=== PATIENT | female | born 1965 | race Caucasian/White ===

== ENCOUNTER 2023-08-24 14:16 | Emergency (ER) | payer OTHER ==
--- OUTSIDE RECORDS SUMMARY | 2023-08-24 14:30 | XMS REPORT | Continuity of Care Document ---
:1965 Author Organization [facility] t Address [address] [place] [address] [place] [id number] Care Team Providers Name Role Phone Sanjuana Rock Primary Care Physician Sue Attending Clinician Unavailable Patrick Hodges DO Attending Clinician Luisa Fraire Attending Clinician Unavailable Pranav GLOVE SEWER, Sanjuana Garcia Attending Clinician Rafaela Chawla MD Attending Clinician [phone] Doctor Unassigned, [place] Attending Clinician Unavailable ALIDA MOSHER Attending Clinician Unavailable Alida Mosher MD Attending Clinician Jenni Daugherty RN Attending Clinician Unavailable RAFAELA CHAWLA Attending Clinician Unavailable CHINEDU BREWER Attending Clinician Unavailable Chinedu Brewer MD Attending Clinician [phone] MINDA CLAIRE Attending Clinician Unavailable Minda Claire MD Attending Clinician Chinedu Davis MD Attending Clinician SAMANTHA CAMPOVERDE Attending Clinician Unavailable Samantha Arzate Attending Clinician Thalia Jiang RN Attending Clinician TONY AZEVEDO Attending Clinician Unavailable Cuca Go Attending Clinician Tony Azevedo MD Attending Clinician DAVIS MCNEIL Attending Clinician Unavailable Davis Wheeler Attending Clinician Adriana_Pena Admitting Clinician Unavailable ALIDA MOSHER Admitting Clinician Unavailable RAFAELA CHAWLA Admitting Clinician Unavailable Rafaela Chawla MD Admitting Clinician [phone] CHINEDU BREWER Admitting Clinician Unavailable Chinedu Brewer MD Admitting Clinician [phone] MINDA CLAIRE Admitting Clinician Unavailable SAMANTHA CAMPOVERDE Admitting Clinician Unavailable TONY AZEVEDO Admitting Clinician Unavailable Tony Azevedo MD Admitting Clinician Payers Payer Name Policy Type Policy Number Effective Date Expiration Date Daniella PATEL ([facility] [place] [id number] 2020 00:00:00 Problems Condition Condition Condition Status Onset Resolution Last Treating Co mments Source Name Details Category Date Date Treatment Clinician Date 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 Epilepsy 00:00: ty 00 [facility] Seizure Seizure Problem Active 2022-10 [place] disorder Disorder 0-05 Commun i 00:00: ty 00 [facility] Chronic Chronic Problem Active 2022-10 [place] pain Pain 0-03 Communi 00:00: ty 00 [facility] Conversati Conversati Problem Active 2022-10 S ween[place] onal onal 0-03 Communi disorder Disorder 00:00: ty 00 [facility] Migraine Migraine Problem Active Sween y 9-18 Communi 00:00: ty 00 [facility] 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 nonepilept [place]pilept [place] ic seizure 00 Me dical Branch Hammer toe Hammer Toe Problem Active S weeny 6-26 Communi 00:00: ty 00 [facility] History of History of Problem Active S weeny idiopathic Idiopathic 6-26 Co mmuni intracrani Intracrani 00:00: ty al al 00 Hospita hypertensi Hypertensi l on on Clinics Mixed Mixed Problem Active [place] hyperlipid Hyperlipid 6-23 Co mmuni emia emia 00:00: ty 00 [facility] Dilated Dilated Problem Active [place] cardiomyop Cardiomyop 6-23 Co mmuni athy athy 00:00: ty 00 [facility] Atrial Atrial Problem Active [place] fibrillati Fibrillati 6-23 Co mmuni on on 00:00: ty 00 [facility] Hydronephr Hydronephr Problem Active S lucie osis osis 5-17 Communi 00:00: ty 00 [facility] Acute Acute Disease Active Univers cystitis cystitis 4-20 ity of with with 00:00: [place] hematuria hematuria 00 Medi yemi Branch Monitoring Monitoring Problem Active S weeny of of 406 Communi pacemaker Pacemaker 00:00: ty 00 [facility] Hypothyroi Hypothyroi Problem Active S lucie dism dism 4-06 Communi 00:00: ty 00 [facility] Vitamin D Vitamin D Problem Active [place] ketan deficiency Deficiency 4-06 Co mmuni 00:00: ty 00 [facility] Morbid Morbid Problem Active [place] obesity Obesity 4-06 Communi 00:00: ty 00 [facility] Generalize Generalize Problem Active S clevelandeny d anxiety d Anxiety 4-06 Comm uni disorder [facility]:00[facility] Depressive Depressive Problem Active S weeny disorder Disorder 4-06 Commun i 00:00: ty 00 [facility] Obstructiv Obstructiv Problem Active S lucie e sleep e Sleep 4-06 Communi apnea Apnea 00:00: ty syndrome Syndrome 00 Hospit a l Clinics 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[place] bradycardi Bradycardi 4-06 Co mmuni a a 00:00: ty [facility] Congestive Congestive Problem Active S shalomy heart Heart 4-06 Communi failure Failure 00:00: ty 00 [facility] Pulmonary Pulmonary Problem Active Swe ketan emphysema Emphysema 4-06 Comm uni 00:00: ty 00 [facility] Asthma Asthma Problem Active [place] 4-06 Communi 00:00: ty 00 [facility] Kidney Kidney Problem Active [place] stone Stone 01-08 Communi 00:00: ty 00 [facility] Degenerati Degenerati Problem Active S weeny on of on of 01-08 Communi cervical Cervical 00:00: ty interverte Interverte 00 Ho spita bral disc bral Disc l Clinics Neurologic Neurologic Problem Active S weeny al pain al Pain 01-08 Communi disorder Disorder 00:00: ty 00 [facility] Morbid Morbid Disease Active Univers obesity obesity 3-21 ity of with body with body 00:[place] mass index mass index 00 Me dical of of Branch 40.0-49.9 40.0-49.9 Flank pain Flank pain Disease Active U nivers 3-20 ity of 00:00: [place] [facility] Ureteral Ureteral Disease Active Overview: Un monique stone with stone with 3-20 Formattin ity of hydronephr hydronephr 00:00: g of this [place] osis osis 00 note Medical might be Branch different from the original. Added automatic ally from request for surgery [id number] Depression Depression Disease Active U nivers 7-14 ity of 00:00: [place] [facility] Asthma Asthma Disease Active Univers 5-11 ity of 00:00: [place] [facility] Pulmonary Pulmonary Disease Active Uni vers emphysema emphysema 4-08 ity of 00:00: [place] [facility] Sinus Sinus Disease Active 2020-10 Univers bradycardi bradycardi 2-23 it y of a a 00:00: [place] [facility] Severe Severe Disease Active Univers persistent persistent 7-22 it y of asthma asthma 00:00: [place] with with 00 Medical exacerbati exacerbati Br anch on on Obstructiv Obstructiv Disease Active U nivers e sleep e sleep 5-12 ity of apnea apnea 00:00: [place] syndrome syndrome 00 Medica l Branch Chest pain Chest pain Disease Active U nivers 5-11 ity of 00:00: [place] [facility] Hypothyroi Hypothyroi Disease Active U nivers dism dism 4-22 ity of 00:00: [place] 00 Medical Branch Chronic Chronic Disease Active 2019-10 Univers combined combined 1-21 ity of systolic systolic 00:00: [place] and and 00 Medical diastolic diastolic Bran ch heart heart failure failure PAF PAF Disease Active Univers (paroxysma (paroxysma 8- it y of l atrial l atrial 00:00: [place] fibrillati fibrillati 00 Me dical on) on) Branch Observed Observed Disease Active 2017-10 Overview: Un monique seizure-li seizure-li 0- Formattin ity of ke ke 00:00: g of this [place] activity activity 00 note Medica l might be Branch different from the original. Formattin g of this note might be different from the original. Pseudo seizures PATY PATY Disease Active Univers (generaliz (generaliz 6-29 it y of ed anxiety ed anxiety 00:[place] disorder[place] disorder) 00 Medi yemi Branch Benign Benign Disease Active Univers intracrani intracrani 5-21 it y of al al 00:00: [place] hypertensi hypertensi 00 Me dical on on Branch Chronic Chronic Disease Active Univers pain pain 4-13 ity of disorder disorder 00:00: [place] 00 Medical Branch Vitamin D Vitamin D Disease Active 2014-10 Uni vers deficiency deficiency 0-19 it y of 00:00: [place] [facility] Obesity, Obesity, Disease Active Unive rs unspecifie unspecifie 6-05 it y of d d 00:00: [place] 00 Medical Branch Class 3 Class 3 Disease Active Univers severe severe 6-05 ity of obesity obesity 00:00: [place] due to due to 00 Medical excess excess Branch calories calories without without serious serious comorbidit comorbidit y in adult y in adult Degenerati Degenerati Disease Active U nivers on of on of 06-26 ity of cervical cervical 00:00: [place] interverte interverte 00 Me dical bral disc bral disc Bran ch Conversion Conversion Disease Active U nivers disorder disorder 8-23 ity of 00:00: [place] 00 Medical Branch Dysarthria Dysarthria Disease Active U nivers 8-23 ity of 00:00: Medical Branch Conversion Conversion Disease Active U nivers disorder disorder 8-23 ity of 00:00: Medical Branch Allergies, Adverse Reactions, Alerts Allergy Allergy Status Severity Reaction(s) Onset Inactive Treating Comm ents Source Name Type Date Date Clinician Sulfa Propensi Active Anaphylaxis 2022-10 Met [facility]odi (Sulfona ty to 0-09 st mide adverse 00:00: Hospita Antibiot reaction 00 l ics) s to drug Buprenor Propensi Active Hives 2022-10 Method i phine ty to 0-09 st adverse 00:00: Hospita reaction 00 l s to drug Ascorbic Propensi Active Hives 2022-10 Method i Acid ty to 0-09 st (Vitamin adverse 00:00: Hospita C) reaction 00 l s to drug Penicill Propensi Active Anaphylaxis 2022-10 M ethodi ins ty to 0-09 st adverse 00:00: Hospita reaction 00 l s to drug CIPROFLO DRUG Active Hives Univers XACIN INGREDI 4-20 ity of 00:00: [place] 00 Medical Branch Ciproflo Propensi Active Hives Univer s xacin ty to 4-20 ity of adverse 00:00: [place] reaction 00 Medical s Branch LATEX DRUG Active Other-Cmnt 0 Univer s INGREDI 3-20 ity of 00:00: [place] 00 Medical Branch PINEAPPL DRUG Active Other-Cmnt 2022-0 Univ ers E INGREDI 3-20 ity of 00:00: [place] 00 Medical Branch PENICILL Drug Active Other-Cmnt 0 Univ ers INS Class 3-20 ity of 00:00: [place] 00 Medical Branch CEFACLOR DRUG Active Other-Cmnt 2022-0 Univ ers INGREDI 3-20 ity of 00:00: [place] 00 Medical Branch CEPHALEX DRUG Active Other-Cmnt 2022-0 Univ ers IN INGREDI 3-20 ity of 00:00: [place] 00 Medical Branch ANTIFUNG Drug Active Rash 0 Univers AL - Class 3-20 ity of IMIDAZOL 00:00: [place] E 00 Medical Branch ATROPINE DRUG Active Other-Cmnt 2022-0 Univ ers -DEMEROL 3-20 ity of 00:00: [place] 00 Medical Branch BEE DRUG Active Other-Cmnt Univer s STING / INGREDI 3-20 ity of VENOM 00:00: [place] 00 Medical Branch SULFA DRUG Active Other-Cmnt Univer s DYNE 3-20 ity of 00:00: [place] 00 Medical Branch Antifung Drug Active Rash Univers al - Allergy 3-20 ity of Imidazol 00:00: [place] e 00 Medical Branch Atropine Propensi Active Other - See U nivers -Demerol ty to comments 3-20 ity of adverse 00:00: [place] reaction 00 Medical s Branch Bee Propensi Active Other - See Uni vers Sting / ty to comments 3-20 ity of Venom adverse 00:00: [place] reaction 00 Medical s Branch Sulfa Propensi Active Other - See Uni vers Dyne ty to comments 3-20 ity of adverse 00:00: [place] reaction 00 Medical s Branch AMIODARO DRUG Active Dizziness 2020-10 Unive rs NE HCL INGREDI 2-06 ity of 00:00: [place] 00 Medical Branch NITROFUR DRUG Active Rash 2020-10 Univers ANTOIN INGREDI 2-06 ity of 00:00: [place] 00 Medical Branch Amiodaro Drug Active Dizziness 2020-10 Other Unive rs ne Hcl Allergy 2-06 reaction( ity of 00:00: s): [place] 00 vision Medical changes, Branch Vision Problems Nitrofur Drug Active Rash 2020-10 Univers antoin Intolera 2-06 ity of nce 00:00: [place] 00 Medical Branch PINEAPPL DRUG Active Other-Cmnt Univ ers E INGREDI 06-13 ity of 00:00: [place] 00 Medical Branch Bee Propensi Active Anaphylaxis Uni vers Venom ty to 06-13 ity of Protein adverse 00:00: [place] (Honey reaction 00 Medical Bee) s Branch BEE DRUG Active High Anaphylaxis 2019- Unive rs VENOM INGREDI 06-13 ity of PROTEIN 00:00: [place] (HONEY 00 Medical BEE) Branch Pineappl Drug Active Swelling Tongue Univer s e Allergy 06-13 swellingT ity of 00:00: ongue [place] swelling Medical Branch WARFARIN DRUG Active High Unknown-Cmnt Un monique INGREDI 9-03 ity of 00:00: [place] 00 Medical Branch Warfarin Propensi Active Unknown - Severe Uni vers ty to See comments 06-07 swelling, i ty of adverse 00:00: skin [place] reaction 00 "turns Medical s purple" Branch Buprenor Drug Active Shortness of 2018-10 Other Un monique phine Allergy Breath 0-15 reaction( ity of 00:00: s): rash Medical Branch BUPRENOR DRUG Active High Rash 2018-10 Univers PHINE INGREDI 0-15 ity of 00:00: [place] [facility] IODINE DRUG Active High Rash Univers INGREDI 7-30 ity of 00:00: [place] 00 Medical Branch Adhesive Propensi Active Rash Hives, Univer s ty to 05-03 TAPE, ity of adverse 00:00: WELTS [place] reaction 00 Medical s Branch ADHESIVE Drug Active High Rash Univers Class 7- ity of 00:00: [place] 00 Medical Branch Cefuroxi Drug Active Rash Other Univers me Allergy 7 reaction( ity of 00:00: s): [place] 00 [facility] , From Branch CEFTIN Iodine Drug Active Rash Anaphylax Univers Allergy 05-03 isOther ity of 00:00: reaction( [place] 00 s): rash Medical Branch CEFUROXI DRUG Active High Rash Univers ME INGREDI 7 ity of 00:00: [place] [facility] LATEX DRUG Active High Other-Cmnt Univer s INGREDI 05-04 ity of 00:00: [place] 00 Medical Branch PENICILL Drug Active High Other-Cmnt Univ ers INS Class 05-04 ity of 00:00: [place] 00 Medical Branch SULFA Drug Active High Anaphylaxis Unive rs (SULFONA Class 7 ity of MIDE 00:00: [place] ANTIBIOT 00 Medical ICS) Branch MEPERIDI DRUG Active Low Rash Univers NE (PF) 05-04 ity of 00:00: [place] 00 Medical Branch Cefaclor Drug Active Rash Hives, Univers Allergy 05-04 From ity of 00:00: CECLOR [place] [facility] Cephalex Drug Active Rash Other Univers in Allergy 7 reaction( ity of 00:00: s): rash Medical Branch Iodinate Propensi Active Anaphylaxis U nivers d ty to 05-04 ity of Contrast adverse 00:00: [place] Media reaction 00 Medical s Branch Latex Drug Active Rash Hives Univers Allergy 05-04 Latex ity of 00:00: gloves [place] [facility] Meperidi Propensi Active Rash Univer s ne (Pf) ty to 05-04 ity of adverse 00:00: [place] reaction 00 Medical s Branch Penicill Propensi Active Anaphylaxis Anaphyla x Univers ins ty to 05-04 isOther ity of adverse 00:00: reaction( [place] reaction 00 s): rash Medica l s Branch Sulfa Drug Active Rash Anaphylax Univers (Sulfona Allergy 05-04 is, SULFA ity of mide 00:00: [place] Antibiot 00 Medical ics) Branch CEFACLOR DRUG Active High Other-Cmnt Univ ers INGREDI 05-04 ity of 00:00: [place] [facility] CEPHALEX DRUG Active High Other-Cmnt Univ ers IN INGREDI 05-04 ity of 00:00: [place] [facility] IODINATE Drug Active High Anaphylaxis Uni vers D Class 05-04 ity of CONTRAST 00:00: [place] MEDIA 00 Medical Branch Atropine Allergy Active [place] [facility] BEE Allergy Active Anaphylaxis [place] [facility] PR[facility] ty (HONEY e Hospita BEE) l Clinics Buprenor Allergy Active Rash [place] phine [facility] Cefaclor Allergy Active Rash [place] to Communi substanc ty e Hospita l Clinics Cefuroxi Allergy Active [place] me to Communi substanc ty e Hospita l Clinics Iodine Allergy Active [place] to Communi substanc ty e Hospita l Clinics Latex Allergy Active [place] to Communi substanc ty e Hospita l Clinics Meperidi Allergy Active [place] ne [facility] Cipro Allergy Active Severe Hives [place] to Communi substanc ty e Hospita l Clinics Nitrofur Allergy Active [place] antoin to Communi substanc ty e Hospita l Clinics PENICILL Allergy Active Anaphylaxis [place] een[place] INS to Communi substanc ty e Hospita l Clinics Pineappl Allergy Active [place] e to Communi substanc ty e Hospita l Clinics SULFA Allergy Active Anaphylaxis [place] (SULFONA to Communi MIDE substanc ty ANTIBIOT e Hospita ICS) l Clinics Warfarin Allergy Active [place] to Communi substanc ty e Hospita l Clinics ADHESIVE Allergy Active Rash [place] to Communi substanc ty e Hospita l Clinics Amiodaro Allergy Active [place] ne to Communi substanc ty e Hospita l Clinics ANTIFUNG Allergy Active [place] AL - to Communi IMIDAZOL substanc ty E e Hospita l Clinics NO KNOWN Drug Active Univers ALLERGIE Class ity of S [place] [facility] Social History Social Habit Start Date Stop Date Quantity Comments Source History SDOH Social Unive rsity of [facility] Med ical Together Branch History SDOH Social Unive rsity of [facility] Medical Branch History SDOH Social Unive rsity of [facility] Medical Membership Branch History SDOH Social Unive rsity of [facility] Medical Meetings Branch Gender identity Universit y of [facility] [place] [place] Sexual orientation [facility] History of Social 2023-03-16 2023-03-16 Univers ity of function 00:00:00 00:00:00 [place] [facility] Exposure to 2023-02-12 2023-02-22 Not sure Colome of SARS-CoV-2 (event) 00:00:00 18:58:00 [place] [facility] History SDOH 2023-01-23 2023-01-23 0 University o f Physical Activity 00:00:00 00:00:00 [place] M edical DPW Branch History SDOH 2023-01-23 2023-01-23 0 University o f Physical Activity 00:00:00 00:00:00 [place] M edical MPS Branch History SDOH 2023-01-23 2023-01-23 2 University o f Housing Unable to 00:00:00 00:00:00 [place] M edical Pay Branch History SDOH 2023-01-23 2023-01-23 1 University o f Housing Places 00:00:00 00:00:00 [place] Medi yemi Lived Branch History SDOH 2023-01-23 2023-01-23 2 University o f Housing Homeless 00:00:00 00:00:00 [place] Me dical Last Year Branch History SDOH 2023-01-23 2023-01-23 1 University o f Alcohol Frequency 00:00:00 00:00:00 [place] M edical Branch History SDOH Social 2023-01-23 2023-01-23 1 Unive rsity of Connections Phone 00:00:00 00:00:00 [facility] edical Branch History SDOH Social 2023-01-23 2023-01-23 5 Unive rsity of Connections Living 00:00:00 00:00:00 [place] [facility] History SDOH 2023-01-23 2023-01-23 5 University o f Financial 00:00:00 00:00:00 [place] [facility] History SDOH Food 2023-01-23 2023-01-23 1 Univers ity of Worry 00:00:00 00:00:00 [place] [facility] History SDOH Food 2023-01-23 2023-01-23 1 Univers ity of Scarcity 00:00:00 00:00:00 [place] [facility] History SDOH 2023-01-23 2023-01-23 2 University o f Transport Med 00:00:00 00:00:00 [place] [facility] History SDME 2023-01-23 2023-01-23 2 University o f Transport Non-Med 00:00:00 00:00:00 [facility] edical Branch History SDME 2022-12-24 2022-12-24 0 University o f Alcohol Std Drinks 00:00:00 00:00:00 [place] [facility] History SDME 2022-12-24 2022-12-24 1 University o f Alcohol Binge 00:00:00 00:00:00 [facility] al Branch Tobacco use and 2022-12-23 2022-12-23 Smokeless Universit y of exposure 00:00:00 00:00:00 tobacco non-user [facility] dical [place] Sex Ass[birth year] At [birth year] [employer] 00:00:00 00:00:00 Hospital Smoking Status Start Date Stop Date Source [facility] Medications Ordered Filled Start Stop Current Ordering Indication Dosage Frequency Signature Comments Components Source Medication Medication Date Date Medication? Clinician (SIG) Name Name topiramate 2022-10- Yes 50mg Q.5D Take 1 Meth harris (Topamax) 0-24 10-24 tablet (50 st 50 MG 00:00: 04:59 mg total) Hospit a tablet 00 :00 by mouth 2 l (two) times a day. topiramate 2022-104- Yes 50mg Q.5D Take 1 Meth harris (Topamax) 0-24 10-24 tablet (50 st 50 MG 00:00: 04:59 mg total) Hospit a tablet 00 :00 by mouth 2 l (two) times a day. gabapentin 2022-10 Yes 600mg [id number] Take 1 [facility] (NEURONTIN) 0-[id number] 600 mg 15:54: 3D (600 mg Hospita tablet 21 total) by l mouth 3 (three) times a day. ferrous 2022-10 Yes Take by [facility] sulfate 0-[address] (IRON ORAL) 15:54: Hospit a 21 l gabapentin 2022-10 Yes 600mg [id number] Take 1 [facility] (NEURONTIN) 0-[id number] 600 mg 15:54: 3D (600 mg Hospita tablet 21 total) by l mouth 3 (three) times a day. ferrous 2022-10 Yes Take by [facility] sulfate 0-[address] (IRON ORAL) 15:54: Hospit a 21 l levothyroxi 2022-10 Yes 200ug QD Take 1 Met hodi ne 0-[address] (SYNTHROID) 15:53: (200 mcg Ho spita 200 mcg 49 total) by l tablet mouth daily. apixaban 2022-10 Yes 5mg Q.5D Take 1 [facility] (Eliquis) 5 0-09 tablet (5 st mg tablet 15:53: mg total) Hos corbin 49 by mouth 2 l (two) times a day. rOPINIRole 2022-10 Yes 1mg QD Take 1 Metho di (REQUIP) 1 0-09 tablet (1 st MG tablet 15:53: mg total) Hos corbin 49 by mouth l daily. qam rOPINIRole 2022-10 Yes 2mg QD Take 1 Metho di (REQUIP) 2 0-09 tablet (2 st MG tablet 15:53: mg total) Hos corbin 49 by mouth l nightly. furosemide 2022-10 Yes 40mg QD Take 1 Metho di (LASIX) 40 0-09 tablet (40 st mg tablet 15:53: mg total) Hos corbin 49 by mouth l daily. spironolact 2022-10 Yes 25mg QD Take 1 Meth harris one 0-09 tablet (25 st (ALDACTONE) 15:53: mg total) H ospita 25 MG 49 by mouth l tablet daily. busPIRone 2022-10 Yes 10mg Q.5D Take 1 Method i (BUSPAR) 10 0-09 tablet (10 st MG tablet 15:53: mg total) Hos corbin 49 by mouth 2 l (two) times a day. FLUoxetine 2022-10 Yes 40mg QD Take 1 Metho di (PROzac) 40 0-[address] MG capsule 15:53: (40 mg Hospi ta 49 total) by l mouth daily. levothyroxi 2022-10 Yes 200ug QD Take 1 Met hodi ne 0-[address] (SYNTHROID) 15:53: (200 mcg Ho spita 200 mcg 49 total) by l tablet mouth daily. apixaban 2022-10 Yes 5mg Q.5D Take 1 [facility] (Eliquis) 5 0-09 tablet (5 st mg tablet 15:53: mg total) Hos corbin 49 by mouth 2 l (two) times a day. rOPINIRole 2022-10 Yes 1mg QD Take 1 Metho di (REQUIP) 1 0-09 tablet (1 st MG tablet 15:53: mg total) Hos corbin 49 by mouth l daily. qam rOPINIRole 2022-10 Yes 2mg QD Take 1 Metho di (REQUIP) 2 0-09 tablet (2 st MG tablet 15:53: mg total) Hos corbin 49 by mouth l nightly. furosemide 2022-10 Yes 40mg QD Take 1 Metho di (LASIX) 40 0-09 tablet (40 st mg tablet 15:53: mg total) Hos corbin 49 by mouth l daily. spironolact 2022-10 Yes 25mg QD Take 1 Meth harris one 0-09 tablet (25 st (ALDACTONE) 15:53: mg total) H ospita 25 MG 49 by mouth l tablet daily. busPIRone 2022-10 Yes 10mg Q.5D Take 1 Method i (BUSPAR) 10 0-09 tablet (10 st MG tablet 15:53: mg total) Hos corbin 49 by mouth 2 l (two) times a day. FLUoxetine 2022-10 Yes 40mg QD Take 1 Metho di (PROzac) 40 0-[address] MG capsule 15:53: (40 mg Hospi ta 49 total) by l mouth daily. ubrogepant 2022-10- Yes 100mg Take 1 Met hodi (Ubrelvy) 007-[address] 100 mg 00:00: 04:59 (100 mg Hospita tablet 00 :00 total) by l tablet mouth once as needed for migraine. May repeat in 2 hours if unresolved . Do not exceed 200 mg in 24 hours. ubrogepant 2022-10- Yes 100mg Take 1 Met hodi (Ubrelvy) 07-[address] 100 mg 00:00: 04:59 (100 mg Hospita tablet 00 :00 total) by l tablet mouth once as needed for migraine. May repeat in 2 hours if unresolved . Do not exceed 200 mg in 24 hours. levETIRAcet 2022-10- No 750mg Q.5D Take 1 Me thodi am (Keppra) 08-[address] 750 MG 00:00: 05:59 (750 mg Hospita tablet 00 :00 total) by l mouth 2 (two) times a day for 30 days. levETIRAcet 2022-10- Yes 750mg Q.5D Take 1 Me thodi am (Keppra) 08-[address] 750 MG 00:00: 05:59 (750 mg Hospita tablet 00 :00 total) by l mouth 2 (two) times a day for 30 days. topiramate 2022-10- No 25mg Q.5D Take 1 Meth harris (Topamax) -24 tablet (25 st 25 MG 00:00: 04:59 mg total) Hospit a tablet 00 :00 by mouth 2 l (two) times a day for 14 days. topiramate 2022-10- No 25mg Q.5D Take 1 Meth harris (Topamax) 0-24 tablet (25 st 25 MG 00:00: 04:59 mg total) Hospit a tablet 00 :00 by mouth 2 l (two) times a day for 14 days. FENTanyl PF 2022- No 50ug 50 mcg, [facility] (SUBLIMAZE 05-12 Slow IV ity o f (PF)) 18:32: 18:34 Push, [place] injection 00 :00 ONCE, 1 Medical 50 mcg dose, On Branch 05/12/23 at 1345, STAT FENTanyl PF 2022- No 50ug 50 mcg, [facility] (SUBLIMAZE 05-12 Slow IV ity o f (PF)) 16:30: 16:24 [place], [place] injection 00 :00 ONCE, 1 Medical 50 mcg dose, On Branch e 05/12/23 at 1130, STAT perflutren 2022-0 2022- No [id number] 3mL 3 mL, IV [facility] protein-A 04-1916 Push, ity of microsphr 17:15: 17:15 ONCE, 1 [place] (OPTISON) 00 :00 dose, On Medica l injection 3 Sun Branch mL 04/19/23 at 1215, Routine albuterol Yes 2{puff} Inhale 2 U nivers 90 7-16 Puffs. ity of mcg/actuati 15:24: [place] on inhaler 16 Medical Branch budesonide- 0 Yes 2{puff} Inhale 2 Univers glycopyr-fo 7-16 Puffs. ity of rmoterol 15:24: [place] ([address] AEROSPHERE) Branch 160-9-4.8 mcg/actuati on HFAA magnesium Yes 27mg Take 1 Univer s gluconate 7-16 tablet by ity o f 27 mg [place] 15:24: mouth [place] MAGNESIUM 16 every Medical tablet morning. Branch methocarbam Yes 1000mg Take 2 Un monique oL 500 mg 7-16 tablets by ity of tablet 15:24: mouth. [address] KCL 10 mEq 2022-0 Yes 10meq Take 1 Univ ers tablet 7-16 tablet by ity of 15:24: mouth in [place] [address] the Medical morning Branch and 1 tablet in the evening. atorvastati 0 Yes 40mg Take 1 Univ ers n 40 mg 7-16 tablet by ity of tablet 15:24: mouth at [place] [address] bedtime. Medical Branch albuterol 2022-0 Yes 2{puff} Inhale 2 U nivers 90 7-16 Puffs. ity of mcg/actuati 15:24: [place] on inhaler 16 Medical Branch budesonide- 2022-0 Yes 2{puff} Inhale 2 [facility] glycopyr-fo 7-16 Puffs. ity of rmoterol 15:24: [place] ([address]) Branch 160-9-4.8 mcg/actuati on HFAA magnesium 3-0 Yes 27mg Take 1 Univer s gluconate 7-16 tablet by ity o f 27 mg [place] 15:24: mouth [place] MAGNESIUM 16 every Medical tablet morning. Branch methocarbam 2022-0 Yes 1000mg Take 2 Un mon[facility] oL 500 mg 7-16 tablets by ity of tablet 15:24: mouth. [place] [address] Medical Branch KCL 10 mEq 2022-0 Yes 10meq Take 1 Univ ers tablet 7-16 tablet by ity of 15:24: mouth in [place] [address] the Medical morning Branch and 1 tablet in the evening. atorvastati 2022-0 Yes 40mg Take 1 Univ ers n 40 mg 7-16 tablet by ity of tablet 15:24: mouth at [place] [address] bedtime. Medical Branch albuterol 2022-0 Yes 2{puff} Inhale 2 U nivers 90 7-16 Puffs. ity of mcg/actuati 15:24: [place] on inhaler 16 Medical Branch budesonide- 2022-0 Yes 2{puff} Inhale 2 Univers glycopyr-fo 7-16 Puffs. ity of rmoterol 15:24: [place] ([address]) Branch 160-9-4.8 mcg/actuati on HFAA magnesium 2022-0 Yes 27mg Take 1 Univer s gluconate 7-16 tablet by ity o f 27 mg [place] 15:24: mouth [place] MAGNESIUM 16 every Medical tablet morning. Branch methocarbam 2022-0 Yes 1000mg Take 2 [facility] oL 500 mg 7-16 tablets by ity of tablet 15:24: mouth. [place] [address] Medical Branch KCL 10 mEq 2022-0 Yes 10meq Take 1 Univ ers tablet 7-16 tablet by ity of 15:24: mouth in [place] [address] the Medical morning Branch and 1 tablet in the evening. atorvastati 3-0 Yes 40mg Take 1 Univ ers n 40 mg 7-16 tablet by ity of tablet 15:24: mouth at [place] [address] bedtime. Medical Branch albuterol 2022-0 Yes 2{puff} Inhale 2 U nivers 90 7-16 Puffs. ity of mcg/actuati 15:24: [place] on inhaler 16 Medical Branch budesonide- 2022-0 Yes 2{puff} Inhale 2 Univers glycopyr-fo 7-16 Puffs. ity of rmoterol 15:24: [place] ([address]) Branch 160-9-4.8 mcg/actuati on HFAA magnesium 2022-0 Yes 27mg Take 1 Univer s gluconate 7-16 tablet by ity o f 27 mg [place] 15:24: mouth [place] MAGNESIUM 16 every Medical tablet morning. Branch methocarbam 0 Yes 1000mg Take 2 [facility] mon[facility] oL 500 mg 7-16 tablets by ity of tablet 15:24: mouth. [place] [address] Medical Branch KCL 10 mEq 2022-0 Yes 10meq Take 1 Univ ers tablet 7-16 tablet by ity of 15:24: mouth in [place] [address] the Medical morning Branch and 1 tablet in the evening. atorvastati 2022-0 Yes 40mg Take 1 Univ ers n 40 mg 7-16 tablet by ity of tablet 15:24: mouth at [place] [address] bedtime. Medical Branch albuterol 2022-0 Yes 2{puff} Inhale 2 U nivers 90 7-16 Puffs. ity of mcg/actuati 15:24: [place] on inhaler 16 Medical Branch budesonide- 2022-0 Yes 2{puff} Inhale 2 Univers glycopyr-fo 7-16 Puffs. ity of rmoterol 15:24: [place] ([address]) Branch 160-9-4.8 mcg/actuati on HFAA magnesium 2022-0 Yes 27mg Take 1 Univer s gluconate 7-16 tablet by ity o f 27 mg [place] 15:24: mouth [place] MAGNESIUM 16 every Medical tablet morning. Branch methocarbam 2022-0 Yes 1000mg Take 2 Un [facility] oL 500 mg 7-16 tablets by ity of tablet 15:24: mouth. [place] [address] Medical Branch KCL 10 mEq 2022-0 Yes 10meq Take 1 Univ ers tablet 7-16 tablet by ity of 15:24: mouth in [place] 16 the Medical morning Branch and 1 tablet in the evening. atorvastati 0 Yes 40mg Take 1 Univ ers n 40 mg 7-16 tablet by ity of tablet 15:24: mouth at [place] [address] bedtime. Medical Branch albuterol 0 Yes 2{puff} Inhale 2 U nivers 90 7-16 Puffs. ity of mcg/actuati 15:24: [place] on inhaler 16 Medical Branch budesonide- 2022-0 Yes 2{puff} Inhale 2 [facility] glycopyr-fo 7-16 Puffs. ity of rmoterol 15:24: [place] ([place] [address] Medical AEROSPHERE) Branch 160-9-4.8 mcg/actuati on HFAA magnesium 0 Yes 27mg Take 1 Univer s gluconate 7-16 tablet by ity o f 27 mg [place] 15:24: mouth [place] MAGNESIUM 16 every Medical tablet morning. Branch methocarbam 0 Yes 1000mg Take 2 Un mon[facility] oL 500 mg 7-16 tablets by ity of tablet 15:24: mouth. [place] [address] Medical Branch KCL 10 mEq 0 Yes 10meq Take 1 Univ ers tablet 7-16 tablet by ity of 15:24: mouth in [place] [address] the Medical morning Branch and 1 tablet in the evening. atorvastati 0 Yes 40mg Take 1 Univ ers n 40 mg 7-16 tablet by ity of tablet 15:24: mouth at [place] [address] bedtime. Medical Branch albuterol 0 Yes 2{puff} Inhale 2 U nivers 90 7-16 Puffs. ity of mcg/actuati 15:24: [place] on inhaler 16 Medical Branch budesonide- 2022-0 Yes 2{puff} Inhale 2 Univers glycopyr-fo 7-16 Puffs. ity of rmoterol 15:24: [place] ([place] [address] Medical AEROSPHERE) Branch 160-9-4.8 mcg/actuati on HFAA magnesium 0 Yes 27mg Take 1 Univer s gluconate 7-16 tablet by ity o f 27 mg [place] 15:24: mouth [place] MAGNESIUM 16 every Medical tablet morning. Branch methocarbam 2022-0 Yes 1000mg Take 2 Un monique oL 500 mg 7-16 tablets by ity of tablet 15:24: mouth. [address] KCL 10 mEq 2022-0 Yes 10meq Take 1 Univ ers tablet 7-16 tablet by ity of 15:24: mouth in [place] [address] the [facility] Branch and 1 tablet in the evening. atorvastati 0 Yes 40mg Take 1 Univ ers n 40 mg 7-16 tablet by ity of tablet 15:24: mouth at [place] [address] bedtime. Medical Branch albuterol 0 Yes 2{puff} Inhale 2 U nivers 90 7-16 Puffs. ity of mcg/actuati 15:24: [place] on inhaler 16 Medical Branch budesonide- 2022-0 Yes 2{puff} Inhale 2 Univers glycopyr-fo 7-16 Puffs. ity of rmoterol 15:24: [place] ([address]) [place] 160-9-4.8 mcg/actuati on HFAA magnesium 0 Yes 27mg Take 1 Univer s gluconate 7-16 tablet by ity o f 27 mg [place] 15:24: mouth [place] MAGNESIUM 16 every Medical tablet morning. Branch methocarbam 0 Yes 1000mg Take 2 Un monique oL 500 mg 7-16 tablets by ity of tablet 15:24: mouth. [address] KCL 10 mEq 2022-0 Yes 10meq Take 1 Univ ers tablet 7-16 tablet by ity of 15:24: mouth in [place] [address] the [facility] and 1 tablet in the evening. atorvastati 0 Yes 40mg Take 1 Univ ers n 40 mg 7-16 tablet by ity of tablet 15:24: mouth at [place] [address] bedtime. Medical Branch Lidocaine 2022-0 2022- No 1{patch 1 Patch, Univers (LIDOCARE) 04-1917 } Topical, ity of 4 % patch 1 14:30: 05:28 Administer [place] Patch 00 :00 over 12 Medical Hours, Branch ONCE, 1 dose, On 04/19/23 at 0930, Routine KCL 20 2022-0 2022- No 40meq 40 mEq, Univer s mEq/15 mL 04-19 Oral, ity of solution 40 11:45: 11:30 ONCE, 1 [place] mEq 00 :00 dose, On Medical Sun Branch 04/19/23 at 0645, Routine magnesium 2022- No 4g 4 g, IV Univ ers sulfate in 04-19 Piggyback, it y of water 4 11:45: 13:22 at 25 [place] gram/50 mL 00 :00 mL/hr Medical (8 %) IV Administer Branc h Piggyback 4 over 120 g Minutes, ONCE, 1 dose, On [place] 04/19/23 at 0645, Routine potassium 2022-0 2022- No 40meq 40 mEq, IV Univers chloride in 04-19 Infusion, it y of water (KCL) 11:00: 14:59 Q2H ES, 2 [place] 20 mEq/100 00 :00 doses, Medical mL RTU IVPB First dose Br anch 40 mEq on [place] 04/19/23 at 0600, Last dose on [place] 04/19/23 at 0800, 200 mL LORazepam 2022- No 2mg 2 mg, Univer s (ATIVAN) 04-18 Intravenou ity of injection 2 19:45: 18:50 s, ONCE, 1 [place] mg 00 :00 dose, On Medical Sat Branch 04/18/23 at 1445, Routine Lidocaine 2022- No 1{patch 1 Patch, Univers (LIDOCARE) 04-18 } Topical, ity of 4 % patch 1 18:45: 06:38 Administer [place] Patch 00 :00 over 12 Medical Hours, Branch ONCE, 1 dose, On [facility] 04/18/23 at 1345, Routine FLUoxetine 0 Yes 40mg 40 mg, Unive rs (PROZAC) 04-18 Oral, ity of capsule 40 14:00: DAILY, [place] mg 00 First dose Medical on Sat Branch 04/18/23 at 0900, Until Discontinu ed, Routine budesonide- 2022-0 Yes 2{puff} 2 Puff, Univers formoteroL 15 Inhalation ity of (SYMBICORT) 13:00: , BID, [place] 160-4.5 00 First dose Medica l mcg/actuati on Sat Branch on inhaler 04/18/23 at 2 Puff 0800, Until Discontinu ed, Routine heparin 2022-0 2022- No 5000U 5,000 Univers (porcine) 04-18 Units, ity of injection 13:00: 18:26 Subcutaneo [place] 5,000 Units 00 :53 us, Q12H, Med ical First dose Branch on 04/18/23 at 0800, Until Discontinu ed, Routine methocarbam 2022-0 Yes 1000mg 1,000 mg, Univers oL 7-15 Oral, Q6H, ity of (ROBAXIN) 11:30: First dose [place] tablet 00 (after Medical 1,000 mg last Branch modificati on) on 04/18/23 at 0630, Until Discontinu ed, Routine levothyroxi 2022-0 Yes 200ug 200 mcg, U nivers ne 7-15 Oral, ity of (SYNTHROID) 11:00: QAM-0600, [place] tablet 200 00 First dose Med ical mcg on Sat Branch 04/18/23 at 0600, Until Discontinu ed, Routine FENTanyl PF 2022-0 202- No 25ug 25 mcg, Un monique (SUBLIMAZE 15 07-15 Slow IV ity o f (PF)) 05:00: 04:24 Push, [place] injection 00 :00 ONCE, 1 Medical 25 mcg dose, On Branch 04/18/23 at 0000, Routine KCL 2022-0 Yes 10meq 10 mEq, Univers (KLOR-CON 7-15 Oral, BID, ity of M10) tablet 02:45: First dose [place] 10 mEq 00 (after Medical last Branch modificati on) on Thu04/17/23 at 2145, Until Discontinu ed, Routine gabapentin 2022-0 Yes 600mg 600 mg, Uni vers (NEURONTIN) 7-15 Oral, TID, it y of tablet 600 02:45: First dose [place] mg 00 (after Medical last Branch modificati on) on Thu04/17/23 at 2145, Until Discontinu ed, Routine apixaban 2022-0 Yes 5mg 5 mg, Univers (ELIQUIS) 7-15 Oral, BID, ity of tablet 5 mg 02:45: First dose [place] 00 (after Medical last Branch modificati on) on Thu04/17/23 at 2145, Until Discontinu ed, Routine
Indicatio ns: Non-Valvul ar Atrial Fibrillati on busPIRone 2022-0 Yes 30mg 30 mg, Univer s (BUSPAR) 7-15 Oral, BID, ity o f tablet 30 02:45: First dose [place] mg 00 (after Medical last Branch modificati on) on Thu04/17/23 at 2145, Until Discontinu ed, Routine acetaminoph 2022-0 Yes 650mg 650 mg, Un moniuqe en 7-15 Oral, ity of (TYLENOL) 02:32: Q6HPRN, [place] tablet 650 07 Starting Medic al mg on Thu Branch 04/17/23 at 2132, Until Discontinu ed, Routine, Pain (scale 1-3) HYDROcodone 2022-0 Yes 1{tbl} 1 tablet, Univers -acetaminop 7-15 Oral, ity of hen (NORCO) 02:31: Q6HPRN, In[place] as 10-325 mg 09 Starting Medica l tablet 1 on Thu Branch tablet 04/17/23 at 2131, Until Discontinu ed, Routine, Pain (scale 4-6) atorvastati 0 Yes 40mg 40 mg, Univ ers n (LIPITOR) 7-15 Oral, QHS, it y of tablet 40 02:30: First dose [place] mg 00 on Fri Medical 04/17/23 at Branch 2130, Until Discontinu ed, Routine furosemide 2022-0 Yes 40mg 40 mg, Unive rs (LASIX) 7-15 Slow IV ity of injection 02:30: Push, [place] 40 mg 00 Q12H, Medical First dose Branch on Thu04/17/23 at 2130, Until Discontinu ed, Routine ondansetron 2022-0 Yes 4mg 4 mg, Slow Univers (ZOFRAN 7-15 IV [place], ity of (PF)) 01:12: Q6HPRN, [place] injection 4 04 Nausea and Me dical mg Vomiting Branch (N/V), Starting on Thu04/17/23 at 2011
Do ses of ondansetro n 16 mg and above need to be administer ed via IV piggyback. For Dose >=24mg ECG monitoring is advisable.
morpHINE (2 2022-0 Yes 4mg 4 mg, Slow Univers mg/mL) 7-15 IV Push, ity of injection 4 00:56: Q4HPRN, [place] mg 37 Starting Medical on Thu Branch 04/17/23 at 1956, Until Discontinu ed, Routine, Chest pain, Pain (scale 7-10) furosemide 2022-0 Yes [id number] 40mg Take 1 Univers 40 mg 7-15 9100 tablet by ity of tablet 00:00: mouth [place] 00 every Medical morning Branch and evening. spironolact 2023-0 Yes [id number] 25mg Take 1 Univers one 25 mg 7-15 9100 tablet by ity o f tablet 00:00: mouth in [place] 00 the Medical morning. Branch furosemide 2022-0 Yes [id number] 40mg Take 1 Univers 40 mg 7-15 9100 tablet by ity of tablet 00:00: mouth [place] 00 every Medical morning Branch and evening. spironolact 3-0 Yes [id number] 25mg Take 1 Univers one 25 mg 7-15 9100 tablet by ity o f tablet 00:00: mouth in [place] 00 the Medical morning. Branch furosemide 2022-0 Yes [id number] 40mg Take 1 Univers 40 mg 7-15 9100 tablet by ity of tablet 00:00: mouth [place] 00 every Medical morning Branch and evening. spironolact 2022-0 Yes [id number] 25mg Take 1 Univers one 25 mg 7-15 9100 tablet by ity o f tablet 00:00: mouth in [place] 00 the Medical morning. Branch furosemide 2022-0 Yes [id number] 40mg Take 1 Univers 40 mg 7-15 9100 tablet by ity of tablet 00:00: mouth [place] 00 every Medical morning Branch and evening. spironolact 3-0 Yes [id number] 25mg Take 1 Univers one 25 mg 7-15 9100 tablet by ity o f tablet 00:00: mouth in [place] 00 the Medical morning. Branch furosemide 2022-0 Yes [id number] 40mg Take 1 Univers 40 mg 7-15 9100 tablet by ity of tablet 00:00: mouth [place] 00 every Medical morning Branch and evening. spironolact 2023-0 Yes [id number] 25mg Take 1 Univers one 25 mg 7-15 9100 tablet by ity o f tablet 00:00: mouth in [place] 00 the Medical morning. Branch furosemide 3-0 Yes [id number] 40mg Take 1 Univers 40 mg 7-15 9100 tablet by ity of tablet 00:00: mouth [place] 00 every Medical morning Branch and evening. spironolact 3-0 Yes [id number] 25mg Take 1 Univers one 25 mg 7-15 9100 tablet by ity o f tablet 00:00: mouth in [place] 00 the Medical morning. Branch furosemide 2022-0 Yes [id number] 40mg Take 1 Univers 40 mg 7-15 9100 tablet by ity of tablet 00:00: mouth [place] 00 every Medical morning Branch and evening. spironolact 2022-0 Yes [id number] 25mg Take 1 Univers one 25 mg 7-15 9100 tablet by ity o f tablet 00:00: mouth in [place] 00 the Medical morning. Branch furosemide 2022-0 Yes [id number] 40mg Take 1 Univers 40 mg 7-15 9100 tablet by ity of tablet 00:00: mouth [place] 00 every Medical morning Branch and evening. spironolact 2022-0 Yes [id number] 25mg Take 1 Univers one 25 mg 7-15 9100 tablet by ity o f tablet 00:00: mouth in [place] 00 the Medical morning. [place] ketorolac ketorolac No ketorolac [place] 60 mg/2 mL 60 mg/2 mL 6-26 60 mg/2 mL Communi intramuscul intramuscul 11:30: intramuscu ty ar ar [facility] solutionInj solutionInj solutionIn l ect 2 mL by ect 2 mL by ject 2 mL Clinics intramuscul intramuscul by ar route. ar route. intramuscu lar route. ondansetron 2022- No 4mg 4 mg, Slow Univers (ZOFRAN 03-16 IV Push, ity of (PF)) 16:00: 15:15 ONCE, On [place] injection 4 00 :00 Mon Medical mg 03/16/23 at Branch 1100, For 1 dose
Do ses of ondansetro n 16 mg and above need to be administer ed via IV piggyback. For Dose >=24mg ECG monitoring is advisable.
ondansetron 2022-2022- No 4mg 4 mg, Slow Univers (ZOFRAN 03-16 IV Push, ity of (PF)) 16:00: 15:15 ONCE, On [place] injection 4 00 :00 Mon Medical mg 03/16/23 at Branch 1100, For 1 dose
Do ses of ondansetro n 16 mg and above need to be administer ed via IV piggyback. For Dose >=24mg ECG monitoring is advisable.
HYDROcodone 2022-0 2022- No 1{tbl} 1 tablet, Univers -acetaminop -09 09-12 Oral, ity of hen (NORCO 14:15: 15:26 ONCE, 1 [place] 5) 5-325 mg 00 :00 dose, On Medi yemi tablet 1 Mon Branch tablet 03/16/23 at 0915, Routine, PACU HYDROcodone 2022-0 2022- No 1{tbl} 1 tablet, Univers -acetaminop 03-1612 Oral, ity of hen (NORCO 14:15: 15:26 ONCE, 1 [place] 5) 5-325 mg 00 :00 dose, On Medi yemi tablet 1 Thu Branch tablet 03/16/23 at 0915, Routine, PACU FENTanyl PF 2022-0 Yes 25ug 25 mcg, Uni vers (SUBLIMAZE 6-12 Slow IV ity of (PF)) 14:14: Push, [place] injection 48 Q5MIN PRN, Medi yemi 25 mcg 4 doses, Branch Starting on Thu03/16/23 at 0914, Until Discontinu ed, Routine, Pain (scale 4-6), PACU FENTanyl PF 2022-0 2022- No 25ug 25 mcg, Un monique (SUBLIMAZE 12 06-12 Slow IV ity o f (PF)) 14:14: 17:36 Push, [place] injection 48 :17 Q5MIN PRN, Medi yemi 25 mcg 4 doses, Branch Starting on Thu03/16/23 at 0914, Until Thu03/16/23 at 1236, Routine, Pain (scale 4-6), PACU albuterol Yes 2{puff} Inhale 2 U nivers 90 6-12 Puffs. ity of mcg/actuati 10:36: [place] on inhaler 13 Medical Branch budesonide- Yes 2{puff} Inhale 2 Univers glycopyr-fo 6-12 Puffs. ity of rmoterol 10:36: [place] [facility] Branch 160-9-4.8 mcg/actuati on HFAA magnesium 2022-0 Yes 27mg Take 1 Univer s gluconate 6-12 tablet by ity o f 27 mg [place] 10:36: mouth [place] MAGNESIUM 13 every Medical tablet morning. Branch methocarbam 2022-0 Yes 1000mg Take 2 Un monique oL 500 mg 6-12 tablets by ity of tablet 10:36: mouth. [place] [address] Medical Branch KCL 10 mEq 2022-0 Yes 10meq Take 1 Univ ers tablet 6-12 tablet by ity of 10:36: mouth in [place] 13 the Medical morning. Branch albuterol 0 Yes 2{puff} Inhale 2 U nivers 90 6-12 Puffs. ity of mcg/actuati 10:36: [place] on inhaler 13 Medical Branch budesonide- 2022-0 Yes 2{puff} Inhale 2 Univers glycopyr-fo 6-12 Puffs. ity of rmoterol 10:36: [place] ([address]) Branch 160-9-4.8 mcg/actuati on HFAA magnesium 2022-0 Yes 27mg Take 1 Univer s gluconate 6-12 tablet by ity o f 27 mg [place] 10:36: mouth [place] MAGNESIUM 13 every Medical tablet morning. Branch methocarbam 2022-0 Yes 1000mg Take 2 Un monique oL 500 mg 6-12 tablets by ity of tablet 10:36: mouth. [place] [address] Medical Branch KCL 10 mEq 2022-0 Yes 10meq Take 1 Univ ers tablet 6-12 tablet by ity of 10:36: mouth in [place] 13 the Medical morning. Branch ibuprofen 2022-0 2022- No [id number] 600mg Take 1 Univers 600 mg 6-12 06-23 tablet by ity of tablet 00:00: 04:59 mouth [place] 00 :00 every 6 Medical (six) Branch hours as needed for Pain (scale 1-3) (Alternate with tylenol every 3 hours as needed) for up to 10 days. ibuprofen 3-0 2022- No [id number] 600mg Take 1 Univers 600 mg 6-12 06-23 tablet by ity of tablet 00:00: 04:59 mouth [place] 00 :00 every 6 Medical (six) Branch hours as needed for Pain (scale 1-3) (Alternate with tylenol every 3 hours as needed) for up to 10 days. acetaminoph 2023-0 2023- No [id number] 650mg Take 1 Univers en (TYLENOL 6-12 06-20 tablet by it y of 8 HOUR) 650 00:00: 04:59 mouth [place] mg CR 00 :00 every 8 Medical tablet (eight) Branch hours as needed for Pain for up to 7 days. acetaminoph 2023-0 2023- No [id number] 650mg Take 1 Univers en (TYLENOL 6-12 06-20 tablet by it y of 8 HOUR) 650 00:00: 04:59 mouth [place] mg CR 00 :00 every 8 Medical tablet (eight) Branch hours as needed for Pain for up to 7 days. magnesium 2023-0 Yes 27mg Take 1 Univer s gluconate 6-08 tablet by ity o f 27 mg [place] 15:08: mouth [place] MAGNESIUM 45 every Medical tablet morning. Branch methocarbam 2023-0 Yes 1000mg Take 2 Un monique oL 500 mg 6-08 tablets by ity of tablet 15:08: mouth. [place] [address] Medical Branch KCL 10 mEq 3-0 Yes 10meq Take 1 Univ ers tablet 6-08 tablet by ity of 15:08: mouth in [place] [address] the Medical morning. Branch magnesium 2023-0 Yes 27mg Take 1 Univer s gluconate 6-08 tablet by ity o f 27 mg [place] 15:08: mouth [place] MAGNESIUM 45 every Medical tablet morning. Branch methocarbam 2023-0 Yes 1000mg Take 2 Un monique oL 500 mg 6-08 tablets by ity of tablet 15:08: mouth. [place] [address] Medical Branch KCL 10 mEq 3-0 Yes 10meq Take 1 Univ ers tablet 6-08 tablet by ity of 15:08: mouth in [place] [address] the Medical morning. Branch magnesium 2023-0 Yes 27mg Take 1 Univer s gluconate 6-08 tablet by ity o f 27 mg [place] 15:08: mouth [place] MAGNESIUM 45 every Medical tablet morning. Branch methocarbam 2023-0 Yes 1000mg Take 2 Un monique oL 500 mg 6-08 tablets by ity of tablet 15:08: mouth. [place] [address] Medical Branch KCL 10 mEq 3-0 Yes 10meq Take 1 Univ ers tablet 6-08 tablet by ity of 15:08: mouth in [place] [address] the Medical morning. Branch albuterol Yes 2{puff} Inhale 2 U nivers 90 6-08 Puffs. ity of mcg/actuati 15:06: [place] on inhaler 59 Medical Branch budesonide- Yes 2{puff} Inhale 2 Univers glycopyr-fo 6-08 Puffs. ity of rmoterol 15:06: [place] ([address]) Branch 160-9-4.8 mcg/actuati on HFAA albuterol Yes 2{puff} Inhale 2 U nivers 90 6-08 Puffs. ity of mcg/actuati 15:06: [place] on inhaler 59 Medical Branch budesonide- Yes 2{puff} Inhale 2 Univers glycopyr-fo 6-08 Puffs. ity of rmoterol 15:06: [place] ([address]) Branch 160-9-4.8 mcg/actuati on HFAA albuterol Yes 2{puff} Inhale 2 U nivers 90 6-08 Puffs. ity of mcg/actuati 15:06: [place] on inhaler 59 Medical Branch budesonide- Yes 2{puff} Inhale 2 Univers glycopyr-fo 6-08 Puffs. ity of rmoterol 15:06: [place] ([address]) Branch 160-9-4.8 mcg/actuati on HFAA FENTanyl PF 2022- No 50ug 50 mcg, Un monique (SUBLIMAZE 02-23 Slow IV ity o f (PF)) 02:00: 00:59 Push, [place] injection 00 :00 ONCE, 1 Medical 50 mcg dose, On Branch 02/22/23 at 2100, Routine NaCl 0.9% 2022- No 500mL at 999 Univ ers (NS) bolus 02-23 mL/hr, 500 it y of infusion 01:45: 03:49 mL, IV [place] 500 mL 00 :00 Piggyback, Medical ONCE, 1 Branch dose, On 02/22/23 at 2045, STAT furosemide 2022- No 40mg 40 mg, IV U nivers (LASIX) 02-23 Push, ity of injection 01:15: 02:08 ONCE, 1 [place] 40 mg 00 :00 dose, On Medical [place] Branch 02/22/23 at 2014, JUAN[place] ondansetron No 4mg 4 mg, Slow Univers (ZOFRAN 02-23 IV [place], ity of (PF)) 01:00: 01:06 ONCE, 1 [place] injection 4 00 :00 dose, On Medi yemi mg [place] Branch 02/22/23 at 1999, JUANCHO HYDROcodone 2022- No 4647 1{tbl} Take 1 U nivers -acetaminop 5-21 05-29 tablet by it y of hen 5-325 00:00: 04:59 mouth [place] mg tablet 00 :00 every 6 Medical (six) Branch hours as needed for Pain (scale 4-6) for up to 7 days. Indication s: acute pain HYDROcodone 2022- No 4647 1{tbl} Take 1 U nivers -acetaminop 5-21 05-29 tablet by it y of hen 5-325 00:00: 04:59 mouth [place] mg tablet 00 :00 every 6 Medical (six) Branch hours as needed for Pain (scale 4-6) for up to 7 days. Indication s: acute pain HYDROcodone 2022- No 4647 1{tbl} Take 1 U nivers -acetaminop 5-21 05-29 tablet by it y of hen 5-325 00:00: 04:59 mouth [place] mg tablet 00 :00 every 6 Medical (six) Branch hours as needed for Pain (scale 4-6) for up to 7 days. Indication s: acute pain HYDROcodone 2022-2022- No 4647 1{tbl} Take 1 U nivers -acetaminop 5-21 05-29 tablet by it y of hen 5-325 00:00: 04:59 mouth [place] mg tablet 00 :00 every 6 Medical (six) Branch hours as needed for Pain (scale 4-6) for up to 7 days. Indication s: acute pain HYDROcodone 2022-2022- No 4647 1{tbl} Take 1 U nivers -acetaminop 5-21 05-29 tablet by it y of hen 5-325 00:00: 04:59 mouth [place] mg tablet 00 :00 every 6 Medical (six) Branch hours as needed for Pain (scale 4-6) for up to 7 days. Indication s: acute pain HYDROcodone 2022- No 4647 1{tbl} Take 1 U nivers -acetaminop 5-21 05-29 tablet by it y of hen 5-325 00:00: 04:59 mouth [place] mg tablet 00 :00 every 6 Medical (six) Branch hours as needed for Pain (scale 4-6) for up to 7 days. Indication s: acute pain HYDROcodone 2022- No 4647 1{tbl} Take 1 U nivers -acetaminop 5-21 05-29 tablet by it y of hen 5-325 00:00: 04:59 mouth [place] mg tablet 00 :00 every 6 Medical (six) Branch hours as needed for Pain (scale 4-6) for up to 7 days. Indication s: acute pain HYDROcodone 2022- No 4647 1{tbl} Take 1 U nivers -acetaminop 5-21 05-29 tablet by it y of hen 5-325 00:00: 04:59 mouth [place] mg tablet 00 :00 every 6 Medical (six) Branch hours as needed for Pain (scale 4-6) for up to 7 days. Indication s: acute pain hyoscyamine No .125mg 0.125 mg, Univers sulfate 02-17 Sublingual ity o f (LEVSIN/SL) 02:30: 01:42 , ONCE, 1 [place] sublingual 00 :00 dose, On Medic al tablet Thu 0.125 mg 02/16/23 at 2130, Routine NaCl 0.9% No 1000mL at 999 Uni vers (NS) bolus 02-17 mL/hr, ity of infusion 02:30: 02:40 1,000 mL, [place] as 1,000 mL 00 :00 IV Medical Infusion, Branch ONCE, 1 dose, On Thu02/16/23 at 2130, STAT ketorolac No 30mg 30 mg, Unive rs (TORADOL) 02-17 Slow IV ity of injection 01:45: 01:43 Push, [place] 30 mg 00 :00 ONCE, 1 Medical dose, On Branch 02/16/23 at 204, JUANCHO morpHINE (2 2022- No 2mg 2 mg, Slow Univers mg/mL) 02-17 IV Push, ity of injection 2 01:15: 01:13 ONCE, 1 [place] mg 00 :00 dose, On Medical Mon Branch 02/16/23 at 2015, STAT ondansetron 2022- No 4mg 4 mg, Slow Univers (ZOFRAN 02-17 IV Push, ity of (PF)) 00:15: 00:14 ONCE, 1 [place] injection 4 00 :00 dose, On Medi yemi mg Mon Branch 02/16/23 at 1915, JUANCHO morpHINE (4 2022- No 4mg 4 mg, Slow Univers mg/mL) 02-16 IV Push, ity of injection 4 23:15: 23:23 ONCE, 1 [place] mg 00 :00 dose, On Medical Mon Branch 02/16/23 at 1815, STAT HYDROcodone Yes 5379 1{tbl} Take 1 Un monique -acetaminop 5-15 tablet by ity of hen 5-325 00:00: mouth [place] mg tablet 00 every 6 Medical (six) Branch hours as needed for Pain (scale 7-10). Indication s: acute pain HYDROcodone Yes 5379 1{tbl} Take 1 Un monique -acetaminop 5-15 tablet by ity of hen 5-325 00:00: mouth [place] mg tablet 00 every 6 Medical (six) Branch hours as needed for Pain (scale 7-10). Indication s: acute pain HYDROcodone 2022- No 5379 1{tbl} Take 1 U nivers -acetaminop 5-15 05-21 tablet by it y of hen 5-325 00:00: 00:00 mouth [place] mg tablet 00 :00 every 6 Medical (six) Branch hours as needed for Pain (scale 7-10). Indication s: acute pain HYDROcodone 2022-2022- No 5379 1{tbl} Take 1 U nivers -acetaminop 5-15 05-21 tablet by it y of hen 5-325 00:00: 00:00 mouth [place] mg tablet 00 :00 every 6 Medical (six) Branch hours as needed for Pain (scale 7-10). Indication s: acute pain rOPINIRole 2023-0 Yes 1mg Take 1 Unive rs 1 mg tablet 4-26 tablet by ity of 00:00: mouth in [place] 00 the Medical morning. Branch levothyroxi 2023-0 Yes 200ug Take 1 Uni vers ne 200 mcg 4-26 tablet by ity of tablet 00:00: mouth [place] every Medical morning. Branch furosemide 2023-0 Yes 40mg Take 1 Unive rs 40 mg 4-26 tablet by ity of tablet 00:00: mouth in [place] 00 the Medical morning. Branch rOPINIRole 2023-0 Yes 1mg Take 1 Unive rs 1 mg tablet 4-26 tablet by ity of 00:00: mouth in [place] the Medical morning. Branch levothyroxi 2023-0 Yes 200ug Take 1 Uni vers ne 200 mcg 4-26 tablet by ity of tablet 00:00: mouth [place] every Medical morning. Branch furosemide 2023-0 Yes 40mg Take 1 Un[facility] rs 40 mg 4-26 tablet by ity of tablet 00:00: mouth in [place] the Medical morning. Branch rOPINIRole 2023-0 Yes 1mg Take 1 Unive rs 1 mg tablet 4-26 tablet by ity of 00:00: mouth in [place] the Medical morning. Branch levothyroxi 2023-0 Yes 200ug Take 1 Uni vers ne 200 mcg 4-26 tablet by ity of tablet 00:00: mouth [place] every Medical morning. Branch furosemide 2023-0 Yes 40mg Take 1 Un[facility] rs 40 mg 4-26 tablet by ity of tablet 00:00: mouth in [place] the Medical morning. Branch rOPINIRole 2023-0 Yes 1mg Take 1 Un[facility] rs 1 mg tablet 4-26 tablet by ity of 00:00: mouth in [place] the Medical morning. Branch levothyroxi 2023-0 Yes 200ug Take 1 Uni vers ne 200 mcg 4-26 tablet by ity of tablet 00:00: mouth [place] every Medical morning. Branch furosemide 2023-0 Yes 40mg Take 1 Un[facility] rs 40 mg 4-26 tablet by ity of tablet 00:00: mouth in [place] 00 the Medical morning. Branch rOPINIRole 2023-0 Yes 1mg Take 1 Un[facility] rs 1 mg tablet 4-26 tablet by ity of 00:00: mouth in [place] 00 the Medical morning. Branch levothyroxi 2023-0 Yes 200ug Take 1 Uni vers ne 200 mcg 4-26 tablet by ity of tablet 00:00: mouth [place] every Medical morning. Branch furosemide 2023-0 Yes 40mg Take 1 Un[facility] rs 40 mg 4-26 tablet by ity of tablet 00:00: mouth in [place] the Medical morning. Branch rOPINIRole 2023-0 Yes 1mg Take 1 Unive rs 1 mg tablet 4-26 tablet by ity of 00:00: mouth in [place] 00 the Medical morning. Branch levothyroxi 2023-0 Yes 200ug Take 1 Uni vers ne 200 mcg 4-26 tablet by ity of tablet 00:00: mouth [place] every Medical morning. Branch furosemide 2023-0 Yes 40mg Take 1 Un[facility] rs 40 mg 4-26 tablet by ity of tablet 00:00: mouth in [place] the Medical morning. Branch rOPINIRole 2023-0 Yes 1mg Take 1 Unive rs 1 mg tablet 4-26 tablet by ity of 00:00: mouth in [place] the Medical morning. Branch levothyroxi 2023-0 Yes 200ug Take 1 Uni vers ne 200 mcg 4-26 tablet by ity of tablet 00:00: mouth [place] every Medical morning. Branch furosemide 2023-0 Yes 40mg Take 1 Unive rs 40 mg 4-26 tablet by ity of tablet 00:00: mouth in [place] the Medical morning. Branch rOPINIRole 2023-0 Yes 1mg Take 1 Unive rs 1 mg tablet 4-26 tablet by ity of 00:00: mouth in [place] the Medical morning. Branch levothyroxi 2023-0 Yes 200ug Take 1 Uni vers ne 200 mcg 4-26 tablet by ity of tablet 00:00: mouth [place] every Medical morning. Branch furosemide 2023-0 Yes 40mg Take 1 Un[facility] rs 40 mg 4-26 tablet by ity of tablet 00:00: mouth in [place] 00 the Medical morning. Branch rOPINIRole 2023-0 Yes 1mg Take 1 Unive rs 1 mg tablet 4-26 tablet by ity of 00:00: mouth in [place] 00 the Medical morning. Branch levothyroxi 2023-0 Yes 200ug Take 1 Uni vers ne 200 mcg 4-26 tablet by ity of tablet 00:00: mouth [place] 00 every Medical morning. Branch furosemide 2023-0 Yes 40mg Take 1 Unive rs 40 mg 4-26 tablet by ity of tablet 00:00: mouth in [place] 00 the Medical morning. Branch rOPINIRole 2023-0 Yes 1mg Take 1 Unive rs 1 mg tablet 4-26 tablet by ity of 00:00: mouth in [place] 00 the Medical morning. Branch levothyroxi 2023-0 Yes 200ug Take 1 Uni vers ne 200 mcg 4-26 tablet by ity of tablet 00:00: mouth [place] 00 every Medical morning. Branch furosemide 2023-0 Yes 40mg Take 1 Un[facility] rs 40 mg 4-26 tablet by ity of tablet 00:00: mouth in [place] 00 the Medical morning. Branch rOPINIRole 2023-0 Yes 1mg Take 1 Unive rs 1 mg tablet 4-26 tablet by ity of 00:00: mouth in [place] 00 the Medical morning. Branch levothyroxi 2023-0 Yes 200ug Take 1 Uni vers ne 200 mcg 4-26 tablet by ity of tablet 00:00: mouth [place] 00 every Medical morning. Branch furosemide 2023-0 Yes 40mg Take 1 Unive rs 40 mg 4-26 tablet by ity of tablet 00:00: mouth in [place] 00 the Medical morning. Branch rOPINIRole 2023-0 Yes 1mg Take 1 Unive rs 1 mg tablet 4-26 tablet by ity of 00:00: mouth in [place] 00 the Medical morning. Branch levothyroxi 2023-0 Yes 200ug Take 1 Uni vers ne 200 mcg 4-26 tablet by ity of tablet 00:00: mouth [place] 00 every Medical morning. Branch furosemide 2023-0 Yes 40mg Take 1 Unive rs 40 mg 4-26 tablet by ity of tablet 00:00: mouth in [place] 00 the Medical morning. Branch rOPINIRole 2023-0 Yes 1mg Take 1 Unive rs 1 mg tablet 4-26 tablet by ity of 00:00: mouth in [place] 00 the Medical morning. Branch levothyroxi 2023-0 Yes 200ug Take 1 Uni vers ne 200 mcg 4-26 tablet by ity of tablet 00:00: mouth [place] 00 every Medical morning. Branch furosemide 2023-0 Yes 40mg Take 1 Unive rs 40 mg 4-26 tablet by ity of tablet 00:00: mouth in [place] 00 the Medical morning. Branch rOPINIRole 2023-0 Yes 1mg Take 1 Unive rs 1 mg tablet 4-26 tablet by ity of 00:00: mouth in [place] 00 the Medical morning. Branch levothyroxi 2023-0 Yes 200ug Take 1 Uni vers ne 200 mcg 4-26 tablet by ity of tablet 00:00: mouth [place] every Medical morning. Branch furosemide 2023-0 Yes 40mg Take 1 Unive rs 40 mg 4-26 tablet by ity of tablet 00:00: mouth in [place] 00 the Medical morning. Branch rOPINIRole 2023-0 Yes 1mg Take 1 Unive rs 1 mg tablet 4-26 tablet by ity of 00:00: mouth in [place] the Medical morning. Branch levothyroxi 2023-0 Yes 200ug Take 1 Uni vers ne 200 mcg 4-26 tablet by ity of tablet 00:00: mouth [place] every Medical morning. Branch furosemide 2023-0 Yes 40mg Take 1 Unive rs 40 mg 4-26 tablet by ity of tablet 00:00: mouth in [place] the Medical morning. Branch rOPINIRole 2023-0 Yes 1mg Take 1 Unive rs 1 mg tablet 4-26 tablet by ity of 00:00: mouth in [place] the Medical morning. Branch levothyroxi 2023-0 Yes 200ug Take 1 Uni vers ne 200 mcg 4-26 tablet by ity of tablet 00:00: mouth [place] every Medical morning. Branch furosemide 2023-0 Yes 40mg Take 1 Unive rs 40 mg 4-26 tablet by ity of tablet 00:00: mouth in [place] 00 the Medical morning. Branch rOPINIRole 2023-0 Yes 1mg Take 1 Unive rs 1 mg tablet 4-26 tablet by ity of 00:00: mouth in [place] the Medical morning. Branch levothyroxi 2023-0 Yes 200ug Take 1 Uni vers ne 200 mcg 4-26 tablet by ity of tablet 00:00: mouth [place] 00 every Medical morning. Branch furosemide 2023-0 Yes 40mg Take 1 Unive rs 40 mg 4-26 tablet by ity of tablet 00:00: mouth in [place] 00 the Medical morning. Branch rOPINIRole 2023-0 Yes 1mg Take 1 Unive rs 1 mg tablet 4-26 tablet by ity of 00:00: mouth in [place] 00 the Medical morning. Branch levothyroxi 2023-0 Yes 200ug Take 1 Uni vers ne 200 mcg 4-26 tablet by ity of tablet 00:00: mouth [place] 00 every Medical morning. Branch furosemide 2023-0 Yes 40mg Take 1 Unive rs 40 mg 4-26 tablet by ity of tablet 00:00: mouth in [place] 00 the Medical morning. Branch rOPINIRole 2023-0 Yes 1mg Take 1 Unive rs 1 mg tablet 4-26 tablet by ity of 00:00: mouth in [place] 00 the Medical morning. Branch levothyroxi 2023-0 Yes 200ug Take 1 Uni vers ne 200 mcg 4-26 tablet by ity of tablet 00:00: mouth [place] every Medical morning. Branch furosemide 2023-0 Yes 40mg Take 1 Unive rs 40 mg 4-26 tablet by ity of tablet 00:00: mouth in [place] 00 the Medical morning. Branch rOPINIRole 2023-0 Yes 1mg Take 1 Unive rs 1 mg tablet 4-26 tablet by ity of 00:00: mouth in [place] 00 the Medical morning. Branch levothyroxi 2023-0 Yes 200ug Take 1 Uni vers ne 200 mcg 4-26 tablet by ity of tablet 00:00: mouth [place] 00 every Medical morning. Branch rOPINIRole 2023-0 Yes 1mg Take 1 Unive rs 1 mg tablet 4-26 tablet by ity of 00:00: mouth in [place] 00 the Medical morning. Branch levothyroxi 2023-0 Yes 200ug Take 1 Uni vers ne 200 mcg 4-26 tablet by ity of tablet 00:00: mouth [place] 00 every Medical morning. Branch rOPINIRole 2023-0 Yes 1mg Take 1 Unive rs 1 mg tablet 4-26 tablet by ity of 00:00: mouth in [place] 00 the Medical morning. Branch levothyroxi 2023-0 Yes 200ug Take 1 Uni vers ne 200 mcg 4-26 tablet by ity of tablet 00:00: mouth [place] 00 every Medical morning. Branch rOPINIRole 2023-0 Yes 1mg Take 1 Unive rs 1 mg tablet 4-26 tablet by ity of 00:00: mouth in [place] 00 the Medical morning. Branch levothyroxi 2023-0 Yes 200ug Take 1 Uni vers ne 200 mcg 4-26 tablet by ity of tablet 00:00: mouth [place] 00 every Medical morning. Branch rOPINIRole 2023-0 Yes 1mg Take 1 Unive rs 1 mg tablet 4-26 tablet by ity of 00:00: mouth in [place] 00 the Medical morning. Branch levothyroxi 2023-0 Yes 200ug Take 1 Uni vers ne 200 mcg 4-26 tablet by ity of tablet 00:00: mouth [place] 00 every Medical morning. Branch rOPINIRole 2023-0 Yes 1mg Take 1 Unive rs 1 mg tablet 4-26 tablet by ity of 00:00: mouth in [place] 00 the Medical morning. Branch levothyroxi 2023-0 Yes 200ug Take 1 Uni vers ne 200 mcg 4-26 tablet by ity of tablet 00:00: mouth [place] 00 every Medical morning. Branch rOPINIRole 2023-0 Yes 1mg Take 1 Unive rs 1 mg tablet 4-26 tablet by ity of 00:00: mouth in [place] 00 the Medical morning. Branch levothyroxi 2023-0 Yes 200ug Take 1 Uni vers ne 200 mcg 4-26 tablet by ity of tablet 00:00: mouth [place] 00 every Medical morning. Branch rOPINIRole 2023-0 Yes 1mg Take 1 Unive rs 1 mg tablet 4-26 tablet by ity of 00:00: mouth in [place] 00 the Medical morning. Branch levothyroxi 2023-0 Yes 200ug Take 1 Uni vers ne 200 mcg 4-26 tablet by ity of tablet 00:00: mouth [place] 00 every Medical morning. Branch furosemide 3-0 3- No 40mg Take 1 Univ ers 40 mg 4-26 07-15 tablet by ity of tablet 00:00: 00:00 mouth in [place] 00 :00 the Medical morning. Branch ertapenem 3-0 3- No 1000mg 1,000 mg, Univers (INVANZ) 4-25 04-25 IV ity of 1,000 mg in 17:30: 18:12 [place], [place] NaCl 0.9% 00 :00 Q24H ABX, Medic al (NS) 100 mL 1 dose, Branc h MINI-BAG First dose (after last modificati on) on Thu01/27/23 at 1230, Administer over 30 Minutes, 100 mL
Reas on for Anti-Infec tive: Documented Infection< br>Docu mented Infection Site: Urine
D uration of Therapy: 7 days
Re stricted use approved by: ANTIMICROB IAL [facility] albuterol Yes 2{puff} Inhale 2 U nivers 90 4-25 Puffs. ity of mcg/actuati 16:50: [place] on inhaler 25 Medical Branch budesonide- Yes 2{puff} Inhale 2 Univers glycopyr-fo 4-25 Puffs. ity of rmoterol 16:50: [place] ([address]) Branch 160-9-4.8 mcg/actuati on HFAA magnesium 0 Yes 27mg Take 1 Univer s gluconate 4-25 tablet by ity o f 27 mg [place] 16:50: mouth [place] MAGNESIUM 25 every Medical tablet morning. Branch methocarbam Yes 1000mg Take 2 Un monique oL 500 mg 4-25 tablets by ity of tablet 16:50: mouth. [address] Branch KCL 10 mEq Yes 10meq Take 1 Univ ers tablet 4-25 tablet by ity of 16:50: mouth in [place] [address] the Medical morning. Branch albuterol Yes 2{puff} Inhale 2 U nivers 90 4-25 Puffs. ity of mcg/actuati 16:50: [place] on inhaler 25 Medical Branch budesonide- Yes 2{puff} Inhale 2 [facility] glycopyr-fo 4-25 Puffs. ity of rmoterol 16:50: [place] ([address]) Branch 160-9-4.8 mcg/actuati on HFAA magnesium Yes 27mg Take 1 Univer s gluconate 4-25 tablet by ity o f 27 mg [place] 16:50: mouth [place] MAGNESIUM 25 every Medical tablet morning. Branch methocarbam Yes 1000mg Take 2 Un monique oL 500 mg 4-25 tablets by ity of tablet 16:50: mouth. [address] KCL 10 mEq 0 Yes 10meq Take 1 Univ ers tablet 4-25 tablet by ity of 16:50: mouth in [place] [address] the Medical morning. Branch albuterol 2023-0 Yes 2{puff} Inhale 2 U nivers 90 4-25 Puffs. ity of mcg/actuati 16:50: [place] on inhaler 25 Medical Branch budesonide- Yes 2{puff} Inhale 2 Univers glycopyr-fo 4-25 Puffs. ity of rmoterol 16:50: [place] ([address]) Branch 160-9-4.8 mcg/actuati on HFAA magnesium 0 Yes 27mg Take 1 Univer s gluconate 4-25 tablet by ity o f 27 mg [place] 16:50: mouth [place] MAGNESIUM 25 every Medical tablet morning. Branch methocarbam Yes 1000mg Take 2 Un monique oL 500 mg 4-25 tablets by ity of tablet 16:50: mouth. [address] Branch KCL 10 mEq 0 Yes 10meq Take 1 Univ ers tablet 4-25 tablet by ity of 16:50: mouth in [place] [address] the Medical morning. Branch albuterol Yes 2{puff} Inhale 2 U nivers 90 4-25 Puffs. ity of mcg/actuati 16:50: [place] on inhaler 25 Medical Branch budesonide- Yes 2{puff} Inhale 2 Univers glycopyr-fo 4-25 Puffs. ity of rmoterol 16:50: [place] ([address]) Branch 160-9-4.8 mcg/actuati on HFAA magnesium 0 Yes 27mg Take 1 Univer s gluconate 4-25 tablet by ity o f 27 mg [place] 16:50: mouth [place] MAGNESIUM 25 every Medical tablet morning. Branch methocarbam 0 Yes 1000mg Take 2 Un monique oL 500 mg 4-25 tablets by ity of tablet 16:50: mouth. [address] Branch KCL 10 mEq 0 Yes 10meq Take 1 Univ ers tablet 4-25 tablet by ity of 16:50: mouth in [place] [address] the Medical morning. Branch albuterol Yes 2{puff} Inhale 2 U nivers 90 4-25 Puffs. ity of mcg/actuati 16:50: [place] on inhaler 25 Medical Branch budesonide- 0 Yes 2{puff} Inhale 2 Univers glycopyr-fo 4-25 Puffs. ity of rmoterol 16:50: [place] ([facility] Branch 160-9-4.8 mcg/actuati on HFAA magnesium 0 Yes 27mg Take 1 Univer s gluconate 4-25 tablet by ity o f 27 mg [place] 16:50: mouth [place] MAGNESIUM 25 every Medical tablet morning. Branch methocarbam 0 Yes 1000mg Take 2 Un monique oL 500 mg 4-25 tablets by ity of tablet 16:50: mouth. [address] Branch KCL 10 mEq 0 Yes 10meq Take 1 Univ ers tablet 4-25 tablet by ity of 16:50: mouth in [place] the Medical morning. Branch albuterol Yes 2{puff} Inhale 2 U nivers 90 4-25 Puffs. ity of mcg/actuati 16:50: [place] on inhaler 25 Medical Branch budesonide- Yes 2{puff} Inhale 2 Univers glycopyr-fo 4-25 Puffs. ity of rmoterol 16:50: [place] ([facility] [address] [facility]) Branch 160-9-4.8 mcg/actuati on HFAA magnesium 0 Yes 27mg Take 1 Univer s gluconate 4-25 tablet by ity o f 27 mg [place] 16:50: mouth [place] MAGNESIUM 25 every Medical tablet morning. Branch methocarbam 0 Yes 1000mg Take 2 Un monique oL 500 mg 4-25 tablets by ity of tablet 16:50: mouth. [address] Branch KCL 10 mEq 0 Yes 10meq Take 1 Univ ers tablet 4-25 tablet by ity of 16:50: mouth in [place] the Medical morning. Branch albuterol 0 Yes 2{puff} Inhale 2 U nivers 90 4-25 Puffs. ity of mcg/actuati 16:50: [place] on inhaler 25 Medical Branch budesonide- 0 Yes 2{puff} Inhale 2 Univers glycopyr-fo 4-25 Puffs. ity of rmoterol 16:50: [place] ([facility]) Branch 160-9-4.8 mcg/actuati on HFAA magnesium 2023-0 Yes 27mg Take 1 Univer s gluconate 4-25 tablet by ity o f 27 mg [place] 16:50: mouth [place] MAGNESIUM 25 every Medical tablet morning. Branch methocarbam 2022-0 Yes 1000mg Take 2 Un monique oL 500 mg 4-25 tablets by ity of tablet 16:50: mouth. [place] [address] Medical Branch KCL 10 mEq 2022-0 Yes 10meq Take 1 Univ ers tablet 4-25 tablet by ity of 16:50: mouth in [place] the Medical morning. Branch albuterol 2022-0 Yes 2{puff} Inhale 2 U nivers 90 4-25 Puffs. ity of mcg/actuati 16:50: [place] on inhaler 25 Medical Branch budesonide- 0 Yes 2{puff} Inhale 2 [facility] glycopyr-fo 4-25 Puffs. ity of rmoterol 16:50: [place] ([address]) Branch 160-9-4.8 mcg/actuati on HFAA magnesium 2022-0 Yes 27mg Take 1 Univer s gluconate 4-25 tablet by ity o f 27 mg [place] 16:50: mouth [place] MAGNESIUM 25 every Medical tablet morning. Branch methocarbam 0 Yes 1000mg Take 2 Un monique oL 500 mg 4-25 tablets by ity of tablet 16:50: mouth. [place] [address] Medical Branch KCL 10 mEq 2022-0 Yes 10meq Take 1 Univ ers tablet 4-25 tablet by ity of 16:50: mouth in [place] [address] the Medical morning. Branch albuterol 0 Yes 2{puff} Inhale 2 U nivers 90 4-25 Puffs. ity of mcg/actuati 16:50: [place] on inhaler 25 Medical Branch budesonide- 2022-0 Yes 2{puff} Inhale 2 [facility] glycopyr-fo 4-25 Puffs. ity of rmoterol 16:50: [place] ([address]) Branch 160-9-4.8 mcg/actuati on HFAA magnesium 2022-0 Yes 27mg Take 1 Univer s gluconate 4-25 tablet by ity o f 27 mg [place] 16:50: mouth [place] MAGNESIUM 25 every Medical tablet morning. Branch methocarbam 2022-0 Yes 1000mg Take 2 Un monique oL 500 mg 4-25 tablets by ity of tablet 16:50: mouth. [place] [address] Medical Branch KCL 10 mEq 2022-0 Yes 10meq Take 1 Univ ers tablet 4-25 tablet by ity of 16:50: mouth in [place] [address] the Medical morning. Branch albuterol 0 Yes 2{puff} Inhale 2 U nivers 90 4-25 Puffs. ity of mcg/actuati 16:50: [place] on inhaler 25 Medical Branch budesonide- 0 Yes 2{puff} Inhale 2 Univers glycopyr-fo 4-25 Puffs. ity of rmoterol 16:50: [place] ([address]) Branch 160-9-4.8 mcg/actuati on HFAA magnesium 0 Yes 27mg Take 1 Univer s gluconate 4-25 tablet by ity o f 27 mg [place] 16:50: mouth [place] MAGNESIUM 25 every Medical tablet morning. Branch methocarbam 0 Yes 1000mg Take 2 Un monique oL 500 mg 4-25 tablets by ity of tablet 16:50: mouth. [place] [address] Medical Branch KCL 10 mEq 2022-0 Yes 10meq Take 1 Univ ers tablet 4-25 tablet by ity of 16:50: mouth in [place] [address] the Medical morning. Branch albuterol 0 Yes 2{puff} Inhale 2 U nivers 90 4-25 Puffs. ity of mcg/actuati 16:50: [place] on inhaler 25 Medical Branch budesonide- 0 Yes 2{puff} Inhale 2 Univers glycopyr-fo 4-25 Puffs. ity of rmoterol 16:50: [place] ([address]) Branch 160-9-4.8 mcg/actuati on HFAA magnesium 2022-0 Yes 27mg Take 1 Univer s gluconate 4-25 tablet by ity o f 27 mg [place] 16:50: mouth [place] MAGNESIUM 25 every Medical tablet morning. Branch methocarbam 2022-0 Yes 1000mg Take 2 Un monique oL 500 mg 4-25 tablets by ity of tablet 16:50: mouth. [place] [address] Medical Branch KCL 10 mEq 2022-0 Yes 10meq Take 1 Univ ers tablet 4-25 tablet by ity of 16:50: mouth in [place] [address] the Medical morning. Branch albuterol Yes 2{puff} Inhale 2 U nivers 90 4-25 Puffs. ity of mcg/actuati 16:50: [place] on inhaler 25 Medical Branch budesonide- Yes 2{puff} Inhale 2 Univers glycopyr-fo 4-25 Puffs. ity of rmoterol 16:50: [place] ([address]) Branch 160-9-4.8 mcg/actuati on HFAA magnesium 0 Yes 27mg Take 1 Univer s gluconate 4-25 tablet by ity o f 27 mg [place] 16:50: mouth [place] MAGNESIUM 25 every Medical tablet morning. Branch methocarbam Yes 1000mg Take 2 Un monique oL 500 mg 4-25 tablets by ity of tablet 16:50: mouth. [address] Branch KCL 10 mEq Yes 10meq Take 1 Univ ers tablet 4-25 tablet by ity of 16:50: mouth in [place] [address] the Medical morning. Branch albuterol Yes 2{puff} Inhale 2 U nivers 90 4-25 Puffs. ity of mcg/actuati 16:50: [place] on inhaler 25 Medical Branch budesonide- Yes 2{puff} Inhale 2 Univers glycopyr-fo 4-25 Puffs. ity of rmoterol 16:50: [place] ([address]) Branch 160-9-4.8 mcg/actuati on HFAA magnesium Yes 27mg Take 1 Univer s gluconate 4-25 tablet by ity o f 27 mg [place] 16:50: mouth [place] MAGNESIUM 25 every Medical tablet morning. Branch methocarbam Yes 1000mg Take 2 Un monique oL 500 mg 4-25 tablets by ity of tablet 16:50: mouth. [place] [address] Medical Branch KCL 10 mEq 0 Yes 10meq Take 1 Univ ers tablet 4-25 tablet by ity of 16:50: mouth in [place] [address] the Medical morning. Branch albuterol Yes 2{puff} Inhale 2 U nivers 90 4-25 Puffs. ity of mcg/actuati 16:50: [place] on inhaler 25 Medical Branch budesonide- Yes 2{puff} Inhale 2 Univers glycopyr-fo 4-25 Puffs. ity of rmoterol 16:50: [address]) Branch 160-9-4.8 mcg/actuati on HFAA magnesium 0 Yes 27mg Take 1 Univer s gluconate 4-25 tablet by ity o f 27 mg [place] 16:50: mouth [place] MAGNESIUM 25 every Medical tablet morning. Branch methocarbam 0 Yes 1000mg Take 2 Un monique oL 500 mg 4-25 tablets by ity of tablet 16:50: mouth. [address] KCL 10 mEq Yes 10meq Take 1 Univ ers tablet 4-25 tablet by ity of 16:50: mouth in [place] the Medical morning. Branch albuterol Yes 2{puff} Inhale 2 U nivers 90 4-25 Puffs. ity of mcg/actuati 16:50: [place] on inhaler 25 Medical Branch budesonide- Yes 2{puff} Inhale 2 Univers glycopyr-fo 4-25 Puffs. ity of rmoterol 16:50: [place] ([address]) Branch 160-9-4.8 mcg/actuati on HFAA magnesium Yes 27mg Take 1 Univer s gluconate 4-25 tablet by ity o f 27 mg [place] 16:50: mouth [place] MAGNESIUM 25 every Medical tablet morning. Branch methocarbam 0 Yes 1000mg Take 2 Un monique oL 500 mg 4-25 tablets by ity of tablet 16:50: mouth. [address] KCL 10 mEq 0 Yes 10meq Take 1 Univ ers tablet 4-25 tablet by ity of 16:50: mouth in [place] the Medical morning. Branch albuterol Yes 2{puff} Inhale 2 U nivers 90 4-25 Puffs. ity of mcg/actuati 16:50: [place] on inhaler 25 Medical Branch budesonide- Yes 2{puff} Inhale 2 [facility] glycopyr-fo 4-25 Puffs. ity of rmoterol 16:50: [place] ([address]) Branch 160-9-4.8 mcg/actuati on HFAA magnesium Yes 27mg Take 1 Univer s gluconate 4-25 tablet by ity o f 27 mg [place] 16:50: mouth [place] MAGNESIUM 25 every Medical tablet morning. Branch methocarbam Yes 1000mg Take 2 Un monique oL 500 mg 4-25 tablets by ity of tablet 16:50: mouth. [place] [address] Medical Branch KCL 10 mEq Yes 10meq Take 1 Univ ers tablet 4-25 tablet by ity of 16:50: mouth in [place] [address] the Medical morning. Branch busPIRone 2022- No 30mg Take 1 Unive rs 30 mg 4-25 04-25 tablet by ity of tablet 14:09: 00:00 mouth. [place] 30 :00 Medical Branch furosemide 2022- No 40mg Take 1 Univ ers 40 mg 4-25 04-25 tablet by ity of tablet 14:09: 00:00 mouth. [place] 30 :00 Medical Branch gabapentin 2022- No 600mg Take 1 Uni vers 600 mg 4-25 04-25 tablet by ity of tablet 14:09: 00:00 mouth. [place] 30 :00 Medical Branch HYDROcodone 2022- No hydrocodon [facility] -acetaminop 4-25 04-25 e 10 ity of hen 10-325 14:09: 00:00 mg-acetami [place] mg tablet 30 :00 nophen 325 Medi yemi mg tablet Branch TK 1 T PO QID ketamine 2022- No 100mg Place 100 Un monique 100 mg [place] 4-25 04-25 mg under ity of 14:09: 00:00 the [place] 30 :00 tongue. Medical Branch levothyroxi 2022- No Synthroid [facility] ne 4-25 04-25 200 mcg ity of (SYNTHROID) 14:09: 00:00 tablet [place] 200 mcg 30 :00 Medical tablet Branch rOPINIRole 2022- No 2mg Take 1 Univ ers 2 mg tablet 4-25 04-25 tablet by it y of 14:09: 00:00 mouth. [place] 30 :00 Medical Branch triamcinolo 2022- No 2{spray Use 2 U nivers ne 55 mcg 4-25 04-25 } Sprays in ity of nasal 14:09: 00:00 each [place] inhaler 30 :00 nostril. Medical Branch rOPINIRole 2023-0 Yes 2mg Take 1 Unive rs 2 mg tablet 4-25 tablet by ity of 00:00: mouth at [place] 00 bedtime. Medical Branch gabapentin 2023-0 Yes 600mg Take 1 Univ ers 600 mg 4-25 tablet by ity of tablet 00:00: mouth in [place] 00 the Medical morning Branch and 1 tablet at noon and 1 tablet in the evening. busPIRone 2023-0 Yes 30mg Take 1 Univer s 30 mg 4-25 tablet by ity of tablet 00:00: mouth in [place] 00 the Medical morning Branch and 1 tablet in the evening. diphenhydrA 2023-0 Yes [id number] 25mg Take 1 [facility] MINE 25 mg 4-25 tablet by ity of tablet 00:00: mouth [place] 00 every 6 Medical (six) Branch hours as needed for Itching (Rash). HYDROcodone 2023-0 Yes 2745 1{tbl} Take 1 Un monique -acetaminop 4-25 tablet by ity of hen 5-325 00:00: mouth [place] mg tablet 00 every 6 Medical (six) Branch hours as needed for Pain (scale 7-10). Indication s: chronic pain rOPINIRole 2023-0 Yes 2mg Take 1 Unive rs 2 mg tablet 4-25 tablet by ity of 00:00: mouth at [place] 00 bedtime. Medical Branch gabapentin 2023-0 Yes 600mg Take 1 Univ ers 600 mg 4-25 tablet by ity of tablet 00:00: mouth in [place] 00 the Medical morning Branch and 1 tablet at noon and 1 tablet in the evening. busPIRone 2023-0 Yes 30mg Take 1 Univer s 30 mg 4-25 tablet by ity of tablet 00:00: mouth in [place] 00 the Medical morning Branch and 1 tablet in the evening. diphenhydrA 2023-0 Yes [id number] 25mg Take 1 [facility] MINE 25 mg 4-25 tablet by ity of tablet 00:00: mouth [place] 00 every 6 Medical (six) Branch hours as needed for Itching (Rash). HYDROcodone 2023-0 Yes 2745 1{tbl} Take 1 Un monique -acetaminop 4-25 tablet by ity of hen 5-325 00:00: mouth [place] mg tablet 00 every 6 Medical (six) Branch hours as needed for Pain (scale 7-10). Indication s: chronic pain rOPINIRole 2023-0 Yes 2mg Take 1 Unive rs 2 mg tablet 4-25 tablet by ity of 00:00: mouth at [place] 00 bedtime. Medical Branch gabapentin 2023-0 Yes 600mg Take 1 Univ ers 600 mg 4-25 tablet by ity of tablet 00:00: mouth in [place] 00 the Medical morning Branch and 1 tablet at noon and 1 tablet in the evening. busPIRone 2023-0 Yes 30mg Take 1 Univer s 30 mg 4-25 tablet by ity of tablet 00:00: mouth in [place] 00 the Medical morning Branch and 1 tablet in the evening. diphenhydrA 2023-0 Yes [id number] 25mg Take 1 [facility] MINE 25 mg 4-25 tablet by ity of tablet 00:00: mouth [place] 00 every 6 Medical (six) Branch hours as needed for Itching (Rash). HYDROcodone 2023-0 Yes 2745 1{tbl} Take 1 Un monique -acetaminop 4-25 tablet by ity of hen 5-325 00:00: mouth [place] mg tablet 00 every 6 Medical (six) Branch hours as needed for Pain (scale 7-10). Indication s: chronic pain rOPINIRole 2023-0 Yes 2mg Take 1 Unive rs 2 mg tablet 4-25 tablet by ity of 00:00: mouth at [place] 00 bedtime. Medical Branch gabapentin 2023-0 Yes 600mg Take 1 Univ ers 600 mg 4-25 tablet by ity of tablet 00:00: mouth in [place] 00 the Medical morning Branch and 1 tablet at noon and 1 tablet in the evening. busPIRone 2023-0 Yes 30mg Take 1 Univer s 30 mg 4-25 tablet by ity of tablet 00:00: mouth in [place] 00 the Medical morning Branch and 1 tablet in the evening. diphenhydrA 2023-0 Yes [id number] 25mg Take 1 [facility] MINE 25 mg 4-25 tablet by ity of tablet 00:00: mouth [place] 00 every 6 Medical (six) Branch hours as needed for Itching (Rash). rOPINIRole 2023-0 Yes 2mg Take 1 Unive rs 2 mg tablet 4-25 tablet by ity of 00:00: mouth at [place] [address] bedtime. Medical Branch gabapentin 2023-0 Yes 600mg Take 1 Univ ers 600 mg 4-25 tablet by ity of tablet 00:00: mouth in [place] 00 the Medical morning Branch and 1 tablet at noon and 1 tablet in the evening. busPIRone 2023-0 Yes 30mg Take 1 Univer s 30 mg 4-25 tablet by ity of tablet 00:00: mouth in [place] 00 the Medical morning Branch and 1 tablet in the evening. diphenhydrA 2023-0 Yes [id number] 25mg Take 1 [facility] MINE 25 mg 4-25 tablet by ity of tablet 00:00: mouth [place] 00 every 6 Medical (six) Branch hours as needed for Itching (Rash). rOPINIRole 2023-0 Yes 2mg Take 1 Unive rs 2 mg tablet 4-25 tablet by ity of 00:00: mouth at [place] [address] bedtime. Medical Branch gabapentin 2023-0 Yes 600mg Take 1 Univ ers 600 mg 4-25 tablet by ity of tablet 00:00: mouth in [place] 00 the Medical morning Branch and 1 tablet at noon and 1 tablet in the evening. busPIRone 2023-0 Yes 30mg Take 1 Univer s 30 mg 4-25 tablet by ity of tablet 00:00: mouth in [place] 00 the Medical morning Branch and 1 tablet in the evening. diphenhydrA 2023-0 Yes [id number] 25mg Take 1 [facility] MINE 25 mg 4-25 tablet by ity of tablet 00:00: mouth [place] 00 every 6 Medical (six) Branch hours as needed for Itching (Rash). rOPINIRole 2023-0 Yes 2mg Take 1 Unive rs 2 mg tablet 4-25 tablet by ity of 00:00: mouth at [place] [address] bedtime. Medical Branch gabapentin 2023-0 Yes 600mg Take 1 Univ ers 600 mg 4-25 tablet by ity of tablet 00:00: mouth in [place] 00 the Medical morning Branch and 1 tablet at noon and 1 tablet in the evening. busPIRone 2023-0 Yes 30mg Take 1 Univer s 30 mg 4-25 tablet by ity of tablet 00:00: mouth in [place] 00 the Medical morning Branch and 1 tablet in the evening. diphenhydrA 2023-0 Yes [id number] 25mg Take 1 [facility] MINE 25 mg 4-25 tablet by ity of tablet 00:00: mouth [place] 00 every 6 Medical (six) Branch hours as needed for Itching (Rash). rOPINIRole 2023-0 Yes 2mg Take 1 Unive rs 2 mg tablet 4-25 tablet by ity of 00:00: mouth at [place] [address] bedtime. Medical Branch gabapentin 2023-0 Yes 600mg Take 1 Univ ers 600 mg 4-25 tablet by ity of tablet 00:00: mouth in [place] 00 the Medical morning Branch and 1 tablet at noon and 1 tablet in the evening. busPIRone 2023-0 Yes 30mg Take 1 Univer s 30 mg 4-25 tablet by ity of tablet 00:00: mouth in [place] 00 the Medical morning Branch and 1 tablet in the evening. diphenhydrA 2023-0 Yes [id number] 25mg Take 1 [facility] MINE 25 mg 4-25 tablet by ity of tablet 00:00: mouth [place] 00 every 6 Medical (six) Branch hours as needed for Itching (Rash). rOPINIRole 2023-0 Yes 2mg Take 1 Unive rs 2 mg tablet 4-25 tablet by ity of 00:00: mouth at [place] [address] bedtime. Medical Branch gabapentin 2023-0 Yes 600mg Take 1 Univ ers 600 mg 4-25 tablet by ity of tablet 00:00: mouth in [place] 00 the Medical morning Branch and 1 tablet at noon and 1 tablet in the evening. busPIRone 2023-0 Yes 30mg Take 1 Univer s 30 mg 4-25 tablet by ity of tablet 00:00: mouth in [place] 00 the Medical morning Branch and 1 tablet in the evening. diphenhydrA 2023-0 Yes [id number] 25mg Take 1 [facility] MINE 25 mg 4-25 tablet by ity of tablet 00:00: mouth [place] 00 every 6 Medical (six) Branch hours as needed for Itching (Rash). rOPINIRole 2023-0 Yes 2mg Take 1 Unive rs 2 mg tablet 4-25 tablet by ity of 00:00: mouth at [place] [address] bedtime. Medical Branch gabapentin 2023-0 Yes 600mg Take 1 Univ ers 600 mg 4-25 tablet by ity of tablet 00:00: mouth in [place] 00 the Medical morning Branch and 1 tablet at noon and 1 tablet in the evening. busPIRone 2023-0 Yes 30mg Take 1 Univer s 30 mg 4-25 tablet by ity of tablet 00:00: mouth in [place] 00 the Medical morning Branch and 1 tablet in the evening. diphenhydrA 2023-0 Yes [id number] 25mg Take 1 [facility] MINE 25 mg 4-25 tablet by ity of tablet 00:00: mouth [place] 00 every 6 Medical (six) Branch hours as needed for Itching (Rash). rOPINIRole 2023-0 Yes 2mg Take 1 Unive rs 2 mg tablet 4-25 tablet by ity of 00:00: mouth at [place] 00 bedtime. Medical Branch gabapentin 2023-0 Yes 600mg Take 1 Univ ers 600 mg 4-25 tablet by ity of tablet 00:00: mouth in [place] 00 the Medical morning Branch and 1 tablet at noon and 1 tablet in the evening. busPIRone 2023-0 Yes 30mg Take 1 Univer s 30 mg 4-25 tablet by ity of tablet 00:00: mouth in [place] 00 the Medical morning Branch and 1 tablet in the evening. diphenhydrA 2023-0 Yes [id number] 25mg Take 1 [facility] MINE 25 mg 4-25 tablet by ity of tablet 00:00: mouth [place] 00 every 6 Medical (six) Branch hours as needed for Itching (Rash). rOPINIRole 2023-0 Yes 2mg Take 1 Unive rs 2 mg tablet 4-25 tablet by ity of 00:00: mouth at [place] [address] bedtime. Medical Branch gabapentin 2023-0 Yes 600mg Take 1 Univ ers 600 mg 4-25 tablet by ity of tablet 00:00: mouth in [place] 00 the Medical morning Branch and 1 tablet at noon and 1 tablet in the evening. busPIRone 2023-0 Yes 30mg Take 1 Univer s 30 mg 4-25 tablet by ity of tablet 00:00: mouth in [place] 00 the Medical morning Branch and 1 tablet in the evening. diphenhydrA 2023-0 Yes [id number] 25mg Take 1 [facility] MINE 25 mg 4-25 tablet by ity of tablet 00:00: mouth [place] 00 every 6 Medical (six) Branch hours as needed for Itching (Rash). rOPINIRole 2023-0 Yes 2mg Take 1 Unive rs 2 mg tablet 4-25 tablet by ity of 00:00: mouth at [place] [address] bedtime. Medical Branch gabapentin 2023-0 Yes 600mg Take 1 Univ ers 600 mg 4-25 tablet by ity of tablet 00:00: mouth in [place] 00 the Medical morning Branch and 1 tablet at noon and 1 tablet in the evening. busPIRone 2023-0 Yes 30mg Take 1 Univer s 30 mg 4-25 tablet by ity of tablet 00:00: mouth in [place] 00 the Medical morning Branch and 1 tablet in the evening. diphenhydrA 2023-0 Yes [id number] 25mg Take 1 [facility] MINE 25 mg 4-25 tablet by ity of tablet 00:00: mouth [place] 00 every 6 Medical (six) Branch hours as needed for Itching (Rash). rOPINIRole 2023-0 Yes 2mg Take 1 Unive rs 2 mg tablet 4-25 tablet by ity of 00:00: mouth at [place] 00 bedtime. Medical Branch gabapentin 2023-0 Yes 600mg Take 1 Univ ers 600 mg 4-25 tablet by ity of tablet 00:00: mouth in [place] 00 the Medical morning Branch and 1 tablet at noon and 1 tablet in the evening. busPIRone 2023-0 Yes 30mg Take 1 Univer s 30 mg 4-25 tablet by ity of tablet 00:00: mouth in [place] 00 the Medical morning Branch and 1 tablet in the evening. diphenhydrA 2023-0 Yes [id number] 25mg Take 1 [facility] MINE 25 mg 4-25 tablet by ity of tablet 00:00: mouth [place] 00 every 6 Medical (six) Branch hours as needed for Itching (Rash). rOPINIRole 2023-0 Yes 2mg Take 1 Unive rs 2 mg tablet 4-25 tablet by ity of 00:00: mouth at [place] 00 bedtime. Medical Branch gabapentin 2023-0 Yes 600mg Take 1 Univ ers 600 mg 4-25 tablet by ity of tablet 00:00: mouth in [place] 00 the Medical morning Branch and 1 tablet at noon and 1 tablet in the evening. busPIRone 2023-0 Yes 30mg Take 1 Univer s 30 mg 4-25 tablet by ity of tablet 00:00: mouth in [place] 00 the Medical morning Branch and 1 tablet in the evening. diphenhydrA 2023-0 Yes [id number] 25mg Take 1 [facility] MINE 25 mg 4-25 tablet by ity of tablet 00:00: mouth [place] 00 every 6 Medical (six) Branch hours as needed for Itching (Rash). rOPINIRole 2023-0 Yes 2mg Take 1 Unive rs 2 mg tablet 4-25 tablet by ity of 00:00: mouth at [place] 00 bedtime. Medical Branch gabapentin 2023-0 Yes 600mg Take 1 Univ ers 600 mg 4-25 tablet by ity of tablet 00:00: mouth in [place] 00 the Medical morning Branch and 1 tablet at noon and 1 tablet in the evening. busPIRone 2023-0 Yes 30mg Take 1 Univer s 30 mg 4-25 tablet by ity of tablet 00:00: mouth in [place] 00 the Medical morning Branch and 1 tablet in the evening. diphenhydrA 2023-0 Yes [id number] 25mg Take 1 [facility] MINE 25 mg 4-25 tablet by ity of tablet 00:00: mouth [place] 00 every 6 Medical (six) Branch hours as needed for Itching (Rash). rOPINIRole 2023-0 Yes 2mg Take 1 Unive rs 2 mg tablet 4-25 tablet by ity of 00:00: mouth at [place] [address] bedtime. Medical Branch gabapentin 2023-0 Yes 600mg Take 1 Univ ers 600 mg 4-25 tablet by ity of tablet 00:00: mouth in [place] 00 the Medical morning Branch and 1 tablet at noon and 1 tablet in the evening. busPIRone 2023-0 Yes 30mg Take 1 Univer s 30 mg 4-25 tablet by ity of tablet 00:00: mouth in [place] 00 the Medical morning Branch and 1 tablet in the evening. diphenhydrA 2023-0 Yes [id number] 25mg Take 1 [facility] MINE 25 mg 4-25 tablet by ity of tablet 00:00: mouth [place] 00 every 6 Medical (six) Branch hours as needed for Itching (Rash). rOPINIRole 2023-0 Yes 2mg Take 1 Unive rs 2 mg tablet 4-25 tablet by ity of 00:00: mouth at [place] [address] bedtime. Medical Branch gabapentin 2023-0 Yes 600mg Take 1 Univ ers 600 mg 4-25 tablet by ity of tablet 00:00: mouth in [place] 00 the Medical morning Branch and 1 tablet at noon and 1 tablet in the evening. busPIRone 2023-0 Yes 30mg Take 1 Univer s 30 mg 4-25 tablet by ity of tablet 00:00: mouth in [place] 00 the Medical morning Branch and 1 tablet in the evening. diphenhydrA 2023-0 Yes [id number] 25mg Take 1 [facility] MINE 25 mg 4-25 tablet by ity of tablet 00:00: mouth [place] 00 every 6 Medical (six) Branch hours as needed for Itching (Rash). rOPINIRole 2023-0 Yes 2mg Take 1 Unive rs 2 mg tablet 4-25 tablet by ity of 00:00: mouth at [place] 00 bedtime. Medical Branch gabapentin 2023-0 Yes 600mg Take 1 Univ ers 600 mg 4-25 tablet by ity of tablet 00:00: mouth in [place] 00 the Medical morning Branch and 1 tablet at noon and 1 tablet in the evening. busPIRone 2023-0 Yes 30mg Take 1 Univer s 30 mg 4-25 tablet by ity of tablet 00:00: mouth in [place] 00 the Medical morning Branch and 1 tablet in the evening. diphenhydrA 2023-0 Yes [id number] 25mg Take 1 [facility] MINE 25 mg 4-25 tablet by ity of tablet 00:00: mouth [place] 00 every 6 Medical (six) Branch hours as needed for Itching (Rash). rOPINIRole 2023-0 Yes 2mg Take 1 Unive rs 2 mg tablet 4-25 tablet by ity of 00:00: mouth at [place] [address] bedtime. Medical Branch gabapentin 2023-0 Yes 600mg Take 1 Univ ers 600 mg 4-25 tablet by ity of tablet 00:00: mouth in [place] 00 the Medical morning Branch and 1 tablet at noon and 1 tablet in the evening. busPIRone 2023-0 Yes 30mg Take 1 Univer s 30 mg 4-25 tablet by ity of tablet 00:00: mouth in [place] 00 the Medical morning Branch and 1 tablet in the evening. diphenhydrA 2023-0 Yes [id number] 25mg Take 1 [facility] MINE 25 mg 4-25 tablet by ity of tablet 00:00: mouth [place] 00 every 6 Medical (six) Branch hours as needed for Itching (Rash). rOPINIRole 2023-0 Yes 2mg Take 1 Unive rs 2 mg tablet 4-25 tablet by ity of 00:00: mouth at [place] [address] bedtime. Medical Branch gabapentin 2023-0 Yes 600mg Take 1 Univ ers 600 mg 4-25 tablet by ity of tablet 00:00: mouth in [place] 00 the Medical morning Branch and 1 tablet at noon and 1 tablet in the evening. busPIRone 2023-0 Yes 30mg Take 1 Univer s 30 mg 4-25 tablet by ity of tablet 00:00: mouth in [place] 00 the Medical morning Branch and 1 tablet in the evening. diphenhydrA 2023-0 Yes [id number] 25mg Take 1 [facility] MINE 25 mg 4-25 tablet by ity of tablet 00:00: mouth [place] 00 every 6 Medical (six) Branch hours as needed for Itching (Rash). rOPINIRole 2023-0 Yes 2mg Take 1 Unive rs 2 mg tablet 4-25 tablet by ity of 00:00: mouth at [place] 00 bedtime. Medical Branch gabapentin 2023-0 Yes 600mg Take 1 Univ ers 600 mg 4-25 tablet by ity of tablet 00:00: mouth in [place] 00 the Medical morning Branch and 1 tablet at noon and 1 tablet in the evening. busPIRone 2023-0 Yes 30mg Take 1 Univer s 30 mg 4-25 tablet by ity of tablet 00:00: mouth in [place] 00 the Medical morning Branch and 1 tablet in the evening. diphenhydrA 2023-0 Yes [id number] 25mg Take 1 [facility] MINE 25 mg 4-25 tablet by ity of tablet 00:00: mouth [place] 00 every 6 Medical (six) Branch hours as needed for Itching (Rash). rOPINIRole 2023-0 Yes 2mg Take 1 Unive rs 2 mg tablet 4-25 tablet by ity of 00:00: mouth at [place] 00 bedtime. Medical Branch gabapentin 2023-0 Yes 600mg Take 1 Univ ers 600 mg 4-25 tablet by ity of tablet 00:00: mouth in [place] 00 the Medical morning Branch and 1 tablet at noon and 1 tablet in the evening. busPIRone 2023-0 Yes 30mg Take 1 Univer s 30 mg 4-25 tablet by ity of tablet 00:00: mouth in [place] 00 the Medical morning Branch and 1 tablet in the evening. diphenhydrA 2023-0 Yes [id number] 25mg Take 1 [facility] MINE 25 mg 4-25 tablet by ity of tablet 00:00: mouth [place] 00 every 6 Medical (six) Branch hours as needed for Itching (Rash). rOPINIRole 2023-0 Yes 2mg Take 1 Unive rs 2 mg tablet 4-25 tablet by ity of 00:00: mouth at [place] [address] bedtime. Medical Branch gabapentin 2023-0 Yes 600mg Take 1 Univ ers 600 mg 4-25 tablet by ity of tablet 00:00: mouth in [place] 00 the Medical morning Branch and 1 tablet at noon and 1 tablet in the evening. busPIRone 2023-0 Yes 30mg Take 1 Univer s 30 mg 4-25 tablet by ity of tablet 00:00: mouth in [place] 00 the Medical morning Branch and 1 tablet in the evening. diphenhydrA 2023-0 Yes [id number] 25mg Take 1 [facility] MINE 25 mg 4-25 tablet by ity of tablet 00:00: mouth [place] 00 every 6 Medical (six) Branch hours as needed for Itching (Rash). rOPINIRole 2023-0 Yes 2mg Take 1 Unive rs 2 mg tablet 4-25 tablet by ity of 00:00: mouth at [place] [address] bedtime. Medical Branch gabapentin 2023-0 Yes 600mg Take 1 Univ ers 600 mg 4-25 tablet by ity of tablet 00:00: mouth in [place] 00 the Medical morning Branch and 1 tablet at noon and 1 tablet in the evening. busPIRone 2023-0 Yes 30mg Take 1 Univer s 30 mg 4-25 tablet by ity of tablet 00:00: mouth in [place] 00 the Medical morning Branch and 1 tablet in the evening. diphenhydrA 2023-0 Yes [id number] 25mg Take 1 [facility] MINE 25 mg 4-25 tablet by ity of tablet 00:00: mouth [place] 00 every 6 Medical (six) Branch hours as needed for Itching (Rash). rOPINIRole 2023-0 Yes 2mg Take 1 Unive rs 2 mg tablet 4-25 tablet by ity of 00:00: mouth at [place] [address] bedtime. Medical Branch gabapentin 2023-0 Yes 600mg Take 1 Univ ers 600 mg 4-25 tablet by ity of tablet 00:00: mouth in [place] 00 the Medical morning Branch and 1 tablet at noon and 1 tablet in the evening. busPIRone 2023-0 Yes 30mg Take 1 Univer s 30 mg 4-25 tablet by ity of tablet 00:00: mouth in [place] 00 the Medical morning Branch and 1 tablet in the evening. diphenhydrA 2023-0 Yes [id number] 25mg Take 1 [facility] MINE 25 mg 4-25 tablet by ity of tablet 00:00: mouth [place] [address] every 6 Medical (six) Branch hours as needed for Itching (Rash). rOPINIRole 2022-0 Yes 2mg Take 1 Unive rs 2 mg tablet 4-25 tablet by ity of 00:00: mouth at [place] [address] bedtime. Medical Branch gabapentin 2022-0 Yes 600mg Take 1 Univ ers 600 mg 4-25 tablet by ity of tablet 00:00: mouth in [place] [address] the Medical morning Branch and 1 tablet at noon and 1 tablet in the evening. busPIRone 2022-0 Yes 30mg Take 1 Univer s 30 mg 4-25 tablet by ity of tablet 00:00: mouth in [place] [address] the Medical morning Branch and 1 tablet in the evening. diphenhydrA 2022-0 Yes [id number] 25mg Take 1 [facility] MINE 25 mg 4-25 tablet by ity of tablet 00:00: mouth [place] [address] every 6 Medical (six) Branch hours as needed for Itching (Rash). HYDROcodone 2022-0 2022- No 2745 1{tbl} Take 1 U nivers -acetaminop 4-25 05-15 tablet by it y of hen 5-325 00:00: 00:00 mouth [place] mg tablet 00 :00 every 6 Medical (six) Branch hours as needed for Pain (scale 7-10). Indication s: chronic pain HYDROcodone 2022-0 2022- No 2745 1{tbl} Take 1 U nivers -acetaminop 4-25 05-15 tablet by it y of hen 5-325 00:00: 00:00 mouth [place] mg tablet 00 :00 every 6 Medical (six) Branch hours as needed for Pain (scale 7-10). Indication s: chronic pain morpHINE (4 2022-0 Yes 4mg 4 mg, Slow [facility] mg/mL) 4-24 IV Push, ity of injection 4 22:00: Q4HPRN, [place] mg 57 Starting Medical on Thu Branch 01/26/23 at 1700, Until Discontinu ed, Routine, Pain (scale 7-10) HYDROcodone 2022-0 2022- No 1{tbl} 1 tablet, Univers -acetaminop 4-22 04-24 Oral, ity of hen (NORCO 22:54: 22:53 Q6HPRN, [place] 5) 5-325 mg 08 :08 Starting Medi yemi tablet 1 on [facility] Branch tablet 01/24/23 at 1754, Until 01/26/23 at 1753, Routine, Pain (scale 4-6) diphenhydrA 2023-0 Yes 25mg 25 mg, Univ ers MINE 01-24 Oral, ity of (BENADRYL) 18:45: Q6HPRN, [place] tablet 25 00 Starting Medica l mg on Sat Branch 01/24/23 at 1345, Until Discontinu ed, Routine, Itching, Mild Rash, anxiety diphenhydrA 3-0 Yes 25mg 25 mg, Univ ers MINE 01-24 Intravenou ity of (BENADRYL) 18:38: s, [place] injection 03 [id number], Medica l 25 mg Starting Branch on 01/24/23 at 1338, Until Discontinu ed, Routine, Itching, Rash rOPINIRole 3-0 Yes 1mg 1 mg, Univer s (REQUIP) 01-24 Oral, ity of tablet 1 mg 14:00: DAILY, [place] 00 First dose Medical on [facility] Branch 01/24/23 at 0900, Until Discontinu ed, Routine
Medicatio n Name: Ropinirole
Length of Therapy: Indefinite
How soon needed (normally 72 hours needed to procure): 0-24 hrs
[place] son for non-formul johnathan use: PATIENT CURRENTLY TAKING NONFORMULA RY PRODUCT
hospitality team member approving Non-formul johnathan medication : TONY AZEVEDO
Specific indication for non formulary use: Restless leg syndrome<b r>Literatu re citation: N/A
Dosage Form: Tablet rOPINIRole 2023-0 Yes 2mg 2 mg, Univer s (REQUIP) - Oral, QHS, ity o f tablet 2 mg 02:00: First dose [place] 00 on Fri Medical 01/23/23 at Branch 2100, Until Discontinu ed, Routine
Medicatio n Name: Ropinirole
Length of Therapy: Indefinite
How soon needed (normally 72 hours needed to procure): 0-24 hrs
Joy son for non-formul johnathan use: PATIENT CURRENTLY TAKING NONFORMULA RY PRODUCT
hospitality team member approving Non-formul johnathan medication : TONY AZEVEDO
Specific indication for non formulary use: Restless leg syndrome<b r>Literatu re citation: N/A
Dosage Form: Tablet morpHINE (2 2022- No 4mg 4 mg, Slow [facility] mg/mL) 01-24 IV Push, ity of injection 4 01:15: 01:14 Q4HPRN, [place] mg 57 :57 Starting Medical on Fri Branch 01/23/23 at 2015, Until 01/24/23 at 2014, Routine, Pain (scale 7-10) budesonide- Yes 2{puff} 2 Puff, [facility] glycopyr-fo 01-24 Inhalation it y of rmoterol 01:00: , BID, [place] (BREZTRI 00 First dose Medic al AEROSPHERE) on Fri Branch 160-9-4.8 01/23/23 at mcg/actuati 2000, on HFAA 2 Until Puff Discontinu ed, Routine
Medicatio n Name: Cristela
Length of Therapy: Indefinite
How soon needed (normally 72 hours needed to procure): 0-24 hrs
Joy son for non-formul johnathan use: PATIENT CURRENTLY TAKING NONFORMULA RY PRODUCT
hospitality team member approving Non-formul johnathan medication : TONY AZEVEDO
Specific indication for non formulary use: Emphysema/ COPD
Li terature citation: N/A
Dos age Form: Inhaler diphenhydrA 2022- No 25mg 25 mg, Uni vers MINE 01-23 Intravenou ity of (BENADRYL) 23:00: 22:12 s, ONCE, 1 [place] injection 00 :00 dose, On Medica l 25 mg Fri Branch 01/23/23 at 1800, Routine KCL 2022- No 40meq 40 mEq, Univers (KLOR-CON 01-23 Oral, ity of M20) tablet 22:45: 00:58 ONCE, 1 [place] 40 mEq 00 :00 dose, On Medical Thu Branch 01/23/23 at 1745, Routine albuterol 0 Yes 2{puff} 2 Puff, Un monique (VENTOLIN) 01-23 Inhalation ity of inhaler 2 22:25: , Q4HPRN, [place] Puff 29 Starting Medical on Thu Branch 01/23/23 at 1725, Until Discontinu ed, Routine, Wheezing, Shortness of Breath diphenhydrA 0 2022- No 25mg 25 mg, Uni vers MINE 01-23 Oral, ity of (BENADRYL) 14:08: 18:38 Q4HPRN, [place] tablet 25 38 :29 Starting Medica l mg on Thu Branch 01/23/23 at 0908, Until 01/24/23 at 1338, Routine, Itching, Mild Rash, anxiety FLUoxetine Yes 40mg 40 mg, Unive rs (PROZAC) 01-23 Oral, ity of capsule 40 14:00: DAILY, [place] mg 00 First dose Medical (after Branch last modificati on) on Thu01/23/23 at 0900, Until Discontinu ed, Routine magnesium Yes 400mg 400 mg, Univ ers oxide 01-23 Oral, ity of (MAG-OX 14:00: DAILY, [place] 400) tablet 00 First dose Me dical 400 mg on Thu Branch 01/23/23 at 0900, Until Discontinu ed KCL Yes 10meq 10 mEq, Univers (KLOR-CON 01-23 Oral, ity of M10) tablet 14:00: DAILY, [place] 10 mEq 00 First dose Medical on Thu Branch 01/23/23 at 0900, Until Discontinu ed, Routine lidocaine 0 2022- No 5mL 5 mL, Univer s 1% (PF) 01-23 Subcutaneo ity o f (XYLOCAINE) 14:00: 15:20 us, ONCE, [place] injection 5 00 :00 1 dose, On Me dical mL Thu Branch 01/23/23 at 0900, Routine NaCl 0.9% 0 Yes 10mL 10 mL, Univer s (NS) 01-23 Slow IV ity of injection 13:55: Push, PRN, [place] 10 mL 04 Starting Medical on Thu Branch 01/23/23 at 0855, Until Discontinu ed, Routine, line maintenanc e diphenhydrA 2022- No 25mg 25 mg, Uni vers MINE 01-23 Oral, ity of (BENADRYL) 12:53: 14:08 Q4HPRN, [place] tablet 25 43 :53 Starting Medica l mg on Thu Branch 01/23/23 at 0753, Until Thu01/23/23 at 0908, Routine, anxiety levothyroxi Yes 200ug 200 mcg, U nivers ne 01-23 Oral, ity of (SYNTHROID) 11:00: QAM-0600, [place] tablet 200 00 First dose Med ical mcg on Thu Branch 01/23/23 at 0600, Until Discontinu ed, Routine NaCl 0.9% 2022- No 1000mL at 100 Uni vers (NS) IV 01-23 04-25 mL/hr, IV ity of infusion 07:30: 00:24 Infusion, [place] 1,000 mL 00 :25 CONTINUOUS Medic al , Starting Branch on Thu01/23/23 at 0230, Until Thu01/26/23 at 1924, Routine KCL 2022- No 40meq 40 mEq, Univers (KLOR-CON 01-23 Oral, ity of M20) tablet 04:15: 04:16 ONCE, 1 [place] 40 mEq 00 :00 dose, On Medical [facility] 01/22/23 at 2315, Routine hydrOXYzine 2022- No 10mg 10 mg, Uni vers (ATARAX) 01-23 Oral, ity of tablet 10 02:55: 14:08 Q6HPRN, [place] mg 11 :35 Starting Medical on Thu Branch 01/22/23 at 2155, Until Thu01/23/23 at 0908, Routine, Itching atorvastati Yes 40mg 40 mg, Univ ers n (LIPITOR) 01-23 Oral, QHS, it y of tablet 40 02:00: First dose [place] mg 00 on [facility] 01/22/23 at Branch 2100, Until Discontinu ed, Routine apixaban 0 2022- No 5mg 5 mg, Univers (ELIQUIS) 01-23- Oral, BID, ity of tablet 5 mg 01:45: 20:50 First dose [place] 00 :22 (after Medical last Branch modificati on) on [facility] 01/22/23 at 2045, Until Discontinu ed, Routine
Indicatio ns: Non-Valvul ar Atrial Fibrillati on busPIRone Yes 30mg 30 mg, Univer s (BUSPAR) 01-23 Oral, BID, ity o f tablet 30 01:00: First dose [place] mg 00 on [facility] 01/22/23 at Branch 1999, Until Discontinu ed, Routine gabapentin Yes 600mg 600 mg, Uni vers (NEURONTIN) 01-23 Oral, TID, it y of tablet 600 01:00: First dose [place] mg 00 on [facility] 01/22/23 at Branch 2000, Until Discontinu ed, Routine tamsulosin Yes .4mg 0.4 mg, Univ ers (FLOMAX) 4-20 Oral, ity of capsule 0.4 23:00: DAILY, [place] mg 00 First dose Medical on [facility] 01/22/23 at 1800, Until Discontinu ed, Routine furosemide Yes 40mg 40 mg, Unive rs (LASIX) 4-20 Oral, ity of tablet 40 23:00: DAILY, [place] mg 00 First dose Medical on [facility] 01/22/23 at 1800, Until Discontinu ed, Routine FLUoxetine 0 2022- No 20mg 20 mg, Univ ers (PROZAC) 01-22- Oral, ity of capsule 20 23:00: 01:40 DAILY, [place] mg 00 :21 First dose Medical on [facility] 01/22/23 at 1800, Until Discontinu ed, Routine oxyBUTYnin Yes 5mg 5 mg, Univer s chloride 4-20 Oral, ity of (DITROPAN) 22:54: BIDPRN, [place] tablet 5 mg 44 Starting Medi yemi on [facility] 4/20/23 at 1754, Until Discontinu ed, Routine, Bladder spasms ondansetron Yes 4mg 4 mg, Slow Univers (ZOFRAN 420 IV Push, ity of (PF)) 21:56: Q6HPRN, [place] injection 4 34 Starting Medi yemi mg on [facility] 01/22/23 at 1656, Until Discontinu ed, Routine, Nausea and Vomiting (N/V) morpHINE (2 2022- No 4mg 4 mg, Slow Univers mg/mL) 01-22 04-21 IV Push, ity of injection 4 21:56: 21:55 Q4HPRN, [place] mg 31 :31 Starting Medical on [facility] 01/22/23 at 1656, Until 01/23/23 at 1655, Routine, Pain (scale 7-10) HYDROcodone 2022- No 1{tbl} 1 tablet, Univers -acetaminop 01-22 0422 Oral, ity of hen (NORCO 21:56: 21:55 Q6HPRN, [place] 5) 5-325 mg 27 :27 Starting Medi yemi tablet 1 on [facility] Branch tablet 01/22/23 at 1656, Until 01/24/23 at 1655, Routine, Pain (scale 4-6) acetaminoph Yes 650mg 650 mg, Un monique en 01-22 Oral, ity of (TYLENOL) 21:56: Q6HPRN, [place] tablet 650 12 Starting Medic al mg on [facility] Branch 01/22/23 at 1656, Until Discontinu ed, Routine, Pain (scale 1-3), Temp > 38 C ertapenem 2022- No 1000mg 1,000 mg, Univers (INVANZ) 01-22 0425 IV ity of 1,000 mg in 21:30: 16:06 [facility], [place] NaCl 0.9% 00 :26 Q24H ABX, Medic al (NS) 100 mL 7 doses, Bran ch MINI-BAG First dose on Thu01/22/23 at 1630, Last dose on Thu01/28/23 at 1630, Administer over 30 Minutes, 100 mL
Reas on for Anti-Infec tive: Documented Infection< br>Documen harriett Infection Site: Urine
D uration of Therapy: 7 days
Re stricted use approved by: [employer] ketorolac No 15mg 15 mg, Unive rs (TORADOL) 01-22 04-20 Slow IV ity of injection 20:15: 19:24 Push, [place] 15 mg 00 :00 ONCE, 1 Medical dose, On Branch [facility] 01/22/23 at 1515, JUANCHO rOPINIRole Yes 2mg Take 1 Unive rs 2 mg tablet 3-23 tablet by ity of 14:40: mouth. [address] Branch triamcinolo Yes 2{spray Use 2 Un monique ne 55 mcg 3-23 } Sprays in ity o f nasal 14:40: each [place] inhaler nostril. [facility] Branch albuterol Yes 2{puff} Inhale 2 U nivers 90 3-23 Puffs. ity of mcg/actuati 14:40: [place] on inhaler Medical Branch budesonide- Yes 2{puff} Inhale 2 Univers glycopyr-fo 3-23 Puffs. ity of rmoterol 14:40: [place] (BREZTRI Medical AEROSPHERE) Branch 160-9-4.8 mcg/actuati on HFAA busPIRone Yes 30mg Take 1 Univer s 30 mg 3-23 tablet by ity of tablet 14:40: mouth. [address] furosemide Yes 40mg Take 1 Unive rs 40 mg 3-23 tablet by ity of tablet 14:40: mouth. [address] gabapentin Yes 600mg Take 1 Univ ers 600 mg 3-23 tablet by ity of tablet 14:40: mouth. [address] Branch HYDROcodone Yes hydrocodon Univers -acetaminop 3-23 e 10 ity of hen 10-325 14:40: mg-acetami [place] mg tablet 01 nophen 325 Medi yemi mg tablet Branch TK 1 T PO QID ketamine Yes 100mg Place 100 Uni vers 100 mg Troc 3-23 mg under ity of 14:40: the [place] [address] tongue. Medical Branch levothyroxi Yes Synthroid U nivers ne 3-23 200 mcg ity of (SYNTHROID) 14:40: tablet [place] 200 mcg Medical tablet Branch magnesium Yes 27mg Take 1 Univer s gluconate 3-23 tablet by ity o f 27 mg [place] 14:40: mouth [place] MAGNESIUM every Medical tablet morning. Branch methocarbam Yes 1000mg Take 2 Un monique oL 500 mg 3-23 tablets by ity of tablet 14:40: mouth. [place] [address] Medical Branch KCL 10 mEq Yes 10meq Take 1 Univ ers tablet 3-23 tablet by ity of 14:40: mouth in [place] the Medical morning. Branch albuterol Yes 2{puff} Inhale 2 U nivers 90 3-22 Puffs. ity of mcg/actuati 17:04: [place] on inhaler 04 Medical Branch budesonide- Yes 2{puff} Inhale 2 Univers glycopyr-fo 3-22 Puffs. ity of rmoterol 17:04: [place] (BREZTRI Medical AEROSPHERE) Branch 160-9-4.8 mcg/actuati on HFAA busPIRone Yes 30mg Take 1 Univer s 30 mg 3-22 tablet by ity of tablet 17:04: mouth. [address] furosemide Yes 40mg Take 1 Unive rs 40 mg 3-22 tablet by ity of tablet 17:04: mouth. [place] [address] Medical [place] gabapentin Yes 600mg Take 1 Univ ers 600 mg 3-22 tablet by ity of tablet 17:04: mouth. [address] Branch HYDROcodone Yes hydrocodon Univers -acetaminop 3-22 e 10 ity of hen 10-325 17:04: mg-acetami [place] mg tablet 04 nophen 325 Medi yemi mg tablet Branch TK 1 T PO QID ketamine Yes 100mg Place 100 Uni vers 100 mg [place]roc 3-22 mg under ity of 17:04: the [place] [address] tongue. Medical Branch levothyroxi Yes Synthroid U nivers ne 3-22 200 mcg ity of (SYNTHROID) 17:04: tablet [place] 200 mcg 04 Medical tablet Branch magnesium Yes 27mg Take 1 Univer s gluconate 3-22 tablet by ity o f 27 mg [place] 17:04: mouth [place] MAGNESIUM 04 every Medical tablet morning. Branch methocarbam Yes 1000mg Take 2 Un monique oL 500 mg 3-22 tablets by ity of tablet 17:04: mouth. [place] [address] Medical Branch KCL 10 mEq Yes 10meq Take 1 Univ ers tablet 3-22 tablet by ity of 17:04: mouth in [place] 04 the Medical morning. Branch rOPINIRole Yes 2mg Take 1 Unive rs 2 mg tablet 3-22 tablet by ity of 17:04: mouth. [address] Branch triamcinolo Yes 2{spray Use 2 Un monique ne 55 mcg 3-22 } Sprays in ity o f nasal 17:04: each [place] inhaler 04 nostril. Medical Branch FLUoxetine Yes 40mg 40 mg, Unive rs (PROZAC) 3-22 Oral, ity of capsule 40 14:00: DAILY, [place] mg 00 First dose Medical on Thu [place] 12/24/22 at 0900, Until Discontinu ed, Routine FLUoxetine Yes 40mg 40 mg, Unive rs (PROZAC) 3-22 Oral, ity of capsule 40 14:00: DAILY, [place] mg 00 First dose Medical on Thu [place] 12/24/22 at 0900, Until Discontinu ed, Routine albuterol Yes 2{puff} Inhale 2 U nivers 90 3-22 Puffs. ity of mcg/actuati 11:23: [place] on inhaler 00 Medical Branch budesonide- Yes 2{puff} Inhale 2 Univers glycopyr-fo 3-22 Puffs. ity of rmoterol 11:23: [place] (BREZTRI 00 Medical AEROSPHERE) Branch 160-9-4.8 mcg/actuati on HFAA busPIRone Yes 30mg Take 1 Univer s 30 mg 3-22 tablet by ity of tablet 11:23: mouth. [place] [address] Medical Branch furosemide Yes 40mg Take 1 Unive rs 40 mg 3-22 tablet by ity of tablet 11:23: mouth. [place] [address] Medical Branch gabapentin Yes 600mg Take 1 Univ ers 600 mg 3-22 tablet by ity of tablet 11:23: mouth. [place] Medical Branch HYDROcodone 0 Yes hydrocodon Univers -acetaminop 3-22 e 10 ity of hen 10-325 11:23: mg-acetami [place] mg tablet 00 nophen 325 Medi yemi mg tablet Branch TK 1 T PO QID ketamine [address] 100 Uni vers 100 mg [place] 3-22 mg under ity of 11:23: the [place] 00 tongue. Medical Branch levothyroxi Yes Synthroid U nivers ne 3-22 200 mcg ity of (SYNTHROID) 11:23: tablet [place] 200 mcg 00 Medical tablet Branch magnesium Yes 27mg Take 1 Univer s gluconate 3-22 tablet by ity o f 27 mg [place] 11:23: mouth [place] MAGNESIUM 00 every Medical tablet morning. Branch methocarbam Yes 1000mg Take 2 Un monique oL 500 mg 3-22 tablets by ity of tablet 11:23: mouth. [place] [address] Medical Branch KCL 10 mEq Yes 10meq Take 1 Univ ers tablet 3-22 tablet by ity of 11:23: mouth in [place] 00 the Medical morning. Branch rOPINIRole Yes 2mg Take 1 Unive rs 2 mg tablet 3-22 tablet by ity of 11:23: mouth. [place] [address] Medical Branch triamcinolo Yes 2{spray Use 2 Un monique ne 55 mcg 3-22 } Sprays in ity o f nasal 11:23: each [place] inhaler 00 nostril. Medical Branch morpHINE (2 2022-2022- No 2mg 2 mg, Slow Univers mg/mL) 12-24 IV Push, ity of injection 2 09:00: 08:30 ONCE, 1 [place] mg 00 :00 dose, On Thu [place] 12/24/22 at 0400, Routine morpHINE (2 2022-2022- No 2mg 2 mg, Slow Univers mg/mL) 12-24 IV Push, ity of injection 2 09:00: 08:30 ONCE, 1 [place] mg 00 :00 dose, On Thu [place] 12/24/22 at 0400, Routine HYDROcodone 2022-2022- No 1{tbl} 1 tablet, Univers -acetaminop 3-22 03-22 Oral, ity of hen (NORCO 01:45: 01:45 ONCE, 1 [place] 5) 5-325 mg 00 :00 dose, On Medi yemi tablet 1 Thu tablet 12/23/22 at 2044, Routine, PACU HYDROcodone 2022-0 2022- No 1{tbl} 1 tablet, Univers -acetaminop 12-24 Oral, ity of hen (NORCO 01:45: 01:45 ONCE, 1 [place] 5) 5-325 mg 00 :00 dose, On Medi yemi tablet 1 Thu tablet 12/23/22 at 2044, Routine, PACU FENTanyl PF 0 2022- No 25ug 25 mcg, Un monique (SUBLIMAZE 12-24 Slow IV ity o f (PF)) 01:35: 02:30 Push, [place] injection 59 :36 Q5MIN PRN, Medi yemi 25 mcg 4 doses, Branch Starting on Thu12/23/22 at 2034, Until Thu12/23/22 at 2129, Routine, Pain (scale 7-10), PACU FENTanyl PF 2022- No 25ug 25 mcg, Un monique (SUBLIMAZE 12-24 Slow IV ity o f (PF)) 01:35: 02:30 Push, [place] injection 59 :36 Q5MIN PRN, Medi yemi 25 mcg 4 doses, Branch Starting on Thu12/23/22 at 2034, Until Thu12/23/22 at 2129, Routine, Pain (scale 7-10), PACU oxyBUTYnin 2022-0 Yes 5mg 5 mg, Univer s chloride 12-24 Oral, BID, ity o f (DITROPAN) 01:30: First dose [place] tablet 5 mg 00 on [facility] 12/23/22 at Branch 2030, Until Discontinu ed, Routine tamsulosin 2022-0 Yes .4mg 0.4 mg, Univ ers (FLOMAX) 12-24 Oral, ity of capsule 0.4 01:30: DAILY, [place] mg 00 First dose Medical on [facility] 12/23/22 at 2030, Until Discontinu ed, Routine oxyBUTYnin 2022-0 Yes 5mg 5 mg, Univer s chloride 3-22 Oral, BID, ity o f (DITROPAN) 01:30: First dose [place] tablet 5 mg 00 on [facility] 12/23/22 at [place] 2030, Until Discontinu ed, Routine tamsulosin 3-0 Yes .4mg 0.4 mg, Univ ers (FLOMAX) 3-22 Oral, ity of capsule 0.4 01:30: DAILY, [place] mg 00 First dose Medical on [facility] 12/23/22 at 2030, Until Discontinu ed, Routine iohexoL 2022-0 Yes PRN, Univers (OMNIPAQUE 3-22 Starting ity o f 300-50 mL)) 01:23: on [facility] [place] injection 12/23/22 at [facility] 2022[facility] Until Discontinu ed, Routine, Intra-op iohexoL 2022-0 Yes PRN, Univers (OMNIPAQUE 3-22 Starting ity o f 300-50 mL)) 01:23: on [facility] [place] injection 12/23/22 at [facility] 2022, Branch Until Discontinu ed, Routine, Intra-op busPIRone 3-0 Yes 30mg 30 mg, Univer s (BUSPAR) 3-22 Oral, BID, ity o f tablet 30 01:00: First dose [place] mg 00 on [facility] 12/23/22 at Branch 2000, Until Discontinu ed, Routine gabapentin 2022-0 Yes 600mg 600 mg, Uni vers (NEURONTIN) 3-22 Oral, TID, it y of capsule 600 01:00: First dose [place] mg 00 (after Medical last Branch modificati on) on [facility] 12/23/22 at 2000, Until Discontinu ed, Routine furosemide 2022-0 Yes 40mg 40 mg, Unive rs (LASIX) 3-22 Oral, BID, ity of tablet 40 01:00: First dose [place] mg 00 (after Medical last Branch modificati on) on [facility] 12/23/22 at 2000, Until Discontinu ed, Routine busPIRone 3-0 Yes 30mg 30 mg, Univer s (BUSPAR) 3-22 Oral, BID, ity o f tablet 30 01:00: First dose [place] mg 00 on [facility] 12/23/22 at Branch 2000, Until Discontinu ed, Routine gabapentin 2023-0 Yes 600mg 600 mg, Uni vers (NEURONTIN) 3-22 Oral, TID, it y of capsule 600 01:00: First dose [place] mg 00 (after Medical last Branch modificati on) on Thu12/23/22 at 1999, Until Discontinu ed, Routine furosemide 2023-0 Yes 40mg 40 mg, Unive rs (LASIX) 3-22 Oral, BID, ity of tablet 40 01:00: First dose [place] mg 00 (after Medical last Branch modificati on) on Thu12/23/22 at 1999, Until Discontinu ed, Routine tamsulosin 2023-0 Yes [id number] .4mg Take 1 U nivers (FLOMAX) 3-22 capsule by ity o f 0.4 mg 24 00:00: mouth [place] hr capsule 00 the Medical morning. Branch oxyBUTYnin 2023-0 Yes [id number] 5mg Take 1 U nivers chloride 5 3-22 tablet by ity of mg tablet 00:00: mouth 2 [place] 00 (two) Medical times Branch daily as needed for Bladder spasms. gabapentin 2023-0 Yes [id number] 300mg Take 1 Univers 300 mg 3-22 capsule by ity of capsule 00:00: mouth [place] 00 every 8 Medical (eight) Branch hours as needed for Pain (scale 4-6). phenazopyri 2023-0 Yes [id number] 200mg Take 1 Univers dine 3-22 tablet by ity of (PYRIDIUM) 00:00: mouth in [place] 200 mg 00 the Medical tablet morning Branch and 1 tablet at noon and 1 tablet in the evening. Take after meals. tamsulosin 2023-0 Yes [id number] .4mg Take 1 U nivers (FLOMAX) 3-22 capsule by ity o f 0.4 mg 24 00:00: mouth in [place] hr capsule 00 the Medical morning. Branch oxyBUTYnin 2023-0 Yes [id number] 5mg Take 1 U nivers chloride 5 3-22 tablet by ity of mg tablet 00:00: mouth 2 [place] 00 (two) Medical times Branch daily as needed for Bladder spasms. tamsulosin 2023-0 Yes [id number] .4mg Take 1 U nivers (FLOMAX) 3-22 capsule by ity o f 0.4 mg 24 00:00: mouth [place] hr capsule 00 the Medical morning. Branch oxyBUTYnin 2023-0 Yes [id number] 5mg Take 1 U nivers chloride 5 3-22 tablet by ity of mg tablet 00:00: mouth 2 (two) Medical times Branch daily as needed for Bladder spasms. tamsulosin 2023-0 Yes [id number] .4mg Take 1 U nivers (FLOMAX) 3-22 capsule by ity o f 0.4 mg 24 00:00: mouth in [place] hr capsule 00 the Medical morning. Branch oxyBUTYnin 2023-0 Yes [id number] 5mg Take 1 U nivers chloride 5 3-22 tablet by ity of mg tablet 00:00: mouth (two) Medical times Branch daily as needed for Bladder spasms. tamsulosin 2023-0 Yes [id number] .4mg Take 1 U nivers (FLOMAX) 3-22 capsule by ity o f 0.4 mg 24 00:00: mouth in [place] hr capsule 00 the Medical morning. Branch tamsulosin 2023-0 Yes [id number] .4mg Take 1 U nivers (FLOMAX) 3-22 capsule by ity o f 0.4 mg 24 00:00: mouth [place] hr capsule the Medical morning. Branch oxyBUTYnin 2023-0 Yes [id number] 5mg Take 1 U nivers chloride 5 3-22 tablet by ity of mg tablet 00:00: mouth (two) Medical times Branch daily as needed for Bladder spasms. tamsulosin 2023-0 Yes [id number] .4mg Take 1 U nivers (FLOMAX) 3-22 capsule by ity o f 0.4 mg 24 00:00: mouth in [place] hr capsule 00 the Medical morning. Branch oxyBUTYnin 2023-0 Yes [id number] 5mg Take 1 U nivers chloride 5 3-22 tablet by ity of mg tablet 00:00: mouth 2 (two) Medical times Branch daily as needed for Bladder spasms. tamsulosin 2023-0 Yes [id number] .4mg Take 1 U nivers (FLOMAX) 3-22 capsule by ity o f 0.4 mg 24 00:00: mouth in [place] hr capsule 00 the Medical morning. Branch oxyBUTYnin 2023-0 Yes [id number] 5mg Take 1 U nivers chloride 5 3-22 tablet by ity of mg tablet 00:00: mouth (two) Medical times Branch daily as needed for Bladder spasms. tamsulosin 2023-0 Yes [id number] .4mg Take 1 U nivers (FLOMAX) 3-22 capsule by ity o f 0.4 mg 24 00:00: mouth in [place] hr capsule 00 the Medical morning. Branch oxyBUTYnin 2023-0 Yes [id number] 5mg Take 1 U nivers chloride 5 3-22 tablet by ity of mg tablet 00:00: mouth (two) Medical times Branch daily as needed for Bladder spasms. tamsulosin 2023-0 Yes [id number] .4mg Take 1 U nivers (FLOMAX) 3-22 capsule by ity o f 0.4 mg 24 00:00: mouth in [place] hr capsule 00 the Medical morning. Branch oxyBUTYnin 2023-0 Yes [id number] 5mg Take 1 U nivers chloride 5 3-22 tablet by ity of mg tablet 00:00: mouth (two) Medical times Branch daily as needed for Bladder spasms. tamsulosin 2023-0 Yes [id number] .4mg Take 1 U nivers (FLOMAX) 3-22 capsule by ity o f 0.4 mg 24 00:00: mouth in [place] hr capsule 00 the Medical morning. Branch oxyBUTYnin 2023-0 Yes [id number] 5mg Take 1 U nivers chloride 5 3-22 tablet by ity of mg tablet 00:00: mouth (two) Medical times Branch daily as needed for Bladder spasms. oxyBUTYnin 2023-0 Yes [id number] 5mg Take 1 U nivers chloride 5 3-22 tablet by ity of mg tablet 00:00: mouth (two) Medical times Branch daily as needed for Bladder spasms. tamsulosin 2023-0 Yes [id number] .4mg Take 1 U nivers (FLOMAX) 3-22 capsule by ity o f 0.4 mg 24 00:00: mouth in [place] hr capsule 00 the Medical morning. Branch oxyBUTYnin 2023-0 Yes [id number] 5mg Take 1 U nivers chloride 5 3-22 tablet by ity of mg tablet 00:00: mouth (two) Medical times Branch daily as needed for Bladder spasms. tamsulosin 2023-0 Yes [id number] .4mg Take 1 U nivers (FLOMAX) 3-22 capsule by ity o f 0.4 mg 24 00:00: mouth in [place] hr capsule 00 the Medical morning. Branch oxyBUTYnin 2023-0 Yes [id number] 5mg Take 1 U nivers chloride 5 3-22 tablet by ity of mg tablet 00:00: mouth (two) Medical times Branch daily as needed for Bladder spasms. tamsulosin 2023-0 Yes [id number] .4mg Take 1 U nivers (FLOMAX) 3-22 capsule by ity o f 0.4 mg 24 00:00: mouth in [place] hr capsule 00 the Medical morning. Branch oxyBUTYnin 2023-0 Yes [id number] 5mg Take 1 U nivers chloride 5 3-22 tablet by ity of mg tablet 00:00: mouth (two) Medical times Branch daily as needed for Bladder spasms. tamsulosin 2023-0 Yes [id number] .4mg Take 1 U nivers (FLOMAX) 3-22 capsule by ity o f 0.4 mg 24 00:00: mouth in [place] hr capsule 00 the Medical morning. Branch oxyBUTYnin 2023-0 Yes [id number] 5mg Take 1 U nivers chloride 5 3-22 tablet by ity of mg tablet 00:00: mouth (two) Medical times Branch daily as needed for Bladder spasms. tamsulosin 2023-0 Yes [id number] .4mg Take 1 U nivers (FLOMAX) 3-22 capsule by ity o f 0.4 mg 24 00:00: mouth in [place] hr capsule 00 the Medical morning. Branch gabapentin 2023-0 Yes [id number] 300mg Take 1 [facility] 300 mg 3-22 capsule by ity of capsule 00:00: mouth 00 every 8 Medical (eight) Branch hours as needed for Pain (scale 4-6). oxyBUTYnin 2023-0 Yes [id number] 5mg Take 1 U nivers chloride 5 3-22 tablet by ity of mg tablet 00:00: mouth (two) Medical times Branch daily as needed for Bladder spasms. tamsulosin 2023-0 Yes [id number] .4mg Take 1 U nivers (FLOMAX) 3-22 capsule by ity o f 0.4 mg 24 00:00: mouth [place] hr capsule 00 the Medical morning. Branch oxyBUTYnin 2023-0 Yes [id number] 5mg Take 1 U nivers chloride 5 3-22 tablet by ity of mg tablet 00:00: mouth (two) Medical times Branch daily as needed for Bladder spasms. tamsulosin 2023-0 Yes [id number] .4mg Take 1 U nivers (FLOMAX) 3-22 capsule by ity o f 0.4 mg 24 00:00: mouth in [place] hr capsule 00 the Medical morning. Branch oxyBUTYnin 2023-0 Yes [id number] 5mg Take 1 U nivers chloride 5 3-22 tablet by ity of mg tablet 00:00: mouth (two) Medical times Branch daily as needed for Bladder spasms. tamsulosin 2023-0 Yes [id number] .4mg Take 1 U nivers (FLOMAX) 3-22 capsule by ity o f 0.4 mg 24 00:00: mouth in [place] hr capsule 00 the Medical morning. Branch oxyBUTYnin 2023-0 Yes [id number] 5mg Take 1 U nivers chloride 5 3-22 tablet by ity of mg tablet 00:00: mouth (two) Medical times Branch daily as needed for Bladder spasms. tamsulosin 2023-0 Yes [id number] .4mg Take 1 U nivers (FLOMAX) 3-22 capsule by ity o f 0.4 mg 24 00:00: mouth in [place] hr capsule 00 the Medical morning. Branch oxyBUTYnin 2023-0 Yes [id number] 5mg Take 1 U nivers chloride 5 3-22 tablet by ity of mg tablet 00:00: mouth (two) Medical times Branch daily as needed for Bladder spasms. tamsulosin 2023-0 Yes [id number] .4mg Take 1 U nivers (FLOMAX) 3-22 capsule by ity o f 0.4 mg 24 00:00: mouth in [place] hr capsule 00 the Medical morning. Branch phenazopyri 2023-0 Yes [id number] 200mg Take 1 Univers dine 3-22 tablet by ity of (PYRIDIUM) 00:00: mouth in [place] 200 mg 00 the Medical tablet morning Branch and 1 tablet at noon and 1 tablet in the evening. Take after meals. oxyBUTYnin 2023-0 Yes [id number] 5mg Take 1 U nivers chloride 5 3-22 tablet by ity of mg tablet 00:00: mouth 2 [place] (two) Medical times Branch daily as needed for Bladder spasms. tamsulosin 3-0 Yes [id number] .4mg Take 1 U nivers (FLOMAX) 3-22 capsule by ity o f 0.4 mg 24 00:00: mouth in [place] hr capsule 00 the Medical morning. Branch oxyBUTYnin 3-0 Yes [id number] 5mg Take 1 [facility] n[facility] chloride 5 3-22 tablet by ity of mg tablet 00:00: mouth (two) Medical times Branch daily as needed for Bladder spasms. tamsulosin 3-0 Yes [id number] .4mg Take 1 U nivers (FLOMAX) 3-22 capsule by ity o f 0.4 mg 24 00:00: mouth [place] hr capsule 00 the Medical morning. Branch oxyBUTYnin 3-0 Yes [id number] 5mg Take 1 U n[facility] chloride 5 3-22 tablet by ity of mg tablet 00:00: mouth 2 (two) Medical times Branch daily as needed for Bladder spasms. tamsulosin 2023-0 Yes [id number] .4mg Take 1 [facility] n[facility] (FLOMAX) 3-22 capsule by ity o f 0.4 mg 24 00:00: mouth [place] hr capsule 00 the Medical morning. Branch oxyBUTYnin 2023-0 Yes [id number] 5mg Take 1 [facility] n[facility] chloride 5 3-22 tablet by ity of mg tablet 00:00: mouth 2 (two) Medical times Branch daily as needed for Bladder spasms. gabapentin 2023-0 Yes [id number] 300mg Take 1 [facility] 300 mg 3-22 capsule by ity of capsule 00:00: mouth [place] 00 every 8 Medical (eight) Branch hours as needed for Pain (scale 4-6). phenazopyri 2023-0 Yes [id number] 200mg Take 1 [facility] dine 3-22 tablet by ity of (PYRIDIUM) 00:00: mouth in [place] 200 mg 00 the Medical tablet morning Branch and 1 tablet at noon and 1 tablet in the evening. Take after meals. tamsulosin 3- No [id number] .4mg Take 1 [facility] (FLOMAX) 12-24-15 capsule by ity of 0.4 mg 24 00:00: 00:00 mouth in [place] hr capsule 00 :00 the Medical morning. Branch oxyBUTYnin 2022-2022- No [id number] 5mg Take 1 [facility] chloride 5 12-24-15 tablet by ity of mg tablet 00:00: 00:00 mouth 2 [place] 00 :00 (two) Medical times Branch daily as needed for Bladder spasms. gabapentin 2022-3- No [id number] 300mg Take 1 [facility] 300 mg 12-24-25 capsule by ity of capsule 00:00: 00:00 mouth [place] 00 :00 every 8 Medical (eight) Branch hours as needed for Pain (scale 4-6). phenazopyri 2022-0 2022- No [id number] 200mg Take 1 [facility] dine 12-24-25 tablet by ity of (PYRIDIUM) 00:00: 00:00 mouth in [place] 200 mg 00 :00 the Medical tablet morning Branch and 1 tablet at noon and 1 tablet in the evening. Take after meals. ketorolac 2022-0 3- No [id number] 10mg Take 1 U nivers 10 mg 12-24- tablet by ity of tablet 00:00: 04:59 mouth [place] 00 :00 every 6 Medical (six) Branch hours as needed for Pain (scale 7-10) for up to 10 days. ketorolac 3-0 3- No [id number] 10mg Take 1 U nivers 10 mg 12-24- tablet by ity of tablet 00:00: 04:59 mouth [place] 00 :00 every 6 Medical (six) Branch hours as needed for Pain (scale 7-10) for up to 10 days. ketorolac 3-0 3- No [id number] 10mg Take 1 U nivers 10 mg 12-24- tablet by ity of tablet 00:00: 04:59 mouth [place] 00 :00 every 6 Medical (six) Branch hours as needed for Pain (scale 7-10) for up to 10 days. phenazopyri 2023-0 2023- No [id number] 200mg Take 1 [facility] dine 12-24 tablet by ity of (PYRIDIUM) 00:00: 00:00 mouth in [place] 200 mg 00 :00 the Medical tablet morning Branch and 1 tablet at noon and 1 tablet in the evening. Take after meals. Do all this for 14 days. phenazopyri 2023-0 2023- No [id number] 200mg Take 1 [facility] dine 12-24 tablet by ity of (PYRIDIUM) 00:00: 00:00 mouth in [place] 200 mg 00 :00 the Medical tablet morning Branch and 1 tablet at noon and 1 tablet in the evening. Take after meals. Do all this for 14 days. cyclobenzap 2023-0 Yes 5mg 5 mg, Unive rs rine 3-21 Oral, TID, ity of (FLEXERIL) 19:00: First dose [place] tablet 5 mg 00 on [facility]22 at Branch 1400, Until Discontinu ed, Routine cyclobenzap 2023-0 Yes 5mg 5 mg, Unive rs rine 3-21 Oral, TID, ity of (FLEXERIL) 19:00: First dose [place] tablet 5 mg 00 on [facility] 12/23/22 at Branch 1400, Until Discontinu ed, Routine acetaminoph 2023-0 Yes 650mg 650 mg, Un monique en 3-21 Oral, Q6H, ity of (TYLENOL) 17:00: First dose [place] tablet 650 00 (after Medical mg last Branch modificati on) on Thu12/23/22 at 1200, Until Discontinu ed, Routine acetaminoph 2023-0 Yes 650mg 650 mg, Un monique en 3-21 Oral, Q6H, ity of (TYLENOL) 17:00: First dose [place] tablet 650 00 (after Medical mg last Branch modificati on) on Thu12/23/22 at 1200, Until Discontinu ed, Routine ketorolac 2023-0 202- No 30mg 30 mg, Unive rs (TORADOL) 12-23 Slow IV ity of injection 15:44: 13:29 Push, [place] 30 mg 01 :00 Q6HPRN, Medical Starting Branch on Thu12/23/22 at 1044, Until 12/28/22 at 0829, Routine, Pain (scale 7-10) ketorolac No 30mg 30 mg, Unive rs (TORADOL) 12-23 Slow IV ity of injection 15:44: 13:29 Push, [place] 30 mg 01 :00 Q6HPRN, Medical Starting Branch on Thu12/23/22 at 1044, Until 12/28/22 at 0829, Routine, Pain (scale 7-10) sennosides Yes 8.6mg 8.6 mg, Uni vers (SENOKOT) 3 Oral, ity of tablet 8.6 14:00: DAILY, [place] mg 00 First dose Medical on [facility] 12/23/22 at 0900, Until Discontinu ed, Routine fluticasone Yes 2{spray 2 [place], Univers propionate 12-23 } Nasal, ity of 50 14:00: DAILY, [place] mcg/actuati 00 First dose Me dical on nasal on [facility] spray 2 12/23/22 at [place] 0900, Until Discontinu ed sennosides Yes 8.6mg 8.6 mg, Uni vers (SENOKOT) 12-23 Oral, ity of tablet 8.6 14:00: DAILY, [place] mg 00 First dose Medical on [facility] 12/23/22 at 0900, Until Discontinu ed, Routine fluticasone Yes 2{spray 2 [place], Univers propionate 12-23 } Nasal, ity of 50 14:00: DAILY, [place] mcg/actuati 00 First dose Me dical on nasal on [facility] spray 2 12/23/22 at [place] 0900, Until Discontinu ed furosemide No 40mg 40 mg, Univ ers (LASIX) 12-23 Oral, ity of tablet 40 14:00: 15:38 DAILY, [place] mg 00 : First dose Medical on [facility] 12/23/22 at 0900, Until Discontinu ed, Routine furosemide 2022- No 40mg 40 mg, Univ ers (LASIX) 12-23 Oral, ity of tablet 40 14:00: 15:38 DAILY, [place] mg 00 :23 First dose Medical on [facility] 12/23/22 at 0900, Until Discontinu ed, Routine ketorolac 2022- No 15mg 15 mg, Unive rs (TORADOL) 12-23 Slow IV ity of injection 13:30: 15:44 Push, [place] 15 mg 00 :11 Q6HPRN, [facility] Starting Branch on Thu12/23/22 at 0830, Until [facility] 12/23/22 at 1044, Routine, Pain (scale 7-10) ketorolac 2022- No 15mg 15 mg, Unive rs (TORADOL) 12-23 Slow IV ity of injection 13:30: 15:44 Push, [place] 15 mg 00 :11 Q6HPRN, [facility] Starting Branch on [facility] 12/23/22 at 0830, Until [facility] 12/23/22 at 1044, Routine, Pain (scale 7-10) gabapentin 2022- No 300mg 300 mg, Un monique (NEURONTIN) 12-23 Oral, TID, i ty of capsule 300 13:00: 19:37 First dose [place] mg 00 :09 on [facility] 12/23/22 at Branch 0800, Until Discontinu ed, Routine gabapentin 2022- No 300mg 300 mg, Un monique (NEURONTIN) 12-23 Oral, TID, i ty of capsule 300 13:00: 19:37 First dose [place] mg 00 :09 on [facility] 12/23/22 at Branch 0800, Until Discontinu ed, Routine levothyroxi Yes 200ug 200 mcg, U nivers ne 12-23 Oral, ity of (SYNTHROID) 11:00: QAM-0600, [place] tablet 200 00 First dose Med ical mcg on [facility] 12/23/22 at 0600, Until Discontinu ed, Routine levothyroxi Yes 200ug 200 mcg, U nivers ne 12-23 Oral, ity of (SYNTHROID) 11:00: QAM-0600, [place] tablet 200 00 First dose Med ical mcg on [facility] Branch 12/23/22 at 0600, Until Discontinu ed, Routine morpHINE (2 2022-0 2022- No 2mg 2 mg, Slow Univers mg/mL) 12-23 IV Push, ity of injection 2 07:30: 10:51 ONCE, 1 [place] mg 00 :00 dose, On Medical [facility] Branch 12/23/22 at 0230, Routine morpHINE (2 2022-0 2022- No 2mg 2 mg, Slow Univers mg/mL) 12-23 IV Push, ity of injection 2 07:30: 10:51 ONCE, 1 [place] mg 00 :00 dose, On Medical [facility] Branch 12/23/22 at 0230, Routine ketorolac 2022-2022- No 15mg 15 mg, Unive rs (TORADOL) 12-23 Slow IV ity of injection 05:00: 13:30 Push, Q6H, [place] 15 mg 00 :33 12 doses, Medical First dose Branch on [facility] 12/23/22 at 0000, Last dose on [facility] 12/25/22 at 1800, Routine ketorolac 2022- No 15mg 15 mg, Unive rs (TORADOL) 12-23 Slow IV ity of injection 05:00: 13:30 Push, Q6H, [place] 15 mg 00 :33 12 doses, Medical First dose Branch on Thu12/23/22 at 0000, Last dose on [facility] 12/25/22 at 1800, Routine morpHINE (2 2022-2022- No 2mg 2 mg, Slow Univers mg/mL) 12-23 IV Push, ity of injection 2 04:15: 03:25 ONCE, 1 [place] mg 00 :00 dose, On [facility] 12/22/22 at 2315, Routine morpHINE (2 2022-2022- No 2mg 2 mg, Slow Univers mg/mL) 12-23 IV Push, ity of injection 2 04:15: 03:25 ONCE, 1 [place] mg 00 :00 dose, On [facility] Branch 12/22/22 at 2315, Routine D5W 0.45% 2022- No IV Univers NaCl 12-23 Infusion, ity of (1/2NS) 1 L 03:30: 11:56 at 125 [place] + KCL 20 00 :49 mL/hr, Medical mEq CONTINUOUS Branch , Starting on Thu12/22/22 at 2230, Until Thu12/24/22 at 0656, Routine D5W 0.45% 2022- No IV Univers NaCl 12-23 Infusion, ity of (1/2NS) 1 L 03:30: 11:56 at 125 [place] + KCL 20 00 :49 mL/hr, Medical mEq CONTINUOUS Branch , Starting on Thu12/22/22 at 2230, Until Thu12/24/22 at 0656, Routine ondansetron 2022-0 Yes 4mg 4 mg, Slow Univers (ZOFRAN 3-21 IV Push, ity of (PF)) 03:16: Q4HPRN, [place] injection 4 07 Starting Medi yemi mg on Thu Branch 12/22/22 at 2216, Until Discontinu ed, Routine, Nausea and Vomiting (N/V) ondansetron 2022-0 Yes 4mg 4 mg, Slow Univers (ZOFRAN 3-21 IV Push, ity of (PF)) 03:16: Q4HPRN, [place] injection 4 07 Starting Medi yemi mg on Thu Branch 12/22/22 at 2216, Until Discontinu ed, Routine, Nausea and Vomiting (N/V) albuterol 2022-0 Yes 2{puff} 2 Puff, [facility] mon[facility] (VENTOLIN) 3- Inhalation ity of inhaler 2 03:15: , Q4HPRN, [place] Puff 06 Starting Medical on Thu Branch 12/22/22 at 2215, Until Discontinu ed, Routine, Wheezing, Shortness of Breath albuterol 2022-0 Yes 2{puff} 2 Puff, [place] (VENTOLIN) 3-21 Inhalation ity of inhaler 2 03:15: , Q4HPRN, [place] Puff 06 Starting Medical on Thu Branch 12/22/22 at 2215, Until Discontinu ed, Routine, Wheezing, Shortness of Breath ondansetron 2022-0 2022- No 4mg 4 mg, Slow Univers (ZOFRAN 312-23 IV Push, ity of (PF)) 01:00: 01:00 ONCE, 1 [place] injection 4 00 :00 dose, On Medi yemi mg [facility] Branch 12/22/22 at 2000, [place]UAN[place] morpHINE (4 2022- No 4mg 4 mg, Slow Univers mg/mL) 12-23 IV Push, ity of injection 4 00:45: 00:42 ONCE, 1 [place] mg 00 :00 dose, On Medical [facility] Branch 12/22/22 at 1945, STAT ketorolac 2022- No 15mg 15 mg, Unive rs (TORADOL) 12-23 Slow IV ity of injection 00:30: 00:30 Push, [place] 15 mg 00 :00 ONCE, 1 Medical dose, On Branch [facility] 12/22/22 at 1930, JUAN[place] dicyclomine 2022- No 20mg 20 mg, Uni vers (BENTYL) 12-23 Oral, ity of tablet 20 00:15: 00:05 ONCE, 1 [place] mg 00 :00 dose, On [facility] Branch 12/22/22 at 1915, Routine HYDROcodone 2022- No 1{tbl} 1 tablet, Univers -acetaminop 12-22 Oral, ity of hen (NORCO) 21:45: 20:45 ONCE, 1 [place] 10-325 mg 00 :00 dose, On Medica l tablet 1 [facility] tablet 12/22/22 at 1645, Routine ondansetron 2022- No 4mg 4 mg, Slow Univers (ZOFRAN 12-22 IV Push, ity of (PF)) 20:45: 20:46 ONCE, 1 [place] injection 4 00 :00 dose, On Medi yemi mg [facility] Branch 12/22/22 at 1545, JUANCHO albuterol Yes 2{puff} Inhale 2 U nivers 90 3-20 Puffs. ity of mcg/actuati 20:33: [place] on inhaler 58 Medical Branch budesonide- Yes 2{puff} Inhale 2 Univers glycopyr-fo 3-20 Puffs. ity of rmoterol 20:33: [place] (BREZTRI 58 Medical AEROSPHERE) Branch 160-9-4.8 mcg/actuati on HFAA busPIRone 0 Yes 30mg Take 1 Univer s 30 mg 3-20 tablet by ity of tablet 20:33: mouth. [place] [address] Medical Branch furosemide 0 Yes 40mg Take 1 Unive rs 40 mg 3-20 tablet by ity of tablet 20:33: mouth. [place] [address] Medical Branch gabapentin 0 Yes 600mg Take 1 Univ ers 600 mg 3-20 tablet by ity of tablet 20:33: mouth. [place] [address] Medical Branch HYDROcodone 0 Yes hydrocodon Univers -acetaminop 3-20 e 10 ity of hen 10-325 20:33: mg-acetami [place] mg tablet 58 nophen 325 Medi yemi mg tablet Branch TK 1 T PO QID ketamine Yes 100mg Place 100 Uni vers 100 mg [place] 3-20 mg under ity of 20:33: the [place] [address] tongue. Medical Branch levothyroxi Yes Synthroid U nivers ne 3-20 200 mcg ity of (SYNTHROID) 20:33: tablet [place] 200 mcg 58 Medical tablet Branch magnesium 0 Yes 27mg Take 1 Univer s gluconate 3-20 tablet by ity o f 27 mg [place] 20:33: mouth [place] MAGNESIUM 58 every Medical tablet morning. Branch methocarbam 0 Yes 1000mg Take 2 Un monique oL 500 mg 3-20 tablets by ity of tablet 20:33: mouth. [place] [address] Medical Branch KCL 10 mEq 0 Yes 10meq Take 1 Univ ers tablet 3-20 tablet by ity of 20:33: mouth in [place] [address] the Medical morning. Branch rOPINIRole 0 Yes 2mg Take 1 Unive rs 2 mg tablet 3-20 tablet by ity of 20:33: mouth. [place] [address] Medical Branch triamcinolo Yes 2{spray Use 2 [place] monique ne 55 mcg 3-20 } Sprays in ity o f nasal 20:33: each [place] inhaler 58 nostril. Medical Branch apixaban 5 Yes Indication U nivers mg tablet 2-23 s: ity of 00:00: treatment [place] 00 to prevent Medical blood Branch clots in chronic atrial fibrillati on, paroxysmal atrial fibrillati on Resume current dose anticoagul ation 04/15/2022 apixaban 5 3-0 Yes Indication U nivers mg tablet 2-23 s: ity of 00:00: treatment to prevent Medical blood Branch clots in chronic atrial fibrillati on, paroxysmal atrial fibrillati on Resume current dose anticoagul ation 04/15/2022 apixaban 5 3-0 Yes Indication U nivers mg tablet 2-23 s: ity of 00:00: treatment to prevent Medical blood Branch clots in chronic atrial fibrillati on, paroxysmal atrial fibrillati on Resume current dose anticoagul ation 04/15/2022 apixaban 5 2022-0 Yes Indication U nivers mg tablet 2-23 s: ity of 00:00: treatment to prevent Medical blood Branch clots in chronic atrial fibrillati on, paroxysmal atrial fibrillati on Resume current dose anticoagul ation 04/15/2022 apixaban 5 2022-0 Yes Indication U nivers mg tablet 2-23 s: ity of 00:00: treatment to prevent Medical blood Branch clots in chronic atrial fibrillati on, paroxysmal atrial fibrillati on Resume current dose anticoagul ation 04/15/2022 apixaban 5 2022-0 Yes Indication U nivers mg tablet 2-23 s: ity of 00:00: treatment to prevent Medical blood Branch clots in chronic atrial fibrillati on, paroxysmal atrial fibrillati on Resume current dose anticoagul ation 04/15/2022 apixaban 5 3-0 Yes Indication U nivers mg tablet 2-23 s: ity of 00:00: treatment to prevent Medical blood Branch clots in chronic atrial fibrillati on, paroxysmal atrial fibrillati on Resume current dose anticoagul ation 04/15/2022 apixaban 5 3-0 Yes Indication U nivers mg tablet 2-23 s: ity of 00:00: treatment to prevent Medical blood Branch clots in chronic atrial fibrillati on, paroxysmal atrial fibrillati on Resume current dose anticoagul ation 04/15/2022 apixaban 5 2022-0 Yes Indication U nivers mg tablet 2-23 s: ity of 00:00: treatment to prevent Medical blood Branch clots in chronic atrial fibrillati on, paroxysmal atrial fibrillati on Resume current dose anticoagul ation 04/15/2022 apixaban 5 2022-0 Yes Indication U nivers mg tablet 2-23 s: ity of 00:00: treatment 00 to prevent Medical blood Branch clots in chronic atrial fibrillati on, paroxysmal atrial fibrillati on Resume current dose anticoagul ation 04/15/2022 apixaban 5 3-0 Yes Indication U nivers mg tablet 2-23 s: ity of 00:00: treatment 00 to prevent Medical blood Branch clots in chronic atrial fibrillati on, paroxysmal atrial fibrillati on Resume current dose anticoagul ation 04/15/2022 apixaban 5 2022-0 Yes Indication U nivers mg tablet 2-23 s: ity of 00:00: treatment 00 to prevent Medical blood Branch clots in chronic atrial fibrillati on, paroxysmal atrial fibrillati on Resume current dose anticoagul ation 04/15/2022 apixaban 5 2022-0 Yes Indication U nivers mg tablet 2-23 s: ity of 00:00: treatment to prevent Medical blood Branch clots in chronic atrial fibrillati on, paroxysmal atrial fibrillati on Resume current dose anticoagul ation 04/15/2022 apixaban 5 2022-0 Yes Indication U nivers mg tablet 2-23 s: ity of 00:00: treatment to prevent Medical blood Branch clots in chronic atrial fibrillati on, paroxysmal atrial fibrillati on Resume current dose anticoagul ation 04/15/2022 apixaban 5 3-0 Yes Indication U nivers mg tablet 2-23 s: ity of 00:00: treatment to prevent Medical blood Branch clots in chronic atrial fibrillati on, paroxysmal atrial fibrillati on Resume current dose anticoagul ation 04/15/2022 apixaban 5 3-0 Yes Indication U nivers mg tablet 2-23 s: ity of 00:00: treatment 00 to prevent Medical blood Branch clots in chronic atrial fibrillati on, paroxysmal atrial fibrillati on Resume current dose anticoagul ation 04/15/2022 apixaban 5 2022-0 Yes Indication U nivers mg tablet 2-23 s: ity of 00:00: treatment to prevent Medical blood Branch clots in chronic atrial fibrillati on, paroxysmal atrial fibrillati on Resume current dose anticoagul ation 04/15/2022 apixaban 5 2022-0 Yes Indication U nivers mg tablet 2-23 s: ity of 00:00: treatment 00 to prevent Medical blood Branch clots in chronic atrial fibrillati on, paroxysmal atrial fibrillati on Resume current dose anticoagul ation 04/15/2022 apixaban 5 2022-0 Yes Indication U nivers mg tablet 2-23 s: ity of 00:00: treatment 00 to prevent Medical blood Branch clots in chronic atrial fibrillati on, paroxysmal atrial fibrillati on Resume current dose anticoagul ation 04/15/2022 apixaban 5 2022-0 Yes Indication U nivers mg tablet 2-23 s: ity of 00:00: treatment 00 to prevent Medical blood Branch clots in chronic atrial fibrillati on, paroxysmal atrial fibrillati on Resume current dose anticoagul ation 04/15/2022 apixaban 5 2022-0 Yes Indication U nivers mg tablet 2-23 s: ity of 00:00: treatment to prevent Medical blood Branch clots in chronic atrial fibrillati on, paroxysmal atrial fibrillati on Resume current dose anticoagul ation 04/15/2022 apixaban 5 2022-0 Yes Indication U nivers mg tablet 2-23 s: ity of 00:00: treatment to prevent Medical blood Branch clots in chronic atrial fibrillati on, paroxysmal atrial fibrillati on Resume current dose anticoagul ation 04/15/2022 apixaban 5 2022-0 Yes Indication U nivers mg tablet 2-23 s: ity of 00:00: treatment to prevent Medical blood Branch clots in chronic atrial fibrillati on, paroxysmal atrial fibrillati on Resume current dose anticoagul ation 04/15/2022 apixaban 5 2022-0 Yes Indication U nivers mg tablet 2-23 s: ity of 00:00: treatment 00 to prevent Medical blood Branch clots in chronic atrial fibrillati on, paroxysmal atrial fibrillati on Resume current dose anticoagul ation 04/15/2022 apixaban 5 2022-0 Yes Indication U nivers mg tablet 2-23 s: ity of 00:00: treatment to prevent Medical blood Branch clots in chronic atrial fibrillati on, paroxysmal atrial fibrillati on Resume current dose anticoagul ation 04/15/2022 apixaban 5 2022-0 Yes Indication U nivers mg tablet 2-23 s: ity of 00:00: treatment 00 to prevent Medical blood Branch clots in chronic atrial fibrillati on, paroxysmal atrial fibrillati on Resume current dose anticoagul ation 04/15/2022 apixaban 5 2022-0 Yes Indication U nivers mg tablet 2-23 s: ity of 00:00: treatment 00 to prevent Medical blood Branch clots in chronic atrial fibrillati on, paroxysmal atrial fibrillati on Resume current dose anticoagul ation 04/15/2022 apixaban 5 2022-0 Yes Indication U nivers mg tablet 2-23 s: ity of 00:00: treatment 00 to prevent Medical blood Branch clots in chronic atrial fibrillati on, paroxysmal atrial fibrillati on Resume current dose anticoagul ation 04/15/2022 apixaban 5 2022-0 Yes Indication U nivers mg tablet 2-23 s: ity of 00:00: treatment to prevent Medical blood Branch clots in chronic atrial fibrillati on, paroxysmal atrial fibrillati on Resume current dose anticoagul ation 04/15/2022 apixaban 5 2022-0 Yes Indication U nivers mg tablet 2-23 s: ity of 00:00: treatment to prevent Medical blood Branch clots in chronic atrial fibrillati on, paroxysmal atrial fibrillati on Resume current dose anticoagul ation 04/15/2022 apixaban 5 2022-0 Yes Indication U nivers mg tablet 2-23 s: ity of 00:00: treatment to prevent Medical blood Branch clots in chronic atrial fibrillati on, paroxysmal atrial fibrillati on Resume current dose anticoagul ation 04/15/2022 apixaban 5 2022-0 Yes Indication U nivers mg tablet 2-23 s: ity of 00:00: treatment 00 to prevent Medical blood Branch clots in chronic atrial fibrillati on, paroxysmal atrial fibrillati on Resume current dose anticoagul ation 04/15/2022 apixaban 5 2022-0 Yes Indication U nivers mg tablet 2-23 s: ity of 00:00: treatment to prevent Medical blood Branch clots in chronic atrial fibrillati on, paroxysmal atrial fibrillati on Resume current dose anticoagul ation 04/15/2022 atorvastati 2023-0 2023- No 40mg Take 1 Uni vers n 40 mg 2-23 05-25 tablet by ity of tablet 00:00: 04:59 mouth. [place] 00 :00 Medical Branch atorvastati 2023-0 2023- No 40mg Take 1 Uni vers n 40 mg 2-23 05-25 tablet by ity of tablet 00:00: 04:59 mouth. [place] 00 :00 Medical Branch atorvastati 2023-0 2023- No 40mg Take 1 Uni vers n 40 mg 2-23 05-25 tablet by ity of tablet 00:00: 04:59 mouth. [place] 00 :00 Medical Branch atorvastati 2023-0 2023- No 40mg Take 1 Uni vers n 40 mg 2-23 05-25 tablet by ity of tablet 00:00: 04:59 mouth. [place] 00 :00 Medical [place] atorvastati 2023-0 2023- No 40mg Take 1 Uni vers n 40 mg 2-23 05-25 tablet by ity of tablet 00:00: 04:59 mouth. [place] 00 :00 Medical Branch atorvastati 2023-0 2023- No 40mg Take 1 Uni vers n 40 mg 2-23 05-25 tablet by ity of tablet 00:00: 04:59 mouth. [place] 00 :00 Medical Branch atorvastati 2023-0 2023- No 40mg Take 1 Uni vers n 40 mg 2-23 05-25 tablet by ity of tablet 00:00: 04:59 mouth. [place] 00 :00 Medical [place] atorvastati 2023-0 2023- No 40mg Take 1 Uni vers n 40 mg 2-23 05-25 tablet by ity of tablet 00:00: 04:59 mouth. [place] 00 :00 Medical Branch atorvastati 2023-0 2023- No 40mg Take 1 Uni vers n 40 mg 2-23 05-25 tablet by ity of tablet 00:00: 04:59 mouth. [place] 00 :00 Medical Branch atorvastati 2023-0 2023- No 40mg Take 1 Uni vers n 40 mg 2-23 05-25 tablet by ity of tablet 00:00: 04:59 mouth. [place] 00 :00 Medical Branch atorvastati 2023-0 2023- No 40mg Take 1 Uni vers n 40 mg 2-23 05-25 tablet by ity of tablet 00:00: 04:59 mouth. [place] 00 :00 Medical Branch atorvastati 2023-0 2023- No 40mg Take 1 Uni vers n 40 mg 2-23 05-25 tablet by ity of tablet 00:00: 04:59 mouth. [place] 00 :00 Medical Branch atorvastati 2023-0 2023- No 40mg Take 1 Uni vers n 40 mg 2-23 05-25 tablet by ity of tablet 00:00: 04:59 mouth. [place] 00 :00 Medical Branch atorvastati 2023-0 2023- No 40mg Take 1 Uni vers n 40 mg 2-23 05-25 tablet by ity of tablet 00:00: 04:59 mouth. [place] 00 :00 Medical Branch atorvastati 2023-0 2023- No 40mg Take 1 Uni vers n 40 mg 2-23 05-25 tablet by ity of tablet 00:00: 04:59 mouth. [place] 00 :00 Medical Branch atorvastati 2023-0 2023- No 40mg Take 1 Uni vers n 40 mg 2-23 05-25 tablet by ity of tablet 00:00: 04:59 mouth. [place] 00 :00 Medical Branch atorvastati 2023-0 2023- No 40mg Take 1 Uni vers n 40 mg 2-23 05-25 tablet by ity of tablet 00:00: 04:59 mouth. [place] 00 :00 Medical Branch atorvastati 2023-0 2023- No 40mg Take 1 Uni vers n 40 mg 2-23 05-25 tablet by ity of tablet 00:00: 04:59 mouth. [place] 00 :00 Medical Branch atorvastati 2023-0 2023- No 40mg Take 1 Uni vers n 40 mg 2-23 05-25 tablet by ity of tablet 00:00: 04:59 mouth. [place] 00 :00 Medical Branch atorvastati 2023-0 2023- No 40mg Take 1 Uni vers n 40 mg 2-23 05-25 tablet by ity of tablet 00:00: 04:59 mouth. [place] 00 :00 Medical Branch atorvastati 2023-0 2023- No 40mg Take 1 Uni vers n 40 mg 2-23 05-25 tablet by ity of tablet 00:00: 04:59 mouth. [place] 00 :00 Medical Branch FLUoxetine 2022-0 Yes 40mg Take 2 Unive rs 20 mg 3-11 capsules ity of capsule 00:00: by mouth [place] 00 at Medical bedtime. Branch FLUoxetine 2022-0 Yes 40mg Take 2 Unive rs 20 mg 3-11 capsules ity of capsule 00:00: by mouth [place] 00 at Medical bedtime. Branch FLUoxetine 2022-0 Yes 40mg Take 2 [facility] 20 mg 3-11 capsules ity of capsule 00:00: by mouth [place] 00 at Medical bedtime. Branch FLUoxetine 2022-0 Yes 40mg Take 2 [facility] 20 mg 3-11 capsules ity of capsule 00:00: by mouth [place] 00 at Medical bedtime. Branch FLUoxetine 2022-0 Yes 40mg Take 2 [facility] 20 mg 3-11 capsules ity of capsule 00:00: by mouth [place] 00 at Medical bedtime. Branch FLUoxetine 2022-0 Yes 40mg Take 2 [facility] rs 20 mg 3-11 capsules ity of capsule 00:00: by mouth [place] 00 at Medical bedtime. Branch FLUoxetine 2022-0 Yes 40mg Take 2 [facility] 20 mg 3-11 capsules ity of capsule 00:00: by mouth [place] 00 at Medical bedtime. Branch FLUoxetine 2022-0 Yes 40mg Take 2 [facility] rs 20 mg 3-11 capsules ity of capsule 00:00: by mouth [place] 00 at Medical bedtime. Branch FLUoxetine 2022-0 Yes 40mg Take 2 [facility] 20 mg 3-11 capsules ity of capsule 00:00: by mouth [place] 00 at Medical bedtime. Branch FLUoxetine 2022-0 Yes 40mg Take 2 [facility] 20 mg 3-11 capsules ity of capsule 00:00: by mouth [place] 00 at Medical bedtime. Branch FLUoxetine 2022-0 Yes 40mg Take 2 [facility] 20 mg 3-11 capsules ity of capsule 00:00: by mouth [place] 00 at Medical bedtime. Branch FLUoxetine 2022-0 Yes 40mg Take 2 [facility] rs 20 mg 3-11 capsules ity of capsule 00:00: by mouth [place] 00 at Medical bedtime. Branch FLUoxetine 2022-0 Yes 40mg Take 2 [facility] rs 20 mg 3-11 capsules ity of capsule 00:00: by mouth [place] 00 at Medical bedtime. Branch FLUoxetine 2022-0 Yes 40mg Take 2 [facility] rs 20 mg 3-11 capsules ity of capsule 00:00: by mouth [place] 00 at Medical bedtime. Branch FLUoxetine 2022-0 Yes 40mg Take 2 [facility] rs 20 mg 3-11 capsules ity of capsule 00:00: by mouth [place] 00 at Medical bedtime. Branch FLUoxetine 2022-0 Yes 40mg Take 2 [facility] rs 20 mg 3-11 capsules ity of capsule 00:00: by mouth [place] 00 at Medical bedtime. Branch FLUoxetine 2022-0 Yes 40mg Take 2 [facility] rs 20 mg 3-11 capsules ity of capsule 00:00: by mouth [place] 00 at Medical bedtime. Branch FLUoxetine 2022-0 Yes 40mg Take 2 [facility] rs 20 mg 3-11 capsules ity of capsule 00:00: by mouth [place] 00 at Medical bedtime. Branch FLUoxetine 2022-0 Yes 40mg Take 2 [facility] rs 20 mg 3-11 capsules ity of capsule 00:00: by mouth [place] 00 at Medical bedtime. Branch FLUoxetine 2022-0 Yes 40mg Take 2 [facility] rs 20 mg 3-11 capsules ity of capsule 00:00: by mouth [place] 00 at Medical bedtime. Branch FLUoxetine 2022-0 Yes 40mg Take 2 [facility] rs 20 mg 3-11 capsules ity of capsule 00:00: by mouth [place] 00 at Medical bedtime. Branch FLUoxetine 2022-0 Yes 40mg Take 2 [facility] rs 20 mg 3-11 capsules ity of capsule 00:00: by mouth [place] 00 at Medical bedtime. Branch FLUoxetine 2022-0 Yes 40mg Take 2 [facility] rs 20 mg 3-11 capsules ity of capsule 00:00: by mouth [place] 00 at Medical bedtime. Branch FLUoxetine 2022-0 Yes 40mg Take 2 [facility] rs 20 mg 3-11 capsules ity of capsule 00:00: by mouth [place] 00 at Medical bedtime. Branch FLUoxetine 2022-0 Yes 40mg Take 2 [facility] rs 20 mg 3-11 capsules ity of capsule 00:00: by mouth [place] 00 at Medical bedtime. Branch FLUoxetine 2022-0 Yes 40mg Take 2 [facility] rs 20 mg 3-11 capsules ity of capsule 00:00: by mouth [place] 00 at Medical bedtime. Branch FLUoxetine 2022-0 Yes 20mg Take 1 [facility] rs 20 mg 3-11 capsule by ity of capsule 00:00: mouth. [place] 00 Medical Branch FLUoxetine 2022-0 Yes 40mg Take 2 [facility] rs 20 mg 3-11 capsules ity of capsule 00:00: by mouth [place] at Medical bedtime. Branch FLUoxetine 2-0 Yes 40mg Take 2 [facility] rs 20 mg 3-11 capsules ity of capsule 00:00: by mouth [place] at Medical bedtime. Branch FLUoxetine 2022-0 Yes 40mg Take 2 [facility] rs 20 mg 3-11 capsules ity of capsule 00:00: by mouth [place] at Medical bedtime. Branch FLUoxetine 2-0 Yes 20mg Take 1 [facility] rs 20 mg 3-11 capsule by ity of capsule 00:00: mouth. [address] FLUoxetine 2-0 Yes 20mg Take 1 [facility] rs 20 mg 3-11 capsule by ity of capsule 00:00: mouth. [address] FLUoxetine 2-0 Yes 20mg Take 1 [facility] rs 20 mg 3-11 capsule by ity of capsule 00:00: mouth. [address] levothyroxi levothyroxi No levothyrox [place] ne 200 mcg ne 200 mcg ine 200 [facility] tablet TAKE tablet TAKE mcg tablet ty ONE (1) ONE (1) TAKE ONE Hospi ta TABLET(S) TABLET(S) (1) l BY MOUTH BY MOUTH TABLET(S) Cl inics EVERY EVERY BY MOUTH MORNING ON MORNING ON EVERY AN EMPTY AN EMPTY MORNING ON STOMACH. STOMACH. AN EMPTY STOMACH. magnesium magnesium No magnesium [place] gluconate gluconate gluconate [facility] 27 mg 27 mg 27 mg ty magnesium magnesium magnesium [facility]ospita (500 mg) (500 mg) (500 mg) l tablet Take tablet Take tablet Clinics by oral by oral Take by route. route. oral route. methocarbam methocarbam No methocarba [place] ol 500 mg ol 500 mg mol 500 mg [facility] tablet TAKE tablet TAKE tablet ty TWO (2) TWO (2) TAKE TWO Hospi ta TABLET(S) TABLET(S) (2) l BY MOUTH BY MOUTH TABLET(S) Cl inics EVERY EIGHT EVERY EIGHT BY MOUTH HOURS. HOURS. EVERY EIGHT HOURS. methocarbam methocarbam No methocarba [place] ol 750 mg ol 750 mg mol 750 mg [facility] tablet TAKE tablet TAKE tablet ty ONE (1) ONE (1) TAKE ONE Hospi ta TABLET(S) TABLET(S) (1) l BY MOUTH BY MOUTH TABLET(S) Cl inics EVERY EVERY BY MOUTH TWELVE TWELVE EVERY HOURS HOURS TWELVE NEEDED. NEEDED. HOURS NEEDED. mupirocin 2 mupirocin 2 No mupirocin [place] % topical % topical 2 % Com[facility] ni ointment ointment topical ty APPLY A APPLY A ointment Hospi ta SMALL SMALL APPLY A l AMOUNT TO AMOUNT TO SMALL Clin ics THE THE AMOUNT TO AFFECTED AFFECTED THE AREA BY AREA BY AFFECTED TOPICAL TOPICAL AREA BY ROUTE 2 ROUTE 2 TOPICAL TIMES PER TIMES PER ROUTE 2 DAY DAY TIMES PER DAY ondansetron ondansetron No ondansetro [place] 4 mg 4 mg n 4 mg [facility] disintegrat disintegrat disintegra ty ing tablet ing tablet ting Hos corbin DISSOLVE DISSOLVE tablet l ONE (1) ONE (1) DISSOLVE Clini cs TABLET(S) TABLET(S) ONE (1) BY MOUTH BY MOUTH TABLET(S) EVERY EVERY BY MOUTH TWELVE TWELVE EVERY HOURS. HOURS. TWELVE HOURS. ropinirole ropinirole No ropinirole [place] 1 mg tablet 1 mg tablet 1 mg [facility] TAKE ONE TAKE ONE tablet ty (1) (1) TAKE ONE Hospita TABLET(S) TABLET(S) (1) l BY MOUTH BY MOUTH TABLET(S) Cl inics EVERY EVERY BY MOUTH MORNING AND MORNING AND EVERY TWO (2) TWO (2) MORNING TABLETS TABLETS AND TWO EVERY EVERY (2) EVENING. EVENING. TABLETS EVERY EVENING. spironolact spironolact No spironolac [place] one 25 mg one 25 mg tone 25 mg [facility] tablet TAKE tablet TAKE tablet ty ONE (1) ONE (1) TAKE ONE Hospi ta TABLET(S) TABLET(S) (1) l BY MOUTH BY MOUTH TABLET(S) Cl inics ONCE A DAY. ONCE A DAY. BY MOUTH ONCE A DAY. topiramate topiramate No topiramate [place] 25 mg 25 mg 25 mg [facility] tablet TAKE tablet TAKE tablet ty ONE (1) ONE (1) TAKE ONE Hospi ta TABLET(S) TABLET(S) (1) l BY MOUTH BY MOUTH TABLET(S) Cl inics TWICE A TWICE A BY MOUTH DAY. DAY. TWICE A DAY. topiramate topiramate No topiramate [place] 50 mg 50 mg 50 mg [facility] tablet TAKE tablet TAKE tablet ty ONE (1) ONE (1) TAKE ONE Hospi ta TABLET(S) TABLET(S) (1) l BY MOUTH BY MOUTH TABLET(S) Cl inics TWICE A TWICE A BY MOUTH DAY. DAY. TWICE A DAY. Ubrelvy 100 Ubrelvy 100 No Ubrelvy [place] mg tablet mg tablet 100 mg Com ale TAKE 1 TAKE 1 tablet ty TABLET (100 TABLET (100 TAKE 1 Hospita MG TOTAL) MG TOTAL) TABLET l BY MOUTH BY MOUTH (100 MG Clin ics ONCE ONCE TOTAL) BY NEEDED FOR NEEDED FOR MOUTH ONCE MIGRAINE. MIGRAINE. NEEDED MAY REPEAT MAY REPEAT FOR IN 2 HOURS IN 2 HOURS MIGRAINE. IF IF MAY REPEAT UNRESOLVED. UNRESOLVED. IN 2 HOURS DO NOT DO NOT IF EXCEED 200 EXCEED 200 UNRESOLVED MG IN 24 MG IN 24 . DO NOT HOURS. HOURS. EXCEED 200 MG IN 24 HOURS. albuterol albuterol No albuterol [place] sulfate sulfate sulfate Commun i ty [facility] albuterol albuterol No 2puff(s Q5H albuterol [place] sulfate HFA sulfate HFA ) sulfate Communi 90 90 HFA 90 ty mcg/actuati mcg/actuati mcg/actuat [facility] on aerosol on aerosol ion l inhaler inhaler aerosol Clinic s Inhale 2 Inhale 2 inhaler puffs every puffs every Inhale 2 4-6 hours 4-6 hours puffs by by every 4-6 inhalation inhalation hours by route. route. inhalation route. apixaban 5 apixaban 5 No 1 BID apixaban 5 [place] mg tablet mg tablet mg tablet [facility] Take 1 Take 1 Take 1 ty tablet tablet tablet Hospita twice a day twice a day twice a l by oral by oral day by Clinics route. route. oral route. atorvastati atorvastati No atorvastat [place] n 40 mg n 40 mg in 40 mg Commu ni tablet tablet tablet [facility] buspirone buspirone No buspirone [place] 30 mg 30 mg 30 mg [facility] tablet tablet tablet [facility] fluoxetine fluoxetine No fluoxetine [place] 20 mg 20 mg 20 mg [facility] capsule capsule capsule [facility] furosemide furosemide No furosemide [place] 40 mg 40 mg 40 mg [facility] tablet tablet tablet [facility] gabapentin gabapentin No gabapentin [place] 300 mg 300 mg 300 mg [facility] capsule capsule capsule [facility] gabapentin gabapentin No 1 TID gabapentin [place] 600 mg 600 mg 600 mg [facility] tablet Take tablet Take tablet ty 1 tablet 3 1 tablet 3 Take 1 H ospita times a day times a day tablet 3 l by oral by oral times a Clinic s route. route. day by oral route. hydrocodone hydrocodone No hydrocodon [place] 10 10 e 10 [facility] mg-acetamin mg-acetamin mg-acetami ty ophen 325 ophen 325 nophen 325 Hospita mg tablet mg tablet mg tablet l [facility] ketamine ketamine No ketamine Swe ketan 100 mg 100 mg 100 mg Communi sublingual sublingual sublingual jonatan jonatan jonatan [facility] Place by Place by Place by l sublingual sublingual sublingual Clinics route. route. route. ketorolac ketorolac No ketorolac [place] 10 mg 10 mg 10 mg [facility] tablet tablet tablet [facility] levothyroxi levothyroxi No levothyrox [place] ne 200 mcg ne 200 mcg ine 200 [facility] tablet tablet mcg tablet [facility] magnesium magnesium No magnesium [place] gluconate gluconate gluconate [facility] 27 mg 27 mg 27 mg ty magnesium magnesium magnesium [facility] (500 mg) (500 mg) (500 mg) l tablet Take tablet Take tablet Clinics by oral by oral Take by route. route. oral route. methocarbam methocarbam No 2 QID methocarba [place] ol 500 mg ol 500 mg mol 500 mg [facility] tablet Take tablet Take tablet ty 2 tablets 4 2 tablets 4 Take 2 Hospita times a day times a day tablets 4 l by oral by oral times a Clinic s route. route. day by oral route. ondansetron ondansetron No ondansetro [place] 4 mg 4 mg n 4 mg Communi disintegrat disintegrat disintegra ty ing tablet ing tablet ting Hos corbin tablet [facility] oxybutynin oxybutynin No oxybutynin [place] chloride 5 chloride 5 chloride 5 Communi mg tablet mg tablet mg tablet [facility] phenazopyri phenazopyri No 1 TID phenazopyr [place] dine 200 mg dine 200 mg idine 200 [facility] tablet Take tablet Take mg tablet ty 1 tablet 3 1 tablet 3 Take 1 H ospita times a day times a day tablet 3 l by oral by oral times a Clinic s route. route. day by oral route. potassium potassium No potassium [place] chloride ER chloride ER chloride [facility] 10 mEq 10 mEq ER 10 mEq ty tablet,exte tablet,exte tablet,ext Hospita nded nded ended l release(par release(par release([facility] t/cryst) t/cryst) rt/cryst) ropinirole ropinirole No ropinirole [place] 1 mg tablet 1 mg tablet 1 mg [facility] tablet [facility] tamsulosin tamsulosin No tamsulosin [place] 0.4 mg 0.4 mg 0.4 mg [facility] capsule capsule capsule [facility] albuterol albuterol No albuterol [place] sulfate sulfate sulfate Commun i [facility] albuterol albuterol No albuterol [place] sulfate HFA sulfate HFA sulfate Communi 90 90 HFA 90 ty mcg/actuati mcg/actuati mcg/actuat [facility] on aerosol on aerosol ion l inhaler inhaler aerosol Clinic s INHALE 2 INHALE 2 inhaler PUFFS INTO PUFFS INTO INHALE 2 THE LUNGS THE LUNGS PUFFS INTO EVERY 4 TO EVERY 4 TO THE LUNGS 6 HOURS 6 HOURS EVERY 4 TO 6 HOURS atorvastati atorvastati No atorvastat [place] n 40 mg n 40 mg in 40 mg Commu ni tablet tablet tablet [facility] buspirone buspirone No buspirone [place] 30 mg 30 mg 30 mg [facility] tablet TAKE tablet TAKE tablet ty 1 TABLET BY 1 TABLET BY TAKE 1 [facility] MOUTH TWICE MOUTH TWICE TABLET BY l A DAY A DAY [facility] TWICE A DAY Eliquis 5 Eliquis 5 No Eliquis 5 [place] mg tablet mg tablet mg tablet [facility] Take 1 Take 1 Take 1 ty tablet tablet tablet [facility] twice a day twice a day twice a l by oral by oral day by Clinics route. route. oral route. fluoxetine fluoxetine No fluoxetine [place] 20 mg 20 mg 20 mg [facility] capsule capsule capsule [facility] furosemide furosemide No furosemide [place] 40 mg 40 mg 40 mg [facility] tablet 1 tablet 1 tablet 1 ty TABLET TABLET TABLET [facility] TWICE DAILY TWICE DAILY TWICE l DAILY Clinics gabapentin gabapentin No gabapentin [place] 300 mg 300 mg 300 mg [facility] capsule capsule capsule [facility] gabapentin gabapentin No 1 TID gabapentin [place] 600 mg 600 mg 600 mg [facility] tablet Take tablet Take tablet ty 1 tablet 3 1 tablet 3 Take 1 H ospita times a day times a day tablet 3 l by oral by oral times a Clinic s route. route. day by oral route. hydrocodone hydrocodone No hydrocodon [place] 10 10 e 10 [facility] mg-acetamin mg-acetamin mg-acetami ty ophen 325 ophen 325 nophen 325 Hospita mg tablet mg tablet mg tablet l NEEDED NEEDED NEEDED Clinics ketamine ketamine No ketamine Swe ketan 100 mg 100 mg 100 mg Communi sublingual sublingual sublingual ty jonatan jonatan jonatan [facility] Place by Place by Place by l sublingual sublingual sublingual Clinics route. route. route. ketorolac ketorolac No ketorolac [place] 10 mg 10 mg 10 mg [facility] tablet tablet tablet ty Hospita l Clinics levothyroxi levothyroxi No levothyrox [place] ne 200 mcg ne 200 mcg ine 200 Communi tablet TAKE tablet TAKE mcg tablet ty 1 TABLET BY 1 TABLET BY TAKE 1 Hospita MOUTH EVERY MOUTH EVERY TABLET BY l MORNING ON MORNING ON MOUTH Cl inics AN EMPTY AN EMPTY EVERY STOMACH STOMACH MORNING ON AN EMPTY STOMACH magnesium magnesium No magnesium [place] gluconate gluconate gluconate [facility] 27 mg 27 mg 27 mg ty magnesium magnesium magnesium [facility] (500 mg) (500 mg) (500 mg) l tablet Take tablet Take tablet Clinics by oral by oral Take by route. route. oral route. methocarbam methocarbam No 2 QID methocarba [place] ol 500 mg ol 500 mg mol 500 mg [facility] tablet Take tablet Take tablet ty 2 tablets 4 2 tablets 4 Take 2 Hospita times a day times a day tablets 4 l by oral by oral times a Clinic s route. route. day by oral route. ondansetron ondansetron No ondansetro [place] 4 mg 4 mg n 4 mg Communi disintegrat disintegrat disintegra ty ing tablet ing tablet ting [facility] cor[facility] tablet l Clinics oxybutynin oxybutynin No oxybutynin [place] chloride 5 chloride 5 chloride 5 Communi mg tablet mg tablet mg tablet ty Hospita l Clinics phenazopyri phenazopyri No 1 TID phenazopyr [place] dine 200 mg dine 200 mg idine 200 [facility] tablet Take tablet Take mg tablet ty 1 tablet 3 1 tablet 3 Take 1 H ospita times a day times a day tablet 3 l by oral by oral times a Clinic s route. route. day by oral route. potassium potassium No potassium [place] chloride ER chloride ER chloride [facility] 10 mEq 10 mEq ER 10 mEq ty tablet,exte tablet,exte tablet,ext Hospita nded nded ended l release(par release(par release([facility] t/cryst) t/cryst) rt/cryst) promethazin promethazin No 10mL Q6H promethazi [place] e 6.25 mg/5 e 6.25 mg/5 ne 6.25 Communi mL oral mL oral mg/5 mL ty syrup Take syrup Take oral syrup [facility] 10 mL every 10 mL every Take 10 mL l 6 hours by 6 hours by every 6 Clinics oral route oral route hours by as needed as needed oral route for 3 days. for 3 days. as needed for 3 days. ropinirole ropinirole No ropinirole [place] 1 mg tablet 1 mg tablet 1 mg [facility] tablet [facility] tamsulosin tamsulosin No tamsulosin [place] 0.4 mg 0.4 mg 0.4 mg Commun[facility] capsule capsule capsule [facility] acetaminoph acetaminoph No acetaminop [place] en 300 en 300 hen 300 [facility] mg-codeine mg-codeine mg-codeine ty 15 mg 15 mg 15 mg Hospita tablet TAKE tablet TAKE tablet l 1 TABLET BY 1 TABLET BY TAKE 1 Clinics MOUTH 3 MOUTH 3 TABLET BY TIMES A DAY TIMES A DAY MOUTH 3 FOR PAIN FOR PAIN TIMES A DAY FOR PAIN albuterol albuterol No albuterol [place] sulfate sulfate sulfate Commun i ty [facility] albuterol albuterol No albuterol [place] sulfate HFA sulfate HFA sulfate Communi 90 90 HFA 90 ty mcg/actuati mcg/actuati mcg/actuat [facility] on aerosol on aerosol ion l inhaler inhaler aerosol Clinic s INHALE 2 INHALE 2 inhaler PUFFS INTO PUFFS INTO INHALE 2 THE LUNGS THE LUNGS PUFFS INTO EVERY 4 TO EVERY 4 TO THE LUNGS 6 HOURS 6 HOURS EVERY 4 TO 6 HOURS atorvastati atorvastati No atorvastat [place] n 40 mg n 40 mg in 40 mg Commu ni tablet tablet tablet ty [facility] buspirone buspirone No buspirone [place] 30 mg 30 mg 30 mg [facility] tablet TAKE tablet TAKE tablet ty 1 TABLET BY 1 TABLET BY TAKE 1 [facility] MOUTH TWICE MOUTH TWICE TABLET BY l A DAY A DAY MOUTH Clinics TWICE A DAY ciprofloxac ciprofloxac No ciprofloxa [place] in 500 mg in 500 mg albino 500 mg Communi tablet TAKE tablet TAKE tablet ty 1 TABLET BY 1 TABLET BY TAKE 1 [facility] MOUTH EVERY MOUTH EVERY TABLET BY l 12 HOURS 12 HOURS MOUTH Clinic s FOR 7 DAYS FOR 7 DAYS EVERY 12 HOURS FOR 7 DAYS Eliquis 5 Eliquis 5 No Eliquis 5 [place] mg tablet mg tablet mg tablet [facility] Take 1 Take 1 Take 1 ty tablet tablet tablet [facility] twice a day twice a day twice a l by oral by oral day by Clinics route. route. oral route. fluoxetine fluoxetine No fluoxetine [place] 20 mg 20 mg 20 mg [facility] capsule capsule capsule ty [facility] furosemide furosemide No furosemide [place] 40 mg 40 [facility] tablet 1 ty TABLET TABLET TABLET [facility] TWICE DAILY TWICE DAILY TWICE l DAILY Clinics gabapentin gabapentin No gabapentin [place] 300 mg 300 mg 300 mg Commun[facility] capsule capsule capsule ty [facility] gabapentin gabapentin No 1 TID gabapentin [place] 600 mg 600 mg 600 mg [facility] Take tablet Take tablet ty 1 tablet 3 1 tablet 3 Take 1 H ospita times a day times a day tablet 3 l by oral by oral times a Clinic s route. route. day by oral route. hydrocodone hydrocodone No hydrocodon [place] 10 10 e 10 [facility] mg-acetamin mg-acetamin mg-acetami ty ophen 325 ophen 325 nophen 325 [facility] mg tablet mg tablet mg tablet l NEEDED NEEDED NEEDED Clinics ketamine ketamine No ketamine Swe ketan 100 mg 100 mg 100 mg [facility] sublingual sublingual sublingual jonatan jonatan jonatan [facility] Place by Place by Place by l sublingual sublingual sublingual Clinics route. route. route. ketorolac ketorolac No ketorolac [place] 10 mg 10 mg 10 mg [facility] tablet tablet tablet [facility] levothyroxi levothyroxi No levothyrox [place] ne 200 mcg ne 200 mcg ine 200 Communi tablet TAKE tablet TAKE mcg tablet ty 1 TABLET BY 1 TABLET BY TAKE 1 Hospita MOUTH EVERY MOUTH EVERY TABLET BY l MORNING ON MORNING ON MOUTH Cl inics AN EMPTY AN EMPTY EVERY STOMACH STOMACH MORNING ON AN EMPTY STOMACH magnesium magnesium No magnesium [place] gluconate gluconate gluconate [facility] 27 mg 27 mg 27 mg ty magnesium magnesium magnesium [facility]osp[facility] (500 mg) (500 mg) (500 mg) l tablet Take tablet Take tablet Clinics by oral by oral Take by route. route. oral route. methocarbam methocarbam No 2 QID methocarba [place] ol 500 mg ol 500 mg mol 500 mg [facility] tablet Take tablet Take tablet ty 2 tablets 4 2 tablets 4 Take 2 Hospita times a day times a day tablets 4 l by oral by oral times a Clinic s route. route. day by oral route. nitrofurant nitrofurant No nitrofuran [place] oin oin toin Communi monohydrate monohydrate monohydrat ty /macrocryst /macrocryst e/macrocry Hospita als 100 mg als 100 mg stals 100 l capsule capsule mg capsule Cli nics TAKE 1 TAKE 1 TAKE 1 CAPSULE BY CAPSULE BY CAPSULE BY MOUTH EVERY MOUTH EVERY MOUTH 12 HOURS 12 HOURS EVERY 12 FOR 10 DAYS FOR 10 DAYS HOURS FOR 10 DAYS ondansetron ondansetron No ondansetro [place] 4 mg 4 mg n 4 mg Communi disintegrat disintegrat disintegra ty ing tablet ing tablet ting [facility] tablet l Clinics oxybutynin oxybutynin No oxybutynin [place] chloride 5 chloride 5 chloride 5 Communi mg tablet mg tablet mg tablet ty Hospita l [facility] phenazopyri phenazopyri No 1 TID phenazopyr [place] dine 200 mg dine 200 mg idine 200 Communi tablet Take tablet Take mg tablet ty 1 tablet 3 1 tablet 3 Take 1 H ospita times a day times a day tablet 3 l by oral by oral times a Clinic s route. route. day by oral route. potassium potassium No potassium [place] chloride ER chloride ER chloride [facility] 10 mEq 10 mEq ER 10 mEq ty tablet,exte tablet,exte tablet,ext [facility]ospita nded nded ended l release(par release(par release([facility] t/cryst) t/cryst) rt/cryst) promethazin promethazin No 10mL Q6H promethazi [place] e 6.25 mg/5 e 6.25 mg/5 ne 6.25 [facility]i mL oral mL oral mg/5 mL ty syrup Take syrup Take oral syrup [facility] 10 mL every 10 mL every Take 10 mL l 6 hours by 6 hours by every 6 Clinics oral route oral route hours by as needed as needed oral route for 3 days. for 3 days. as needed for 3 days. ropinirole ropinirole No ropinirole [place] 1 mg tablet 1 mg tablet 1 mg [facility] tablet ty [facility] tamsulosin tamsulosin No tamsulosin [place] 0.4 mg 0.4 mg 0.4 mg [facility] capsule capsule capsule ty [facility] acetaminoph acetaminoph No acetaminop [place] en 300 en 300 hen 300 [facility]i mg-codeine mg-codeine mg-codeine ty 15 mg 15 mg 15 mg Hospita tablet TAKE tablet TAKE tablet l 1 TABLET BY 1 TABLET BY TAKE 1 Clinics MOUTH 3 MOUTH 3 TABLET BY TIMES A DAY TIMES A DAY MOUTH 3 FOR PAIN FOR PAIN TIMES A DAY FOR PAIN albuterol albuterol No albuterol [place] sulfate sulfate sulfate Commun i ty [facility] l Clinics albuterol albuterol No albuterol [place] sulfate HFA sulfate HFA sulfate Communi 90 90 HFA 90 ty mcg/actuati mcg/actuati mcg/actuat [facility] on aerosol on aerosol ion l inhaler inhaler aerosol Clinic s INHALE 2 INHALE 2 inhaler PUFFS INTO PUFFS INTO INHALE 2 THE LUNGS THE LUNGS PUFFS INTO EVERY 4 TO EVERY 4 TO THE LUNGS 6 HOURS 6 HOURS EVERY 4 TO 6 HOURS atorvastati atorvastati No atorvastat [place] n 40 mg n 40 mg in 40 mg [facility] ni tablet tablet tablet ty [facility] l Clinics buspirone buspirone No buspirone [place] 30 mg 30 mg 30 mg [facility] tablet TAKE tablet TAKE tablet ty 1 TABLET BY 1 TABLET BY TAKE 1 Hospita MOUTH TWICE MOUTH TWICE TABLET BY l A DAY A DAY MOUTH Clinics TWICE A DAY ciprofloxac ciprofloxac No ciprofloxa [place] in 500 mg in 500 mg albino 500 mg Communi tablet TAKE tablet TAKE tablet ty 1 TABLET BY 1 TABLET BY TAKE 1 Hospita MOUTH EVERY MOUTH EVERY TABLET BY l 12 HOURS 12 HOURS MOUTH Clinic s FOR 7 DAYS FOR 7 DAYS EVERY 12 HOURS FOR 7 DAYS Eliquis 5 Eliquis 5 No Eliquis 5 [place] mg tablet mg tablet mg tablet [facility] Take 1 Take 1 Take 1 ty tablet tablet tablet [facility] twice a day twice a day twice a l by oral by oral day by Clinics route. route. oral route. fluoxetine fluoxetine No fluoxetine [place] 20 mg 20 mg 20 mg [facility] capsule capsule capsule ty [facility] furosemide furosemide No furosemide [place] 40 mg 40 mg 40 mg [facility] tablet 1 tablet 1 tablet 1 ty TABLET TABLET TABLET [facility] TWICE DAILY TWICE DAILY TWICE l DAILY Clinics gabapentin gabapentin No gabapentin [place] 300 mg 300 mg 300 mg Communi capsule capsule capsule ty [facility] gabapentin gabapentin No 1 TID gabapentin [place] 600 mg 600 mg 600 mg [facility] tablet Take tablet Take tablet ty 1 tablet 3 1 tablet 3 Take 1 [facility] times a day times a day tablet 3 l by oral by oral times a Clinic s route. route. day by oral route. hydrocodone hydrocodone No hydrocodon [place] 10 10 e 10 [facility] mg-acetamin mg-acetamin mg-acetami ty ophen 325 ophen 325 nophen 325 [facility]ospita mg tablet mg tablet mg tablet l NEEDED NEEDED NEEDED Clinics hydrocodone hydrocodone No hydrocodon [place] 5 5 e 5 [facility] mg-acetamin mg-acetamin mg-acetami ty ophen 325 ophen 325 nophen 325 Hospita mg tablet mg tablet mg tablet l Clinics ketamine ketamine No ketamine Swe ketan 100 mg 100 mg 100 mg [facility] sublingual sublingual sublingual ty jonatan jonatan jonatan [facility] Place by [facility] by Place by l sublingual sublingual sublingual Clinics route. route. route. ketorolac ketorolac No ketorolac [place] 10 mg 10 mg 10 mg [facility] tablet tablet tablet ty [facility] levothyroxi levothyroxi No levothyrox [place] ne 200 mcg ne 200 mcg ine 200 [facility] tablet TAKE tablet TAKE mcg tablet ty 1 TABLET BY 1 [facility]T [facility] MOUTH EVERY TABLET BY l MORNING ON MORNING ON MOUTH Cl inics AN EMPTY AN EMPTY EVERY STOMACH STOMACH MORNING ON AN EMPTY STOMACH magnesium magnesium No magnesium [place] gluconate gluconate gluconate [facility] 27 mg 27 mg 27 mg ty magnesium magnesium magnesium [facility] (500 mg) (500 mg) (500 mg) l tablet Take tablet Take tablet Clinics by oral by oral Take by route. route. oral route. methocarbam methocarbam No 2 QID methocarba [place] ol 500 mg ol 500 mg mol 500 mg [facility] tablet Take tablet Take tablet ty 2 tablets 4 2 tablets 4 Take 2 Hospita times a day times a day tablets 4 l by oral by oral times a Clinic s route. route. day by oral route. nitrofurant nitrofurant No nitrofuran [place] oin oin toin [facility] monohydrate monohydrate monohydrat ty /macrocryst /macrocryst e/macrocry [facility]osp[facility] als 100 mg als 100 mg stals 100 l capsule capsule mg capsule Cli nics TAKE 1 TAKE 1 TAKE 1 CAPSULE BY CAPSULE BY CAPSULE BY MOUTH EVERY MOUTH EVERY MOUTH 12 HOURS 12 HOURS EVERY 12 FOR 10 DAYS FOR 10 DAYS HOURS FOR 10 DAYS ondansetron ondansetron No ondansetro [place] 4 mg 4 mg n 4 mg [facility] disintegrat disintegrat disintegra ty ing tablet ing tablet ting [facility] tablet l Clinics oxybutynin oxybutynin No oxybutynin [place] chloride 5 chloride 5 chloride 5 [facility] mg tablet mg tablet mg tablet ty [facility]ospita l Clinics phenazopyri phenazopyri No 1 TID phenazopyr [place] dine 200 mg dine 200 mg idine 200 [facility] tablet Take tablet Take mg tablet ty 1 tablet 3 1 tablet 3 Take 1 [facility] times a day times a day tablet 3 l by oral by oral times a Clinic s route. route. day by oral route. potassium potassium No potassium [place] chloride ER chloride ER chloride [facility] 10 mEq 10 mEq ER 10 mEq ty tablet,exte tablet,exte tablet,ext [facility]ospita nded nded ended l release(par release(par release([facility] t/cryst) t/cryst) rt/cryst) promethazin promethazin No 10mL Q6H promethazi [place] e 6.25 mg/5 e 6.25 mg/5 ne 6.25 [facility] mL oral mL oral mg/5 mL ty syrup Take syrup Take oral syrup [facility] 10 mL every 10 mL every Take 10 mL l 6 hours by 6 hours by every 6 Clinics oral route oral route hours by as needed as needed oral route for 3 days. for 3 days. as needed for 3 days. ropinirole ropinirole No ropinirole [place] 1 mg tablet 1 mg tablet 1 mg [facility] tablet [facility] tamsulosin tamsulosin No tamsulosin [place] 0.4 mg 0.4 mg 0.4 mg [facility] capsule capsule capsule [facility] albuterol albuterol No albuterol [place] sulfate HFA sulfate HFA sulfate [facility] 90 90 HFA 90 ty mcg/actuati mcg/actuati mcg/actuat Hospita on aerosol on aerosol ion l inhaler inhaler aerosol Clinic s INHALE 2 INHALE 2 inhaler PUFFS INTO PUFFS INTO INHALE 2 THE LUNGS THE LUNGS PUFFS INTO EVERY 4 TO EVERY 4 TO THE LUNGS 6 HOURS 6 HOURS EVERY 4 TO 6 HOURS atorvastati atorvastati No atorvastat [place] n 40 mg n 40 mg in 40 mg [facility] ni tablet tablet tablet [facility] buspirone buspirone No buspirone [place] 30 mg 30 mg 30 mg [facility] tablet TAKE tablet TAKE tablet ty 1 TABLET BY 1 TABLET BY TAKE 1 [facility] MOUTH TWICE MOUTH TWICE TABLET BY l A DAY A DAY MOUTH [facility] TWICE A DAY Eliquis 5 Eliquis 5 No Eliquis 5 [place] mg tablet mg tablet [facility] Take 1 Take 1 ty tablet tablet tablet [facility] twice a day twice a day twice a l by oral by oral day by Clinics route. route. oral route. fluoxetine fluoxetine No fluoxetine [place] 40 mg 40 mg 40 mg [facility] capsule capsule capsule [facility] furosemide furosemide No furosemide [place] 40 mg 40 mg 40 mg [facility] tablet 1 tablet 1 tablet 1 ty TABLET TABLET TABLET [facility] TWICE DAILY TWICE DAILY TWICE l DAILY Clinics gabapentin gabapentin No 1 TID gabapentin [place] 600 mg 600 mg 600 mg [facility] tablet Take tablet Take tablet ty 1 tablet 3 1 tablet 3 Take 1 [facility] times a day times a day tablet 3 l by oral by oral times a Clinic s route. route. day by oral route. hydrocodone hydrocodone No hydrocodon [place] 5 5 e 5 [facility] mg-acetamin mg-acetamin mg-acetami ty ophen 325 ophen 325 nophen 325 Hospita mg tablet mg tablet mg tablet l [facility] ketamine ketamine No ketamine Swe ketan 100 mg 100 mg 100 mg [facility] sublingual sublingual sublingual ty jonatan jonatan jonatan [facility] by [facility] by Place by l sublingual sublingual sublingual Clinics route. route. route. levothyroxi levothyroxi No levothyrox [place] ne 200 mcg ne 200 mcg ine 200 [facility] tablet TAKE tablet TAKE mcg tablet ty 1 TABLET BY 1 TABLET BY TAKE 1 Hospita MOUTH EVERY MOUTH EVERY TABLET BY l MORNING ON MORNING ON MOUTH Cl inics AN EMPTY AN EMPTY EVERY STOMACH STOMACH MORNING ON AN EMPTY STOMACH magnesium magnesium No magnesium [place] gluconate gluconate gluconate [facility] 27 mg 27 mg 27 mg ty magnesium magnesium magnesium [facility] (500 mg) (500 mg) (500 mg) l tablet Take tablet Take tablet Clinics by oral by oral Take by route. route. oral route. methocarbam methocarbam No 2 QID methocarba [place] ol 500 mg ol 500 mg mol 500 mg [facility] tablet Take tablet Take tablet ty 2 tablets 4 2 tablets 4 Take 2 Hospita times a day times a day tablets 4 l by oral by oral times a Clinic s route. route. day by oral route. ondansetron ondansetron No ondansetro [place] 4 mg 4 mg n 4 mg [facility] disintegrat disintegrat disintegra ty ing tablet ing tablet ting [facility] tablet [facility] oxybutynin oxybutynin No oxybutynin [place] chloride 5 chloride 5 chloride 5 [facility] mg tablet mg tablet mg tablet ty [facility] potassium potassium No potassium [place] chloride ER chloride ER chloride [facility] 10 mEq 10 mEq ER 10 mEq ty tablet,exte tablet,exte tablet,ext [facility]ospita nded nded ended l release(par release(par release([facility] t/cryst) t/cryst) rt/cryst) ropinirole ropinirole No ropinirole [place] 1 mg tablet 1 mg tablet 1 mg [facility] tablet ty [facility] albuterol albuterol No albuterol [place] sulfate HFA sulfate HFA sulfate [facility] 90 90 HFA 90 ty mcg/actuati mcg/actuati mcg/actuat Hospita on aerosol on aerosol ion l inhaler inhaler aerosol Clinic s INHALE 2 INHALE 2 inhaler PUFFS INTO PUFFS INTO INHALE 2 THE LUNGS THE LUNGS PUFFS INTO EVERY 4 TO EVERY 4 TO THE LUNGS 6 HOURS 6 HOURS EVERY 4 TO 6 HOURS atorvastati atorvastati No atorvastat [place] n 40 mg n 40 mg in 40 mg [facility] ni tablet TAKE tablet TAKE tablet ty 1 TABLET BY 1 TABLET BY TAKE 1 Hospita MOUTH EVERY MOUTH EVERY TABLET BY l DAY DAY MOUTH Clinics EVERY DAY buspirone buspirone No buspirone [place] 30 mg 30 mg 30 mg [facility] tablet TAKE tablet TAKE tablet ty 1 TABLET BY 1 TABLET BY TAKE 1 Hospita MOUTH TWICE MOUTH TWICE TABLET BY l A DAY A DAY MOUTH Clinics TWICE A DAY Eliquis 5 Eliquis 5 No Eliquis 5 [place] mg tablet mg tablet mg tablet [facility] Take 1 Take 1 Take 1 ty tablet tablet tablet Hospita twice a day twice a day twice a l by oral by oral day by Clinics route. route. oral route. fluoxetine fluoxetine No fluoxetine [place] 40 mg 40 mg 40 mg [facility] capsule capsule capsule ty Hospita l Clinics Folivane-F Folivane-F No Folivane-F [place] 125 mg-1 125 mg-1 125 mg-1 Com ale mg-40 mg-3 mg-40 mg-3 mg-40 mg-3 ty mg capsule mg capsule mg capsule Hospita TAKE 1 TAKE 1 TAKE 1 l CAPSULE BY CAPSULE BY CAPSULE BY Clinics MOUTH EVERY MOUTH EVERY MOUTH NIGHT AT NIGHT AT EVERY BEDTIME BEDTIME NIGHT AT BEDTIME furosemide furosemide No furosemide [place] 40 mg 40 mg 40 mg [facility] tablet TAKE tablet TAKE tablet ty 1 TABLET BY 1 TABLET BY TAKE 1 Hospita MOUTH TWICE MOUTH TWICE TABLET BY l A DAY A DAY MOUTH Clinics TWICE A DAY gabapentin gabapentin No 1 TID gabapentin [place] 600 mg 600 mg 600 mg [facility] tablet Take tablet Take tablet ty 1 tablet 3 1 tablet 3 Take 1 [facility] times a day times a day tablet 3 l by oral by oral times a Clinic s route. route. day by oral route. hydrocodone hydrocodone No hydrocodon [place] 10 10 e 10 [facility] mg-acetamin mg-acetamin mg-acetami ty ophen 325 ophen 325 nophen 325 Hospita mg tablet mg tablet mg tablet l TAKE 1 TAKE 1 TAKE 1 Clinics TABLET BY TABLET BY TABLET BY MOUTH EVERY MOUTH EVERY MOUTH 6 HOURS 6 HOURS EVERY 6 NEEDED FOR NEEDED FOR HOURS 30 DAYS 30 DAYS NEEDED FOR 30 DAYS ipratropium ipratropium No ipratropiu [place] 0.5 0.5 m 0.5 [facility] mg-albutero mg-albutero mg-albuter ty l 3 mg (2.5 l 3 mg (2.5 ol 3 mg Hospita mg base)/3 mg base)/3 (2.5 mg l mL mL base)/3 mL Clinics nebulizatio nebulizatio nebulizati n soln n soln on soln INHALE 1 INHALE 1 INHALE 1 VIAL (3 ML) VIAL (3 ML) VIAL (3 VIA VIA ML) VIA NEBULIZER NEBULIZER NEBULIZER EVERY 4 EVERY 4 EVERY 4 HOURS HOURS HOURS NEEDED NEEDED NEEDED WHILE AWAKE WHILE AWAKE WHILE AWAKE ketorolac ketorolac No 2mL ketorolac [place] 60 mg/2 mL 60 mg/2 mL 60 mg/2 mL [facility] intramuscul intramuscul intramuscu ty ar solution ar solution lar H [facility]spita Inject 2 mL Inject 2 mL solution l by by Inject 2 Clinics intramuscul intramuscul mL by ar route. ar route. intramuscu lar route. levothyroxi levothyroxi No levothyrox [place] ne 200 mcg ne 200 mcg ine 200 [facility] tablet TAKE tablet TAKE mcg tablet ty 1 TABLET BY 1 TABLET BY TAKE 1 Hospita MOUTH EVERY MOUTH EVERY TABLET BY l MORNING ON MORNING ON MOUTH Cl inics AN EMPTY AN EMPTY EVERY STOMACH STOMACH MORNING ON AN EMPTY STOMACH magnesium magnesium No magnesium [place] gluconate gluconate gluconate [facility] 27 mg 27 mg 27 mg ty magnesium magnesium magnesium [facility]osp[facility] (500 mg) (500 mg) (500 mg) l tablet Take tablet Take tablet Clinics by oral by oral Take by route. route. oral route. methocarbam methocarbam No 2 QID methocarba [place] ol 500 mg ol 500 mg mol 500 mg [facility] tablet Take tablet Take tablet ty 2 tablets 4 2 tablets 4 Take 2 Hospita times a day times a day tablets 4 l by oral by oral times a Clinic s route. route. day by oral route. ondansetron ondansetron No ondansetro [place] 4 mg 4 mg n 4 mg [facility] disintegrat disintegrat disintegra ty ing tablet ing tablet ting [facility] DISSOLVE 1 DISSOLVE 1 tablet l TABLET BY TABLET BY DISSOLVE 1 Clinics MOUTH EVERY MOUTH EVERY TABLET BY 12 HOURS 12 HOURS MOUTH NEEDED NEEDED EVERY 12 HOURS NEEDED potassium potassium No potassium [place] chloride ER chloride ER chloride [facility] 10 mEq 10 mEq ER 10 mEq ty tablet,exte tablet,exte tablet,ext [facility]ospita nded nded ended l release(par release(par release([facility] t/cryst) t/cryst) rt/cryst) TAKE 1 TAKE 1 TAKE 1 TABLET BY TABLET BY TABLET BY MOUTH TWICE MOUTH TWICE MOUTH A DAY WITH A DAY WITH TWICE A FOOD FOOD DAY WITH NEEDED. NEEDED. FOOD TAKE WITH TAKE WITH NEEDED. FUROSEMIDE FUROSEMIDE TAKE WITH FUROSEMIDE ropinirole ropinirole No ropinirole [place] 1 mg tablet 1 mg tablet 1 mg [facility] TAKE 1 TAKE 1 tablet ty TABLET BY TABLET BY TAKE 1 [facility] MOUTH EVERY MOUTH EVERY TABLET BY l MORNING AND MORNING AND MOUTH Clinics TAKE 2 TAKE 2 EVERY TABLETS BY TABLETS BY MORNING MOUTH EVERY MOUTH EVERY AND TAKE 2 EVENING EVENING TABLETS BY MOUTH EVERY EVENING albuterol albuterol No albuterol [place] sulfate HFA sulfate HFA sulfate [facility] 90 90 HFA 90 ty mcg/actuati mcg/actuati mcg/actuat Hospita on aerosol on aerosol ion l inhaler inhaler aerosol Clinic s INHALE TWO INHALE TWO inhaler (2) PUFFS (2) PUFFS INHALE TWO INTO THE INTO THE (2) PUFFS LUNGS EVERY LUNGS EVERY INTO THE 4-6 HOURS. 4-6 HOURS. LUNGS EVERY 4-6 HOURS. atorvastati atorvastati No atorvastat [place] n 40 mg n 40 mg in 40 mg [facility] ni tablet TAKE tablet TAKE tablet ty 1 TABLET BY 1 TABLET BY TAKE 1 Hospita MOUTH EVERY MOUTH EVERY TABLET BY l DAY DAY MOUTH Clinics EVERY DAY buspirone buspirone No buspirone [place] 30 mg 30 mg 30 mg [facility] tablet TAKE tablet TAKE tablet ty ONE (1) ONE (1) TAKE ONE Hospi ta TABLET(S) TABLET(S) (1) l BY MOUTH BY MOUTH TABLET(S) Cl inics TWICE A TWICE A BY MOUTH DAY. DAY. TWICE A DAY. Eliquis 5 Eliquis 5 No Eliquis 5 [place] mg tablet mg tablet mg tablet [facility] TAKE ONE TAKE ONE TAKE ONE ty (1) (1) (1) Hospita TABLET(S) TABLET(S) TABLET(S) l BY MOUTH BY MOUTH BY MOUTH Cli nics TWICE A TWICE A TWICE A DAY. DAY. DAY. fluoxetine fluoxetine No 1capsul Q1D fluoxetine [place] 40 mg 40 mg e(s) 40 mg [facility] capsule capsule capsule ty Take 1 Take 1 Take 1 Hospita capsule capsule capsule l every day every day every day Clinics by oral by oral by oral route for route for route for 90 days. 90 days. 90 days. Folivane-F Folivane-F No Folivane-F [place] 125 mg-1 125 mg-1 125 mg-1 Com ale mg-40 mg-3 mg-40 mg-3 mg-40 mg-3 ty mg capsule mg capsule mg capsule Hospita TAKE ONE TAKE ONE TAKE ONE l (1) (1) (1) Clinics CAPSULE(S) CAPSULE(S) CAPSULE(S) BY MOUTH BY MOUTH BY MOUTH EVERY NIGHT EVERY NIGHT EVERY AT BEDTIME. AT BEDTIME. NIGHT AT BEDTIME. furosemide furosemide No furosemide [place] 20 mg 20 mg 20 mg [facility] tablet TAKE tablet TAKE tablet ty TWO (2) TWO (2) TAKE TWO Hospi ta TABLET(S) TABLET(S) (2) l BY MOUTH BY MOUTH TABLET(S) Cl inics TWICE A TWICE A BY MOUTH DAY. DAY. TWICE A DAY. furosemide furosemide No furosemide [place] 40 mg 40 mg 40 mg [facility] tablet TAKE tablet TAKE tablet ty 1 TABLET BY 1 TABLET BY TAKE 1 Hospita MOUTH TWICE MOUTH TWICE TABLET BY l A DAY A DAY MOUTH Clinics TWICE A DAY gabapentin gabapentin No gabapentin [place] 600 mg 600 mg 600 mg [facility] tablet TAKE tablet TAKE tablet ty ONE (1) ONE (1) TAKE ONE Hospi ta TABLET(S) TABLET(S) (1) l BY MOUTH BY MOUTH TABLET(S) Cl inics THREE TIMES THREE TIMES BY MOUTH A DAY. A DAY. THREE TIMES A DAY. hydrocodone hydrocodone No hydrocodon [place] 10 10 e 10 [facility] mg-acetamin mg-acetamin mg-acetami ty ophen 325 ophen 325 nophen 325 Hospita mg tablet mg tablet mg tablet l TAKE ONE TAKE ONE TAKE ONE Cli nics (1) (1) (1) TABLET(S) TABLET(S) TABLET(S) BY MOUTH BY MOUTH BY MOUTH EVERY SIX EVERY SIX EVERY SIX HOURS HOURS HOURS NEEDED. NEEDED. NEEDED. ipratropium ipratropium No ipratropiu [place] 0.5 0.5 m 0.5 [facility] mg-albutero mg-albutero mg-albuter ty l 3 mg (2.5 l 3 mg (2.5 ol 3 mg Hospita mg base)/3 mg base)/3 (2.5 mg l mL mL base)/3 mL Clinics nebulizatio nebulizatio nebulizati n soln n soln on soln INHALE INHALE INHALE THREE (3) THREE (3) THREE (3) ML(S) ML(S) ML(S) NEEDED NEEDED NEEDED EVERY FOUR EVERY FOUR EVERY FOUR HOURS WHILE HOURS WHILE HOURS AWAKE. AWAKE. WHILE AWAKE. levothyroxi levothyroxi No levothyrox [place] ne 200 mcg ne 200 mcg ine 200 [facility] tablet TAKE tablet TAKE mcg tablet ty ONE (1) ONE (1) TAKE ONE Hospi ta TABLET(S) TABLET(S) (1) l BY MOUTH BY MOUTH TABLET(S) Cl inics EVERY EVERY BY MOUTH MORNING ON MORNING ON EVERY AN EMPTY AN EMPTY MORNING ON STOMACH. STOMACH. AN EMPTY STOMACH. magnesium magnesium No magnesium [place] gluconate gluconate gluconate [facility] 27 mg 27 mg 27 mg ty magnesium magnesium magnesium [facility]osp[facility] (500 mg) (500 mg) (500 mg) l tablet Take tablet Take tablet Clinics by oral by oral Take by route. route. oral route. methocarbam methocarbam No 2 QID methocarba [place] ol 500 mg ol 500 mg mol 500 mg [facility] tablet Take tablet Take tablet ty 2 tablets 4 2 tablets 4 Take 2 Hospita times a day times a day tablets 4 l by oral by oral times a Clinic s route. route. day by oral route. methylpredn methylpredn No methylpred [place] isolone 4 isolone 4 nisolone 4 [facility] mg tablets mg tablets mg tablets ty in a dose in a dose in a dose Hospita pack TAKE pack TAKE pack TAKE l BY MOUTH BY MOUTH BY MOUTH Clinics DIRECTED. DIRECTED. DIRECTED. ondansetron ondansetron No ondansetro [place] 4 mg 4 mg n 4 mg [facility] disintegrat disintegrat disintegra ty ing tablet ing tablet ting [facility] DISSOLVE DISSOLVE tablet l ONE (1) ONE (1) DISSOLVE Clini cs TABLET(S) TABLET(S) ONE (1) BY MOUTH BY MOUTH TABLET(S) EVERY EVERY BY MOUTH TWELVE TWELVE EVERY HOURS. HOURS. TWELVE HOURS. ropinirole ropinirole No ropinirole [place] 1 mg tablet 1 mg tablet 1 mg [facility] TAKE 1 TAKE 1 tablet ty TABLET BY TABLET BY TAKE 1 [facility] MOUTH EVERY MOUTH EVERY TABLET BY l MORNING AND MORNING AND MOUTH Clinics TAKE 2 TAKE 2 EVERY TABLETS BY TABLETS BY MORNING MOUTH EVERY MOUTH EVERY AND TAKE 2 EVENING EVENING TABLETS BY MOUTH EVERY EVENING spironolact spironolact No spironolac [place] one 25 mg one 25 mg tone 25 mg [facility] tablet tablet tablet ty Hospita l Clinics albuterol albuterol No albuterol [place] sulfate HFA sulfate HFA sulfate [facility] 90 90 HFA 90 ty mcg/actuati mcg/actuati mcg/actuat Hospita on aerosol on aerosol ion l inhaler inhaler aerosol Clinic s INHALE TWO INHALE TWO inhaler (2) PUFFS (2) PUFFS INHALE TWO INTO THE INTO THE (2) PUFFS LUNGS EVERY LUNGS EVERY INTO THE 4-6 HOURS. 4-6 HOURS. LUNGS EVERY 4-6 HOURS. atorvastati atorvastati No atorvastat [place] n 40 mg n 40 mg in 40 mg [facility] ni tablet TAKE tablet TAKE tablet ty 1 TABLET BY 1 TABLET BY TAKE 1 Hospita MOUTH EVERY MOUTH EVERY TABLET BY l DAY DAY MOUTH Clinics EVERY DAY buspirone buspirone No buspirone [place] 30 mg 30 mg 30 mg [facility] tablet TAKE tablet TAKE tablet ty ONE (1) ONE (1) TAKE ONE Hospi ta TABLET(S) TABLET(S) (1) l BY MOUTH BY MOUTH TABLET(S) Cl inics TWICE A TWICE A BY MOUTH DAY. DAY. TWICE A DAY. butalbital butalbital No 1capsul Q5H butalbital [place] 50 50 e(s) 50 [facility] mg-acetamin mg-acetamin mg-acetami ty ophen 325 ophen 325 nophen 325 [facility]ospita mg-caffeine mg-caffeine mg-caffein l 40 40 e 40 Clinics mg-codeine mg-codeine mg-codeine 30 mg cap 30 mg cap 30 mg cap Take 1 Take 1 Take 1 capsule capsule capsule every 4-6 every 4-6 every 4-6 hours by hours by hours by oral route oral route oral route as needed. as needed. as needed. Eliquis 5 Eliquis 5 No Eliquis 5 [place] mg tablet mg tablet mg tablet [facility] TAKE ONE TAKE ONE TAKE ONE ty (1) (1) (1) Hospita TABLET(S) TABLET(S) TABLET(S) l BY MOUTH BY MOUTH BY MOUTH Cli nics TWICE A TWICE A TWICE A DAY. DAY. DAY. fluoxetine fluoxetine No 1capsul Q1D fluoxetine [place] 40 mg 40 mg e(s) 40 mg [facility] capsule capsule capsule ty Take 1 Take 1 Take 1 [facility]ospita capsule capsule capsule l every day every day every day Clinics by oral by oral by oral route for route for route for 90 days. 90 days. 90 days. Folivane-F Folivane-F No Folivane-F [place] 125 mg-1 125 mg-1 125 mg-1 Com ale mg-40 mg-3 mg-40 mg-3 mg-40 mg-3 ty mg capsule mg capsule mg capsule [facility]ospita TAKE ONE TAKE ONE TAKE ONE l (1) (1) (1) Clinics CAPSULE(S) CAPSULE(S) CAPSULE(S) BY MOUTH BY MOUTH BY MOUTH EVERY NIGHT EVERY NIGHT EVERY AT BEDTIME. AT BEDTIME. NIGHT AT BEDTIME. furosemide furosemide No furosemide [place] 20 mg 20 mg 20 mg [facility] tablet TAKE tablet TAKE tablet ty TWO (2) TWO (2) TAKE TWO Hospi ta TABLET(S) TABLET(S) (2) l BY MOUTH BY MOUTH TABLET(S) Cl inics TWICE A TWICE A BY MOUTH DAY. DAY. TWICE A DAY. furosemide furosemide No furosemide [place] 40 mg 40 mg 40 mg [facility] tablet TAKE tablet TAKE tablet ty 1 TABLET BY 1 TABLET BY TAKE 1 Hospita MOUTH TWICE MOUTH TWICE TABLET BY l A DAY A DAY MOUTH Clinics TWICE A DAY gabapentin gabapentin No gabapentin [place] 600 mg 600 mg 600 mg [facility] tablet TAKE tablet TAKE tablet ty ONE (1) ONE (1) TAKE ONE Hospi ta TABLET(S) TABLET(S) (1) l BY MOUTH BY MOUTH TABLET(S) Cl inics THREE TIMES THREE TIMES BY MOUTH A DAY. A DAY. THREE TIMES A DAY. hydrocodone hydrocodone No hydrocodon [place] 10 10 e 10 [facility] mg-acetamin mg-acetamin mg-acetami ty ophen 325 ophen 325 nophen 325 [facility]ospita mg tablet mg tablet mg tablet l TAKE ONE TAKE ONE TAKE ONE Cli nics (1) (1) (1) TABLET(S) TABLET(S) TABLET(S) BY MOUTH BY MOUTH BY MOUTH EVERY SIX EVERY SIX EVERY SIX HOURS HOURS HOURS NEEDED. NEEDED. NEEDED. ipratropium ipratropium No ipratropiu [place] 0.5 0.5 m 0.5 [facility] mg-albutero mg-albutero mg-albuter ty l 3 mg (2.5 l 3 mg (2.5 ol 3 mg Hospita mg base)/3 mg base)/3 (2.5 mg l mL mL base)/3 mL Clinics nebulizatio nebulizatio nebulizati n soln n soln on soln INHALE INHALE INHALE THREE (3) THREE (3) THREE (3) ML(S) ML(S) ML(S) NEEDED NEEDED NEEDED EVERY FOUR EVERY FOUR EVERY FOUR HOURS WHILE HOURS WHILE HOURS AWAKE. AWAKE. WHILE AWAKE. levothyroxi levothyroxi No levothyrox [place] ne 200 mcg ne 200 mcg ine 200 [facility] tablet TAKE tablet TAKE mcg tablet ty ONE (1) ONE (1) TAKE ONE Hospi ta TABLET(S) TABLET(S) (1) l BY MOUTH BY MOUTH TABLET(S) Cl inics EVERY EVERY BY MOUTH MORNING ON MORNING ON EVERY AN EMPTY AN EMPTY MORNING ON STOMACH. STOMACH. AN EMPTY STOMACH. magnesium magnesium No magnesium [place] gluconate gluconate gluconate [facility] 27 mg 27 mg 27 mg ty magnesium magnesium magnesium [facility]osp[facility] (500 mg) (500 mg) (500 mg) l tablet Take tablet Take tablet Clinics by oral by oral Take by route. route. oral route. methocarbam methocarbam No 2 QID methocarba [place] ol 500 mg ol 500 mg mol 500 mg [facility] tablet Take tablet Take tablet ty 2 tablets 4 2 tablets 4 Take 2 Hospita times a day times a day tablets 4 l by oral by oral times a Clinic s route. route. day by oral route. methylpredn methylpredn No methylpred [place] isolone 4 isolone 4 nisolone 4 [facility] mg tablets mg tablets mg tablets ty in a dose in a dose in a dose [facility]ospita pack TAKE pack TAKE pack TAKE l BY MOUTH BY MOUTH BY MOUTH Clinics DIRECTED. DIRECTED. DIRECTED. ondansetron ondansetron No ondansetro [place] 4 mg 4 mg n 4 mg [facility] disintegrat disintegrat disintegra ty ing tablet ing tablet ting [facility] DISSOLVE DISSOLVE tablet l ONE (1) ONE (1) DISSOLVE Clini cs TABLET(S) TABLET(S) ONE (1) BY MOUTH BY MOUTH TABLET(S) EVERY EVERY BY MOUTH TWELVE TWELVE EVERY HOURS. HOURS. TWELVE HOURS. ropinirole ropinirole No ropinirole [place] 1 mg tablet 1 mg tablet 1 mg [facility] TAKE 1 TAKE 1 tablet ty TABLET BY TABLET BY TAKE 1 [facility] MOUTH EVERY MOUTH EVERY TABLET BY l MORNING AND MORNING AND MOUTH Clinics TAKE 2 TAKE 2 EVERY TABLETS BY TABLETS BY MORNING MOUTH EVERY MOUTH EVERY AND TAKE 2 EVENING EVENING TABLETS BY MOUTH EVERY EVENING spironolact spironolact No spironolac [place] one 25 mg one 25 mg tone 25 mg [facility] tablet tablet tablet ty Hospita l Clinics albuterol albuterol No albuterol [place] sulfate HFA sulfate HFA sulfate [facility] 90 90 HFA 90 ty mcg/actuati mcg/act[facility]ati [facility] ion l inhaler inhaler aerosol Clinic s INHALE TWO INHALE TWO inhaler (2) PUFFS (2) PUFFS INHALE TWO INTO THE INTO THE (2) PUFFS LUNGS EVERY LUNGS EVERY INTO THE 4-6 HOURS. 4-6 HOURS. LUNGS EVERY 4-6 HOURS. atorvastati atorvastati No atorvastat [place] n 40 mg n 40 mg in 40 mg [facility] ni tablet TAKE tablet TAKE tablet ty 1 TABLET BY 1 TABLET BY TAKE 1 Hospita MOUTH EVERY MOUTH EVERY TABLET BY l DAY DAY MOUTH Clinics EVERY DAY buspirone buspirone No 1 BID buspirone [place] 30 mg 30 mg 30 mg [facility] tablet Take tablet Take tablet ty 1 tablet 1 tablet Take 1 Hospi ta twice a day twice a day tablet l by oral by oral twice a Clinic s route for route for day by 30 days. 30 days. oral route for 30 days. butalbital butalbital No butalbital [place] 50 50 50 [facility] mg-acetamin mg-acetamin mg-acetami ty ophen 325 ophen 325 nophen 325 Hospita mg-caffeine mg-caffeine mg-caffein l 40 40 e 40 Clinics mg-codeine mg-codeine mg-codeine 30 mg cap 30 mg cap 30 mg cap TAKE ONE TAKE ONE TAKE ONE (1) (1) (1) CAPSULE(S) CAPSULE(S) CAPSULE(S) BY MOUTH BY MOUTH BY MOUTH EVERY FOUR EVERY FOUR EVERY FOUR TO SIX TO SIX TO SIX HOURS HOURS HOURS NEEDED. NEEDED. NEEDED. Eliquis 5 Eliquis 5 No Eliquis 5 [place] mg tablet mg tablet mg tablet [facility] TAKE ONE TAKE ONE TAKE ONE ty (1) (1) (1) [facility]osp[facility] TABLET(S) TABLET(S) TABLET(S) l BY MOUTH BY MOUTH BY MOUTH Cli nics TWICE A TWICE A TWICE A DAY. DAY. DAY. fluoxetine fluoxetine No 1capsul Q1D fluoxetine [place] 40 mg 40 mg e(s) 40 mg [facility] capsule capsule capsule ty Take 1 Take 1 Take 1 [facility] capsule capsule capsule l every day every day every day Clinics by oral by oral by oral route for route for route for 90 days. 90 days. 90 days. Folivane-F Folivane-F No Folivane-F [place] 125 mg-1 125 mg-1 125 mg-1 Com [facility] mg-40 mg-3 mg-40 mg-3 mg-40 mg-3 ty mg capsule mg capsule mg capsule [facility] TAKE ONE TAKE ONE TAKE ONE l (1) (1) (1) Clinics CAPSULE(S) CAPSULE(S) CAPSULE(S) BY MOUTH BY MOUTH BY MOUTH EVERY NIGHT EVERY NIGHT EVERY AT BEDTIME. AT BEDTIME. NIGHT AT BEDTIME. furosemide furosemide No furosemide [place] 20 mg 20 mg 20 mg [facility] tablet TAKE tablet TAKE tablet ty TWO (2) TWO (2) TAKE TWO [facility] TABLET(S) TABLET(S) (2) l BY MOUTH BY MOUTH TABLET(S) Cl inics TWICE A TWICE A BY MOUTH DAY. DAY. TWICE A DAY. furosemide furosemide No furosemide [place] 40 mg 40 mg 40 mg [facility] tablet TAKE tablet TAKE tablet ty 1 TABLET BY 1 TABLET BY TAKE 1 [facility]ospita MOUTH TWICE MOUTH TWICE TABLET BY l A DAY A DAY MOUTH Clinics TWICE A DAY gabapentin gabapentin No gabapentin [place] 600 mg 600 mg 600 mg [facility] tablet TAKE tablet TAKE tablet ty ONE (1) ONE (1) TAKE ONE [facility] TABLET(S) TABLET(S) (1) l BY MOUTH BY MOUTH TABLET(S) Cl inics THREE TIMES THREE TIMES BY MOUTH A DAY. A DAY. THREE TIMES A DAY. hydrocodone hydrocodone No hydrocodon [place] 10 10 e 10 [facility] mg-acetamin mg-acetamin mg-acetami ty ophen 325 ophen 325 nophen 325 [facility] mg tablet mg tablet mg tablet l TAKE ONE TAKE ONE TAKE ONE Cli nics (1) (1) (1) TABLET(S) TABLET(S) TABLET(S) BY MOUTH BY MOUTH BY MOUTH EVERY SIX EVERY SIX EVERY SIX HOURS HOURS HOURS NEEDED. NEEDED. NEEDED. ipratropium ipratropium No ipratropiu [place] 0.5 0.5 m 0.5 [facility] mg-albutero mg-albutero mg-albuter ty l 3 mg (2.5 l 3 mg (2.5 ol 3 mg [facility] mg base)/3 mg base)/3 (2.5 mg l mL mL base)/3 mL Clinics nebulizatio nebulizatio nebulizati n soln n soln on soln INHALE INHALE INHALE THREE (3) THREE (3) THREE (3) ML(S) ML(S) ML(S) NEEDED NEEDED NEEDED EVERY FOUR EVERY FOUR EVERY FOUR HOURS WHILE HOURS WHILE HOURS AWAKE. AWAKE. WHILE AWAKE. levothyroxi levothyroxi No levothyrox [place] ne 200 mcg ne 200 mcg ine 200 [facility] tablet TAKE tablet TAKE mcg tablet ty ONE (1) ONE (1) TAKE ONE [facility] TABLET(S) TABLET(S) (1) l BY MOUTH BY MOUTH TABLET(S) Cl inics EVERY EVERY BY MOUTH MORNING ON MORNING ON EVERY AN EMPTY AN EMPTY MORNING ON STOMACH. STOMACH. AN EMPTY STOMACH. magnesium magnesium No magnesium [place] gluconate gluconate gluconate [facility] 27 mg 27 mg 27 mg ty magnesium magnesium magnesium [facility] (500 mg) (500 mg) (500 mg) l tablet Take tablet Take tablet Clinics by oral by oral Take by route. route. oral route. methocarbam methocarbam No 2 QID methocarba [place] ol 500 mg ol 500 mg mol 500 mg [facility] tablet Take tablet Take tablet ty 2 tablets 4 2 tablets 4 Take 2 [facility]osp[facility] times a day times a day tablets 4 l by oral by oral times a Clinic s route. route. day by oral route. ondansetron ondansetron No ondansetro [place] 4 mg 4 mg n 4 mg [facility] disintegrat disintegrat disintegra ty ing tablet ing tablet ting [facility] DISSOLVE DISSOLVE tablet l ONE (1) ONE (1) DISSOLVE [facility] TABLET(S) TABLET(S) ONE (1) BY MOUTH BY MOUTH TABLET(S) EVERY EVERY BY MOUTH TWELVE TWELVE EVERY HOURS. HOURS. TWELVE HOURS. ropinirole ropinirole No ropinirole [place] 1 mg tablet 1 mg tablet 1 mg [facility] TAKE 1 TAKE 1 tablet ty TABLET BY TABLET BY TAKE 1 [facility] MOUTH EVERY MOUTH EVERY TABLET BY l MORNING AND MORNING AND MOUTH Clinics TAKE 2 TAKE 2 EVERY TABLETS BY TABLETS BY MORNING MOUTH EVERY MOUTH EVERY AND TAKE 2 EVENING EVENING TABLETS BY MOUTH EVERY EVENING spironolact spironolact No 1 Q1D spironolac [place] one 25 mg one 25 mg tone 25 mg [facility] tablet Take tablet Take tablet ty 1 tablet 1 tablet Take 1 [facility] every day every day tablet l by oral by oral every day Clin ics route for route for by oral 90 days. 90 days. route for 90 days. albuterol albuterol No albuterol [place] sulfate HFA sulfate HFA sulfate [facility] 90 90 HFA 90 ty mcg/actuati mcg/actuati mcg/actuat [facility] on aerosol on aerosol ion l inhaler inhaler aerosol Clinic s INHALE TWO INHALE TWO inhaler (2) PUFFS (2) PUFFS INHALE TWO INTO THE INTO THE (2) PUFFS LUNGS EVERY LUNGS EVERY INTO THE 4-6 HOURS. 4-6 HOURS. LUNGS EVERY 4-6 HOURS. atorvastati atorvastati No atorvastat [place] n 40 mg n 40 mg in 40 mg [facility] tablet TAKE tablet TAKE tablet ty ONE (1) ONE (1) TAKE ONE [facility] TABLET(S) TABLET(S) (1) l BY MOUTH BY MOUTH TABLET(S) Cl inics EVERY DAY. EVERY DAY. BY MOUTH EVERY DAY. buspirone buspirone No 1 BID buspirone [place] 30 mg 30 mg 30 mg [facility] tablet Take tablet Take tablet ty 1 tablet 1 tablet Take 1 [facility] twice a day twice a day tablet l by oral by oral twice a Clinic s route for route for day by 30 days. 30 days. oral route for 30 days. butalbital butalbital No butalbital [place] 50 50 50 [facility] mg-acetamin mg-acetamin mg-acetami ty ophen 325 ophen 325 nophen 325 [facility] mg-caffeine mg-caffeine mg-caffein l 40 40 e 40 Clinics mg-codeine mg-codeine mg-codeine 30 mg cap 30 mg cap 30 mg cap TAKE ONE TAKE ONE TAKE ONE (1) (1) (1) CAPSULE(S) CAPSULE(S) CAPSULE(S) BY MOUTH BY MOUTH BY MOUTH EVERY FOUR EVERY FOUR EVERY FOUR TO SIX TO SIX TO SIX HOURS HOURS HOURS NEEDED. NEEDED. NEEDED. Eliquis 5 Eliquis 5 No Eliquis 5 [place] mg tablet mg tablet mg tablet [facility] TAKE ONE TAKE ONE TAKE ONE ty (1) (1) (1) [facility]osp[facility] TABLET(S) TABLET(S) TABLET(S) l BY MOUTH BY MOUTH BY MOUTH Cli nics TWICE A TWICE A TWICE A DAY. DAY. DAY. fluoxetine fluoxetine No fluoxetine [place] 40 mg 40 mg 40 mg [facility] capsule capsule capsule ty TAKE ONE TAKE ONE TAKE ONE [facility] (1) (1) (1) l CAPSULE(S) CAPSULE(S) CAPSULE(S) Clinics BY MOUTH BY MOUTH BY MOUTH DAILY. DAILY. DAILY. Folivane-F Folivane-F No Folivane-F [place] 125 mg-1 125 mg-1 125 mg-1 [facility] mg-40 mg-3 mg-40 mg-3 mg-40 mg-3 ty mg capsule mg capsule mg capsule [facility] TAKE ONE TAKE ONE TAKE ONE l (1) (1) (1) Clinics CAPSULE(S) CAPSULE(S) CAPSULE(S) BY MOUTH BY MOUTH BY MOUTH EVERY NIGHT EVERY NIGHT EVERY AT BEDTIME. AT BEDTIME. NIGHT AT BEDTIME. furosemide furosemide No furosemide [place] 20 mg 20 mg 20 mg [facility] tablet TAKE tablet TAKE tablet ty TWO (2) TWO (2) TAKE TWO [facility] TABLET(S) TABLET(S) (2) l BY MOUTH BY MOUTH TABLET(S) Cl inics TWICE A TWICE A BY MOUTH DAY. DAY. TWICE A DAY. furosemide furosemide No furosemide [place] 40 mg 40 mg 40 mg [facility] tablet TAKE tablet TAKE tablet ty 1 TABLET BY 1 TABLET BY TAKE 1 [facility] MOUTH TWICE MOUTH TWICE TABLET BY l A DAY A DAY MOUTH Clinics TWICE A DAY gabapentin gabapentin No gabapentin [place] 600 mg 600 mg 600 mg [facility] tablet TAKE tablet TAKE tablet ty ONE (1) ONE (1) TAKE ONE [facility] TABLET(S) TABLET(S) (1) l BY MOUTH BY MOUTH TABLET(S) Cl inics THREE TIMES THREE TIMES BY MOUTH A DAY. A DAY. THREE TIMES A DAY. hydrocodone hydrocodone No hydrocodon [place] 10 10 e 10 [facility] mg-acetamin mg-acetamin mg-acetami ty ophen 325 ophen 325 nophen 325 [facility] mg tablet mg tablet mg tablet l TAKE ONE TAKE ONE TAKE ONE Cli nics (1) (1) (1) TABLET(S) TABLET(S) TABLET(S) BY MOUTH BY MOUTH BY MOUTH EVERY SIX EVERY SIX EVERY SIX HOURS HOURS HOURS NEEDED. NEEDED. NEEDED. ipratropium ipratropium No ipratropiu [place] 0.5 0.5 m 0.5 [facility] mg-albutero mg-albutero mg-albuter ty l 3 mg (2.5 l 3 mg (2.5 ol 3 mg [facility] mg base)/3 mg base)/3 (2.5 mg l mL mL base)/3 mL Clinics nebulizatio nebulizatio nebulizati n soln n soln on soln INHALE INHALE INHALE THREE (3) THREE (3) THREE (3) ML(S) ML(S) ML(S) NEEDED NEEDED NEEDED EVERY FOUR EVERY FOUR EVERY FOUR HOURS WHILE HOURS WHILE HOURS AWAKE. AWAKE. WHILE AWAKE. levothyroxi levothyroxi No levothyrox [place] ne 200 mcg ne 200 mcg ine 200 [facility] tablet TAKE tablet TAKE mcg tablet ty ONE (1) ONE (1) TAKE ONE [facility] TABLET(S) TABLET(S) (1) l BY MOUTH BY MOUTH TABLET(S) Cl inics EVERY EVERY BY MOUTH MORNING ON MORNING ON EVERY AN EMPTY AN EMPTY MORNING ON STOMACH. STOMACH. AN EMPTY STOMACH. magnesium magnesium No magnesium [place] gluconate gluconate gluconate [facility] 27 mg 27 mg 27 mg ty magnesium magnesium magnesium [facility] (500 mg) (500 mg) (500 mg) l tablet Take tablet Take tablet Clinics by oral by oral Take by route. route. oral route. methocarbam methocarbam No 2 QID methocarba [place] ol 500 mg ol 500 mg mol 500 mg [facility] tablet Take tablet Take tablet ty 2 tablets 4 2 tablets 4 Take 2 [facility] times a day times a day tablets 4 l by oral by oral times a Clinic s route. route. day by oral route. methocarbam methocarbam No methocarba [place] ol 750 mg ol 750 mg mol 750 mg [facility] tablet TAKE tablet TAKE tablet ty ONE (1) ONE (1) TAKE ONE [facility] TABLET(S) TABLET(S) (1) l BY MOUTH BY MOUTH TABLET(S) Cl inics EVERY EVERY BY MOUTH TWELVE TWELVE EVERY HOURS HOURS TWELVE NEEDED. NEEDED. HOURS NEEDED. ondansetron ondansetron No ondansetro [place] 4 mg 4 mg n 4 mg [facility] disintegrat disintegrat disintegra ty ing tablet ing tablet ting [facility] DISSOLVE DISSOLVE tablet l ONE (1) ONE (1) DISSOLVE [facility] cs TABLET(S) TABLET(S) ONE (1) BY MOUTH BY MOUTH TABLET(S) EVERY EVERY BY MOUTH TWELVE TWELVE EVERY HOURS. HOURS. TWELVE HOURS. ropinirole ropinirole No ropinirole [place] 1 mg tablet 1 mg tablet 1 mg [facility] TAKE ONE TAKE ONE tablet ty (1) (1) TAKE ONE [facility] TABLET(S) TABLET(S) (1) l BY MOUTH BY MOUTH TABLET(S) Cl inics EVERY EVERY BY MOUTH MORNING AND MORNING AND EVERY TWO (2) TWO (2) MORNING TABLETS TABLETS AND TWO EVERY EVERY (2) EVENING. EVENING. TABLETS EVERY EVENING. spironolact spironolact No 1 Q1D spironolac [place] one 25 mg one 25 mg tone 25 mg [facility] tablet Take tablet Take tablet ty 1 tablet 1 tablet Take 1 [facility] every day every day tablet l by oral by oral every day Clin ics route for route for by oral 90 days. 90 days. route for 90 days. albuterol albuterol No albuterol [place] sulfate HFA sulfate HFA sulfate [facility] 90 90 HFA 90 ty mcg/actuati mcg/actuati mcg/actuat [facility] on aerosol on aerosol ion l inhaler inhaler aerosol Clinic s INHALE TWO INHALE TWO inhaler (2) PUFFS (2) PUFFS INHALE TWO INTO THE INTO THE (2) PUFFS LUNGS EVERY LUNGS EVERY INTO THE 4-6 HOURS. 4-6 HOURS. LUNGS EVERY 4-6 HOURS. atorvastati atorvastati No atorvastat [place] n 40 mg n 40 mg in 40 mg [facility] tablet TAKE tablet TAKE tablet ty ONE (1) ONE (1) TAKE ONE [facility] TABLET(S) TABLET(S) (1) l BY MOUTH BY MOUTH TABLET(S) Cl inics EVERY DAY. EVERY DAY. BY MOUTH EVERY DAY. buspirone buspirone No 1 BID buspirone [place] 30 mg 30 mg 30 mg [facility] tablet Take tablet Take tablet ty 1 tablet 1 tablet Take 1 [facility] twice a day twice a day tablet l by oral by oral twice a Clinic s route for route for day by 30 days. 30 days. oral route for 30 days. butalbital butalbital No butalbital [place] 50 50 50 [facility] mg-acetamin mg-acetamin mg-acetami ty ophen 325 ophen 325 nophen 325 [facility] mg-caffeine mg-caffeine mg-caffein l 40 40 e 40 Clinics mg-codeine mg-codeine mg-codeine 30 mg cap 30 mg cap 30 mg cap TAKE ONE TAKE ONE TAKE ONE (1) (1) (1) CAPSULE(S) CAPSULE(S) CAPSULE(S) BY MOUTH BY MOUTH BY MOUTH EVERY FOUR EVERY FOUR EVERY FOUR TO SIX TO SIX TO SIX HOURS HOURS HOURS NEEDED. NEEDED. NEEDED. Eliquis 5 Eliquis 5 No Eliquis 5 [place] mg tablet mg tablet mg tablet [facility] TAKE ONE TAKE ONE TAKE ONE ty (1) (1) (1) [facility] TABLET(S) TABLET(S) TABLET(S) l BY MOUTH BY MOUTH BY MOUTH Cli nics TWICE A TWICE A TWICE A DAY. DAY. DAY. fluoxetine fluoxetine No fluoxetine [place] 40 mg 40 mg 40 mg [facility] capsule capsule capsule ty TAKE ONE TAKE ONE TAKE ONE [facility] (1) (1) (1) l CAPSULE(S) CAPSULE(S) CAPSULE(S) Clinics BY MOUTH BY MOUTH BY MOUTH DAILY. DAILY. DAILY. Folivane-F Folivane-F No Folivane-F [place] 125 mg-1 125 mg-1 125 mg-1 Com [facility] mg-40 mg-3 mg-40 mg-3 mg-40 mg-3 ty mg capsule mg capsule mg capsule [facility] TAKE ONE TAKE ONE TAKE ONE l (1) (1) (1) Clinics CAPSULE(S) CAPSULE(S) CAPSULE(S) BY MOUTH BY MOUTH BY MOUTH EVERY NIGHT EVERY NIGHT EVERY AT BEDTIME. AT BEDTIME. NIGHT AT BEDTIME. furosemide furosemide No furosemide [place] 20 mg 20 mg 20 mg [facility] tablet TAKE tablet TAKE tablet ty TWO (2) TWO (2) TAKE TWO [facility] TABLET(S) TABLET(S) (2) l BY MOUTH BY MOUTH TABLET(S) Cl inics TWICE A TWICE A BY MOUTH DAY. DAY. TWICE A DAY. furosemide furosemide No furosemide [place] 40 mg 40 mg 40 mg [facility] tablet TAKE tablet TAKE tablet ty 1 TABLET BY 1 TABLET BY TAKE 1 [facility] MOUTH TWICE MOUTH TWICE TABLET BY l A DAY A DAY MOUTH Clinics TWICE A DAY gabapentin gabapentin No gabapentin [place] 600 mg 600 mg 600 mg [facility] tablet TAKE tablet TAKE tablet ty ONE (1) ONE (1) TAKE ONE [facility] TABLET(S) TABLET(S) (1) l BY MOUTH BY MOUTH TABLET(S) Cl inics THREE TIMES THREE TIMES BY MOUTH A DAY. A DAY. THREE TIMES A DAY. hydrocodone hydrocodone No hydrocodon [place] 10 10 e 10 [facility] mg-acetamin mg-acetamin mg-acetami ty ophen 325 ophen 325 nophen 325 [facility] mg tablet mg tablet mg tablet l TAKE ONE TAKE ONE TAKE ONE Cli nics (1) (1) (1) TABLET(S) TABLET(S) TABLET(S) BY MOUTH BY MOUTH BY MOUTH EVERY SIX EVERY SIX EVERY SIX HOURS HOURS HOURS NEEDED. NEEDED. NEEDED. ipratropium ipratropium No ipratropiu [place] 0.5 0.5 m 0.5 [facility] mg-albutero mg-albutero mg-albuter ty l 3 mg (2.5 l 3 mg (2.5 ol 3 mg [facility] mg base)/3 mg base)/3 (2.5 mg l mL mL base)/3 mL Clinics nebulizatio nebulizatio nebulizati n soln n soln on soln INHALE INHALE INHALE THREE (3) THREE (3) THREE (3) ML(S) ML(S) ML(S) NEEDED NEEDED NEEDED EVERY FOUR EVERY FOUR EVERY FOUR HOURS WHILE HOURS WHILE HOURS AWAKE. AWAKE. WHILE AWAKE. levothyroxi levothyroxi No levothyrox [place] ne 200 mcg ne 200 mcg ine 200 [facility] tablet TAKE tablet TAKE mcg tablet ty ONE (1) ONE (1) TAKE ONE [facility] TABLET(S) TABLET(S) (1) l BY MOUTH BY MOUTH TABLET(S) Cl inics EVERY EVERY BY MOUTH MORNING ON MORNING ON EVERY AN EMPTY AN EMPTY MORNING ON STOMACH. STOMACH. AN EMPTY STOMACH. magnesium magnesium No magnesium [place] gluconate gluconate gluconate [facility] 27 mg 27 mg 27 mg ty magnesium magnesium magnesium [facility] (500 mg) (500 mg) (500 mg) l tablet Take tablet Take tablet Clinics by oral by oral Take by route. route. oral route. methocarbam methocarbam No 2 QID methocarba [place] ol 500 mg ol 500 mg mol 500 mg [facility] tablet Take tablet Take tablet ty 2 tablets 4 2 tablets 4 Take 2 [facility] times a day times a day tablets 4 l by oral by oral times a Clinic s route. route. day by oral route. methocarbam methocarbam No methocarba [place] ol 750 mg ol 750 mg mol 750 mg [facility] tablet TAKE tablet TAKE tablet ty ONE (1) ONE (1) TAKE ONE [facility] TABLET(S) TABLET(S) (1) l BY MOUTH BY MOUTH TABLET(S) Cl inics EVERY EVERY BY MOUTH TWELVE TWELVE EVERY HOURS HOURS TWELVE NEEDED. NEEDED. HOURS NEEDED. ondansetron ondansetron No ondansetro [place] 4 mg 4 mg n 4 mg [facility] disintegrat disintegrat disintegra ty ing tablet ing tablet ting [facility] DISSOLVE DISSOLVE tablet l ONE (1) ONE (1) DISSOLVE [facility] TABLET(S) TABLET(S) ONE (1) BY MOUTH BY MOUTH TABLET(S) EVERY EVERY BY MOUTH TWELVE TWELVE EVERY HOURS. HOURS. TWELVE HOURS. ropinirole ropinirole No ropinirole [place] 1 mg tablet 1 mg tablet 1 mg [facility] TAKE ONE TAKE ONE tablet ty (1) (1) TAKE ONE [facility] TABLET(S) TABLET(S) (1) l BY MOUTH BY MOUTH TABLET(S) Cl inics EVERY EVERY BY MOUTH MORNING AND MORNING AND EVERY TWO (2) TWO (2) MORNING TABLETS TABLETS AND TWO EVERY EVERY (2) EVENING. EVENING. TABLETS EVERY EVENING. spironolact spironolact No 1 Q1D spironolac [place] one 25 mg one 25 mg tone 25 mg [facility] tablet Take tablet Take tablet ty 1 tablet 1 tablet Take 1 [facility] every day every day tablet l by oral by oral every day Clin ics route for route for by oral 90 days. 90 days. route for 90 days. albuterol albuterol No albuterol [place] sulfate HFA sulfate HFA sulfate [facility] 90 90 HFA 90 ty mcg/actuati mcg/actuati mcg/actuat [facility] on aerosol on aerosol ion l inhaler inhaler aerosol Clinic s INHALE TWO INHALE TWO inhaler (2) PUFFS (2) PUFFS INHALE TWO INTO THE INTO THE (2) PUFFS LUNGS EVERY LUNGS EVERY INTO THE 4-6 HOURS. 4-6 HOURS. LUNGS EVERY 4-6 HOURS. atorvastati atorvastati No atorvastat [place] n 40 mg n 40 mg in 40 mg [facility] tablet TAKE tablet TAKE tablet ty ONE (1) ONE (1) TAKE ONE [facility] TABLET(S) TABLET(S) (1) l BY MOUTH BY MOUTH TABLET(S) Cl inics EVERY DAY. EVERY DAY. BY MOUTH EVERY DAY. azithromyci azithromyci No 1 Q1D azithromyc [place] n 500 mg n 500 mg in 500 mg [facility] tablet Take tablet Take tablet ty 1 tablet 1 tablet Take 1 [facility] every day every day tablet l by oral by oral every day Clin ics route for 5 route for 5 by oral days. days. route for 5 days. buspirone buspirone No 1 BID buspirone [place] 30 mg 30 mg 30 mg [facility] tablet Take tablet Take tablet ty 1 tablet 1 tablet Take 1 [facility] twice a day twice a day tablet l by oral by oral twice a Clinic s route for route for day by 30 days. 30 days. oral route for 30 days. butalbital butalbital No butalbital [place] 50 50 50 [facility] mg-acetamin mg-acetamin mg-acetami ty ophen 325 ophen 325 nophen 325 [facility] mg-caffeine mg-caffeine mg-caffein l 40 40 e 40 Clinics mg-codeine mg-codeine mg-codeine 30 mg cap 30 mg cap 30 mg cap TAKE ONE TAKE ONE TAKE ONE (1) (1) (1) CAPSULE(S) CAPSULE(S) CAPSULE(S) BY MOUTH BY MOUTH BY MOUTH EVERY FOUR EVERY FOUR EVERY FOUR TO SIX TO SIX TO SIX HOURS HOURS HOURS NEEDED. NEEDED. NEEDED. Eliquis 5 Eliquis 5 No Eliquis 5 [place] mg tablet mg tablet mg tablet [facility] TAKE ONE TAKE ONE TAKE ONE ty (1) (1) (1) [facility] TABLET(S) TABLET(S) TABLET(S) l BY MOUTH BY MOUTH BY MOUTH Cli nics TWICE A TWICE A TWICE A DAY. DAY. DAY. fluoxetine fluoxetine No fluoxetine [place] 40 mg 40 mg 40 mg [facility] capsule capsule capsule ty TAKE ONE TAKE ONE TAKE ONE [facility] (1) (1) (1) l CAPSULE(S) CAPSULE(S) CAPSULE(S) Clinics BY MOUTH BY MOUTH BY MOUTH DAILY. DAILY. DAILY. Folivane-F Folivane-F No Folivane-F [place] 125 mg-1 125 mg-1 125 mg-1 Com [facility] mg-40 mg-3 mg-40 mg-3 mg-40 mg-3 ty mg capsule mg capsule mg capsule [facility] TAKE ONE TAKE ONE TAKE ONE l (1) (1) (1) Clinics CAPSULE(S) CAPSULE(S) CAPSULE(S) BY MOUTH BY MOUTH BY MOUTH EVERY NIGHT EVERY NIGHT EVERY AT BEDTIME. AT BEDTIME. NIGHT AT BEDTIME. albuterol albuterol No albuterol [place] sulfate sulfate sulfate [facility] ty [facility] l Clinics furosemide furosemide No furosemide [place] 20 mg 20 mg 20 mg [facility] tablet TAKE tablet TAKE tablet ty TWO (2) TWO (2) TAKE TWO [facility] TABLET(S) TABLET(S) (2) l BY MOUTH BY MOUTH TABLET(S) Cl inics TWICE A TWICE A BY MOUTH DAY. DAY. TWICE A DAY. furosemide furosemide No furosemide [place] 40 mg 40 mg 40 mg [facility] tablet TAKE tablet TAKE tablet ty 1 TABLET BY 1 TABLET BY TAKE 1 [facility] MOUTH TWICE MOUTH TWICE TABLET BY l A DAY A DAY MOUTH Clinics TWICE A DAY gabapentin gabapentin No gabapentin [place] 600 mg 600 mg 600 mg [facility] tablet TAKE tablet TAKE tablet ty ONE (1) ONE (1) TAKE ONE [facility] TABLET(S) TABLET(S) (1) l BY MOUTH BY MOUTH TABLET(S) Cl inics THREE TIMES THREE TIMES BY MOUTH A DAY. A DAY. THREE TIMES A DAY. hydrocodone hydrocodone No hydrocodon [place] 10 10 e 10 [facility] mg-acetamin mg-acetamin mg-acetami ty ophen 325 ophen 325 nophen 325 [facility] mg tablet mg tablet mg tablet l TAKE ONE TAKE ONE TAKE ONE Cli nics (1) (1) (1) TABLET(S) TABLET(S) TABLET(S) BY MOUTH BY MOUTH BY MOUTH EVERY SIX EVERY SIX EVERY SIX HOURS HOURS HOURS NEEDED. NEEDED. NEEDED. ipratropium ipratropium No ipratropiu [place] 0.5 0.5 m 0.5 [facility] mg-albutero mg-albutero mg-albuter ty l 3 mg (2.5 l 3 mg (2.5 ol 3 mg [facility] mg base)/3 mg base)/3 (2.5 mg l mL mL base)/3 mL Clinics nebulizatio nebulizatio nebulizati n soln n soln on soln INHALE INHALE INHALE THREE (3) THREE (3) THREE (3) ML(S) ML(S) ML(S) NEEDED NEEDED NEEDED EVERY FOUR EVERY FOUR EVERY FOUR HOURS WHILE HOURS WHILE HOURS AWAKE. AWAKE. WHILE AWAKE. levothyroxi levothyroxi No levothyrox [place] ne 200 mcg ne 200 mcg ine 200 [facility] tablet TAKE tablet TAKE mcg tablet ty ONE (1) ONE (1) TAKE ONE [facility] TABLET(S) TABLET(S) (1) l BY MOUTH BY MOUTH TABLET(S) Cl inics EVERY EVERY BY MOUTH MORNING ON MORNING ON EVERY AN EMPTY AN EMPTY MORNING ON STOMACH. STOMACH. AN EMPTY STOMACH. magnesium magnesium No magnesium [place] gluconate gluconate gluconate [facility] 27 mg 27 mg 27 mg ty magnesium magnesium magnesium [facility] (500 mg) (500 mg) (500 mg) l tablet Take tablet Take tablet Clinics by oral by oral Take by route. route. oral route. methocarbam methocarbam No 2 QID methocarba [place] ol 500 mg ol 500 mg mol 500 mg [facility] tablet Take tablet Take tablet ty 2 tablets 4 2 tablets 4 Take 2 [facility] times a day times a day tablets 4 l by oral by oral times a Clinic s route. route. day by oral route. methocarbam methocarbam No methocarba [place] ol 750 mg ol 750 mg mol 750 mg [facility] tablet TAKE tablet TAKE tablet ty ONE (1) ONE (1) TAKE ONE [facility] TABLET(S) TABLET(S) (1) l BY MOUTH BY MOUTH TABLET(S) Cl inics EVERY EVERY BY MOUTH TWELVE TWELVE EVERY HOURS HOURS TWELVE NEEDED. NEEDED. HOURS NEEDED. molnupiravi molnupiravi No 4capsul Q12H molnupirav [place] r 200 mg r 200 mg e(s) ir 200 mg [facility] capsule capsule capsule ty (EUA) Take (EUA) Take (EUA) Take [facility] 4 capsules 4 capsules 4 capsules l every 12 every 12 every 12 Cli nics hours by hours by hours by oral route oral route oral route for 5 days. for 5 days. for 5 days. albuterol albuterol No 2puff(s Q5H albuterol [place] sulfate HFA sulfate HFA ) sulfate [facility] 90 90 HFA 90 ty mcg/actuati mcg/actuati mcg/actuat [facility] on aerosol on aerosol ion l inhaler inhaler aerosol Clinic s Inhale 2 Inhale 2 inhaler puffs every puffs every Inhale 2 4-6 hours 4-6 hours puffs by by every 4-6 inhalation inhalation hours by route. route. inhalation route. ondansetron ondansetron No ondansetro [place] 4 mg 4 mg n 4 mg [facility] disintegrat disintegrat disintegra ty ing tablet ing tablet ting [facility] DISSOLVE DISSOLVE tablet l ONE (1) ONE (1) DISSOLVE [facility] cs TABLET(S) TABLET(S) ONE (1) BY MOUTH BY MOUTH TABLET(S) EVERY EVERY BY MOUTH TWELVE TWELVE EVERY HOURS. HOURS. TWELVE HOURS. ropinirole ropinirole No ropinirole [place] 1 mg tablet 1 mg tablet 1 mg [facility] TAKE ONE TAKE ONE tablet ty (1) (1) TAKE ONE [facility] TABLET(S) TABLET(S) (1) l BY MOUTH BY MOUTH TABLET(S) Cl inics EVERY EVERY BY MOUTH MORNING AND MORNING AND EVERY TWO (2) TWO (2) MORNING TABLETS TABLETS AND TWO EVERY EVERY (2) EVENING. EVENING. TABLETS EVERY EVENING. spironolact spironolact No 1 Q1D spironolac [place] one 25 mg one 25 mg tone 25 mg [facility] tablet Take tablet Take tablet ty 1 tablet 1 tablet Take 1 [facility] every day every day tablet l by oral by oral every day Clin ics route for route for by oral 90 days. 90 days. route for 90 days. apixaban 5 apixaban 5 No 1 BID apixaban 5 [place] mg tablet mg tablet mg tablet [facility] Take 1 Take 1 Take 1 ty tablet tablet tablet [facility] twice a day twice a day twice a l by oral by oral day by Clinics route. route. oral route. atorvastati atorvastati No atorvastat [place] n 40 mg n 40 mg in 40 mg [facility] ni tablet tablet tablet ty [facility]osp[facility] l Clinics albuterol albuterol No albuterol [place] sulfate HFA sulfate HFA sulfate [facility] 90 90 HFA 90 ty mcg/actuati mcg/actuati mcg/actuat Hospita on aerosol on aerosol ion l inhaler inhaler aerosol Clinic s INHALE TWO INHALE TWO inhaler (2) PUFFS (2) PUFFS INHALE TWO INTO THE INTO THE (2) PUFFS LUNGS EVERY LUNGS EVERY INTO THE 4-6 HOURS. 4-6 HOURS. LUNGS EVERY 4-6 HOURS. atorvastati atorvastati No atorvastat [place] n 40 mg n 40 mg in 40 mg [facility] ni tablet TAKE tablet TAKE tablet ty ONE (1) ONE (1) TAKE ONE Hospi ta TABLET(S) TABLET(S) (1) l BY MOUTH BY MOUTH TABLET(S) Cl inics EVERY DAY. EVERY DAY. BY MOUTH EVERY DAY. buspirone buspirone No 1 BID buspirone [place] 30 mg 30 mg 30 mg [facility] tablet Take tablet Take tablet ty 1 tablet 1 tablet Take 1 [facility] ta twice a day twice a day tablet l by oral by oral twice a Clinic s route for route for day by 30 days. 30 days. oral route for 30 days. butalbital butalbital No butalbital [place] 50 50 50 [facility] mg-acetamin mg-acetamin mg-acetami ty ophen 325 ophen 325 nophen 325 [facility]osp[facility] mg-caffeine mg-caffeine mg-caffein l 40 40 e 40 Clinics mg-codeine mg-codeine mg-codeine 30 mg cap 30 mg cap 30 mg cap TAKE ONE TAKE ONE TAKE ONE (1) (1) (1) CAPSULE(S) CAPSULE(S) CAPSULE(S) BY MOUTH BY MOUTH BY MOUTH EVERY FOUR EVERY FOUR EVERY FOUR TO SIX TO SIX TO SIX HOURS HOURS HOURS NEEDED. NEEDED. NEEDED. Eliquis 5 Eliquis 5 No Eliquis 5 [place] mg tablet mg tablet mg tablet [facility] TAKE ONE TAKE ONE TAKE ONE ty (1) (1) (1) [facility]ospita TABLET(S) TABLET(S) TABLET(S) l BY MOUTH BY MOUTH BY MOUTH Cli nics TWICE A TWICE A TWICE A DAY. DAY. DAY. fluoxetine fluoxetine No fluoxetine [place] 40 mg 40 mg 40 mg [facility] capsule capsule capsule ty TAKE ONE TAKE ONE TAKE ONE [facility] (1) (1) (1) l CAPSULE(S) CAPSULE(S) CAPSULE(S) Clinics BY MOUTH BY MOUTH BY MOUTH DAILY. DAILY. DAILY. Folivane-F Folivane-F No Folivane-F [place] 125 mg-1 125 mg-1 125 mg-1 Com ale mg-40 mg-3 mg-40 mg-3 mg-40 mg-3 ty mg capsule mg capsule mg capsule [facility]osp[facility] TAKE ONE TAKE ONE TAKE ONE l (1) (1) (1) Clinics CAPSULE(S) CAPSULE(S) CAPSULE(S) BY MOUTH BY MOUTH BY MOUTH EVERY NIGHT EVERY NIGHT EVERY AT BEDTIME. AT BEDTIME. NIGHT AT BEDTIME. furosemide furosemide No furosemide [place] 20 mg 20 mg 20 mg [facility] tablet TAKE tablet TAKE tablet ty TWO (2) TWO (2) TAKE TWO [facility] TABLET(S) TABLET(S) (2) l BY MOUTH BY MOUTH TABLET(S) Cl inics TWICE A TWICE A BY MOUTH DAY. DAY. TWICE A DAY. furosemide furosemide No furosemide [place] 40 mg 40 mg 40 mg [facility] tablet TAKE tablet TAKE tablet ty 1 TABLET BY 1 TABLET BY TAKE 1 Hospita MOUTH TWICE MOUTH TWICE TABLET BY l A DAY A DAY MOUTH Clinics TWICE A DAY buspirone buspirone No buspirone [place] 30 mg 30 mg 30 mg [facility] tablet tablet tablet ty [facility] l Clinics gabapentin gabapentin No gabapentin [place] 600 mg 600 mg 600 mg [facility] tablet TAKE tablet TAKE tablet ty ONE (1) ONE (1) TAKE ONE [facility] TABLET(S) TABLET(S) (1) l BY MOUTH BY MOUTH TABLET(S) Cl inics THREE TIMES THREE TIMES BY MOUTH A DAY. A DAY. THREE TIMES A DAY. hydrocodone hydrocodone No hydrocodon [place] 10 10 e 10 [facility] mg-acetamin mg-acetamin mg-acetami ty ophen 325 ophen 325 nophen 325 [facility] mg tablet mg tablet mg tablet l TAKE ONE TAKE ONE TAKE ONE Cli nics (1) (1) (1) TABLET(S) TABLET(S) TABLET(S) BY MOUTH BY MOUTH BY MOUTH EVERY SIX EVERY SIX EVERY SIX HOURS HOURS HOURS NEEDED. NEEDED. NEEDED. ipratropium ipratropium No ipratropiu [place] 0.5 0.5 m 0.5 [facility] mg-albutero mg-albutero mg-albuter ty l 3 mg (2.5 l 3 mg (2.5 ol 3 mg [facility]osp[facility] mg base)/3 mg base)/3 (2.5 mg l mL mL base)/3 mL Clinics nebulizatio nebulizatio nebulizati n soln n soln on soln INHALE INHALE INHALE THREE (3) THREE (3) THREE (3) ML(S) ML(S) ML(S) NEEDED NEEDED NEEDED EVERY FOUR EVERY FOUR EVERY FOUR HOURS WHILE HOURS WHILE HOURS AWAKE. AWAKE. WHILE AWAKE. levothyroxi levothyroxi No levothyrox [place] ne 200 mcg ne 200 mcg ine 200 [facility] tablet TAKE tablet TAKE mcg tablet ty ONE (1) ONE (1) TAKE ONE [facility] TABLET(S) TABLET(S) (1) l BY MOUTH BY MOUTH TABLET(S) Cl inics EVERY EVERY BY MOUTH MORNING ON MORNING ON EVERY AN EMPTY AN EMPTY MORNING ON STOMACH. STOMACH. AN EMPTY STOMACH. magnesium magnesium No magnesium [place] gluconate gluconate gluconate [facility] 27 mg 27 mg 27 mg ty magnesium magnesium magnesium [facility] (500 mg) (500 mg) (500 mg) l tablet Take tablet Take tablet Clinics by oral by oral Take by route. route. oral route. methocarbam methocarbam No 2 QID methocarba [place] ol 500 mg ol 500 mg mol 500 mg [facility] tablet Take tablet Take tablet ty 2 tablets 4 2 tablets 4 Take 2 [facility]ospita times a day times a day tablets 4 l by oral by oral times a Clinic s route. route. day by oral route. methocarbam methocarbam No methocarba [place] ol 750 mg ol 750 mg mol 750 mg [facility] tablet TAKE tablet TAKE tablet ty ONE (1) ONE (1) TAKE ONE [facility] TABLET(S) TABLET(S) (1) l BY MOUTH BY MOUTH TABLET(S) Cl inics EVERY EVERY BY MOUTH TWELVE TWELVE EVERY HOURS HOURS TWELVE NEEDED. NEEDED. HOURS NEEDED. ondansetron ondansetron No ondansetro [place] 4 mg 4 mg n 4 mg [facility] disintegrat disintegrat disintegra ty ing tablet ing tablet ting [facility] DISSOLVE DISSOLVE tablet l ONE (1) ONE (1) DISSOLVE Clini cs TABLET(S) TABLET(S) ONE (1) BY MOUTH BY MOUTH TABLET(S) EVERY EVERY BY MOUTH TWELVE TWELVE EVERY HOURS. HOURS. TWELVE HOURS. ropinirole ropinirole No ropinirole [place] 1 mg tablet 1 mg tablet 1 mg [facility] TAKE ONE TAKE ONE tablet ty (1) (1) TAKE ONE [facility]ospita TABLET(S) TABLET(S) (1) l BY MOUTH BY MOUTH TABLET(S) Cl inics EVERY EVERY BY MOUTH MORNING AND MORNING AND EVERY TWO (2) TWO (2) MORNING TABLETS TABLETS AND TWO EVERY EVERY (2) EVENING. EVENING. TABLETS EVERY EVENING. spironolact spironolact No 1 Q1D spironolac [place] one 25 mg one 25 mg tone 25 mg [facility] tablet Take tablet Take tablet ty 1 tablet 1 tablet Take 1 [facility] ta every day every day tablet l by oral by oral every day Clin ics route for route for by oral 90 days. 90 days. route for 90 days. fluoxetine fluoxetine No fluoxetine [place] 20 mg 20 mg 20 mg [facility] capsule capsule capsule ty [facility]osp[facility] l Clinics furosemide furosemide No furosemide [place] 40 mg 40 mg 40 mg [facility] tablet tablet tablet ty [facility] gabapentin gabapentin No gabapentin [place] 300 mg 300 mg 300 mg [facility] capsule capsule capsule ty [facility] Clinics albuterol albuterol No albuterol [place] sulfate HFA sulfate HFA sulfate [facility] 90 90 HFA 90 ty mcg/actuati mcg/actuati mcg/actuat Hospita on aerosol on aerosol ion l inhaler inhaler aerosol Clinic s INHALE TWO INHALE TWO inhaler (2) PUFFS (2) PUFFS INHALE TWO INTO THE INTO THE (2) PUFFS LUNGS EVERY LUNGS EVERY INTO THE 4-6 HOURS. 4-6 HOURS. LUNGS EVERY 4-6 HOURS. atorvastati atorvastati No atorvastat [place] n 40 mg n 40 mg in 40 mg [facility] tablet TAKE tablet TAKE tablet ty ONE (1) ONE (1) TAKE ONE Hospi ta TABLET(S) TABLET(S) (1) l BY MOUTH BY MOUTH TABLET(S) Cl inics EVERY DAY. EVERY DAY. BY MOUTH EVERY DAY. buspirone buspirone No 1 BID buspirone [place] 30 mg 30 mg 30 mg [facility] tablet Take tablet Take tablet ty 1 tablet 1 tablet Take 1 [facility] ta twice a day twice a day tablet l by oral by oral twice a Clinic s route for route for day by 30 days. 30 days. oral route for 30 days. butalbital butalbital No butalbital [place] 50 50 50 [facility] mg-acetamin mg-acetamin mg-acetami ty ophen 325 ophen 325 nophen 325 Hospita mg-caffeine mg-caffeine mg-caffein l 40 40 e 40 Clinics mg-codeine mg-codeine mg-codeine 30 mg cap 30 mg cap 30 mg cap TAKE ONE TAKE ONE TAKE ONE (1) (1) (1) CAPSULE(S) CAPSULE(S) CAPSULE(S) BY MOUTH BY MOUTH BY MOUTH EVERY FOUR EVERY FOUR EVERY FOUR TO SIX TO SIX TO SIX HOURS HOURS HOURS NEEDED. NEEDED. NEEDED. Eliquis 5 Eliquis 5 No Eliquis 5 [place] mg tablet mg tablet mg tablet [facility] TAKE ONE TAKE ONE TAKE ONE ty (1) (1) (1) Hospita TABLET(S) TABLET(S) TABLET(S) l BY MOUTH BY MOUTH BY MOUTH Cli nics TWICE A TWICE A TWICE A DAY. DAY. DAY. fluoxetine fluoxetine No fluoxetine [place] 40 mg 40 mg 40 mg [facility] capsule capsule capsule ty TAKE ONE TAKE ONE TAKE ONE [facility] (1) (1) (1) l CAPSULE(S) CAPSULE(S) CAPSULE(S) Clinics BY MOUTH BY MOUTH BY MOUTH DAILY. DAILY. DAILY. Folivane-F Folivane-F No Folivane-F [place] 125 mg-1 125 mg-1 125 mg-1 Com ale mg-40 mg-3 mg-40 mg-3 mg-40 mg-3 ty mg capsule mg capsule mg capsule [facility]osp[facility] TAKE ONE TAKE ONE TAKE ONE l (1) (1) (1) Clinics CAPSULE(S) CAPSULE(S) CAPSULE(S) BY MOUTH BY MOUTH BY MOUTH EVERY NIGHT EVERY NIGHT EVERY AT BEDTIME. AT BEDTIME. NIGHT AT BEDTIME. furosemide furosemide No furosemide [place] 20 mg 20 mg 20 mg [facility] tablet TAKE tablet TAKE tablet ty TWO (2) TWO (2) TAKE TWO Hos[facility] ta TABLET(S) TABLET(S) (2) l BY MOUTH BY MOUTH TABLET(S) Cl inics TWICE A TWICE A BY MOUTH DAY. DAY. TWICE A DAY. furosemide furosemide No furosemide [place] 40 mg 40 mg 40 mg [facility] tablet TAKE tablet TAKE tablet ty 1 TABLET BY 1 TABLET BY TAKE 1 Hospita MOUTH qd MOUTH qd TABLET BY l MOUTH qd Clinics gabapentin gabapentin No gabapentin [place] 600 mg 600 mg 600 mg [facility] tablet TAKE tablet TAKE tablet ty ONE (1) ONE (1) TAKE ONE [facility] TABLET(S) TABLET(S) (1) l BY MOUTH BY MOUTH TABLET(S) Cl inics THREE TIMES THREE TIMES BY MOUTH A DAY. A DAY. THREE TIMES A DAY. gabapentin gabapentin No 1 TID gabapentin [place] 600 mg 600 mg 600 mg [facility] tablet Take tablet Take tablet ty 1 tablet 3 1 tablet 3 Take 1 H [facility]spita times a day times a day tablet 3 l by oral by oral times a Clinic s route. route. day by oral route. hydrocodone hydrocodone No hydrocodon [place] 10 10 e 10 [facility] mg-acetamin mg-acetamin mg-acetami ty ophen 325 ophen 325 nophen 325 Hospita mg tablet mg tablet mg tablet l TAKE ONE TAKE ONE TAKE ONE Cli nics (1) (1) (1) TABLET(S) TABLET(S) TABLET(S) BY MOUTH BY MOUTH BY MOUTH EVERY SIX EVERY SIX EVERY SIX HOURS HOURS HOURS NEEDED. NEEDED. NEEDED. ipratropium ipratropium No ipratropiu [place] 0.5 0.5 m 0.5 [facility] mg-albutero mg-albutero mg-albuter ty l 3 mg (2.5 l 3 mg (2.5 ol 3 mg Hospita mg base)/3 mg base)/3 (2.5 mg l mL mL base)/3 mL Clinics nebulizatio nebulizatio nebulizati n soln n soln on soln INHALE INHALE INHALE THREE (3) THREE (3) THREE (3) ML(S) ML(S) ML(S) NEEDED NEEDED NEEDED EVERY FOUR EVERY FOUR EVERY FOUR HOURS WHILE HOURS WHILE HOURS AWAKE. AWAKE. WHILE AWAKE. levothyroxi levothyroxi No levothyrox [place] ne 200 mcg ne 200 mcg ine 200 [facility] tablet TAKE tablet TAKE mcg tablet ty ONE (1) ONE (1) TAKE ONE [facility] ta TABLET(S) TABLET(S) (1) l BY MOUTH BY MOUTH TABLET(S) Cl inics EVERY EVERY BY MOUTH MORNING ON MORNING ON EVERY AN EMPTY AN EMPTY MORNING ON STOMACH. STOMACH. AN EMPTY STOMACH. magnesium magnesium No magnesium [place] gluconate gluconate gluconate [facility] 27 mg 27 mg 27 mg ty magnesium magnesium magnesium [facility] (500 mg) (500 mg) (500 mg) l tablet Take tablet Take tablet Clinics by oral by oral Take by route. route. oral route. methocarbam methocarbam No 2 QID methocarba [place] ol 500 mg ol 500 mg mol 500 mg [facility] tablet Take tablet Take tablet ty 2 tablets 4 2 tablets 4 Take 2 [facility]ospita times a day times a day tablets 4 l by oral by oral times a Clinic s route. route. day by oral route. methocarbam methocarbam No methocarba [place] ol 750 mg ol 750 mg mol 750 mg [facility] tablet TAKE tablet TAKE tablet ty ONE (1) ONE (1) TAKE ONE [facility] TABLET(S) TABLET(S) (1) l BY MOUTH BY MOUTH TABLET(S) Cl inics EVERY EVERY BY MOUTH TWELVE TWELVE EVERY HOURS HOURS TWELVE NEEDED. NEEDED. HOURS NEEDED. ondansetron ondansetron No ondansetro [place] 4 mg 4 mg n 4 mg [facility] disintegrat disintegrat disintegra ty ing tablet ing tablet ting [facility] DISSOLVE DISSOLVE tablet l ONE (1) ONE (1) DISSOLVE Clini cs TABLET(S) TABLET(S) ONE (1) BY MOUTH BY MOUTH TABLET(S) EVERY EVERY BY MOUTH TWELVE TWELVE EVERY HOURS. HOURS. TWELVE HOURS. ropinirole ropinirole No ropinirole [place] 1 mg tablet 1 mg tablet 1 mg [facility] TAKE ONE TAKE ONE tablet ty (1) (1) TAKE ONE [facility]ospita TABLET(S) TABLET(S) (1) l BY MOUTH BY MOUTH TABLET(S) Cl inics EVERY EVERY BY MOUTH MORNING AND MORNING AND EVERY TWO (2) TWO (2) MORNING TABLETS TABLETS AND TWO EVERY EVERY (2) EVENING. EVENING. TABLETS EVERY EVENING. spironolact spironolact No spironolac [place] one 25 mg one 25 mg tone 25 mg [facility] tablet TAKE tablet TAKE tablet ty ONE (1) ONE (1) TAKE ONE [facility] TABLET(S) TABLET(S) (1) l BY MOUTH BY MOUTH TABLET(S) Cl inics ONCE A DAY. ONCE A DAY. BY MOUTH ONCE A DAY. hydrocodone hydrocodone No hydrocodon [place] 10 10 e 10 [facility] mg-acetamin mg-acetamin mg-acetami ty ophen 325 ophen 325 nophen 325 [facility]osp[facility] mg tablet mg tablet mg tablet l Clinics ketamine ketamine No ketamine Swe ketan 100 mg 100 mg 100 mg [facility] sublingual sublingual sublingual jonatan jonatan jonatan [facility] by Place by Place by l sublingual sublingual sublingual Clinics route. route. route. albuterol albuterol No albuterol [place] sulfate HFA sulfate HFA sulfate [facility] 90 90 HFA 90 ty mcg/actuati mcg/actuati mcg/actuat Hospita on aerosol on aerosol ion l inhaler inhaler aerosol Clinic s INHALE TWO INHALE TWO inhaler (2) PUFFS (2) PUFFS INHALE TWO INTO THE INTO THE (2) PUFFS LUNGS EVERY LUNGS EVERY INTO THE 4-6 HOURS. 4-6 HOURS. LUNGS EVERY 4-6 HOURS. ketorolac ketorolac No ketorolac [place] 10 mg 10 mg 10 mg [facility] tablet tablet tablet ty Hospita l Clinics atorvastati atorvastati No atorvastat [place] n 40 mg n 40 mg in 40 mg [facility] ni tablet TAKE tablet TAKE tablet ty ONE (1) ONE (1) TAKE ONE Hos[facility] ta TABLET(S) TABLET(S) (1) l BY MOUTH BY MOUTH TABLET(S) Cl inics EVERY DAY. EVERY DAY. BY MOUTH EVERY DAY. buspirone buspirone No 1 BID buspirone [place] 30 mg 30 mg 30 mg [facility] tablet Take tablet Take tablet ty 1 tablet 1 tablet Take 1 [facility] twice a day twice a day tablet l by oral by oral twice a Clinic s route for route for day by 30 days. 30 days. oral route for 30 days. butalbital butalbital No butalbital [place] 50 50 50 [facility] mg-acetamin mg-acetamin mg-acetami ty ophen 325 ophen 325 nophen 325 [facility]ospita mg-caffeine mg-caffeine mg-caffein l 40 40 e 40 Clinics mg-codeine mg-codeine mg-codeine 30 mg cap 30 mg cap 30 mg cap TAKE ONE TAKE ONE TAKE ONE (1) (1) (1) CAPSULE(S) CAPSULE(S) CAPSULE(S) BY MOUTH BY MOUTH BY MOUTH EVERY FOUR EVERY FOUR EVERY FOUR TO SIX TO SIX TO SIX HOURS HOURS HOURS NEEDED. NEEDED. NEEDED. Eliquis 5 Eliquis 5 No Eliquis 5 [place] mg tablet mg tablet mg tablet [facility] TAKE ONE TAKE ONE TAKE ONE ty (1) (1) (1) Hospita TABLET(S) TABLET(S) TABLET(S) l BY MOUTH BY MOUTH BY MOUTH Cli nics TWICE A TWICE A TWICE A DAY. DAY. DAY. fluoxetine fluoxetine No fluoxetine [place] 40 mg 40 mg 40 mg [facility] capsule capsule capsule ty TAKE ONE TAKE ONE TAKE ONE [facility] (1) (1) (1) l CAPSULE(S) CAPSULE(S) CAPSULE(S) Clinics BY MOUTH BY MOUTH BY MOUTH DAILY. DAILY. DAILY. Folivane-F Folivane-F No Folivane-F [place] 125 mg-1 125 mg-1 125 mg-1 Com ale mg-40 mg-3 mg-40 mg-3 mg-40 mg-3 ty mg capsule mg capsule mg capsule [facility]osp[facility] TAKE ONE TAKE ONE TAKE ONE l (1) (1) (1) Clinics CAPSULE(S) CAPSULE(S) CAPSULE(S) BY MOUTH BY MOUTH BY MOUTH EVERY NIGHT EVERY NIGHT EVERY AT BEDTIME. AT BEDTIME. NIGHT AT BEDTIME. furosemide furosemide No furosemide [place] 20 mg 20 mg 20 mg [facility] tablet TAKE tablet TAKE tablet ty TWO (2) TWO (2) TAKE TWO Hos[facility] ta TABLET(S) TABLET(S) (2) l BY MOUTH BY MOUTH TABLET(S) Cl inics TWICE A TWICE A BY MOUTH DAY. DAY. TWICE A DAY. furosemide furosemide No furosemide [place] 40 mg 40 mg 40 mg [facility] tablet TAKE tablet TAKE tablet ty 1 TABLET BY 1 TABLET BY TAKE 1 Hospita MOUTH qd MOUTH qd TABLET BY l MOUTH qd Clinics gabapentin gabapentin No gabapentin [place] 600 mg 600 mg 600 mg [facility] tablet TAKE tablet TAKE tablet ty ONE (1) ONE (1) TAKE ONE [facility] TABLET(S) TABLET(S) (1) l BY MOUTH BY MOUTH TABLET(S) Cl inics THREE TIMES THREE TIMES BY MOUTH A DAY. A DAY. THREE TIMES A DAY. hydrocodone hydrocodone No hydrocodon [place] 10 10 e 10 [facility] mg-acetamin mg-acetamin mg-acetami ty ophen 325 ophen 325 nophen 325 [facility]osp[facility] mg tablet mg tablet mg tablet l TAKE ONE TAKE ONE TAKE ONE Cli nics (1) (1) (1) TABLET(S) TABLET(S) TABLET(S) BY MOUTH BY MOUTH BY MOUTH EVERY SIX EVERY SIX EVERY SIX HOURS HOURS HOURS NEEDED. NEEDED. NEEDED. levothyroxi levothyroxi No levothyrox [place] ne 200 mcg ne 200 mcg ine 200 [facility] tablet tablet mcg tablet ty Hospita l Clinics ipratropium ipratropium No ipratropiu [place] 0.5 0.5 m 0.5 [facility] mg-albutero mg-albutero mg-albuter ty l 3 mg (2.5 l 3 mg (2.5 ol 3 mg Hospita mg base)/3 mg base)/3 (2.5 mg l mL mL base)/3 mL Clinics nebulizatio nebulizatio nebulizati n soln n soln on soln INHALE INHALE INHALE THREE (3) THREE (3) THREE (3) ML(S) ML(S) ML(S) NEEDED NEEDED NEEDED EVERY FOUR EVERY FOUR EVERY FOUR HOURS WHILE HOURS WHILE HOURS AWAKE. AWAKE. WHILE AWAKE. levothyroxi levothyroxi No levothyrox [place] ne 200 mcg ne 200 mcg ine 200 [facility] tablet TAKE tablet TAKE mcg tablet ty ONE (1) ONE (1) TAKE ONE [facility] TABLET(S) TABLET(S) (1) l BY MOUTH BY MOUTH TABLET(S) Cl inics EVERY EVERY BY MOUTH MORNING ON MORNING ON EVERY AN EMPTY AN EMPTY MORNING ON STOMACH. STOMACH. AN EMPTY STOMACH. magnesium magnesium No magnesium [place] gluconate gluconate gluconate [facility] 27 mg 27 mg 27 mg ty magnesium magnesium magnesium [facility] (500 mg) (500 mg) (500 mg) l tablet Take tablet Take tablet Clinics by oral by oral Take by route. route. oral route. methocarbam methocarbam No methocarba [place] ol 500 mg ol 500 mg mol 500 mg [facility] tablet TAKE tablet TAKE tablet ty TWO (2) TWO (2) TAKE TWO [facility] ta TABLET(S) TABLET(S) (2) l BY MOUTH BY MOUTH TABLET(S) Cl inics EVERY EIGHT EVERY EIGHT BY MOUTH HOURS. HOURS. EVERY EIGHT HOURS. methocarbam methocarbam No methocarba [place] ol 750 mg ol 750 mg mol 750 mg [facility] tablet TAKE tablet TAKE tablet ty ONE (1) ONE (1) TAKE ONE [facility] TABLET(S) TABLET(S) (1) l BY MOUTH BY MOUTH TABLET(S) Cl inics EVERY EVERY BY MOUTH TWELVE TWELVE EVERY HOURS HOURS TWELVE NEEDED. NEEDED. HOURS NEEDED. ondansetron ondansetron No ondansetro [place] 4 mg 4 mg n 4 mg [facility] disintegrat disintegrat disintegra ty ing tablet ing tablet ting [facility] DISSOLVE DISSOLVE tablet l ONE (1) ONE (1) DISSOLVE Clini cs TABLET(S) TABLET(S) ONE (1) BY MOUTH BY MOUTH TABLET(S) EVERY EVERY BY MOUTH TWELVE TWELVE EVERY HOURS. HOURS. TWELVE HOURS. ropinirole ropinirole No ropinirole [place] 1 mg tablet 1 mg tablet 1 mg [facility] TAKE ONE TAKE ONE tablet ty (1) (1) TAKE ONE [facility]osp[facility] TABLET(S) TABLET(S) (1) l BY MOUTH BY MOUTH TABLET(S) Cl inics EVERY EVERY BY MOUTH MORNING AND MORNING AND EVERY TWO (2) TWO (2) MORNING TABLETS TABLETS AND TWO EVERY EVERY (2) EVENING. EVENING. TABLETS EVERY EVENING. spironolact spironolact No spironolac [place] one 25 mg one 25 mg tone 25 mg [facility] tablet TAKE tablet TAKE tablet ty ONE (1) ONE (1) TAKE ONE [facility] TABLET(S) TABLET(S) (1) l BY MOUTH BY MOUTH TABLET(S) Cl inics ONCE A DAY. ONCE A DAY. BY MOUTH ONCE A DAY. magnesium magnesium No magnesium [place] gluconate gluconate gluconate [facility] 27 mg 27 mg 27 mg ty magnesium magnesium magnesium [facility] (500 mg) (500 mg) (500 mg) l tablet Take tablet Take tablet Clinics by oral by oral Take by route. route. oral route. methocarbam methocarbam No 2 QID methocarba [place] ol 500 mg ol 500 mg mol 500 mg [facility] tablet Take tablet Take tablet ty 2 tablets 4 2 tablets 4 Take 2 [facility]osp[facility] times a day times a day tablets 4 l by oral by oral times a Clinic s route. route. day by oral route. albuterol albuterol No albuterol [place] sulfate HFA sulfate HFA sulfate [facility] 90 90 HFA 90 ty mcg/actuati mcg/actuati mcg/actuat [facility]osp[facility] on aerosol on aerosol ion l inhaler inhaler aerosol Clinic s INHALE TWO INHALE TWO inhaler (2) PUFFS (2) PUFFS INHALE TWO INTO THE INTO THE (2) PUFFS LUNGS EVERY LUNGS EVERY INTO THE 4-6 HOURS. 4-6 HOURS. LUNGS EVERY 4-6 HOURS. ondansetron ondansetron No ondansetro [place] 4 mg 4 mg n 4 mg [facility] disintegrat disintegrat disintegra ty ing tablet ing tablet ting [facility] tablet l Clinics atorvastati atorvastati No atorvastat [place] n 40 mg n 40 mg in 40 mg [facility] ni tablet TAKE tablet TAKE tablet ty ONE (1) ONE (1) TAKE ONE [facility] ta TABLET(S) TABLET(S) (1) l BY MOUTH BY MOUTH TABLET(S) Cl inics EVERY DAY. EVERY DAY. BY MOUTH EVERY DAY. buspirone buspirone No 1 BID buspirone [place] 30 mg 30 mg 30 mg [facility] tablet Take tablet Take tablet ty 1 tablet 1 tablet Take 1 [facility] twice a day twice a day tablet l by oral by oral twice a Clinic s route for route for day by 30 days. 30 days. oral route for 30 days. butalbital butalbital No butalbital [place] 50 50 50 [facility] mg-acetamin mg-acetamin mg-acetami ty ophen 325 ophen 325 nophen 325 [facility]osp[facility] mg-caffeine mg-caffeine mg-caffein l 40 40 e 40 Clinics mg-codeine mg-codeine mg-codeine 30 mg cap 30 mg cap 30 mg cap TAKE ONE TAKE ONE TAKE ONE (1) (1) (1) CAPSULE(S) CAPSULE(S) CAPSULE(S) BY MOUTH BY MOUTH BY MOUTH EVERY FOUR EVERY FOUR EVERY FOUR TO SIX TO SIX TO SIX HOURS HOURS HOURS NEEDED. NEEDED. NEEDED. Eliquis 5 Eliquis 5 No Eliquis 5 [place] mg tablet mg tablet mg tablet [facility] TAKE ONE TAKE ONE TAKE ONE ty (1) (1) (1) Hospita TABLET(S) TABLET(S) TABLET(S) l BY MOUTH BY MOUTH BY MOUTH Cli nics TWICE A TWICE A TWICE A DAY. DAY. DAY. fluoxetine fluoxetine No fluoxetine [place] 40 mg 40 mg 40 mg [facility] capsule capsule capsule ty TAKE ONE TAKE ONE TAKE ONE [facility] (1) (1) (1) l CAPSULE(S) CAPSULE(S) CAPSULE(S) Clinics BY MOUTH BY MOUTH BY MOUTH DAILY. DAILY. DAILY. Folivane-F Folivane-F No Folivane-F [place] 125 mg-1 125 mg-1 125 mg-1 Com ale mg-40 mg-3 mg-40 mg-3 mg-40 mg-3 ty mg capsule mg capsule mg capsule [facility] TAKE ONE TAKE ONE TAKE ONE l (1) (1) (1) Clinics CAPSULE(S) CAPSULE(S) CAPSULE(S) BY MOUTH BY MOUTH BY MOUTH EVERY NIGHT EVERY NIGHT EVERY AT BEDTIME. AT BEDTIME. NIGHT AT BEDTIME. furosemide furosemide No furosemide [place] 20 mg 20 mg 20 mg [facility] tablet TAKE tablet TAKE tablet ty TWO (2) TWO (2) TAKE TWO [facility] ta TABLET(S) TABLET(S) (2) l BY MOUTH BY MOUTH TABLET(S) Cl inics TWICE A TWICE A BY MOUTH DAY. DAY. TWICE A DAY. furosemide furosemide No furosemide [place] 40 mg 40 mg 40 mg [facility] tablet TAKE tablet TAKE tablet ty 1 TABLET BY 1 TABLET BY TAKE 1 [facility]ita MOUTH qd MOUTH qd TABLET BY l MOUTH qd Clinics gabapentin gabapentin No gabapentin [place] 600 mg 600 mg 600 mg [facility] tablet TAKE tablet TAKE tablet ty ONE (1) ONE (1) TAKE ONE [facility] TABLET(S) TABLET(S) (1) l BY MOUTH BY MOUTH TABLET(S) Cl inics THREE TIMES THREE TIMES BY MOUTH A DAY. A DAY. THREE TIMES A DAY. hydrocodone hydrocodone No hydrocodon [place] 10 10 e 10 [facility] mg-acetamin mg-acetamin mg-acetami ty ophen 325 ophen 325 nophen 325 [facility] mg tablet mg tablet mg tablet l TAKE ONE TAKE ONE TAKE ONE Cli nics (1) (1) (1) TABLET(S) TABLET(S) TABLET(S) BY MOUTH BY MOUTH BY MOUTH EVERY SIX EVERY SIX EVERY SIX HOURS HOURS HOURS NEEDED. NEEDED. NEEDED. oxybutynin oxybutynin No oxybutynin [place] chloride 5 chloride 5 chloride 5 [facility] mg tablet mg tablet mg tablet ty [facility]osp[facility] l Clinics ipratropium ipratropium No ipratropiu [place] 0.5 0.5 m 0.5 [facility] mg-albutero mg-albutero mg-albuter ty l 3 mg (2.5 l 3 mg (2.5 ol 3 mg [facility]osp[facility] mg base)/3 mg base)/3 (2.5 mg l mL mL base)/3 mL Clinics nebulizatio nebulizatio nebulizati n soln n soln on soln INHALE INHALE INHALE THREE (3) THREE (3) THREE (3) ML(S) ML(S) ML(S) NEEDED NEEDED NEEDED EVERY FOUR EVERY FOUR EVERY FOUR HOURS WHILE HOURS WHILE HOURS AWAKE. AWAKE. WHILE AWAKE. levetiracet levetiracet No levetirace [place] am 750 mg am 750 mg de nada 750 mg [facility] tablet TAKE tablet TAKE tablet ty ONE (1) ONE (1) TAKE ONE [facility] TABLET(S) TABLET(S) (1) l BY MOUTH BY MOUTH TABLET(S) Cl inics TWICE A TWICE A BY MOUTH DAY. DAY. TWICE A DAY. levothyroxi levothyroxi No levothyrox [place] ne 200 mcg ne 200 mcg ine 200 [facility] tablet TAKE tablet TAKE mcg tablet ty ONE (1) ONE (1) TAKE ONE Hospi ta TABLET(S) TABLET(S) (1) l BY MOUTH BY MOUTH TABLET(S) Cl inics EVERY EVERY BY MOUTH MORNING ON MORNING ON EVERY AN EMPTY AN EMPTY MORNING ON STOMACH. STOMACH. AN EMPTY STOMACH. magnesium magnesium No magnesium [place] gluconate gluconate gluconate [facility] 27 mg 27 mg 27 mg ty magnesium magnesium magnesium [facility] (500 mg) (500 mg) (500 mg) l tablet Take tablet Take tablet Clinics by oral by oral Take by route. route. oral route. methocarbam methocarbam No methocarba [place] ol 500 mg ol 500 mg mol 500 mg [facility] tablet TAKE tablet TAKE tablet ty TWO (2) TWO (2) TAKE TWO Hospi ta TABLET(S) TABLET(S) (2) l BY MOUTH BY MOUTH TABLET(S) Cl inics EVERY EIGHT EVERY EIGHT BY MOUTH HOURS. HOURS. EVERY EIGHT HOURS. methocarbam methocarbam No methocarba [place] ol 750 mg ol 750 mg mol 750 mg Communi tablet TAKE tablet TAKE tablet ty ONE (1) ONE (1) TAKE ONE Hospi ta TABLET(S) TABLET(S) (1) l BY MOUTH BY MOUTH TABLET(S) Cl inics EVERY EVERY BY MOUTH TWELVE TWELVE EVERY HOURS HOURS TWELVE NEEDED. NEEDED. HOURS NEEDED. ondansetron ondansetron No ondansetro [place] 4 mg 4 mg n 4 mg Communi disintegrat disintegrat disintegra ty ing tablet ing tablet ting Hos corbin DISSOLVE DISSOLVE tablet l ONE (1) ONE (1) DISSOLVE Clini cs TABLET(S) TABLET(S) ONE (1) BY MOUTH BY MOUTH TABLET(S) EVERY EVERY BY MOUTH TWELVE TWELVE EVERY HOURS. HOURS. TWELVE HOURS. ropinirole ropinirole No ropinirole [place] 1 mg tablet 1 mg tablet 1 mg C om[facility]i TAKE ONE TAKE ONE tablet ty (1) (1) TAKE ONE Hospita TABLET(S) TABLET(S) (1) l BY MOUTH BY MOUTH TABLET(S) Cl inics EVERY EVERY BY MOUTH MORNING AND MORNING AND EVERY TWO (2) TWO (2) MORNING TABLETS TABLETS AND TWO EVERY EVERY (2) EVENING. EVENING. TABLETS EVERY EVENING. spironolact spironolact No spironolac [place] one 25 mg one 25 mg tone 25 mg [facility] tablet TAKE tablet TAKE tablet ty ONE (1) ONE (1) TAKE ONE Hospi ta TABLET(S) TABLET(S) (1) l BY MOUTH BY MOUTH TABLET(S) Cl inics ONCE A DAY. ONCE A DAY. BY MOUTH ONCE A DAY. topiramate topiramate No topiramate [place] 25 mg 25 mg 25 mg [facility] tablet TAKE tablet TAKE tablet ty ONE (1) ONE (1) TAKE ONE Hospi ta TABLET(S) TABLET(S) (1) l BY MOUTH BY MOUTH TABLET(S) Cl inics TWICE A TWICE A BY MOUTH DAY. DAY. TWICE A DAY. phenazopyri phenazopyri No 1 TID phenazopyr [place] dine 200 mg dine 200 mg idine 200 Communi tablet Take tablet Take mg tablet ty 1 tablet 3 1 tablet 3 Take 1 H ospita times a day times a day tablet 3 l by oral by oral times a Clinic s route. route. day by oral route. topiramate topiramate No topiramate [place] 50 mg 50 mg 50 mg [facility] tablet TAKE tablet TAKE tablet ty ONE (1) ONE (1) TAKE ONE Hospi ta TABLET(S) TABLET(S) (1) l BY MOUTH BY MOUTH TABLET(S) Cl inics TWICE A TWICE A BY MOUTH DAY. DAY. TWICE A DAY. Ubrelvy 100 Ubrelvy 100 No Ubrelvy [place] mg tablet mg tablet 100 mg Com ale Take by Take by tablet ty oral route. oral route. Take by Hospita oral l route. Clinics potassium potassium No potassium [place] chloride ER chloride ER chloride Communi 10 mEq 10 mEq ER 10 mEq ty tablet,exte tablet,exte tablet,ext Hospita nded nded ended l release(par release(par release([place] Clinics t/cryst) t/cryst) rt/cryst) albuterol albuterol No albuterol [place] sulfate HFA sulfate HFA sulfate Communi 90 90 HFA 90 ty mcg/actuati mcg/actuati mcg/actuat Hospita on aerosol on aerosol ion l inhaler inhaler aerosol Clinic s INHALE TWO INHALE TWO inhaler (2) PUFFS (2) PUFFS INHALE TWO INTO THE INTO THE (2) PUFFS LUNGS EVERY LUNGS EVERY INTO THE 4-6 HOURS. 4-6 HOURS. LUNGS EVERY 4-6 HOURS. atorvastati atorvastati No atorvastat [place] n 40 mg n 40 mg in 40 mg Commu ni tablet TAKE tablet TAKE tablet ty ONE (1) ONE (1) TAKE ONE Hospi ta TABLET(S) TABLET(S) (1) l BY MOUTH BY MOUTH TABLET(S) Cl inics EVERY DAY. EVERY DAY. BY MOUTH EVERY DAY. buspirone buspirone No buspirone [place] 30 mg 30 mg 30 mg [facility] tablet TAKE tablet TAKE tablet ty ONE (1) ONE (1) TAKE ONE Hospi ta TABLET(S) TABLET(S) (1) l BY MOUTH BY MOUTH TABLET(S) Cl inics TWICE A TWICE A BY MOUTH DAY. DAY. TWICE A DAY. butalbital butalbital No butalbital [place] 50 50 50 Communi mg-acetamin mg-acetamin mg-acetami ty ophen 325 ophen 325 nophen 325 Hospita mg-caffeine mg-caffeine mg-caffein l 40 40 e 40 Clinics mg-codeine mg-codeine mg-codeine 30 mg cap 30 mg cap 30 mg cap TAKE ONE TAKE ONE TAKE ONE (1) (1) (1) CAPSULE(S) CAPSULE(S) CAPSULE(S) BY MOUTH BY MOUTH BY MOUTH EVERY FOUR EVERY FOUR EVERY FOUR TO SIX TO SIX TO SIX HOURS HOURS HOURS NEEDED. NEEDED. NEEDED. ropinirole ropinirole No ropinirole [place] 1 mg tablet 1 mg tablet 1 mg [facility] tablet ty Hospita l Clinics Eliquis 5 Eliquis 5 No Eliquis 5 [place] mg tablet mg tablet mg tablet Communi TAKE ONE TAKE ONE TAKE ONE ty (1) (1) (1) Hospita TABLET(S) TABLET(S) TABLET(S) l BY MOUTH BY MOUTH BY MOUTH Cli nics TWICE A TWICE A TWICE A DAY. DAY. DAY. fluoxetine fluoxetine No fluoxetine [place] 40 mg 40 mg 40 mg [facility] capsule capsule capsule ty TAKE ONE TAKE ONE TAKE ONE Hos corbin (1) (1) (1) l CAPSULE(S) CAPSULE(S) CAPSULE(S) Clinics BY MOUTH BY MOUTH BY MOUTH DAILY. DAILY. DAILY. Folivane-F Folivane-F No Folivane-F [place] 125 mg-1 125 mg-1 125 mg-1 Com ale mg-40 mg-3 mg-40 mg-3 mg-40 mg-3 ty mg capsule mg capsule mg capsule Hospita TAKE ONE TAKE ONE TAKE ONE l (1) (1) (1) Clinics CAPSULE(S) CAPSULE(S) CAPSULE(S) BY MOUTH BY MOUTH BY MOUTH EVERY NIGHT EVERY NIGHT EVERY AT BEDTIME. AT BEDTIME. NIGHT AT BEDTIME. furosemide furosemide No furosemide [place] 20 mg 20 mg 20 mg [facility] tablet TAKE tablet TAKE tablet ty TWO (2) TWO (2) TAKE TWO Hospi ta TABLET(S) TABLET(S) (2) l BY MOUTH BY MOUTH TABLET(S) Cl inics TWICE A TWICE A BY MOUTH DAY. DAY. TWICE A DAY. furosemide furosemide No furosemide [place] 40 mg 40 mg 40 mg [facility] tablet TAKE tablet TAKE tablet ty 1 TABLET BY 1 TABLET BY TAKE 1 Hospita MOUTH qd MOUTH qd TABLET BY l MOUTH qd Clinics gabapentin gabapentin No gabapentin [place] 600 mg 600 mg 600 mg [facility] tablet TAKE tablet TAKE tablet ty ONE (1) ONE (1) TAKE ONE Hospi ta TABLET(S) TABLET(S) (1) l BY MOUTH BY MOUTH TABLET(S) Cl inics THREE TIMES THREE TIMES BY MOUTH A DAY. A DAY. THREE TIMES A DAY. hydrocodone hydrocodone No hydrocodon [place] 10 10 e 10 Communi mg-acetamin mg-acetamin mg-acetami ty ophen 325 ophen 325 nophen 325 Hospita mg tablet mg tablet mg tablet l TAKE ONE TAKE ONE TAKE ONE Cli nics (1) (1) (1) TABLET(S) TABLET(S) TABLET(S) BY MOUTH BY MOUTH BY MOUTH EVERY EIGHT EVERY EIGHT EVERY HOURS HOURS EIGHT NEEDED. NEEDED. HOURS NEEDED. hydrocortis hydrocortis No hydrocorti [place] one 2.5 % one 2.5 % sone 2.5 % Communi topical topical topical ty cream APPLY cream APPLY cream Hospita TO AFFECTED TO AFFECTED APPLY TO l AREA TWICE AREA TWICE AFFECTED Clinics A DAY. A DAY. AREA TWICE A DAY. ipratropium ipratropium No ipratropiu [place] 0.5 0.5 m 0.5 Communi mg-albutero mg-albutero mg-albuter ty l 3 mg (2.5 l 3 mg (2.5 ol 3 mg Hospita mg base)/3 mg base)/3 (2.5 mg l mL mL base)/3 mL Clinics nebulizatio nebulizatio nebulizati n soln n soln on soln INHALE INHALE INHALE THREE (3) THREE (3) THREE (3) ML(S) ML(S) ML(S) NEEDED NEEDED NEEDED EVERY FOUR EVERY FOUR EVERY FOUR HOURS WHILE HOURS WHILE HOURS AWAKE. AWAKE. WHILE AWAKE. levetiracet levetiracet No levetirace [place] am 750 mg am 750 mg de anda 750 mg Communi tablet TAKE tablet TAKE tablet ty ONE (1) ONE (1) TAKE ONE Hospi ta TABLET(S) TABLET(S) (1) l BY MOUTH BY MOUTH TABLET(S) Cl inics TWICE A TWICE A BY MOUTH DAY. DAY. TWICE A DAY. tamsulosin tamsulosin No tamsulosin [place] 0.4 mg 0.4 mg 0.4 mg Communi capsule capsule capsule ty Hospita l Clinics Vital Signs Vital Name Observation Time Observation Value Comments Source BP Systolic 2023-08-03 00:00:00 113 mm[Hg] [facility] s Body Weight 2023-08-03 00:00:00 4192 [oz_av] [facility] s BMI (Body Mass 2023-08-03 00:00:00 38.7 kg/m2 [facility] Index) [facility] s Height 2023-08-03 00:00:00 69 [in_i] [facility] s BP Diastolic 2023-08-03 00:00:00 74 mm[Hg] [facility] s BMI (Body Mass 2023-07-14 00:00:00 40.5 kg/m2 [facility]) [facility] s Body Weight 2023-07-14 00:00:00 4390.4 [oz_av] [facility] s BP Diastolic 2023-07-14 00:00:00 63 mm[Hg] [facility] s BP Systolic 2023-07-14 00:00:00 121 mm[Hg] [facility] s Height 2023-07-14 00:00:00 69 [in_i] [facility] s BP Diastolic 2023-07-08 00:00:00 79 mm[Hg] [facility] s Body Weight 2023-07-08 00:00:00 4448 [oz_av] [facility] s Height 2023-07-08 00:00:00 69 [in_i] [facility] s BP Systolic 2023-07-08 00:00:00 133 mm[Hg] [facility] s BMI (Body Mass 2023-07-08 00:00:00 41.1 kg/m2 [facility] s Body Weight 2023-06-22 00:00:00 4448 [oz_av] [facility] s Height 2023-06-22 00:00:00 69 [in_i] [facility] s BMI (Body Mass 2023-06-22 00:00:00 41.1 kg/m2 [facility] s BP Systolic 2023-06-22 00:00:00 113 mm[Hg] [facility] s BP Diastolic 2023-06-22 00:00:00 64 mm[Hg] [facility] s BP Systolic 2023-06-10 00:00:00 101 mm[Hg] [facility] s Height 2023-06-10 00:00:00 69 [in_i] [facility] s BP Diastolic 2023-06-10 00:00:00 50 mm[Hg] [facility] s Body Weight 2023-06-10 00:00:00 4224 [oz_av] [facility] s BMI (Body Mass 2023-06-10 00:00:00 39 kg/m2 [facility] s Height 2023-06-01 00:00:00 69 [in_i] [facility] s BP Diastolic 2023-06-01 00:00:00 64 mm[Hg] [facility] s BP Systolic 2023-06-01 00:00:00 109 mm[Hg] [facility] s BP Systolic 2023-05-19 00:00:00 100 mm[Hg] [facility] s Body Weight 2023-05-19 00:00:00 2966.4 [oz_av] [facility] s BP Diastolic 2023-05-19 00:00:00 51 mm[Hg] [facility] s Height 2023-05-19 00:00:00 69 [in_i] [facility] s BMI (Body Mass 2023-05-19 00:00:00 27.4 kg/m2 [facility]) [facility] s Height 2023-05-18 00:00:00 69 [in_i] [facility] s BP Diastolic 2023-05-18 00:00:00 70 mm[Hg] [facility] s BP Systolic 2023-05-18 00:00:00 132 mm[Hg] [facility] s Systolic blood 2023-05-12 19:00:00 124 mm[Hg] Univer sity of pressure [facility] [place] Diastolic blood 2023-05-12 19:00:00 65 mm[Hg] Unive rsity of pressure [facility] [place] [place] Respiratory rate 2023-05-12 19:00:00 20 /min [facility] Heart rate 2023-05-12 18:15:00 70 /min [facility] Oxygen saturation in 2023-05-12 18:15:00 100 /min [facility] Arterial blood by [facility] Pulse oximetry Branch Body height 2023-05-12 16:02:17 175.3 cm [facility] Body weight 2023-05-12 16:02:17 122.471 kg [facility] BMI 2023-05-12 16:02:17 39.87 kg/m2 [facility] Body temperature 2023-05-12 15:57:00 36.11 Malika [facility] Diastolic 2023-05-07 00:00:00 53 mm[Hg] [facility] s Body Weight 2023-05-07 00:00:00 4585.6 [oz_av] [facility] s BP Systolic 2023-05-07 00:00:00 111 mm[Hg] [facility] s Height 2023-05-07 00:00:00 69 [in_i] [facility] s BMI (Body Mass 2023-05-07 00:00:00 42.3 kg/m2 [facility]) [facility] s BP Diastolic 2023-05-04 00:00:00 55 mm[Hg] [facility] s Height 2023-05-04 00:00:00 69 [in_i] [facility] s BMI (Body Mass 2023-05-04 00:00:00 41.4 kg/m2 [facility]) [facility] s BP Systolic 2023-05-04 00:00:00 128 mm[Hg] [facility] s Body Weight 2023-05-04 00:00:00 4489.6 [oz_av] [facility] s BP Diastolic 2023-04-24 00:00:00 66 mm[Hg] [facility] s Height 2023-04-24 00:00:00 69 [in_i] [facility] s BMI (Body Mass 2023-04-24 00:00:00 41.7 kg/m2 [facility]) [facility] s BP Systolic 2023-04-24 00:00:00 109 mm[Hg] [facility] s Body Weight 2023-04-24 00:00:00 4521.6 [oz_av] [facility] s Systolic blood 2023-04-19 17:11:00 107 mm[Hg] Univer sity of pressure [facility] [place] Diastolic blood 2023-04-19 17:11:00 66 mm[Hg] Unive rsity of pressure [facility] Heart rate 2023-04-19 17:11:00 70 /min [facility] Body temperature 2023-04-19 17:11:00 36.44 Malika [facility] ersity of [facility] Respiratory rate 2023-04-19 17:11:00 18 /min Univ ersity of [facility] Oxygen saturation in 2023-04-19 17:11:00 97 /min [facility] Arterial blood by [place] [facility] yemi Pulse oximetry Branch Body weight 2023-04-19 09:34:00 126.826 kg Universi ty [facility] BMI 2023-04-19 09:34:00 41.29 kg/m2 [facility] Body height 2023-04-18 00:39:00 175.3 cm [facility] BP Diastolic 2023-03-30 00:00:00 65 mm[Hg] [facility] s Height 2023-03-30 00:00:00 69 [in_i] [facility] s BMI (Body Mass 2023-03-30 00:00:00 41.7 kg/m2 [facility]) [facility] s BP Systolic 2023-03-30 00:00:00 107 mm[Hg] [facility] s Body Weight 2023-03-30 00:00:00 4518.4 [oz_av] [facility] s Systolic blood 2023-03-16 15:15:00 131 mm[Hg] Univer sity of [facility] Diastolic blood 2023-03-16 15:15:00 76 mm[Hg] Unive rsity of pressure [facility] [place] Respiratory rate 2023-03-16 15:15:00 17 /min Univ ersity of [facility] [place] Oxygen saturation in 2023-03-16 15:15:00 98 /min [facility] Arter[facility] blood by [place] [facility] Pulse oximetry [facility] Body temperature 2023-03-16 13:50:00 36 Malika Univ ersity of [facility] [place] Heart rate 2023-03-16 10:46:00 69 /min [facility] Body height 2023-03-16 10:46:00 175.3 cm [facility] Body weight 2023-03-16 10:46:00 136.3 kg [facility] BMI 2023-03-16 10:46:00 44.37 kg/m2 [facility] Systolic blood 2023-03-16 14:00:00 123 mm[Hg] [facility] Diastolic blood 2023-03-16 14:00:00 83 mm[Hg] Unive rsity of pressure [facility] Respiratory rate 2023-03-16 14:00:00 14 /min Univ ersity of [facility] [place] Oxygen saturation in 2023-03-16 14:00:00 100 /min University Arterial blood by [facility] Pulse oximetry Branch Body temperature 2023-03-16 13:50:00 36 Malika Univ ersity of [facility] [place] [place] Heart rate 2023-03-16 10:46:00 69 /min [facility] Body height 2023-03-16 10:46:00 175.3 cm [facility] Body weight 2023-03-16 10:46:00 136.3 kg [facility] BMI 2023-03-16 10:46:00 44.37 kg/m2 [facility] Systolic blood 2023-02-23 18:15:00 97 mm[Hg] [facility]ity [facility] Diastolic blood 2023-02-23 18:15:00 66 mm[Hg] [facility]ive rsity of [facility] Heart rate 2023-02-23 18:15:00 72 /min [facility]i ty of [facility] Body temperature 2023-02-23 18:15:00 36.67 Malika Univ ersity of [facility] [place] Respiratory rate 2023-02-23 18:15:00 20 /min Univ ersity of [facility] Body height 2023-02-23 18:15:00 175.3 cm [facility] Body weight 2023-02-23 18:15:00 130.046 kg [facility] BMI 2023-02-23 18:15:00 42.34 kg/m2 [facility] Oxygen saturation in 2023-02-23 18:15:00 98 /min [facility] Arterial blood by [place] [facility] yemi Pulse oximetry Branch Systolic blood 2023-02-23 04:00:00 110 mm[Hg] Univer sity of pressure [facility] Diastolic blood 2023-02-23 04:00:00 57 mm[Hg] Unive rsity of pressure [facility] [place] Heart rate 2023-02-23 04:00:00 70 /min [facility] Respiratory rate 2023-02-23 04:00:00 15 /min Univ ersity of [facility] Oxygen saturation in 2023-02-23 04:00:00 100 /min [facility] Arterial blood by [place] [facility] yemi Pulse oximetry Branch Body weight 2023-02-23 00:00:00 133.811 kg [facility] BMI 2023-02-23 00:00:00 43.56 kg/m2 [facility] BP Diastolic 2023-02-19 00:00:00 51 mm[Hg] [facility] s Height 2023-02-19 00:00:00 69 [in_i] [facility] s BMI (Body Mass 2023-02-19 00:00:00 44.1 kg/m2 [facility] s BP Systolic 2023-02-19 00:00:00 112 mm[Hg] [facility] s Body Weight 2023-02-19 00:00:00 4777.6 [oz_av] [facility] s Systolic blood 2023-02-17 01:13:00 100 mm[Hg] Univer sity of [facility] Diastolic blood 2023-02-17 01:13:00 74 mm[Hg] Unive rsity of pressure [facility] [place] Heart rate 2023-02-17 01:13:00 71 /min [facility] Respiratory rate 2023-02-17 01:13:00 20 /min Univ ersity of [facility] [place] Oxygen saturation in 2023-02-17 01:13:00 98 /min [facility] Arterial blood by [place] [facility] yemi Pulse oximetry Branch Body temperature 2023-02-16 22:56:00 36.5 Malika [facility] Body height 2023-02-16 22:56:00 175.3 cm [facility] Body weight 2023-02-16 22:56:00 133.811 kg [facility] BMI 2023-02-16 22:56:00 43.56 kg/m2 [facility] Systolic blood 2023-01-27 16:10:00 107 mm[Hg] Univer sity of pressure [facility] [place] Diastolic blood 2023-01-27 16:10:00 51 mm[Hg] Unive rsity of pressure [facility] [place] Heart rate 2023-01-27 16:10:00 70 /min [facility] Body temperature 2023-01-27 16:10:00 35.94 Malika [facility] Res[facility] rate 2023-01-27 16:10:00 18 /min [facility] Oxygen saturation in 2023-01-27 16:10:00 99 /min [facility] Arterial blood by [facility] Pulse oximetry Branch Body weight 2023-01-27 08:00:00 139.98 kg [facility]i ty [facility] BMI 2023-01-27 08:00:00 45.57 kg/m2 [facility] Body height 2023-01-22 15:48:00 175.3 cm [facility] BP Diastolic 2023-01-22 00:00:00 57 mm[Hg] [facility] s Height 2023-01-22 00:00:00 69 [in_i] [facility] s BP Systolic 2023-01-22 00:00:00 115 mm[Hg] [facility] s BP Diastolic 2023-01-13 00:00:00 57 mm[Hg] [facility] s Height 2023-01-13 00:00:00 69 [in_i] [facility] s BMI (Body Mass 2023-01-13 00:00:00 44 kg/m2 [facility] s BP Systolic 2023-01-13 00:00:00 108 mm[Hg] [facility] s Body Weight 2023-01-13 00:00:00 4771.2 [oz_av] [facility] s BP Diastolic 2023-01-08 00:00:00 54 mm[Hg] [facility] s Height 2023-01-08 00:00:00 69 [in_i] [facility] s BP Systolic 2023-01-08 00:00:00 108 mm[Hg] [facility] s Body Weight 2023-01-08 00:00:00 4832 [oz_av] [facility] s Systolic blood 2022-12-24 17:52:00 103 mm[Hg] Univer sity of pressure [facility] [place] Diastolic blood 2022-12-24 17:52:00 54 mm[Hg] Unive rsity of [facility] Heart rate 2022-12-24 17:52:00 73 /min [facility] Body temperature 2022-12-24 17:15:00 36.5 Malika [facility] [place] Respiratory rate 2022-12-24 17:15:00 18 /min [facility] Oxygen saturation in 2022-12-24 17:15:00 97 /min [facility] Arterial blood by [facility] Pulse oximetry Branch Body weight 2022-12-23 16:50:00 137.032 kg [facility] BMI 2022-12-23 16:50:00 44.61 kg/m2 [facility] Body height 2022-12-23 14:59:00 175.3 cm [facility] Systolic blood 2022-12-23 21:58:00 110 mm[Hg] Univer sity of pressure [facility] [place] [place] Diastolic blood 2022-12-23 21:58:00 71 mm[Hg] Unive rsity of pressure [facility] [place] Heart rate 2022-12-23 21:58:00 72 /min [facility] Body temperature 2022-12-23 20:28:00 36.67 Malika [facility] [place] [place] Respiratory rate 2022-12-23 20:28:00 20 /min [facility] Oxygen saturation in 2022-12-23 20:28:00 94 /min [facility] Arterial blood by [facility] yemi Pulse oximetry Branch Body weight 2022-12-23 16:50:00 137.032 kg [facility] BMI 2022-12-23 16:50:00 44.61 kg/m2 [facility] Body height 2022-12-23 14:59:00 175.3 cm [facility] Systolic blood 2022-12-23 00:00:00 100 mm[Hg] Univer sity of pressure [facility] [place] [place] Diastolic blood 2022-12-23 00:00:00 58 mm[Hg] Unive rsity of [facility] Heart rate 2022-12-23 00:00:00 70 /min [facility] Respiratory rate 2022-12-23 00:00:00 17 /min [facility] Oxygen [facility] in 2022-12-23 00:00:00 97 /min [facility] Arterial blood by [facility] Pulse oximetry Branch Body temperature 2022-12-22 18:26:00 37.22 Malika [facility] Body weight 2022-12-22 18:26:00 133.811 kg [facility] Procedures Procedure Date / Time Performing Clinician Source Performed XR, chest, 2 view [facility]23-[facility] 2023-05-12 17:17:00 Alida Mosher [facility] CONTRAST [facility] CT CERVICAL SPINE WO 2023-05-12 17:17:00 [facility] Mosher [facility] HEAD WO CONTRAST 2023-05-12 17:17:00 Alida Mosher [facility] CT LUMBAR SPINE WO 2023-05-12 17:17:00 Alida Mosher [facility] CONTRAST [facility] EXTERNAL PROVIDER RECORDS 2023-04-29 05:01:00 Doctor Unassigned, [facility] [place] [facility] MAGNESIUM 2023-04-19 16:07:00 Mayuri Jayda [facility] BASIC METABOLIC PANEL (NA, 2023-04-19 16:07:00 Galambus, [facility] K, CL, CO2, GLUCOSE, BUN, Izabel Medica l Branch CREATININE, CA) HB ECG ROUTINE & RHYTHM 2023-04-19 13:20:16 Manav Gutierrez [facility] MAGNESIUM 2023-04-19 09:46:00 [facility] BASIC METABOLIC PANEL (NA, 2023-04-19 09:46:00 Jamal Mariscal [facility] K, CL, CO2, GLUCOSE, BUN, Medica l Branch CREATININE, CA) CBC WITH DIFF 2023-04-19 09:46:00 [facility] CT HEAD WO CONTRAST 2023-04-18 20:29:18 Mayuri [facility] PROLACTIN 2023-04-18 20:00:00 Mayuri [facility] CREATINE KINASE 2023-04-18 19:56:00 Mayuri [facility] MAGNESIUM 2023-04-18 19:56:00 Rosita [facility] BASIC METABOLIC PANEL (NA, 2023-04-18 19:56:00 Rosita [facility] K, CL, CO2, GLUCOSE, BUN, [place] [facility] CREATININE, CA) HB ECG ROUTINE & RHYTHM 2023-04-18 18:53:36 [facility] BASIC [facility]ABOLIC PANEL (NA, 2023-04-18 18:50:00 Mayuri [facility] K, CL, CO2, GLUCOSE, BUN, Izabel [facility] CREATININE, CA) CBC WITH DIFF 2023-04-18 18:50:00 Rosita [facility] KEPPRA (LEVETIRACETAM) 2023-04-18 18:50:00 Rosita [facility] POCT GLUCOSE (AUTOMATED) 2023-04-18 18:43:00 Rafaela Chawla [facility] HB ECG ROUTINE & RHYTHM 2023-04-18 13:17:15 Manav Gutierrez [facility] URINALYSIS 2023-04-18 04:30:00 Manav [facility] GLYCOSYLATED HEMOGLOBIN 2023-04-18 02:29:00 Manav Gutierrez [facility] (A1C) Medical Branch MAGNESIUM 2023-04-18 02:28:00 Manav [facility] TROPONIN I 2023-04-18 02:28:00 Manav [facility] FREE T4 2023-04-18 02:28:00 Manav [facility] THYROID STIMULATING 2023-04-18 02:28:00 Manav Gutierrez [facility] HORMONE [facility] COMP. METABOLIC PANEL 2023-04-18 02:28:00 [id number] LIPID PANEL ([id number])(TOTAL 2023-04-18 02:28:00 Manav Gutierrez [facility] CHOLESTEROL, [facility] TRIGLYCERIDES, HDL) CBC WITH DIFF 2023-04-18 02:28:00 Manav [facility] PROTHROMBIN TIME / INR 2023-04-18 02:28:00 [facility] D-DIMER 2023-04-18 02:28:00 Manav [facility] ACTIVATED PARTIAL THRMPLAS 2023-04-18 02:28:00 Manav Gutierrez [facility] N-TERMINAL PRO-BNP 2023-04-18 02:28:00 [facility] HB ECG ROUTINE & RHYTHM 2023-04-18 01:12:00 Manav Gutierrez [facility] MAMMO, screening, digital, 2023-03-30 00:00:00 Daniella faulkner [facility] Clinics XR, hip + pelvis, 2023-03-30 00:00:00 Tootie Martin [facility] bilateral, 3 or 4 view Hospital Clinics Procedure on Kidney 2023-03-21 00:00:00 [facility] [place] [facility] OR 2023-03-16 13:35:00 Niels [facility] (NON-REPORTABLE) [facility] URINE CULTURE 2023-03-16 12:47:00 Caleblissett [facility] URETEROSCOPIC STONE 2023-03-16 11:57:00 Chinedu Brewer [facility] MANIPULATION [facility] ASSIGNMENT OF BENEFITS 2023-03-16 10:38:19 Doctor Unassigned, [facility] Name [facility] [place] URINE CULTURE 2023-02-23 19:55:00 Zheng Awad [facility] CONSENT/REFUSAL FOR 2023-02-23 18:01:43 Doctor Unairineo, [facility] DIAGNOSIS AND TREATMENT [place] [facility] [place] ASSIGNMENT OF BENEFITS 2023-02-23 18:01:18 Doctor Unassigned, [facility] [place] [facility] [place] URINALYSIS 2023-02-23 02:48:00 Minda Claire [facility] XR CHEST 1 VW 2023-02-23 02:09:00 Minda Claire [facility] CT ABDOMEN PELVIS WO 2023-02-23 01:53:47 Minda Claire [facility] CONTRAST [facility] TROPONIN I 2023-02-23 01:01:00 Minda Claire [facility] COMP. METABOLIC PANEL 2023-02-23 01:01:00 Minda Claire [facility] ([id number]) [facility] CBC WITH DIFF 2023-02-23 01:01:00 Mnida Claire [facility] N-TERMINAL PRO-BNP 2023-02-23 01:01:00 Minda Claire [facility] CONSENT/REFUSAL FOR 2023-02-22 23:47:44 Doctor Kate, [facility] DIAGNOSIS AND TREATMENT [place] [facility] [place] BASIC METABOLIC PANEL (NA, 2023-02-16 23:19:00 Samantha [facility] K, CL, CO2, GLUCOSE, BUN, Medica l Branch CREATININE, CA) CBC WITH DIFF 2023-02-16 23:19:00 [facility] URINALYSIS 2023-02-16 23:19:00 Samantha [facility] CONSENT/REFUSAL FOR 2023-02-16 22:53:47 Doctor Unassigned, [facility] DIAGNOSIS AND TREATMENT [place] [facility] BASIC METABOLIC PANEL (NA, 2023-01-27 09:02:00 OvTony kumar [facility] K, CL, CO2, GLUCOSE, BUN, Medica l Branch CREATININE, CA) CBC WITH DIFF 2023-01-27 09:02:00 Roberto Carlos [facility] BASIC METABOLIC PANEL (NA, 2023-01-26 09:40:00 Tony Azevedo [facility] [place] K, CL, CO2, GLUCOSE, BUN, Medica l Branch CREATININE, CA) CBC WITH DIFF 2023-01-26 09:40:00 [facility] MAGNESIUM 2023-01-24 08:05:00 [facility] BASIC METABOLIC PANEL (NA, 2023-01-24 08:05:00 Tony Azevedo [facility] [place] K, CL, CO2, GLUCOSE, BUN, Medica l Branch CREATININE, CA) CBC WITH DIFF 2023-01-24 08:05:00 [facility]ST 1 VW 2023-01-23 16:27:14 [facility] MAG[facility]UM 2023-01-23 15:01:00 [facility] BASIC METABOLIC PANEL (NA, 2023-01-23 15:01:00 Tony Azevedo [facility] K, CL, CO2, GLUCOSE, BUN, Medica l Branch CREATININE, CA) CBC WITH DIFF 2023-01-23 15:01:00 [facility] US RETROPERITONEAL 2023-01-22 23:53:00 [facility] Branch URINE CULTURE 2023-01-22 20:27:00 [facility] URINALYSIS 2023-01-22 17:08:00 Rhonda, K [facility] HB ECG ROUTINE & RHYTHM 2023-01-22 16:55:31 Cuca Ellis Heena [facility] STRIP Medical Branch LIPASE 2023-01-22 16:52:00 Rhonda [facility] MAGNESIUM 2023-01-22 16:52:00 Rhonda [facility] TROPONIN I 2023-01-22 16:52:00 Rhonda [facility] COMP. METABOLIC PANEL 2023-01-22 16:52:00 Cuca Ellis Heena [facility] ([id number]) [facility] CBC WITH DIFF 2023-01-22 16:52:00 Rhonda [facility] XR, chest, 2 view 2023-01-13 00:00:00 [facility] AUTHORIZATION FOR RELEASE 2023-01-08 05:01:00 Doctor Unassigned, [facility] [place] [facility] XR, chest, 2 view 2023-01-08 00:00:00 [facility] US, lower extremity, 2023-01-08 00:00:00 [facility] FL TIME (NON-REPORTABLE) 2022-12-24 02:34:37 Chinedu Brewer [facility] FL TIME (NON-REPORTABLE) 2022-12-24 02:34:37 Chinedu Brewer [facility] URETERAL CATHETER 2022-12-24 00:18:00 Chinedu Brewer [facility] PLACEMENT [facility] URETERAL CATHETER 2022-12-24 00:18:00 Chinedu Brewer [facility] PLACEMENT [facility] PROTHROMBIN TIME / INR 2022-12-23 03:27:00 [facility] PROTHROMBIN TIME / INR 2022-12-23 03:27:00 [facility]di [facility] COMP. METABOLIC PANEL 2022-12-22 19:52:00 Davis Mcneil [facility] ([id number]) [facility] [place] CBC WITH DIFF 2022-12-22 19:52:[address] [facility] URINALYSIS 2022-12-22 18:36:00 Davis Mcneil [facility] NOTICE OF PRIVACY 2022-12-22 18:21:34 Doctor Unassigned, [facility] PRACTICES [place] [facility] CONSENT/REFUSAL FOR 2022-12-22 18:21:04 Doctor Unassigned, [facility] DIAGNOSIS AND TREATMENT [place] [facility] AGREEMENTS AUTHORIZATIONS 2022-12-22 05:01:00 Doctor Unassigned, [facility] AND IRREVOCABLE [place] [facility] ASSIGNMENTS (FORM 2000) Cardiac Pacemaker [facility] Partial Hysterectomy [facility] Appendectomy [facility] Fluoroscopy Guided [facility] Retrograde Insertion of [facility] Ureteric Stent into Ureter of Transplanted Kidney Plan of Care Planned Activity Planned Date Details Comments Source Future Scheduled Test 2023-08-04 [facility] 15:48:33 malignant neoplasm of colon (procedure) [code = 471464759] Future Scheduled Test 2023-08-04 [facility] 15:48:33 malignant neoplasm of colon (procedure) [code = 675403800] Future Scheduled Test 2023-08-04 COVID-19 VACCINE (#1) [facility] 15:48:33 [code = COVID-19 VACCINE (#1)] Future Scheduled Test 2023-08-04 Pneumococcal Vaccine: [facility] 15:48:33 Pediatrics (0 to 5 Years) and At-Risk Patients (6 to 64 Years) (1 - PCV) [code = Pneumococcal Vaccine: Pediatrics (0 to 5 Years) and At-Risk Patients (6 to 64 Years) (1 - PCV)] Future Scheduled Test 2023-08-04 Hepatitis C screening [facility] 15:48:33 (procedure) [code = 894253258] Future Scheduled Test 2023-08-04 Screening for [facility] 15:48:33 malignant neoplasm of cervix (procedure) [code = 845346522] Future Scheduled Test 2023-08-04 Screening for [facility] 15:48:33 malignant neoplasm of colon (procedure) [code = 741073536] Future Scheduled Test 2023-08-04 SHINGLES VACCINES (1 [facility] 15:48:33 of 2) [code = SHINGLES VACCINES (1 of 2)] Future Scheduled Test 2023-08-04 BREAST CANCER [facility] 15:48:33 SCREENING [code = BREAST CANCER SCREENING] Future Scheduled Test 2023-08-04 INFLUENZA VACCINE M [facility] 15:48:33 (#1) [code = INFLUENZA VACCINE (#1)] Future Scheduled Test 2023-08-04 [facility] 15:48:33 malignant neoplasm of colon (procedure) [code = 538434346] Future Scheduled Test 2023-08-04 [facility] 15:48:33 malignant neoplasm of colon (procedure) [code = 909567139] Future Scheduled Test 2023-08-04 Screening for [facility] 15:48:33 malignant neoplasm of colon (procedure) [code = 481717988] Future Scheduled Test 2023-08-04 [facility] 15:48:33 malignant neoplasm of colon (procedure) [code = 637533107] Future Scheduled Test 2023-08-04 COVID-19 VACCINE (#1) [facility] 15:48:33 [code = COVID-19 VACCINE (#1)] Future Scheduled Test 2023-08-04 Pneumococcal Vaccine: [facility] 15:48:33 Pediatrics (0 to 5 Years) and At-Risk Patients (6 to 64 Years) (1 - PCV) [code = Pneumococcal Vaccine: Pediatrics (0 to 5 Years) and At-Risk Patients (6 to 64 Years) (1 - PCV)] Future Scheduled Test 2023-08-04 Hepatitis C screening [facility] 15:48:33 (procedure) [code = 172431915] Future Scheduled Test 2023-08-04 Screening for [facility] 15:48:33 malignant neoplasm of cervix (procedure) [code = 307066088] Future Scheduled Test 2023-08-04 [facility] 15:48:33 malignant neoplasm of colon (procedure) [code = 986254041] Future Scheduled Test 2023-08-04 SHINGLES VACCINES (1 [facility] 15:48:33 of 2) [code = SHINGLES VACCINES (1 of 2)] Future Scheduled Test 2023-08-04 BREAST CANCER [facility] 15:48:33 SCREENING [code = BREAST CANCER SCREENING] Future Scheduled Test 2023-08-04 INFLUENZA VACCINE [facility] 15:48:33 (#1) [code = INFLUENZA VACCINE (#1)] Future Scheduled Test 2023-08-04 Screening for [facility] 15:48:33 malignant neoplasm of colon (procedure) [code = 036196627] Future Scheduled Test 2023-08-04 Screening for [facility] 15:48:33 malignant neoplasm of colon (procedure) [code = 749286861] Diagnostic Test 2023-06-01 rapid SARS CoV 2 Ag, [facility] Pending 00:00:00 QL IA, respiratory Hospital Clinics specimen [code = rapid SARS CoV 2 Ag, QL [place], respiratory specimen] Diagnostic Test 2023-06-01 rapid flu (A+B) [code [facility] Pending 00:00:00 = rapid flu (A+B)] Hospital Clinics Diagnostic Test 2023-06-01 rapid strep group A, [facility] Pending 00:00:00 throat [code = rapid [facility] strep group A, throat] Instructions [facility] Clinic s Encounters Start End Encounter Admission Attending Care Care Encounter Source Date/Time Date/Time Type Type Clinicians Facility Department ID 2023-08-13 2023-08-13 Outpatient _[facility] [id number] [id number] [place] 00:00:00 00:00:00 1109 Commun i ty [facility] 2023-08-03 2023-08-03 Outpatient L_[facility] [id number] [id number] [place] 00:00:00 00:00:00 1030 Commun i ty [facility] 2023-08-03 2023-08-03 [facility] [place] 30 [place] 00:00:00 00:00:00 Chiquis Rock APRN, MSN, [facility]: [address], [address], [place] [address] , Ph. 2023-07-29 2023-07-29 Procedure Carroll, 1.2.840.1 [id number] Methodi 14:30:00 15:49:24 visit Patrick Madsen 24475.1.[address] 3.430.2.7 Hospit a .3.516675 l .8 2023-07-29 2023-07-29 Filipe Hodges, 1.2.840.1 [id number] Methodi 14:30:00 15:49:24 visit Patrick Madsen [address]31.1.[address] 3.430.2.7 Hospit a .3.098230 l .8 2023-07-29 2023-07-29 Documentat Fraire, 1.2.840.1 [id number] Methodi 00:00:00 00:00:00 ion Luisa 44887.1.[address] 3.430.2.7 Hospit a .3.632824 l .8 2023-07-29 2023-07-29 Documentat Fraire, 1.2.840.1 [id number] Methodi 00:00:00 00:00:00 ion Luisa 28286.1.[address] 3.430.2.7 Hospit a .3.780363 l .8 2023-07-23 2023-07-23 Viv Hodges, 1.2.840.1 [id number] Methodi 00:00:00 00:00:[address] 3.430.2.7 Hospit a .3.071338 l .8 2023-07-23 2023-07-23 Viv Hodges, 1.2.840.1 [id number] Methodi 00:00:00 00:00:[address]1.[address] 3.430.2.7 Hospit a .3.641848 l .8 2023-07-14 2023-07-14 [facility] [place] 00:00:00 00:00:00 Chiquis Rock Comm shahid SMITH, MSN, Hospital - [facility]: [address], [address], [place] [address] , Ph. 2023-07-13 2023-07-13 Office [place], 1.2.840.1 [id number] Methodi 15:30:00 16:59:34 Visit Patrick Madsen 26524.1.[address] 3.430.2.7 Hospit a .3.320931 l .8 2023-07-13 2023-07-13 Office [place] 1.2.840.1 [id number] Methodi 15:30:00 16:59:34 Visit Patrick Madsen 65869.1.[address] 3.430.2.7 Hospit a .3.639430 l .8 2023-07-09 2023-07-09 Outpatient L_Pena [facility] [id number] [place] 00:00:00 00:00:00 1005 Commun i ty Hospita [facility] Clinics 2023-07-09 2023-07-09 Outpatient L_Pena [facility] [id number] [place] 00:00:00 00:00:00 1006 Commun i ty Hospita [facility] Clinics 2023-07-09 2023-07-09 Outpatient L_Pena [facility] [id number] [place] 00:00:00 00:00:00 1010 Commun i ty Hospita l Clinics 2023-07-09 2023-07-09 Transcribe Sanjuana Rock 1.2.840.1 [id number] Methodi 00:00:00 00:00:00 Orders [place] [address].1.[address] 3.430.2.7 Hospit a .3.537540 l .8 2023-07-09 2023-07-09 Transcribe Sanjuana Rock 1.2.840.1 [id number] Methodi 00:00:00 00:00:00 [place] M [address]67.1.[address] 3.430.2.7 Hospit a .3.404297 l .8 2023-07-08 2023-07-08 Outpatient L_Pena [facility] [id number] [place] 00:00:00 00:00:00 1004 Commun i ty Hospita l Clinics 2023-07-08 2023-07-08 Sanjuana [facility] [place] [id number] [place] 00:00:00 00:00:00 [facility] shahid SMITH, MSN, [facility] - ty [facility]: [facility] [address] [place] [address], [address] [address] , Ph. 2023-06-22 2023-06-22 [facility] [place] 18 [place] 00:00:00 00:00:00 Pranav [facility] SARAH, MSN, [facility] - ty [facility] [address] [place] [address], CLINIC [address] [place] [address] , Ph. 2023-06-10 2023-06-10 [facility] [place] [id number] [place] 00:00:00 00:00:00 Pranav [facility] shahid SMITH, MSN, [facility] - [facility]: [facility] [address] [place] [address], CLINIC [address] [place] [address] , Ph. 2023-06-01 2023-06-01 Outpatient L_Pena [facility] [id number] [place] 00:00:00 00:00:00 0828 Commun i ty Hospita l Clinics 2023-06-01 2023-06-01 Outpatient L_Pena [facility] [id number] 023 [place] 00:00:00 00:00:00 0905 Commun i ty Hospita l Clinics 2023-06-01 2023-06-01 Outpatient L_Pena [facility] [id number] [place] 00:00:00 00:00:00 0906 Commun i ty Hospita l Clinics 2023-06-01 2023-06-01 Outpatient L_Pena [facility] [id number] [place] 00:00:00 00:00:00 0918 Commun i ty Hospita l Clinics 2023-06-01 2023-06-01 Sanjuana [facility] [place] [id number] [place] 00:00:00 00:00:00 [place] [facility] uni SARAH, MSN, Hospital - ty [facility]: [facility] [address] [place] [address], CLINIC [address] [place] [address] , Ph. 2023-05-19 2023-05-19 [facility] [place] [id number] [place] 00:00:00 00:00:00 [place] [facility] shahid SMITH, MSN, Hospital - ty [facility]: [facility] [address] [place] [address], CLINIC [address] [place] [address] , Ph. 2023-05-18 2023-05-18 [facility] [place] [id number] [place] 00:00:00 00:00:00 [place] [facility] SARAH, MSN, Hospital - [facility]: [facility] [address] [place] [address], CLINIC [address] [place] [address] , Ph. 2023-05-15 2023-05-15 Outpatient L_[facility] [id number] 023 [place] 00:00:00 00:00:00 0814 Commun i ty [facility] 2023-05-15 2023-05-15 Outpatient L_[facility] [id number] 023 [place] 00:00:00 00:00:00 0815 Commun i ty [facility] 2023-05-15 2023-05-15 Telephone [facility] 1.2.840.114 [id number] Univers 00:00:00 00:00:00 [facility] 350.1.13.10 it y of [place] CLEAR 4.2.7.2.686 Inderphilippe coello ROCHA [id number] [place] [address] Branch OFFICE BUILDING 2023-05-14 2023-05-14 Patient Doctor KAROL 1.2.840.114 [id number] Univers 00:00:00 00:00:00 Secure Msg Unassigned, [place] 350.1.13.10 ity of [place] [facility] 4.2.7.2.686 Inder as [id number] [facility] 019 Branch 2023-05-12 2023-05-12 Emergency X PAL, [facility] ERT [id number] Univers 10:58:00 14:50:00 ALIDA ity of [facility] [place] 2023-05-12 2023-05-12 [facility] 1.2.251.936 [id number] Univers 10:58:00 14:50:00 Alida KAY 350.1.13.10 i ty [facility] 4.2.7.2.686 [facility] [id number] [facility] 084 Branch 2023-05-07 2023-05-07 [facility] [place] 00:00:00 00:00:00 [facility] shahid SMITH, MSN, Hospital - ty [facility]: [address], CL[address] [place] [address] , Ph. 2023-05-04 2023-05-04 [facility] [place] [id number] [place] 00:00:00 00:00:00 [facility]id SM[facility], MSN, Hospital - ty [facility]: [address], CL[address] [place] [address] , Ph. 2023-04-29 2023-04-29 Ivone ROBERSON 1.2.840.114 [id number] Univers 00:00:00 00:00:00 Only Unassigned, ALFONZO 350.1.13.10 ity of [place] [facility] 4.2.7.2.686 Inder as [id number] [facility] 009 Branch 2023-04-24 2023-04-24 [facility] [place] [id number] [place] 00:00:00 00:00:00 [facility] shahid SMITH, MSN, Hospital - ty [facility]: [address], [address] [place] [address] , Ph. 2023-04-21 2023-04-21 Transition ABBI Daugherty 1.2.840.114 [id number] Univers 00:00:00 00:00:00 of [place] SANCHEZY 350.1.13.10 it y [facility] 4.2.7.2.686 [place] [id number] [facility] 403 Branch 2023-04-17 2023-04-19 Outpatient [facility] [id number] Univers 19:34:00 15:20:00 WISSAM ity of [facility] 2023-04-17 2023-04-19 [facility] TONE Chawla [id number] Univers 19:34:00 15:20:00 Encounter Rafaela MEJÍA 350.1.13.10 ity [facility] 4.2.7.2.686 Inder as [id number] [facility] 090 Branch 2023-04-08 2023-04-08 Outpatient L_Pena [facility] [id number] [place] 00:00:00 00:00:00 0721 Commun i ty Hospita l Clinics 2023-04-08 2023-04-08 Outpatient L_Pena [facility] [id number] [place] 00:00:00 00:00:00 0728 Commun i ty Hospita l Clinics 2023-04-08 2023-04-08 Outpatient L_Pena [facility] [id number] 023 [place] 00:00:00 00:00:00 0731 Commun i ty Hospita l Clinics 2023-04-08 2023-04-08 Outpatient L_Pena [facility] [id number] 023 [place] 00:00:00 00:00:00 0803 Commun i ty Hospita l Clinics 2023-03-30 2023-03-30 Outpatient L_Pena [facility] [id number] 023 [place] 00:00:00 00:00:00 0626 Commun i ty Hospita l Clinics 2023-03-30 2023-03-30 Sanjuana [facility] [place] 00:00:00 00:00:00 Chiquis Rock APRN, MSN, Hospital - ty [facility]: [address], [address], [place] [address] , Ph. 2023-03-16 2023-03-16 [facility]patient [facility] [id number] Univers 05:39:00 10:36:00 CHINEDU santiago [facility] 2023-03-16 2023-03-16 Hospital TONE Brewer 1.2.368.170 [id number] Univers 05:39:00 10:36:00 Encounter Chinedu MEJÍA 350.1.13.10 ity of [facility] [place]7.2.[place] [id number] [facility] 104 Branch 2023-03-16 2023-03-16 Surgery Niels TONE 1.2.840.114 [id number] Univers 07:00:00 09:04:00 Chinedu FERMINY 350.1.13.10 it y of [facility] [place] [id number] [facility] [address] 2023-03-16 2023-03-16 Orders Doctor KAROL 1.2.840.114 [id number] Univers 00:00:00 00:00:00 Only Unassigned, ALFONZO 350.1.13.10 ity of [place] [facility] 4.2.7.2.686 Inder as [id number] [facility] [address] 2023-02-23 2023-02-23 Outpatient R CALEBBOBBI [facility] [id number] Univers 13:00:00 14:26:58 CHINEDU santiago [facility] 2023-02-23 2023-02-23 Office KALPANA Brewer 1.2.840.114 [id number] Univers 13:00:00 14:26:58 Visit Chinedu Sherlyn [facility] 350.1.13.10 i ty of [facility] 4.2.7.2.686 [place] [id number] [facility] [address] 2023-02-23 2023-02-23 Outpatient L_Pranav [facility] [id number] 023 [place] 00:00:00 00:00:00 0522 Commun i ty [facility] 2023-02-23 2023-02-23 Orders Doctor KAROL 1.2.840.114 [id number] Univers 00:00:00 00:00:00 Only Unassigned, ALFONZO 350.1.13.10 ity of [place] [facility] 4.2.7.2.686 Inder as [id number] [facility] [address] 2023-02-22 2023-02-22 Emergency X ALETHEA [facility] ERT [id number] Univers 19:06:00 23:06:00 MINDA ity of [facility] [place] [place] 2023-02-22 2023-02-22 Emergency [facility], TRAUMA 1.2.840.114 [id number] Univers 19:06:00 23:06:00 [facility] 350.1.13.10 [place] [id number] [facility] [address] 2023-02-19 2023-02-19 [facility] [place] 18 [place] 00:00:00 00:00:00 Chiquis Rock [facility] shahid SMITH, MSN, Hospital - ty [facility]: [address], [address], [place] [address] , Ph. 2023-02-19 2023-02-19 Telephone Niels UNIVERSIT 1.2.840.114 1 [id number] Univers 00:00:00 00:00:00 [facility] 350.1.13.10 i ty of [facility] 4.2.7.2.686 [place] [id number] [facility] [address] 2023-02-17 2023-02-17 Telephone Susan, [facility] 1.2.840.114 [id number] Univers 00:00:00 00:00:00 [facility] 350.1.13.10 i ty [place] [id number] [facility] [address] 2023-02-16 2023-02-16 Emergency X NIURKA [facility] ERT [id number] Univers 17:58:00 21:44:00 CYNKAVON ity [facility] 2023-02-16 2023-02-16 Emergency Niurka [facility] 1.2.973.404 [id number] Univers 17:58:00 21:44:00 Samantha KAY 350.1.13.10 i ty of [place] [id number] [facility] [address] 2023-02-16 2023-02-16 Telephone KALPANA Brewer 1.2.840.114 1 [id number] Univers 00:00:00 00:00:00 [facility] 350.1.13.10 i ty of [facility] 4.2.7.2.686 [place] [id number] [facility] [address] 2023-01-29 2023-01-29 Transition ABBI Jiang 1.2.840.114 [id number] Univers 00:00:00 00:00:00 of Care Thalia LE 350.1.13.10 i [place] [id number] [facility] [address] 2023-01-22 2023-01-27 Inpatient X ROBERTO CARLOS [facility] [id number] Univers 10:40:00 16:40:00 TONY santiago [facility] 2023-01-22 2023-01-27 [facility] Cuca Ellis [facility] 1.2.840.1 14 [id number] Univers 10:40:00 16:40:00 Encounter Tony Azevedo 350.1.13.10 ity [facility] [place] [id number] [facility] [address] 2023-01-22 2023-01-22 Sanjuana [facility] [place] 20 [place] 00:00:00 00:00:00 Chiquis Rock APRN, MSN, Hospital - ty [facility]-: [address], [address], [place] [address] , Ph. 2023-01-19 2023-01-19 Telephone TONE Brewer 1.2.840.114 [id number] Univers 00:00:00 00:00:00 Chinedu MEJÍA 350.1.13.10 it y [facility] [place]2.[place] [id number] [facility] [address] 2023-01-13 2023-01-13 [facility] [place] 11 [place] 00:00:00 00:00:00 Chiquis Rock APRN, MSN, [facility]: [address], [address], [place] [address] , Ph. 2023-01-08 2023-01-08 Outpatient L_Pena [facility] [id number] 023 [place] 00:00:00 00:00:00 0411 Commun i ty Hospita [facility] Clinics 2023-01-08 2023-01-08 Outpatient L_Pena [facility] [id number] 023 [place] 00:00:00 00:00:00 0420 Commun i ty Hospita [facility] Clinics 2023-01-08 2023-01-08 Outpatient L_Pena [facility] [id number] 023 [place] 00:00:00 00:00:00 0502 Commun i ty Hospita [facility] Clinics 2023-01-08 2023-01-08 Outpatient L_Pena [facility] [id number] 023 [place] 00:00:00 00:00:00 0508 Commun i ty Hospita [facility] Clinics 2023-01-08 2023-01-08 Outpatient L_Pena [facility] [id number] 023 [place] 00:00:00 00:00:00 0518 Commun i ty Hospita [facility] Clinics 2023-01-08 2023-01-08 Outpatient L_Pena [facility] [id number] 023 [place] 00:00:00 00:00:00 0519 Commun i ty Hospita [facility] Clinics 2023-01-08 2023-01-08 Outpatient L_Pena [facility] [id number] 023 [place] 00:00:00 00:00:00 0406 Commun i ty Hospita l Clinics 2023-01-08 2023-01-08 Sanjuana [facility] [place] [id number] 06 [place] 00:00:00 00:00:00 Chiquis Rock APRN, MSN, Hospital - ty [facility]: [facility] [address] [facility], [address], [place] [address] , Ph. 2023-01-08 2023-01-08 Orders Doctor KAROL 1.2.840.114 [id number] Univers 00:00:00 00:00:00 Only UnassignedALFONZO 350.1.13.[address] [facility] 4.2.7.2.686 [place] [id number] [facility] [address] 2023-01-01 2023-01-01 Outpatient L_[facility] [id number] 023 [place] 00:00:00 00:00:00 0330 Commun i ty Hospita l Clinics 2023-01-01 2023-01-01 Outpatient L_[facility] [id number] 023 [place] 00:00:00 00:00:00 0331 Commun i ty Hospita l Clinics 2023-01-01 2023-01-01 Outpatient L_[facility] [id number] 023 [place] 00:00:00 00:00:00 0403 Commun i ty Hospita l Clinics 2022-12-29 2022-12-29 Telephone KALPANA Brewer 1.2.840.114 1 [id number] Univers 00:00:00 00:00:00 [facility] 350.1.13.10 i ty of [facility] 4.2.7.2.686 [place] [id number] [facility] [address] 2022-12-22 2022-12-24 Outpatient X NIELS MIBRIAN JUAN M [id number] Univers 21:42:00 17:03:00 CHINEDU santiago [facility] 2022-12-22 2022-12-24 Emergency TONE Brewer 1.2.840.114 [id number] Univers 21:42:00 17:03:00 Chinedu MEJÍA 350.1.13.10 it y of [facility] [place] [id number] [facility] [address] 2022-12-22 2022-12-24 Outpatient X CALEBBOBBI [facility] JUAN M [id number] Univers 21:42:00 17:03:00 CHINEDU santiago [facility] 2022-12-23 2022-12-23 Surgery SandraBERNARD galeanaNIE 1.2.840.114 [id number] Univers 16:30:00 18:19:00 Chinedu MEJÍA 350.1.13.10 it y [facility] [place]2.[place] [id number] [facility] [address] 2022-12-22 2022-12-22 Emergency X [facility] ERT [id number] Univers 13:32:00 21:41:00 DAVIS santiago [facility] 2022-12-22 2022-12-22 Emergency [facility] [id number] [id number] Univers 13:32:00 21:41:00 [facility] 350.1.13.10 i ty [facility] 4.2.7.2.686 [facility] [id number] [address] Results Test Description Test Time Test Comments Results Result Comments Source rapid strep group A, throat 2023-06-01 15:54:00 Test Item Value Reference Range Interpretation Comme nts Strep (test code = Strep) [facility] 15:54:00 Test Item Value Reference Range Interpretation Comments FLU A (test code = FLU A) negative FLU B (test code = FLU B) [facility], [id number] 15:54:00 Test Item Value Reference Range Interpretation Comments Strep (test code = Strep) [facility]2023-06-01 15:54:00 Test Item Value Reference Range Interpretation Comments FLU A (test code = FLU A) negative FLU B (test code = FLU B) negative [facility] MphehktEKWV-FaX-2 (COVID-19) Ag [Presence] in Respiratory specimen by Rapid [id number] 15:39:00 Test Item Value Reference Range Interpretation Comments SARS CoV 2 (test code = SARS CoV 2) positive [facility] Ag [Presence] in Respiratory specimen by Rapid [id number] 15:39:00 Test Item Value Reference Range Interpretation Comments SARS CoV 2 (test code = SARS CoV 2) positive [facility] - Urine 2023-05-18 09:35:00 Test Item Value Reference Range Interpretation Comments Leukocytes (test code = Leukocytes) Negative Nitrite (test code = Nitrite) negative Urobilinogen (test code = .2 Urobilinogen) Protein (test code = Protein) Negative pH (test code = pH) 5.5 Blood (test code = Blood) Negative Specific [place] (test code = 1.020 Specific [place]) Ketone (test code = Ketone) Negative Bilirubin (test code = Bilirubin) Negative Glucose (test code = Glucose) Negative Appearance (test code = Appearance) Clear Color (test code = Color) Yellow [facility] - Urine 2023-05-18 09:35:00 Test Item Value Reference Range Interpretation Comments Leukocytes (test code = Leukocytes) Negative Nitrite (test code = Nitrite) negative Urobilinogen (test code = .2 Urobilinogen) Protein (test code = Protein) Negative pH (test code = pH) 5.5 Blood (test code = Blood) Negative Specific [place] (test code = 1.020 Specific [place]) Ketone (test code = Ketone) Negative Bilirubin (test code = Bilirubin) Negative Glucose (test code = Glucose) Negative Appearance (test code = Appearance) Clear Color (test code = Color) Yellow [facility]dip[facility]) panel - Urine 2023-05-18 09:35:00 Test Item Value Reference Range Interpretation Comments Leukocytes (test code = Leukocytes) Negative Nitrite (test code = Nitrite) negative Urobilinogen (test code = .2 Urobilinogen) Protein (test code = Protein) Negative pH (test code = pH) 5.5 Blood (test code = Blood) Negative Specific [place] (test code = 1.020 Specific [place]) Ketone (test code = Ketone) Negative Bilirubin (test code = Bilirubin) Negative Glucose (test code = Glucose) Negative Appearance (test code = Appearance) Clear Color (test code = Color) Yellow [facility] (NA, K, CL, CO2, GLUCOSE, BUN, CREATININE, CA)2023-04-19 10:48:45 Test Item Value Reference Range Interpretation Comments NA (test code = 140 mmol/L 135-145 5740589654) K (test code = 2.9 mmol/L 3.5-5.0 LL 5233357698) CL (test code = 105 mmol/L 98-108 5937922390) CO2 TOTAL (test code = 29 mmol/L 23-31 4846454290) AGAP (test code = 6 2-16 0921714707) BUN (test code = 16 mg/dL 7-23 8201806410) GLUCOSE (test code = 95 mg/dL 70-110 8207750802) CREATININE (test code = 0.82 mg/dL 0.50-1.04 1596047297) CALCIUM (test code = 7.3 mg/dL 8.6-10.6 L 2255977542) eGFR (test code = 71.4 mL/min/1.73m2 1975151562) USHA (test code = USHA) Association of Glomerular Filtration Rate (GFR) and Staging of Kidney Disease* + --+ --+ ------+| GFR (mL/min/1.73 m2) ?| With Kidney Damage ?| ?Without Kidney Damage+ --------+ --------+ +| ?>90 ?| ?Stage one ?| ? Normal ?+ ---+ ---+ -------+| ?60-89 ?| ?Stage two ?| ? Decreased GFR ? + --+ --+ ------+| ?30-59 ?| ?Stage three ?| ? Stage three ? + --+ --+ ------+| ?15-29 ?| ?Stage four ? | ? Stage four ?+ ---+ ---+ -------+| ?<15 (or dialysis) ? ?| ?Stage five ? | ? Stage five ?+ ---+ ---+ -------+ *Each stage assumes the associated GFR level has been in effect for at least three months. ?Stages 1 to 5, with or without kidney disease, indicate chronic kidney disease. Notes: Determination of stages one and two (with eGFR >59mL/min/1.73 m2) requires estimation of kidney damage for at least three months as defined by structural or functional abnormalities of the kidney, manifested by either:Pathological abnormalities or Markers of kidney damage (including abnormalities in the composition of the blood or urine or abnormalities in imaging tests). Lab Interpretation Abnormal (test code = 74032-1) [facility] 10:46:28 Test Item Value Reference Range Interpretation Comments MAGNESIUM (test code = 1977506427) 1.6 mg/dL 1.7-2.4 L Lab Interpretation (test code = Abnormal 67108-7) [facility] WITH [id number] 10:08:03 Test Item Value Reference Range Interpretation Comments WBC (test code = 5.61 See_Comment [Automated 6690-2) message] The sy stem which generated this result transmitted reference range : 4.30 - 11.10 10*3/?L. The reference range was not used to interpret this result as normal/abnormal . RBC (test code = 3.29 See_Comment L [Automated 789-8) message] The sy stem which generated this result transmitted reference range : 3.93 - 5.25 10*6/?L. The reference range was not used to interpret this result as normal/abnormal . HGB (test code = 10.3 g/dL 11.6-15.0 L 718-7) HCT (test code = 30.7 % 35.7-45.2 L 4544-3) MCV (test code = 93.3 fL 80.6-95.5 787-2) MCH (test code = 31.3 pg 25.9-32.8 785-6) MCHC (test code = 33.6 g/dL 31.6-35.1 786-4) RDW-SD (test code = 45.7 fL 39.0-49.9 88146-8) RDW-CV (test code = 13.5 % 12.0-15.5 788-0) PLT (test code = 105 See_Comment L [Automated 777-3) message] The sy stem which generated this result transmitted reference range : 166 - 358 10*3/ ?L. The reference r meryl was not used to interpret this result as normal/abnormal . MPV (test code = 10.7 fL 9.5-12.9 51330-8) NRBC/100 WBC (test 0.0 See_Comment [Automat ed code = 6335769418) message] The system which generated this result transmitted reference range : 0.0 - 10.0 /100 WBCs. The refer ence range was not u sed to interpret th is result as normal/abnormal . NRBC x10^3 (test code See_Comment [Auto mated = 1899168028) message] The s ystem which generated this result transmitted reference range : 10*3/?L. The reference range was not used to interpret this result as normal/abnormal . GRAN MAT (NEUT) % 59.6 % (test code = 770-8) IMM GRAN % (test code 0.20 % = 0028695543) LYMPH % (test code = 31.0 % 736-9) MONO % (test code = 5.7 % 5905-5) EOS % (test code = 3.0 % 713-8) BASO % (test code = 0.5 % 706-2) GRAN MAT x10^3(ANC) 3.34 10*3/uL 1.88-7.09 (test code = 4827942148) IMM GRAN x10^3 (test 0.00-0.06 code = 8714147272) LYMPH x10^3 (test code 1.74 10*3/uL 1.32-3.29 = 731-0) MONO x10^3 (test code 0.32 10*3/uL 0.33-0.92 L = 742-7) EOS x10^3 (test code = 0.17 10*3/uL 0.03-0.39 711-2) BASO x10^3 (test code 0.03 10*3/uL 0.01-0.07 = 704-7) Lab Interpretation Abnormal (test code = 10312-8) [facility])2023-04-18 20:56:26 Test Item Value Reference Range Interpretation Comments KEPPRA (test code = 12-46 L 4236152676) USHA (test code = USHA) Therapeutic range: 12-46 ?g/mL ? ?Toxic: Not well established.Test developed and characteristics determined by [facility] Laboratory Services. Lab Interpretation Abnormal (test code = 59714-4) [facility] WITH [id number] 19:55:16 Test Item Value Reference Range Interpretation Comments WBC (test code = 5.95 See_Comment [Automated 6690-2) message] The sy stem which generated this result transmitted reference range : 4.30 - 11.10 10*3/?L. The reference range was not used to interpret this result as normal/abnormal . RBC (test code = 3.68 See_Comment L [Automated 789-8) message] The sy stem which generated this result transmitted reference range : 3.93 - 5.25 10*6/?L. The reference range was not used to interpret this result as normal/abnormal . HGB (test code = 11.5 g/dL 11.6-15.0 L 718-7) HCT (test code = 34.0 % 35.7-45.2 L 4544-3) MCV (test code = 92.4 fL 80.6-95.5 787-2) MCH (test code = 31.3 pg 25.9-32.8 785-6) MCHC (test code = 33.8 g/dL 31.6-35.1 786-4) RDW-SD (test code = 46.2 fL 39.0-49.9 82911-6) RDW-CV (test code = 13.7 % 12.0-15.5 788-0) PLT (test code = 124 See_Comment L [Automated 777-3) message] The sy stem which generated this result transmitted reference range : 166 - 358 10*3/ ?L. The reference r meryl was not used to interpret this result as normal/abnormal . MPV (test code = 11.9 fL 9.5-12.9 73512-9) NRBC/100 WBC (test 0.0 See_Comment [Automat ed code = 2275307634) message] The system which generated this result transmitted reference range : 0.0 - 10.0 /100 WBCs. The refer ence range was not u sed to interpret th is result as normal/abnormal . NRBC x10^3 (test code See_Comment [Auto mated = 9355899800) message] The s ystem which generated this result transmitted reference range : 10*3/?L. The reference range was not used to interpret this result as normal/abnormal . GRAN MAT (NEUT) % 57.0 % (test code = 770-8) IMM GRAN % (test code 0.30 % = 5970271265) LYMPH % (test code = 32.9 % 736-9) MONO % (test code = 6.1 % 5905-5) EOS % (test code = 3.2 % 713-8) BASO % (test code = 0.5 % 706-2) GRAN MAT x10^3(ANC) 3.39 10*3/uL 1.88-7.09 (test code = 9849176293) IMM GRAN x10^3 (test 0.00-0.06 code = 6048560990) LYMPH x10^3 (test code 1.96 10*3/uL 1.32-3.29 = 731-0) MONO x10^3 (test code 0.36 10*3/uL 0.33-0.92 = 742-7) EOS x10^3 (test code = 0.19 10*3/uL 0.03-0.39 711-2) BASO x10^3 (test code 0.03 10*3/uL 0.01-0.07 = 704-7) Lab Interpretation Abnormal (test code = 97717-5) [facility]2023-04-18 18:45:15 Test Item Value Reference Range Interpretation Comments POCT GLU (test code = 9564703474) 118 mg/dL 70-110 H Lab Interpretation (test code = Abnormal 61522-9) [facility] [id number] 13:52:04 Test Item Value Reference Range Interpretation Comments URINE CULTURE (test No aerobic growth (< code = 630-4) 1000 CFU/mL) [facility] WITH [id number] 02:07:22 Test Item Value Reference Range Interpretation Comments WBC (test code = 4.85 See_Comment [Automated 6690-2) message] The sy stem which generated this result transmitted reference range : 4.30 - 11.10 10*3/?L. The reference range was not used to interpret this result as normal/abnormal . RBC (test code = 3.16 See_Comment L [Automated 789-8) message] The sy stem which generated this result transmitted reference range : 3.93 - 5.25 10*6/?L. The reference range was not used to interpret this result as normal/abnormal . HGB (test code = 9.9 g/dL 11.6-15.0 L 718-7) HCT (test code = 30.7 % 35.7-45.2 L 4544-3) MCV (test code = 97.2 fL 80.6-95.5 H 787-2) MCH (test code = 31.3 pg 25.9-32.8 785-6) MCHC (test code = 32.2 g/dL 31.6-35.1 786-4) RDW-SD (test code = 47.9 fL 39.0-49.9 92882-1) RDW-CV (test code = 13.4 % 12.0-15.5 788-0) PLT (test code = 94 See_Comment L [Automated 777-3) message] The sy stem which generated this result transmitted reference range : 166 - 358 10*3/ ?L. The reference r meryl was not used to interpret this result as normal/abnormal . MPV (test code = 12.3 fL 9.5-12.9 84925-1) IPF % (test code = 9.5 % 1.3-7.7 H Platelet count 6173497894) measured by fluorescence method. NRBC/100 WBC (test 0.0 See_Comment [Automat ed code = 2748978495) message] The system which generated this result transmitted reference range : 0.0 - 10.0 /100 WBCs. The refer ence range was not u sed to interpret th is result as normal/abnormal . NRBC x10^3 (test code See_Comment [Auto mated = 9564043610) message] The s ystem which generated this result transmitted reference range : 10*3/?L. The reference range was not used to interpret this result as normal/abnormal . GRAN MAT (NEUT) % 63.4 % (test code = 770-8) IMM GRAN % (test code 0.20 % = 8737901722) LYMPH % (test code = 24.7 % 736-9) MONO % (test code = 6.4 % 5905-5) EOS % (test code = 4.9 % 713-8) BASO % (test code = 0.4 % 706-2) GRAN MAT x10^3(ANC) 3.07 10*3/uL 1.88-7.09 (test code = 5469918077) IMM GRAN x10^3 (test 0.00-0.06 code = 7781059881) LYMPH x10^3 (test code 1.20 10*3/uL 1.32-3.29 L = 731-0) MONO x10^3 (test code 0.31 10*3/uL 0.33-0.92 L = 742-7) EOS x10^3 (test code = 0.24 10*3/uL 0.03-0.39 711-2) BASO x10^3 (test code 0.01-0.07 = 704-7) Lab Interpretation Abnormal (test code = 17746-4) [facility] [id number] 01:39:09 Test Item Value Reference Range Interpretation Comments TROPONIN I (test code = 0.007 ng/mL <=0.034 8776363890) USHA (test code = USHA) Reference (Normal) Range (defined by the 99th percentile reference limit): <= 0.034 ng/mL Note: Cardiac troponin begins to rise 3-4 hours after the onset of ischemia. Repeat in 4-6 hours if the sample was drawn within 3-4 hours of the onset of the symptom and found normal. Diagnosis of myocardial injury is made with acute changes in cTn concentrations with at least one serial sample above the 99th percentile upper reference limit (URL), taken together with the patient's clinical presentation. Biotin has been reported to cause a negative bias, interpret results relative to patient's use of biotin. Lab Interpretation Normal (test code = 86031-5) [facility] [id number] 01:39:09 Test Item Value Reference Range Interpretation Comments NT-proBNP (test code = 468 pg/mL <=125 H 6838431840) USHA (test code = USHA) Biotin has been reported to cause a negative bias, interpret results relative to patient's use of biotin. Lab Interpretation (test Abnormal code = 69347-5) [facility]. METABOLIC PANEL (17104)2023-02-23 01:27:06 Test Item Value Reference Range Interpretation Comments NA (test code = 142 mmol/L 135-145 5952195899) K (test code = 4.4 mmol/L 3.5-5.0 Slight hemoly sis 6359824110) CL (test code = 108 mmol/L 98-108 5943261931) CO2 TOTAL (test 24 mmol/L 23-31 code = 6498667226) AGAP (test code = 10 2-16 6821066895) BUN (test code = 20 mg/dL 7-23 Slight hemo lysis 7829716962) GLUCOSE (test code 103 mg/dL 70-110 = 4654861182) CREATININE (test 0.80 mg/dL 0.50-1.04 code = 3339542412) TOTAL BILI (test 1.0 mg/dL 0.1-1.1 code = 3672587944) CALCIUM (test code 8.8 mg/dL 8.6-10.6 = 3152673620) T PROTEIN (test 6.5 g/dL 6.3-8.2 code = 3247400402) ALBUMIN (test code 3.7 g/dL 3.5-5.0 = 0388970552) ALK PHOS (test 65 U/L 34-122 Slight hemoly sis code = 6738100897) ALTv (test code = 24 U/L 5-35 1742-6) AST(SGOT) (test 28 U/L 13-40 Slight hemol ysis code = 2904363999) eGFR (test code = 73.4 mL/min/1.73m2 6636073954) USHA (test code = Association of USHA) Glomerular Filtration Rate (GFR) and Staging of Kidney Disease* + ----+ ------+ +| GFR (mL/min/1.73 m2) ?| With Kidney Damage ?| ?Without Kidney Damage+ +--------- +------- +| ?>90 ?| ?Stage one ?| ? Normal ?+ -----+ -------+ +| ?60-89 ?| ?Stage two ?| ? Decreased GFR ? + ----+ ------+ +| ?30-59 ?| ?Stage three ?| ? Stage three ? + ----+ ------+ +| ?15-29 ?| ?Stage four ? | ? Stage four ?+ -----+ -------+ +| ?<15 (or dialysis) ? ?| ?Stage five ? | ? Stage five ?+ -----+ -------+ + *Each stage assumes the associated GFR level has been in effect for at least three months. ?Stages 1 to 5, with or without kidney disease, indicate chronic kidney disease. Notes: Determination of stages one and two (with eGFR >59mL/min/1.73 m2) requires estimation of kidney damage for at least three months as defined by structural or functional abnormalities of the kidney, manifested by either:Pathological abnormalities or Markers of kidney damage (including abnormalities in the composition of the blood or urine or abnormalities in imaging tests). [facility] WITH [id number] 00:02:08 Test Item Value Reference Range Interpretation Comments WBC (test code = 4.86 See_Comment [Automated 5190-2) message] The sy stem which generated this result transmitted reference range : 4.30 - 11.10 10*3/?L. The reference range was not used to interpret this result as normal/abnormal . RBC (test code = 3.35 See_Comment L [Automated 809-8) message] The sy stem which generated this result transmitted reference range : 3.93 - 5.25 10*6/?L. The reference range was not used to interpret this result as normal/abnormal . HGB (test code = 10.3 g/dL 11.6-15.0 L 718-7) HCT (test code = 32.7 % 35.7-45.2 L 4544-3) MCV (test code = 97.6 fL 80.6-95.5 H 787-2) MCH (test code = 30.7 pg 25.9-32.8 785-6) MCHC (test code = 31.5 g/dL 31.6-35.1 L 786-4) RDW-SD (test code = 49.7 fL 39.0-49.9 58003-8) RDW-CV (test code = 14.0 % 12.0-15.5 788-0) PLT (test code = 112 See_Comment L [Automated 777-3) message] The sy stem which generated this result transmitted reference range : 166 - 358 10*3/ ?L. The reference r meryl was not used to interpret this result as normal/abnormal . MPV (test code = 10.8 fL 9.5-12.9 52546-1) IPF % (test code = 3.7 % 1.3-7.7 Platelet count 1600277053) measured by fluorescence method. NRBC/100 WBC (test 0.0 See_Comment [Automat ed code = 7692547918) message] The system which generated this result transmitted reference range : 0.0 - 10.0 /100 WBCs. The refer ence range was not u sed to interpret th is result as normal/abnormal . NRBC x10^3 (test code See_Comment [Auto mated = 5404249652) message] The s ystem which generated this result transmitted reference range : 10*3/?L. The reference range was not used to interpret this result as normal/abnormal . GRAN MAT (NEUT) % 61.2 % (test code = 770-8) IMM GRAN % (test code 0.40 % = 1432994056) LYMPH % (test code = 21.0 % 736-9) MONO % (test code = 8.4 % 5905-5) EOS % (test code = 8.4 % 713-8) BASO % (test code = 0.6 % 706-2) GRAN MAT x10^3(ANC) 2.97 10*3/uL 1.88-7.09 (test code = 2857564866) IMM GRAN x10^3 (test 0.00-0.06 code = 6238690516) LYMPH x10^3 (test code 1.02 10*3/uL 1.32-3.29 L = 731-0) MONO x10^3 (test code 0.41 10*3/uL 0.33-0.92 = 742-7) EOS x10^3 (test code = 0.41 10*3/uL 0.03-0.39 H 711-2) BASO x10^3 (test code 0.03 10*3/uL 0.01-0.07 = 704-7) Lab Interpretation Abnormal (test code = 68474-0) [facility] METABOLIC PANEL (NA, K, CL, CO2, GLUCOSE, BUN, CREATININE, CA)2023-02-17 00:01:12 Test Item Value Reference Range Interpretation Comments NA (test code = 138 mmol/L 135-145 2404074274) K (test code = 4.5 mmol/L 3.5-5.0 5837559308) CL (test code = 105 mmol/L 98-108 3332526103) CO2 TOTAL (test code = 27 mmol/L 23-31 8729059203) AGAP (test code = 6 2-16 3766580638) BUN (test code = 20 mg/dL 7-23 5127658319) GLUCOSE (test code = 106 mg/dL 70-110 5090045469) CREATININE (test code = 1.24 mg/dL 0.50-1.04 H 5308224176) CALCIUM (test code = 8.3 mg/dL 8.6-10.6 L 8561057892) eGFR (test code = 44.3 mL/min/1.73m2 4409308413) USHA (test code = USHA) Association of Glomerular Filtration Rate (GFR) and Staging of Kidney Disease* + --+ --+ ------+| GFR (mL/min/1.73 m2) ?| With Kidney Damage ?| ?Without Kidney Damage+ --------+ --------+ +| ?>90 ?| ?Stage one ?| ? Normal ?+ ---+ ---+ -------+| ?60-89 ?| ?Stage two ?| ? Decreased GFR ? + --+ --+ ------+| ?30-59 ?| ?Stage three ?| ? Stage three ? + --+ --+ ------+| ?15-29 ?| ?Stage four ? | ? Stage four ?+ ---+ ---+ -------+| ?<15 (or dialysis) ? ?| ?Stage five ? | ? Stage five ?+ ---+ ---+ -------+ *Each stage assumes the associated GFR level has been in effect for at least three months. ?Stages 1 to 5, with or without kidney disease, indicate chronic kidney disease. Notes: Determination of stages one and two (with eGFR >59mL/min/1.73 m2) requires estimation of kidney damage for at least three months as defined by structural or functional abnormalities of the kidney, manifested by either:Pathological abnormalities or Markers of kidney damage (including abnormalities in the composition of the blood or urine or abnormalities in imaging tests). Lab Interpretation Abnormal (test code = 01901-2) [facility] [id number] 17:54:38 Test Item Value Reference Range Interpretation Comments TROPONIN I (test code = 0.004 ng/mL <=0.034 8881151147) USHA (test code = USHA) Reference (Normal) Range (defined by the 99th percentile reference limit): <= 0.034 ng/mL Note: Cardiac troponin begins to rise 3-4 hours after the onset of ischemia. Repeat in 4-6 hours if the sample was drawn within 3-4 hours of the onset of the symptom and found normal. Diagnosis of myocardial injury is made with acute changes in cTn concentrations with at least one serial sample above the 99th percentile upper reference limit (URL), taken together with the patient's clinical presentation. Biotin has been reported to cause a negative bias, interpret results relative to patient's use of biotin. Lab Interpretation Normal (test code = 66368-3) [facility] 17:43:21 Test Item Value Reference Range Interpretation Comments MAGNESIUM (test code = 5124238305) 2.0 mg/dL 1.7-2.4 Lab Interpretation (test code = Normal 45283-6) [facility]OLIC [facility] (08383)2023-01-22 17:42:40 Test Item Value Reference Range Interpretation Comments NA (test code = 140 mmol/L 135-145 3510737783) K (test code = 3.4 mmol/L 3.5-5.0 L 2768837807) CL (test code = 105 mmol/L 98-108 0948973048) CO2 TOTAL (test code = 28 mmol/L 23-31 3497270258) AGAP (test code = 7 2-16 0034398296) BUN (test code = 15 mg/dL 7-23 9890147197) GLUCOSE (test code = 85 mg/dL 70-110 2988924400) CREATININE (test code = 0.72 mg/dL 0.50-1.04 4467216853) TOTAL BILI (test code = 1.1 mg/dL 0.1-1.6 1948786454) CALCIUM (test code = 8.3 mg/dL 8.6-10.6 L 4139415429) T PROTEIN (test code = 5.9 g/dL 6.3-8.2 L 7784007386) ALBUMIN (test code = 3.2 g/dL 3.5-5.0 L 3193012784) ALK PHOS (test code = 78 U/L 34-122 7392035668) ALTv (test code = 24 U/L 5-35 1742-6) AST(SGOT) (test code = 20 U/L 13-40 5517515429) eGFR (test code = 82.9 mL/min/1.73m2 9896429421) USHA (test code = USHA) Association of Glomerular Filtration Rate (GFR) and Staging of Kidney Disease* + --+ --+ ------+| GFR (mL/min/1.73 m2) ?| With Kidney Damage ?| ?Without Kidney Damage+ --------+ --------+ +| ?>90 ?| ?Stage one ?| ? Normal ?+ ---+ ---+ -------+| ?60-89 ?| ?Stage two ?| ? Decreased GFR ? + --+ --+ ------+| ?30-59 ?| ?Stage three ?| ? Stage three ? + --+ --+ ------+| ?15-29 ?| ?Stage four ? | ? Stage four ?+ ---+ ---+ -------+| ?<15 (or dialysis) ? ?| ?Stage five ? | ? Stage five ?+ ---+ ---+ -------+ *Each stage assumes the associated GFR level has been in effect for at least three months. ?Stages 1 to 5, with or without kidney disease, indicate chronic kidney disease. Notes: Determination of stages one and two (with eGFR >59mL/min/1.73 m2) requires estimation of kidney damage for at least three months as defined by structural or functional abnormalities of the kidney, manifested by either:Pathological abnormalities or Markers of kidney damage (including abnormalities in the composition of the blood or urine or abnormalities in imaging tests). Lab Interpretation Abnormal (test code = 12609-7) [facility] 17:42:40 Test Item Value Reference Range Interpretation Comments LIPASE (test code = 5458525099) 28 U/L 0-220 Lab Interpretation (test code = Normal 56902-4) [facility] WITH [id number] 17:39:01 Test Item Value Reference Range Interpretation Comments WBC (test code = 6.72 See_Comment [Automated 6690-2) message] The sy stem which generated this result transmitted reference range : 4.30 - 11.10 10*3/?L. The reference range was not used to interpret this result as normal/abnormal . RBC (test code = 3.02 See_Comment L [Automated 789-8) message] The sy stem which generated this result transmitted reference range : 3.93 - 5.25 10*6/?L. The reference range was not used to interpret this result as normal/abnormal . HGB (test code = 9.3 g/dL 11.6-15.0 L 718-7) HCT (test code = 29.4 % 35.7-45.2 L 4544-3) MCV (test code = 97.4 fL 80.6-95.5 H 787-2) MCH (test code = 30.8 pg 25.9-32.8 785-6) MCHC (test code = 31.6 g/dL 31.6-35.1 786-4) RDW-SD (test code = 53.1 fL 39.0-49.9 H 76280-9) RDW-CV (test code = 14.9 % 12.0-15.5 788-0) PLT (test code = 112 See_Comment L [Automated 777-3) message] The sy stem which generated this result transmitted reference range : 166 - 358 10*3/ ?L. The reference r meryl was not used to interpret this result as normal/abnormal . MPV (test code = 11.0 fL 9.5-12.9 65608-6) IPF % (test code = 4.6 % 1.3-7.7 Platelet count 3331536091) measured by fluorescence method. NRBC/100 WBC (test 0.0 See_Comment [Automat ed code = 6434121528) message] The system which generated this result transmitted reference range : 0.0 - 10.0 /100 WBCs. The refer ence range was not u sed to interpret th is result as normal/abnormal . NRBC x10^3 (test code See_Comment [Auto mated = 1377688538) message] The s ystem which generated this result transmitted reference range : 10*3/?L. The reference range was not used to interpret this result as normal/abnormal . GRAN MAT (NEUT) % 65.2 % (test code = 770-8) IMM GRAN % (test code 0.40 % = 4270348761) LYMPH % (test code = 18.3 % 736-9) MONO % (test code = 4.8 % 5905-5) EOS % (test code = 11.0 % 713-8) BASO % (test code = 0.3 % 706-2) GRAN MAT x10^3(ANC) 4.38 10*3/uL 1.88-7.09 (test code = 8216373956) IMM GRAN x10^3 (test 0.03 10*3/uL 0.00-0.06 code = 0472249216) LYMPH x10^3 (test code 1.23 10*3/uL 1.32-3.29 L = 731-0) MONO x10^3 (test code 0.32 10*3/uL 0.33-0.92 L = 742-7) EOS x10^3 (test code = 0.74 10*3/uL 0.03-0.39 H 711-2) BASO x10^3 (test code 0.01-0.07 = 704-7) Lab Interpretation Abnormal (test code = 12874-2) [facility], ijxiwp0237-78-20 11:47:00 Test Item Value Reference Range Interpretation Comments St[facility] (test code = Strep) [facility] 11:47:00 Test Item Value Reference Range Interpretation Comments FLU A (test code = FLU A) negative FLU B (test code = FLU B) [facility] Ag [Presence] in Respiratory specimen by Rapid uraaupzwmzw7410-29-26 11:47:00 Test Item Value Reference Range Interpretation Comments SARS CoV 2 (test code = SARS CoV 2) [facility], lxirhn3513-11-52 11:47:00 Test Item Value Reference Range Interpretation Comments Strep (test code = Strep) [facility]08 11:47:00 Test Item Value Reference Range Interpretation Comments FLU A (test code = FLU A) negative FLU B (test code = FLU B) [facility] Ag [Presence] in Respiratory specimen by Rapid rcackxogrcb0315-93-07 11:47:00 Test Item Value Reference Range Interpretation Comments SARS CoV 2 (test code = SARS CoV 2) [facility] invvey7775-08-37 11:47:00 Test Item Value Reference Range Interpretation Comments Strep (test code = Strep) [facility]08 11:47:00 Test Item Value Reference Range Interpretation Comments FLU A (test code = FLU A) negative FLU B (test code = FLU B) [facility] Ag [Presence] in Respiratory specimen by Rapid uopcxrpgwva7618-55-92 11:47:00 Test Item Value Reference Range Interpretation Comments SARS CoV 2 (test code = SARS CoV 2) [facility], xuhcmy0101-83-28 11:47:00 Test Item Value Reference Range Interpretation Comments Strep (test code = Strep) [facility]08 11:47:00 Test Item Value Reference Range Interpretation Comments FLU A (test code = FLU A) negative FLU B (test code = FLU B) [facility] Ag [Presence] in Respiratory specimen by Rapid oxqdlmdxxrt3842-29-84 11:47:00 Test Item Value Reference Range Interpretation Comments SARS CoV 2 (test code = SARS CoV 2) negative [facility] / [id number] 03:43:49 Test Item Value Reference Range Interpretation Comments PROTIME PATIENT (test 13.4 See_Comment H [Auto mated message] code = 5964-2) The system [employer] ([employer] generated this result transmitted ref erence range: 10.1 - 1 2.6 Seconds. The reference range was not used to int erpret this result as normal/abnormal . INR (test code = 6301-6) 1.2 Nor mal INR <1.1; Warfarin Therap eutic range 2.0 to 3. 0 or 2.5 to 3.5, dep ending upon the indica tions. Lab Interpretation (test Abnormal code = 90051-3) [facility] / [id number] 03:43:49 Test Item Value Reference Range Interpretation Comments PROTIME PATIENT (test 13.4 See_Comment H [Auto mated message] code = 5964-2) The system [employer] ([employer]) generated this result transmitted ref erence range: 10.1 - 1 2.6 Seconds. The reference range was not used to int erpret this result as normal/abnormal . INR (test code = 6301-6) 1.2 Nor mal INR <1.1; Warfarin Therap eutic range 2.0 to 3. 0 or 2.5 to 3.5, dep ending upon the indica tions. Lab Interpretation (test Abnormal code = 22347-6) [facility] WITH [id number] 20:54:10 Test Item Value Reference Range Interpretation Comments WBC (test code = 7.00 See_Comment [Automated 7690-2) message] The sy stem which generated this result transmitted reference range : 4.30 - 11.10 10*3/?L. The reference range was not used to interpret this result as normal/abnormal . RBC (test code = 3.81 See_Comment L [Automated 049-8) message] The sy stem which generated this result transmitted reference range : 3.93 - 5.25 10*6/?L. The reference range was not used to interpret this result as normal/abnormal . HGB (test code = 11.7 g/dL 11.6-15.0 718-7) HCT (test code = 36.1 % 35.7-45.2 4544-3) MCV (test code = 94.8 fL 80.6-95.5 787-2) MCH (test code = 30.7 pg 25.9-32.8 785-6) MCHC (test code = 32.4 g/dL 31.6-35.1 786-4) RDW-SD (test code = 46.1 fL 39.0-49.9 56358-7) RDW-CV (test code = 13.3 % 12.0-15.5 788-0) PLT (test code = 122 See_Comment L [Automated 777-3) message] The sy stem which generated this result transmitted reference range : 166 - 358 10*3/ ?L. The reference r meryl was not used to interpret this result as normal/abnormal . MPV (test code = 10.9 fL 9.5-12.9 91047-0) IPF % (test code = 5.0 % 1.3-7.7 Platelet count 1114683250) measured by fluorescence method. NRBC/100 WBC (test 0.0 See_Comment [Automat ed code = 5149990638) message] The system which generated this result transmitted reference range : 0.0 - 10.0 /100 WBCs. The refer ence range was not u sed to interpret th is result as normal/abnormal . NRBC x10^3 (test code See_Comment [Auto mated = 2002940316) message] The s ystem which generated this result transmitted reference range : 10*3/?L. The reference range was not used to interpret this result as normal/abnormal . GRAN MAT (NEUT) % 69.3 % (test code = 770-8) IMM GRAN % (test code 0.30 % = 1368926146) LYMPH % (test code = 18.7 % 736-9) MONO % (test code = 9.4 % 5905-5) EOS % (test code = 1.7 % 713-8) BASO % (test code = 0.6 % 706-2) GRAN MAT x10^3(ANC) 4.85 10*3/uL 1.88-7.09 (test code = 8410472820) IMM GRAN x10^3 (test 0.00-0.06 code = 5887758096) LYMPH x10^3 (test code 1.31 10*3/uL 1.32-3.29 L = 731-0) MONO x10^3 (test code 0.66 10*3/uL 0.33-0.92 = 742-7) EOS x10^3 (test code = 0.12 10*3/uL 0.03-0.39 711-2) BASO x10^3 (test code 0.04 10*3/uL 0.01-0.07 = 704-7) Lab Interpretation Abnormal (test code = 25432-0) [facility]. METABOLIC PANEL (80574)2022-12-22 20:15:47 Test Item Value Reference Range Interpretation Comments NA (test code = 139 mmol/L 135-145 5384622278) K (test code = 4.1 mmol/L 3.5-5.0 1168281346) CL (test code = 106 mmol/L 98-108 0416691007) CO2 TOTAL (test code = 29 mmol/L 23-31 0269323128) AGAP (test code = 4 2-16 7802389360) BUN (test code = 17 mg/dL 7-23 3404314110) GLUCOSE (test code = 79 mg/dL 70-110 2979377075) CREATININE (test code = 1.06 mg/dL 0.50-1.04 H 6242787368) TOTAL BILI (test code = 0.9 mg/dL 0.1-1.5 2642477518) CALCIUM (test code = 9.0 mg/dL 8.6-10.6 0225887598) T PROTEIN (test code = 7.0 g/dL 6.3-8.2 6068703702) ALBUMIN (test code = 4.0 g/dL 3.5-5.0 7844588114) ALK PHOS (test code = 76 U/L 34-122 0686522273) ALTv (test code = 21 U/L 5-35 1742-6) AST(SGOT) (test code = 20 U/L 13-40 4231069525) eGFR (test code = 53.1 mL/min/1.73m2 5457894420) USHA (test code = USHA) Association of Glomerular Filtration Rate (GFR) and Staging of Kidney Disease* + --+ --+ ------+| GFR (mL/min/1.73 m2) ?| With Kidney Damage ?| ?Without Kidney Damage+ --------+ --------+ +| ?>90 ?| ?Stage one ?| ? Normal ?+ ---+ ---+ -------+| ?60-89 ?| ?Stage two ?| ? Decreased GFR ? + --+ --+ ------+| ?30-59 ?| ?Stage three ?| ? Stage three ? + --+ --+ ------+| ?15-29 ?| ?Stage four ? | ? Stage four ?+ ---+ ---+ -------+| ?<15 (or dialysis) ? ?| ?Stage five ? | ? Stage five ?+ ---+ ---+ -------+ *Each stage assumes the associated GFR level has been in effect for at least three months. ?Stages 1 to 5, with or without kidney disease, indicate chronic kidney disease. Notes: Determination of stages one and two (with eGFR >59mL/min/1.73 m2) requires estimation of kidney damage for at least three months as defined by structural or functional abnormalities of the kidney, manifested by either:Pathological abnormalities or Markers of kidney damage (including abnormalities in the composition of the blood or urine or abnormalities in imaging tests). Lab Interpretation Abnormal (test code = 24354-3) [facility] Notes Date/Time Note Provider Source 2023-05-15 09:44:00 8092-97-49Q08:44:00Formatting of Mary Ann Kwan [facility] this note might be different from the original.Analy Conklin has been contact for Post-Discharge Follow-Up from their recent Heart Failure admission. Hospital Discharge Date: 04/19/23Hospital Location: [facility] the patient have a Post-Discharge Follow Up appointment: No If No - please schedule HFU appointment within 2 weeks of discharge 1. Schedule to Heart Failure Nurse Practitioner within 2 weeks if seen by Heart Failure Team during recent admission 2. If patient is NEW referral to Heart Failure (Not seen by Heart Failure Team during recent admission), patient will need to see Heart Failure Faculty -Expedite to Heart Failure nurse if needed to overbook to facultyUnable to leave a message (number not in service) for return call to discuss Heart Failure Discharge Assessment and setup a follow up appointment with Dr. Chawla or the Heart Failure Nurse Practitioner. 16144-4Utntfkuzk encounter LkmbHG6798-41-04R89:46:09Telepho ne encounter NoteTXT1.2.840.307588.1.13.104.2 .7.2.785555|[id number] e for patient nhey74571-8RqwsAY533518995Pkdc E Plummer MA[address] XjfxNjdcyudouQkgauflkyLGJG434974 9598WCFXUDAJMBNPUAELMZPUZB0224-8 05-15T09:46:091.2.840.165463.1.72 .3.15|1.2.840.058898.1.13.104.2. 7.2.727879_[id number] 2023-05-12 14:48:55 8795-90-65Q72:48:55Formatting of Erick sutton RN [facility] this note might be different from the original.DC instructions reviewed with patient. Patient was able to ambulate in room holding wheelchair prior to DC. Patient instructed to resume normal activity at home, and to avoid prolonged periods of immobility. She will follow up with her PCP as directed. She has hydrocodone at home, which she will use for her pain. She was Dc'd via W/C-alert, warm, dry, pink, in no distress 69697-0Ptiiguxnp department VfdtFR1703-53-70H03:52:57Emergen department NoteTXT1.2.840.133871.1.13.104.2 .7.2.040485|[id number] e for patient rbja00671-8RopaAQ495700051Nypphw e M Owens [address]TX[address] 9746MEDRGJSZCOSFOAFOIMXDKC8339-9 :52:571.2.840.597917.1.72 .3.15|1.2.840.341449.1.13.104.2. 7.2.727879_[id number] 2023-05-12 14:01:12 3177-02-43W49:01:12Formatting of [facility] this note might be different from the original.Patient assisted OOB to BSC. Patient was able to stand at bedside and pivot to BSC with minimal assist. 09689-1Urffzegvv department ChmvHW7510-84-75N55:02:24[facility] NoteTXT1.2.840.453942.1.13.104.2 .7.2.718362|[id number] e for patient xvps89047-9ZwsiBGIZNJKAMT[address]TX[address] 8964ZDFHKPGJHFJNPNWXFBQDCB7590-2 :02:241.2.840.835006.1.72 .3.15|1.2.840.386706.1.13.104.2. 7.2.727879_[id number] 2023-05-12 13:41:08 2276-16-02A46:41:08Formatting [facility] this note might be different from the original.Patient medicated with Fentanyl 50 mcg Iv for pain right hip 07/14. Dr Mosher in to see patient -discussed radiology results with her. 37621-6Kfxkthddd department GsfnSB3958-51-70O08:42:16[facility] NoteTXT1.2.840.624410.1.13.104.2 .7.2.555645|[id number] e for patient rxkx79626-3NowuHOQNVIVCIP[address]veston[address] 2546YKTVVKPXGTBKZDZCTYFFNI1758-5 :42:161.2.840.915256.1.72 .3.15|1.2.840.530984.1.13.104.2. 7.2.727879_[id number] 2023-05-12 12:55:00 9212-15-20M90:55:00Formatting [facility] this note might be different from [place] [address]-1Immaaugmr[address] OilyZU6487-37-45Y33:01:39[facility] NoteTXT1.2.840.919255.1.13.104.2 .7.2.954983|[id number] e for patient urvo36457-0KxwyAVCMADENBS[address] 4322WHLDWBANREWKEUFCOVHCDV0991-9 :01:391.2.840.548958.1.72 .3.15|1.2.840.673359.1.13.104.2. 7.2.727879_[id number] 2023-05-12 12:05:04 4498-51-28T50:05:04[facility] this note might be different from the original.To Ct via stretcher, pt in no distress 93673-2Maczfpxwx department VjkiMM4685-85-88U46:05:17[facility] NoteTXT1.2.840.269496.1.13.104.2 .7.2.360417|[id number] e for patient ckpe16577-3RkliPVTHWLBXBS[address]on[place]on[place] 8486WBGRGYDNJPJINQKNWKDOWY1291-6 2:05:171.2.840.957897.1.72 .3.15|1.2.840.712086.1.13.104.2. 7.2.727879_[id number] 2023-05-12 11:50:00 1677-05-14K21:50:00Formatting of [facility] this note might be different from the original.Pt has removed cardiac monitoring leads, laying on left arm with BP cuff, refuses repositioning, pt starts flailing on bed, pt stops then starts again, Pct to bedside witnesses pt flailing and shaking self, 1 ml NS to eyes, opens eyes and speaks " I have seizures bitch, I have had 3 of them and you put some shit in my eyes" pt immediately get on phone calls someone to report " I have had nonepileptic seizures and this stupid bitch nurse put something in my eyes"Updated Dr. Mosher of pt actions 89753-1Cfqekkjiu department YjquRQ0747-37-17K81:05:01[facility] NoteTXT1.2.840.619223.1.13.104.2 .7.2.929198|[id number] e for patient gbrd18064-7PtmgNJISAZIBMZ[address]TXTX[address] 6690SXTJLSHPWPCZYDJRGCCYTF4020-7 2:05:011.2.840.507017.1.72 .3.15|1.2.840.744839.1.13.104.2. 7.2.727879_[id number] 2023-05-12 11:36:00 2842-87-76N96:36:00[facility] this note might be different from the original.In to let pt know daughter called, pt on phone cursing [facility] staff states everyone is mean and nothing has been done for her 37105-9Hqrttxfcq department IogiFQ1597-73-32J50:47:02[facility] NoteTXT1.2.840.238221.1.13.104.2 .7.2.236784|[id number] e for patient ehtx82014-2SaxxTEWNZOQUPX[address] NgasBysffrqarAhhtiknnjTYKG801716 8443EAMTUEXYBXQRNRHIXLNKGX3115-6 8-08T11:47:021.2.840.921673.1.72 .3.15|1.2.840.535746.1.13.104.2. 7.2.727879_[id number] 2023-05-12 11:34:00 2412-83-97G38:34:00Formatting of [facility] this note might be different from the original.Pt daughter [place] [id number] department PmyzQC6849-28-04V13:45:39[facility] NoteTXT1.2.840.803912.1.13.104.2 .7.2.201519|[id number] e for patient uces98485-4LopxOJLSNWGCJ[address] G[id number] 8913QODFLGWFJVTKWMMRVFYEMB9937-1 :45:391.2.840.087423.1.72 .3.15|1.2.840.806444.1.13.104.2. 7.2.727879_[id number] 2023-05-12 11:15:00 0320-20-59A60:15:00Formatting [facility] this note might be different from the original.Dr. Mosher at bedside pt screaming at him. States she has chronic pain and needs more pain meds 53680-7Cfwuxcefz department HohsIF7337-07-24I22:18:32[facility] NoteTXT1.2.840.648535.1.13.104.2 .7.2.340280|[id number] e for patient wthf90948-8PbelPPQUMLXJFN49 [address]TXTX[address] 4884AOTTKAXFILWZNBMDIRDEHV6507-9 :18:321.2.840.961897.1.72 .3.15|1.2.840.343238.1.13.104.2. 7.2.727879_[id number] 2023-05-12 11:09:00 5251-36-48O33:09:00Formatting of [facility] this note might be different from the original.Pt screaming for help, in to assist patient, wants off of her hip, attempted to help pt to roll and place towels under her back and hip, Pt cursing and screaming at this RN, "you're not doing anything, what is your name" CN in to room, pt verbally attacks him as well [address]264-0[address] [place] [address] KgwcHG2799-78-93E75:17:33[facility] NoteTXT1.2.840.167880.1.13.104.2 .7.2.936995|[id number] e for patient dqcz17398-0EgzvEUVFMXAIRD49 [address] StreetTXTX[address] 4353EHMKLTMTVANIPYQSMKZIQJ5731-6 :17:331.2.840.342997.1.72 .3.15|1.2.840.841346.1.13.104.2. 7.2.727879_[id number] 2023-05-12 10:56:15 5828-95-35K58:56:15Formatting of Esteban dotson [facility] this note might be different RN from the original.Patient to ED for a fall in bath tub. Has right hip pain and hit back of head. No loc. She takes eliquis. 24298-5Odimuotkp department Triage sruxTY7701-80-44U75:57:03[facility] department Triage noteTXT1.2.840.508598.1.13.104.2 .7.2.650785|[id number] e for patient ztkv07694-6Bxdlstknf department VkspAW197915355Rcgmwbp D Wierzbicki RNUT[address] NgcjTpaqudmopWstigtwwdRRHO733916 2115PGWXGEQDTZZKBUDTOXPJNX4136-7 05-12T10:57:031.2.840.587163.1.72 .3.15|1.2.840.864435.1.13.104.2. 7.2.727879_[id number] 2023-05-12 10:54:00 5453-67-00V71:54:00Formatting of [facility] this note is different from the original.DemographicsPatient Name: Analy Bennett of : 1965 57 year oldTreatment Room: [facility]DI4Wrqmizx Record Number: [id number] Care Physician: [facility] Care Patient Escorted by: Self [9]Mode of Arrival: EMS - Central [45]EMS Treatment Prior to ED Arrival: REPAIR MECHANIC treatment: Saline lock REPAIR MECHANIC treatment comments: 150 mcg of fentynalED Events Date/Time Event User Comments 05/12/23 1056 Medical Screening Begins ALIDA MOSHER MD -- 05/12/23 1056 First Provider Evaluation PAL VIEIRA, ALIDA Green -- Chief complaint Chief Complaint Patient presents with Fall ED Triage Notes Esteban Ackerman, RN 05/12/2023 10:57 Patient to ED for a fall in bath tub. Has right hip pain and hit back of head. No loc. She takes eliquis. Chief Complaint Patient presents with Fall History of present illness HPI57 yo woman comes to the ED complaining of accidental fall in the bath tub today while getting out. No LOC, hit the back of the head and right hip. Denies any other problems. H/o chronic pain on pain medications at home and mainly complaining of right hip pain. Past Medical and Social History History reviewed. No pertinent past medical history.Tetanus received in last 5 years: YesChildhood immunizations: Hh-dm-gurqRknbyv History Tobacco Use Smoking status: Never Passive exposure: Never Smokeless tobacco: Never Past Surgical History Past Surgical History: Procedure Laterality Date URETERAL CATHETER PLACEMENT Left 12/23/2022 Surgeon: Chinedu Brewer MD; Location: [facility] OR LOCATION URETEROSCOPIC STONE MANIPULATION Left 03/16/2023 Surgeon: Chinedu Brewer MD; Location: [facility] OR LOCATION Medications Medications FENTanyl PF (SUBLIMAZE (PF)) injection 50 mcg (50 mcg Slow IV Push Given 05/12/23 1124) FENTanyl PF (SUBLIMAZE (PF)) injection 50 mcg (50 mcg Slow IV Push Given 05/12/23 1334) Allergies Allergies Allergen Reactions Adhesive Rash Hives, TAPE, WELTS Bee Venom Protein (Honey Bee) Anaphylaxis Buprenorphine Rash and Shortness of Breath Other reaction(s): rash Cefaclor Other - See comments and Rash Hives, From CECLOR Cefuroxime Rash Other reaction(s): rashHives, From CEFTIN Cephalexin Other - See comments, Hives and Rash Other reaction(s): rash Iodinated Contrast Media Anaphylaxis Iodine Rash AnaphylaxisOther reaction(s): rash Latex Other - See comments, Hives and Rash Hives Latex gloves Penicillins Other - See comments and Anaphylaxis AnaphylaxisOther reaction(s): rash Sulfa (Sulfonamide Antibiotics) Anaphylaxis and Rash Anaphylaxis, SULFA Warfarin Unknown - See comments Severe swelling, skin "turns purple" Amiodarone Hcl Dizziness Other reaction(s): vision changes, Vision Problems Antifungal - Imidazole Rash Atropine-Demerol Other - See comments Bee Sting / Venom Other - See comments Ciprofloxacin Hives Nitrofurantoin Rash Pineapple Other - See comments and Swelling Tongue swellingTongue swelling Sulfa Dyne Other - See comments Meperidine (Pf) Rash Review of Systems Review of Systems Constitutional: Negative. HENT: Negative. Eyes: Negative. Respiratory: Negative. Cardiovascular: Negative. Gastrointestinal: Negative. Genitourinary: Negative. Musculoskeletal: Positive for gait problem. Skin: Negative. Psychiatric/Behavioral: Negative. Endocrine: Endocrine negativePhysical Exam BP 112/52 | Pulse 70 | Temp 36.1 ?C (97 ?F) | Resp 16 | Ht 1.753 m (5' 9") | Wt 122.5 kg (270 lb) | SpO2 100% | BMI 39.87 kg/m? Physical ExamVitals and nursing note reviewed. Constitutional: General: She is not in acute distress. Appearance: She is well-developed and normal weight. She is not ill-appearing. HENT: Head: Normocephalic and atraumatic. Right Ear: External ear normal. Left Ear: External ear normal. Nose: Nose normal. No congestion or rhinorrhea. Mouth/Throat: Pharynx: No oropharyngeal exudate or posterior oropharyngeal erythema. Eyes: General: Right eye: No discharge. Left eye: No discharge. Conjunctiva/sclera: Conjunctivae normal. Pupils: Pupils are equal, round, and reactive to light. Cardiovascular: Rate and Rhythm: Normal rate and regular rhythm. Heart sounds: Normal heart sounds. No murmur heard. No friction rub. Pulmonary: Effort: Pulmonary effort is normal. No respiratory distress. Breath sounds: Normal breath sounds. No stridor. No wheezing or rhonchi. Abdominal: General: Bowel sounds are normal. There is no distension. Palpations: Abdomen is soft. There is no mass. Tenderness: There is no abdominal tenderness. Hernia: No hernia is present. Musculoskeletal: General: No swelling, tenderness, deformity or signs of injury. Normal range of motion. Cervical back: Normal range of motion and neck supple. No rigidity or tenderness. Skin: General: Skin is warm. Capillary Refill: Capillary refill takes less than 2 seconds. Coloration: Skin is not jaundiced or pale. Findings: No bruising or erythema. Neurological: General: No focal deficit present. Mental Status: She is alert and oriented to person, place, and time. Cranial Nerves: No cranial nerve deficit. Sensory: No sensory deficit. Motor: No weakness. Coordination: Coordination normal. Psychiatric: Mood and Affect: Mood normal. Behavior: Behavior normal. Thought Content: Thought content normal. Judgment: Judgment normal. Labs and Studies Lab Results - No data to displayCT HEAD WO CONTRAST Final Result EXAM: CT HEAD WO CONTRAST, CT CERVICAL SPINE WO CONTRAST HISTORY: 57 years-old Female; Head trauma, abnormal mental status (Age 18-64y) . Patient presented to emergency department after fall in bathtub. Patient reports right hip pain and hit the back of his head. No loss of consciousness. COMPARISON: CT head dated 04/18/2023 TECHNIQUE: Axial images of the head and cervical spine were obtained without IV contrast. Coronal and sagittal reformats were constructed. FINDINGS: HEAD: The ventricles and cerebral sulci are normal in caliber and configuration. No hydrocephalus, midline shift or pathological extra-axial fluid collection is present. The basal cisterns are unremarkable. There is no acute intracranial hemorrhage or significant mass effect. No parenchymal attenuation abnormality. The singh-white matter differentiation is preserved. The mastoid air cells and paranasal air sinuses are clear. The calvarium and central skull base are unremarkable. CERVICAL SPINE: Normal cervical lordosis is noted. The vertebral bodies are normal in height and alignment. No acute fracture or dislocation is present. Normal alignment of the craniocervical junction and atlantoaxial joint. Mild multilevel degenerative changes are noted in the form of disc space narrowing, endplate sclerosis, marginal osteophytes and facet arthrosis. The prevertebral soft tissues are unremarkable. Visualized cervical soft tissues are unremarkable. Groundglass opacification is seen in the bilateral apical lungs. IMPRESSION No acute intracranial hemorrhage or mass effect. No acute cervical spine fracture or traumatic malalignment. Preliminary Report Dictated by Resident: Shivani Hobson MD., have reviewed this study and agree with the above report. CT CERVICAL SPINE WO CONTRAST Final Result EXAM: CT HEAD WO CONTRAST, CT CERVICAL SPINE WO CONTRAST HISTORY: 57 years-old Female; Head trauma, abnormal mental status (Age 18-64y) . Patient presented to emergency department after fall in bathtub. Patient reports right hip pain and hit the back of his head. No loss of consciousness. COMPARISON: CT head dated 04/18/2023 TECHNIQUE: Axial images of the head and cervical spine were obtained without IV contrast. Coronal and sagittal reformats were constructed. FINDINGS: HEAD: The ventricles and cerebral sulci are normal in caliber and configuration. No hydrocephalus, midline shift or pathological extra-axial fluid collection is present. The basal cisterns are unremarkable. There is no acute intracranial hemorrhage or significant mass effect. No parenchymal attenuation abnormality. The singh-white matter differentiation is preserved. The mastoid air cells and paranasal air sinuses are clear. The calvarium and central skull base are unremarkable. CERVICAL SPINE: Normal cervical lordosis is noted. The vertebral bodies are normal in height and alignment. No acute fracture or dislocation is present. Normal alignment of the craniocervical junction and atlantoaxial joint. Mild multilevel degenerative changes are noted in the form of disc space narrowing, endplate sclerosis, marginal osteophytes and facet arthrosis. The prevertebral soft tissues are unremarkable. Visualized cervical soft tissues are unremarkable. Groundglass opacification is seen in the bilateral apical lungs. IMPRESSION No acute intracranial hemorrhage or mass effect. No acute cervical spine fracture or traumatic malalignment. Preliminary Report Dictated by Resident: Shviani Hobson MD., have reviewed this study and agree with the above report. CT ABDOMEN PELVIS WO CONTRAST Final Result ORDERING PHYSICIAN: ALIDA MOSHER EXAM: CT OF THE ABDOMEN AND PELVIS WITHOUT CONTRAST. CT OF THE LUMBAR SPINE WITHOUT CONTRAST. DATE: 05/12/2023 11:30 AM CLINICAL INDICATIONS: Abdominal trauma, blunt TECHNIQUE: Helical computed tomographic images of the abdomen and pelvis were obtained without intravenous contrast. Helical CT of the lumbar spine without contrast. Sagittal and coronal reformatted images were obtained. The CT was obtained using ALARA guidelines, per department protocol. COMPARISON: CT of the abdomen and pelvis from 05/12/2023 FINDINGS: Heart size mildly enlarged. Pacer/ICD leads are seen in the right heart. Small hiatal hernia is seen. Post cholecystectomy changes are seen. Gastric bypass changes are noted. There are no renal, ureteral or bladder stones. Previously identified left sided hydroureteronephrosis has resolved. Left ureteral stent has been removed. There are no dilated bowel loops. There is no bowel obstruction. There is mild to moderate stool in the colon. There is no free air, free fluid or adenopathy. Postappendectomy changes are suspected. Uterus is surgically absent. A calcified granuloma is seen in the right lung base on series 2 image 23. Lung bases are otherwise clear. Bones are demineralized. Mild to moderate disc osteophytes are seen in the lower thoracic spine. No lytic or blastic lesion is seen. No pars defects are seen. Small, ventral disc osteophyte is seen at L3-L4. No jumped or locked facets are seen. There is no central canal stenosis or foraminal narrowing in the lumbar spine. IMPRESSION 1. No acute finding on noncontrast CT of the abdomen and pelvis. There are no renal, ureteral or bladder stones. Previously identified left sided hydroureteronephrosis has resolved. Left ureteral stent has been removed. 2. Prior cholecystectomy, gastric bypass, hysterectomy and presumed appendectomy. 3. Mild cardiomegaly with pacer/ICD leads. 4. Rjjn-nc-rzcvarnd disc osteophytes are seen in the lower thoracic spine and at L3-L4. No lumbar spine fracture or subluxation seen. No pars defect is seen. There is no significant central canal or foraminal narrowing in the lumbar spine. HS:Y RL: [id number] LUMBAR SPINE WO CONTRAST Final Result ORDERING PHYSICIAN: ALIDA MOSHER EXAM: CT OF THE ABDOMEN AND PELVIS WITHOUT CONTRAST. CT OF THE LUMBAR SPINE WITHOUT CONTRAST. DATE: 05/12/2023 11:30 AM CLINICAL INDICATIONS: Abdominal trauma, blunt TECHNIQUE: Helical computed tomographic images of the abdomen and pelvis were obtained without intravenous contrast. Helical CT of the lumbar spine without contrast. Sagittal and coronal reformatted images were obtained. The CT was obtained using ALARA guidelines, per department protocol. COMPARISON: CT of the abdomen and pelvis from 05/12/2023 FINDINGS: Heart size mildly enlarged. Pacer/ICD leads are seen in the right heart. Small hiatal hernia is seen. Post cholecystectomy changes are seen. Gastric bypass changes are noted. There are no renal, ureteral or bladder stones. Previously identified left sided hydroureteronephrosis has resolved. Left ureteral stent has been removed. There are no dilated bowel loops. There is no bowel obstruction. There is mild to moderate stool in the colon. There is no free air, free fluid or adenopathy. Postappendectomy changes are suspected. Uterus is surgically absent. A calcified granuloma is seen in the right lung base on series 2 image 23. Lung bases are otherwise clear. Bones are demineralized. Mild to moderate disc osteophytes are seen in the lower thoracic spine. No lytic or blastic lesion is seen. No pars defects are seen. Small, ventral disc osteophyte is seen at L3-L4. No jumped or locked facets are seen. There is no central canal stenosis or foraminal narrowing in the lumbar spine. IMPRESSION 1. No acute finding on noncontrast CT of the abdomen and pelvis. There are no renal, ureteral or bladder stones. Previously identified left sided hydroureteronephrosis has resolved. Left ureteral stent has been removed. 2. Prior cholecystectomy, gastric bypass, hysterectomy and presumed appendectomy. 3. Mild cardiomegaly with pacer/ICD leads. 4. Vnfv-op-bfrcuxrb disc osteophytes are seen in the lower thoracic spine and at L3-L4. No lumbar spine fracture or subluxation seen. No pars defect is seen. There is no significant central canal or foraminal narrowing in the lumbar spine. HS:Y RL: [id number] Orders and Treatments Orders Placed This Encounter Procedures CT HEAD WO CONTRAST CT CERVICAL SPINE WO CONTRAST CT ABDOMEN PELVIS WO CONTRAST CT LUMBAR SPINE WO CONTRAST Orders Placed This Encounter Medications FENTanyl PF (SUBLIMAZE (PF)) injection 50 mcg FENTanyl PF (SUBLIMAZE (PF)) injection 50 mcg Patient's Medications START taking these medications No medications on file CONTINUE taking these medications which have NOT CHANGED ALBUTEROL 90 MCG/ACTUATION INHALER Inhale 2 Puffs. APIXABAN 5 MG TABLET Indications: treatment to prevent blood clots in chronic atrial fibrillation, paroxysmal atrial fibrillation Resume current dose anticoagulation 04/15/2022 ATORVASTATIN 40 MG TABLET Take 1 tablet by mouth at bedtime. BWBBPWAEOD-AHXXTWND-PXRPXSDJRP (BREZTRI AEROSPHERE) 160-9-4.8 MCG/ACTUATION HFAA Inhale 2 Puffs. BUSPIRONE 30 MG TABLET Take 1 tablet by mouth in the morning and 1 tablet in the evening. DIPHENHYDRAMINE 25 MG TABLET Take 1 tablet by mouth every 6 (six) hours as needed for Itching (Rash). FLUOXETINE 20 MG CAPSULE Take 2 capsules by mouth at bedtime. FUROSEMIDE 40 MG TABLET Take 1 tablet by mouth every morning and evening. GABAPENTIN 600 MG TABLET Take 1 tablet by mouth in the morning and 1 tablet at noon and 1 tablet in the evening. KCL 10 MEQ TABLET Take 1 tablet by mouth in the morning and 1 tablet in the evening. LEVOTHYROXINE 200 MCG TABLET Take 1 tablet by mouth every morning. MAGNESIUM GLUCONATE 27 MG [place] MAGNESIUM TABLET Take 1 tablet by mouth every morning. METHOCARBAMOL 500 MG TABLET Take 2 tablets by mouth. ROPINIROLE 1 MG TABLET Take 1 tablet by mouth in the morning. ROPINIROLE 2 MG TABLET Take 1 tablet by mouth at bedtime. SPIRONOLACTONE 25 MG TABLET Take 1 tablet by mouth in the morning. START taking Modified Medications as Prescribed No medications on file STOP taking these medications No medications on file Procedures ProceduresMDM & Notes Patient was evaluated for an emergency medical condition related to Fall.History and/or review of systems is limited by:History limited: None.Medical Decision Qarowh81 yo woman comes to the ED complaining of accidental fall in the bath tub today while getting out. No LOC, hit the back of the head and right hip. Denies any other problems. H/o chronic pain on pain medications at home and mainly complaining of right hip pain.DDX fall/hip contusion/hip fracture/ back pain/ head contusion Problems Addressed:Fall, initial encounter: acute illness or injuryAmount and/or Complexity of Data ReviewedRadiology: ordered and independent interpretation performed. Decision-making details documented in ED Course.Discussion of management or test interpretation with external provider(s): Negative CT head/neck/L-spine and abdomen/pelvis for fracture. Likely hip contusion. Patient received IV fentanyl in the ED and by EMS.Up and ambulatory. Advised to continue home pain medications, f/u with PCP and return to the ED if worsening of symptoms. She understands and agrees with the plan. RiskPrescription drug management.Parenteral controlled substances. Diagnosis/Impression as of 05/12/23 1355 Fall, initial encounter Case discussed with: noneBarriers & Social Determinants of Healthcare: Limitations to patient care and compliance: none.Assessment:Analy Conklin is a 57 year old female presenting for single complaint(s) listed below and mentioned within the note. The patient has acute condition(s). Follow up with providers listed below for further evaluation and management. Return precautions given if symptoms worsen as documented in the discharge instructions.History, physical exam findings, results of visit, differential diagnosis, medication regimens and plan of future care have been considered. Additional MDM may be found in the ED course. Differential diagnosis considered and final disposition made based on information gathered during evaluation and may not be completely ruled out or specifically listed. Vital signs were rechecked before final disposition and determined to be stable. Diagnoses ICD-10-CM 1. Fall, initial encounter W19.XXXA Disposition and Condition ED Disposition ED Disposition Disch - Home Condition Stable Comment -- Patient's Medications START taking these medications No medications on file CONTINUE taking these medications which have NOT CHANGED ALBUTEROL 90 MCG/ACTUATION INHALER Inhale 2 Puffs. APIXABAN 5 MG TABLET Indications: treatment to prevent blood clots in chronic atrial fibrillation, paroxysmal atrial fibrillation Resume current dose anticoagulation 04/15/2022 ATORVASTATIN 40 MG TABLET Take 1 tablet by mouth at bedtime. BHMUJMTWIE-MNMMVHFJ-QFDXCAESNG (BREZTRI AEROSPHERE) 160-9-4.8 MCG/ACTUATION HFAA Inhale 2 Puffs. BUSPIRONE 30 MG TABLET Take 1 tablet by mouth in the morning and 1 tablet in the evening. DIPHENHYDRAMINE 25 MG TABLET Take 1 tablet by mouth every 6 (six) hours as needed for Itching (Rash). FLUOXETINE 20 MG CAPSULE Take 2 capsules by mouth at bedtime. FUROSEMIDE 40 MG TABLET Take 1 tablet by mouth every morning and evening. GABAPENTIN 600 MG TABLET Take 1 tablet by mouth in the morning and 1 tablet at noon and 1 tablet in the evening. KCL 10 MEQ TABLET Take 1 tablet by mouth in the morning and 1 tablet in the evening. LEVOTHYROXINE 200 MCG TABLET Take 1 tablet by mouth every morning. MAGNESIUM GLUCONATE 27 MG [place] MAGNESIUM TABLET Take 1 tablet by mouth every morning. METHOCARBAMOL 500 MG TABLET Take 2 tablets by mouth. ROPINIROLE 1 MG TABLET Take 1 tablet by mouth in the morning. ROPINIROLE 2 MG TABLET Take 1 tablet by mouth at bedtime. SPIRONOLACTONE 25 MG TABLET Take 1 tablet by mouth in the morning. START taking Modified Medications as Prescribed No medications on file STOP taking these medications No medications on file Alida Mosher MD, FACEP, FAAEMAssistant Professor of Emergency and Internal MedicineInterfaith Medical Center#[id number] Alida Mosher MD05/12/23 1359 90386-2Dgznawcud Emergency department NlybKL1314-07-82O34:59:25Physici an Emergency department NoteTXT1.2.840.205825.1.13.104.2 .7.2.647289|[id number] e for patient brok80362-5Ftrwfjfyz department Note[address]vestonTX[place] 5891QPSQHHFWJXQEGBCPVJQWIG5478-9 3:59:251.2.840.834915.1.72 .3.15|1.2.840.737068.1.13.104.2. 7.2.727879_[id number] 2023-04-21 10:21:53 6055-44-84O01:21:53Formatting of Jenni pearce RN [facility] this note might be different from the original.CM sent appt request to Heart Failure team for post hospital follow up. 94806-7Hvmnyjfto encounter SmqbFV3018-35-28V78:22:00Telepho ne encounter NoteTXT1.2.840.923704.1.13.104.2 .7.2.204465|[id number] e for patient rtdv083622602Lkpmo B Porter RNUT[address] CgzqYtsoryyloSmjbzmmltCPVM371594 0651NXKQDYEWSMEBTBTGPGMQNE3541-3 04-21T1:22:001.2.840.953158.1.72 .3.15|1.2.840.387327.1.13.104.2. 7.2.727879_[id number] 2023-04-21 10:20:23 8333-40-31O21:20:23Formatting of [facility] this note might be different from the original.TRANSITIONAL CARE MANAGEMENT ASSESSMENT04/21/2023 Analy ConklinUvtixjty292556OGmppj Figueroa is a 57 year old /White female was admitted on 04/17/[address] She was discharged on 04/19/23 with discharge disposition of HR- Routine Discharge.Admitting Physician: Rafaela Chawla Diagnosis: Chronic combined systolic and diastolic heart failureNo linked episodesTCM Aju-bdoc-do-face outreach documentation: Transition CM attempted to contact patient for post discharge follow up. Per automated message unable to leave a message stated voice mail box is full. Future Appointments: 85118-7Jylmuavit encounter WxvmFI3213-55-73Q42:21:00Telepho ne encounter NoteTXT1.2.840.404990.1.13.104.2 .7.2.043620|[id number] e for patient careUT[address] OgeiYutmaereuOjhdoihfpPLZR394898 1469IWWLDJEXBHCMYKPJIDLLHM4692-2 04-21T10:21:001.2.840.992539.1.72 .3.15|1.2.840.510069.1.13.104.2. 7.2.727879_[id number]
[2023-08-24] MEDS ORDERED: ONDANSETRON 4 MG/2 ML VIAL ONE (14:49)
[2023-08-24] MEDS ORDERED: MORPHINE 4 MG/ML SYR ONE ×3 (14:49→17:15)
--- NOTE | 2023-08-24 15:53 | RAD REPORT ---
EXAM DESCRIPTION: RAD - Knee Right 3 View - 08/24/2023 3:38 pm CLINICAL HISTORY: PAIN COMPARISON: <Comparisons> FINDINGS: Diffuse osteopenia. Small suprapatellar joint effusion is present. Subtle lucency is seen in the inferior aspect of the patella particular surface suspicious for a fracture.
--- NOTE | 2023-08-24 17:15 | RAD REPORT ---
EXAM DESCRIPTION: CT - Knee Right Wo Cont - 08/24/2023 4:55 pm CLINICAL HISTORY: trauma Fall, trauma, knee pain COMPARISON: Knee Right 3 View dated 08/24/2023 FINDINGS: Moderate diffuse osteopenia. No acute fracture or dislocation is seen. Small suprapatellar joint effusion. Soft tissue hematoma is suspected anterior to the proximal tibia measuring 6 x 2 cm. Moderate medial compartment osteoarthritis. No dislocation is seen. IMPRESSION: No acute fracture is evident. All CT scans are performed using dose optimization technique as appropriate and may include automated exposure control or mA/KV adjustment according to patient size.
--- NOTE | 2023-08-24 18:15 | EDPHYS ---
Physician Documentation [facility] Name: Trini Conklin Age: 57 yrs Sex: Female : 1965 Arrival Date: 08/24/2023 Time: 14:16 Bed 2 Private MD: ED Physician Vladimir Reynolds HPI: 08/24 15:12 This 57 yrs old Female presents to ER via EMS with complaints of Fall Injury, Knee Pain.rt 15:12 Patient presents to the ED with injury to the right knee. Patient lost her balance, rt falling hitting her knee. She denies hitting her head or having any near syncopal symptoms or loss of consciousness. Reports of bruising to the knee. Denies concern for other injury at this time. Pain is aching nature, nonradiating, moderate severity, no other aggravating or alleviating factors.. Historical: - Allergies: 14:27 Bees; tm6 14:27 Ceclor; tm6 14:27 Demerol; tm6 14:27 Erythromycin; tm6 14:27 Iodine; tm6 14:27 Keflex; tm6 14:27 Latex; tm6 14:27 PENICILLINS; tm6 14:27 Sulfa (Sulfonamide Antibiotics); tm6 - PMHx: 14:27 intercainal hypertension; Congestive heart failure; tm6 14:27 Seizure; tm6 - PSHx: 14:27 pacemaker; renal stent; tm6 - Immunization history:: Adult Immunizations up to date. - Social history:: Smoking status: Patient denies any tobacco usage or history of. Patient/guardian denies using alcohol. - Family history:: not pertinent. ROS: 15:12 Constitutional: Negative for fever, chills, and weight loss, Cardiovascular: Negative rt for chest pain, palpitations, and edema, Respiratory: Negative for shortness of breath, cough, wheezing, and pleuritic chest pain, Abdomen/GI: Negative for abdominal pain, nausea, vomiting, diarrhea, and constipation, Skin: Negative for injury, rash, and discoloration, Neuro: Negative for headache, weakness, numbness, tingling, and seizure, Psych: Negative for depression, anxiety, suicide ideation, homicidal ideation, and hallucinations, 15:12 MS/extremity: Positive for contusion, pain, Exam: 15:12 Constitutional: This is a well developed, well nourished patient who is awake, alert, rt and in no acute distress. Head/Face: Normocephalic, atraumatic. Chest/axilla: Normal chest wall appearance and motion. Nontender with no deformity. No lesions are appreciated. Cardiovascular: Regular rate and rhythm with a normal S1 and S2. No gallops, murmurs, or rubs. Normal PMI, no JVD. No pulse deficits. Respiratory: Lungs have equal breath sounds bilaterally, clear to auscultation and percussion. No rales, rhonchi or wheezes noted. No increased work of breathing, no retractions or nasal flaring. Abdomen/GI: Soft, non-tender, with normal bowel sounds. No distension or tympany. No guarding or rebound. No evidence of tenderness throughout. Skin: Warm, dry with normal turgor. Normal color with no rashes, no lesions, and no evidence of cellulitis. Neuro: Awake and alert, GCS 15, oriented to person, place, time, and situation. Cranial nerves II-XII grossly intact. Motor strength 5/5 in all extremities. Sensory grossly intact. Cerebellar exam normal. Normal gait. Psych: Awake, alert, with orientation to person, place and time. Behavior, mood, and affect are within normal limits. 15:12 Musculoskeletal/extremity: Bruising with tenderness on right knee anteriorly, no deformities noted, pulses, motor, sensation intact. Vital Signs: 14:25 BP 114 / 66; Pulse 70; Resp 17; Temp 98.1(O); Pulse Ox 100% on R/A; Weight 124 kg; tm6 Height 5 ft. 9 in. ; Pain 4/10; 14:30 Pain 8/10; tm6 14:57 BP 117 / 62; Pulse 70; Resp 18; Pulse Ox 98% on R/A; ld1 15:03 Pain 6/10; tm6 15:33 Pain 8/10; tm6 16:00 BP 114 / 64; Pulse 71; Pulse Ox 98% on R/A; tm6 17:00 BP 109 / 49; Pulse 72; Resp 19; Pulse Ox 99% on R/A; Pain 8/10; tm6 17:26 Pain 7/10; tm6 17:41 BP 100 / 49; Pulse 71; Pulse Ox 100% on R/A; tm6 18:02 BP 99 / 53; Pulse 74; Pulse Ox 100% on R/A; tm6 18:03 Pain 6/10; tm6 14:25 Body Mass Index 40.37 (124.00 kg, 175.26 cm) tm6 14:25 Pain Scale: Adult tm6 14:30 Pain Scale: Adult tm6 15:03 Pain Scale: Adult tm6 15:33 Pain Scale: Adult tm6 17:00 Pain Scale: Adult tm6 17:26 Pain Scale: Adult tm6 18:03 Pain Scale: Adult tm6 MDM: 14:20 Patient medically screened. rt 20:48 Differential diagnosis: Fracture, contusion. Data reviewed: vital signs, nurses notes, rt radiologic studies. I considered the following discharge prescriptions or medication management in the emergency department Medications were administered in the Emergency Department. See MAR. Independent interpretation of the following test(s) in the Emergency Department X-Ray: My interpretation is No fracture seen on interpretation of x-ray images. Test considered but Not performed: Other Details Denies syncopal event, head trauma, loss of consciousness, EKG, labs, CT scan of the head not indicated. Care significantly affected by the following chronic conditions: Congestive Heart Failure. Counseling: I had a detailed discussion with the patient and/or guardian regarding the historical points, exam findings, and any diagnostic results supporting the discharge/admit diagnosis, radiology results, the need for outpatient follow up, to return to the emergency department if symptoms worsen or persist or if there are any questions or concerns that arise at home, Discussed findings of hematoma. 20:50 Counseling: I had a detailed discussion with the patient and/or guardian regarding rt Discussed findings of hematoma with the patient. At this time, there are no immediate interventions needed for. There are no signs of compartment syndrome currently. I discussed return precautions for any signs or symptoms concerning for compartment syndrome. Patient comfortable discharge, will follow-up as an outpatient. Response to treatment: the patient's symptoms have markedly improved after treatment. 08/24 14:21 Order name: Knee Right 3 View XRAY; Complete Time: 15:58 rt 08/24 16:29 Order name: Knee Right Wo Cont; Complete Time: 17:20 EDMS Administered Medications: 15:02 Drug: morphine IVP or IV 4 mg IVP once over 4 mins Route: IVP; Infused Over: 4 mins; tm6 Site: right antecubital; 15:02 Drug: Ondansetron IVP 4 mg IVP once; over 2 minutes Route: IVP; Site: right antecubital;tm6 15:45 Drug: morphine IVP or IV 4 mg IVP once over 4 mins Route: IVP; Infused Over: 4 mins; tm6 Site: right antecubital; 17:08 Drug: morphine IVP or IV 4 mg IVP once over 4 mins Route: IVP; Infused Over: 4 mins; tm6 Site: right antecubital; Disposition Summary: 08/24/23 18:14 Discharge Ordered Notes: Location: Home rt Problem: new rt Symptoms: have improved rt Condition: Stable rt Diagnosis - Mechanical fall rt - Soft tissue hematoma of the right lower extremity rt Followup: rt - With: Private Physician - When: 5 - 6 days - Reason: Discharge Instructions: - Discharge Summary Sheet rt - Hematoma rt Forms: - Medication Reconciliation Form rt - Thank You Letter rt - Antibiotic Education rt - Prescription Opioid Use rt - Patient Portal Instructions rt - Leadership Thank You Letter rt Prescriptions: - Lidoderm 5 % Topical adhesive patch, medicated - apply 1 patch TOPICAL route every 24 hours leave on most painful area for up to rt 12 hrs; 5 patch; Refills: 0, Product Selection Permitted Signatures: Dispatcher [employer] Vladimir Carrion MD MD rt Ridge Alas RN RN tm6 Corrections: (The following items were deleted from the chart) 16:29 16:25 CT RIGHT KNEE WO CONTRAST ordered. NICK ROMERO
--- NOTE | 2023-08-24 18:15 | ER ---
Nurse's Notes [facility] Name: Trini Conklin Age: 57 yrs Sex: Female : 1965 Arrival Date: 08/24/2023 Time: 14:16 Bed 2 Private MD: Diagnosis: Mechanical fall;Soft tissue hematoma of the right lower extremity Presentation: 08/24 14:25 Chief complaint: EMS states: [place] and fell. Coronavirus tm6 screen: Vaccine status: Patient reports receiving the 2nd dose of the covid vaccine. Ebola Screen: Patient negative for fever greater than or equal to 101.5 degrees Fahrenheit, and additional compatible Ebola Virus Disease symptoms Patient denies exposure to infectious person. Patient denies travel to an Ebola-affected area in the 21 days before illness onset. No symptoms or risks identified at this time. Initial Sepsis Screen: Does the patient meet any 2 criteria? No. Patient's initial sepsis screen is negative. Does the patient have a suspected source of infection? No. Patient's initial sepsis screen is negative. Risk Assessment: Do you want to hurt yourself or someone else? Patient reports no desire to harm self or others. Onset of symptoms was August 24, 2023. 14:25 Method Of Arrival: EMS: [facility] tm6 14:25 Acuity: ALEXANDER 4 tm6 Triage Assessment: 14:27 General: Appears in no apparent distress. comfortable, Behavior is calm, cooperative, tm6 appropriate for age. Pain: Complains of pain in right leg Pain currently is 5 out of 10 on a pain scale. EENT: No signs and/or symptoms were reported regarding the EENT system. Neuro: Level of Consciousness is awake, alert, obeys commands, Oriented to person, place, time, situation. Cardiovascular: Capillary refill < 3 seconds Patient's skin is warm and dry. Respiratory: Airway is patent Respiratory effort is even, unlabored, Respiratory pattern is regular, symmetrical. GI: Abdomen is round non-distended. : No signs and/or symptoms were reported regarding the genitourinary system. Derm: No signs and/or symptoms reported regarding the dermatologic system. Musculoskeletal: Reports pain in right leg. Injury Description: patient fell on right knee. Historical: - Allergies: 14:27 Bees; tm6 14:27 Ceclor; tm6 14:27 Demerol; tm6 14:27 Erythromycin; tm6 14:27 Iodine; tm6 14:27 Keflex; tm6 14:27 Latex; tm6 14:27 PENICILLINS; tm6 14:27 Sulfa (Sulfonamide Antibiotics); tm6 - PMHx: 14:27 intercainal hypertension; Congestive heart failure; tm6 14:27 Seizure; tm6 - PSHx: 14:27 pacemaker; renal stent; tm6 - Immunization history:: Adult Immunizations up to date. - Social history:: Smoking status: Patient denies any tobacco usage or history of. Patient/guardian denies using alcohol. - Family history:: not pertinent. Screenin:[facility] ED Fall Risk Assessment (Adult) History of falling in the last 3 months, tm6 including since admission Yes- single mechanical fall (1 pt) Confusion or Disorientation No (0 pts) Intoxicated or Sedated No (0 pts) Impaired Gait No (0 pts) Mobility Assist Device Used No (0 pt) Altered Elimination No (0 pt) Score/Fall Risk Level 3 or more points = High Risk. Abuse screen: Denies threats or abuse. Denies injuries from another. Nutritional screening: No deficits noted. Tuberculosis screening: No symptoms or risk factors identified. Assessment: 14:29 Reassessment: see triage assessment. tm6 15:33 Pain: Complains of pain in right leg. tm6 16:54 Reassessment: patient at CT. tm6 17:09 Pain: Complains of pain in right leg Pain currently is 8 out of 10 on a pain scale. tm6 18:02 Reassessment: Patient appears in no apparent distress at this time. tm6 Vital Signs: 14:25 BP 114 / 66; Pulse 70; Resp 17; Temp 98.1(O); Pulse Ox 100% on R/A; Weight 124 kg; tm6 Height 5 ft. 9 in. ; Pain 4/10; 14:30 Pain 8/10; tm6 14:57 BP 117 / 62; Pulse 70; Resp 18; Pulse Ox 98% on R/A; ld1 15:03 Pain 6/10; tm6 15:33 Pain 8/10; tm6 16:00 BP 114 / 64; Pulse 71; Pulse Ox 98% on R/A; tm6 17:00 BP 109 / 49; Pulse 72; Resp 19; Pulse Ox 99% on R/A; Pain 8/10; tm6 17:26 Pain 7/10; tm6 17:41 BP 100 / 49; Pulse 71; Pulse Ox 100% on R/A; tm6 18:02 BP 99 / 53; Pulse 74; Pulse Ox 100% on R/A; tm6 18:03 Pain 6/10; tm6 14:25 Body Mass Index 40.37 (124.00 kg, 175.26 cm) tm6 14:25 Pain Scale: Adult tm6 14:30 Pain Scale: Adult tm6 15:03 Pain Scale: Adult tm6 15:33 Pain Scale: Adult tm6 17:00 Pain Scale: Adult tm6 17:26 Pain Scale: Adult tm6 18:03 Pain Scale: Adult tm6 ED Course: 14:19 Patient arrived in ED. ld1 14:20 Vladimir Reynolds MD is Attending Physician. rt 14:25 Ridge Alas RN is Primary Nurse. tm6 14:26 Triage completed. tm6 14:27 Arm band placed on right wrist. tm6 14:29 Patient has correct armband on for positive identification. Bed in low position. Call tm6 light in reach. Side rails up X2. Provided Education on: pain rating scale. Client placed on continuous cardiac and pulse oximetry monitoring. NIBP monitoring applied. Door closed. Noise minimized. Warm blanket given. 14:29 No provider procedures requiring assistance completed. Maintain EMS IV. Dressing tm6 intact. Good blood return noted. Site clean \T\ dry. Gauge \T\ site: 20g RAC. 15:40 Knee Right 3 View XRAY In Process Unspecified. EDMS 16:57 Knee Right Wo Cont In Process Unspecified. EDMS 17:29 Warm blanket given. tm6 18:29 IV discontinued, intact, bleeding controlled, No redness/swelling at site. Pressure tm6 dressing applied. Administered Medications: 15:02 Drug: morphine IVP or IV 4 mg IVP once over 4 mins Route: IVP; Infused Over: 4 mins; tm6 Site: right antecubital; 15:02 Drug: Ondansetron IVP 4 mg IVP once; over 2 minutes Route: IVP; Site: right antecubital;tm6 15:45 Drug: morphine IVP or IV 4 mg IVP once over 4 mins Route: IVP; Infused Over: 4 mins; tm6 Site: right antecubital; 17:08 Drug: morphine IVP or IV 4 mg IVP once over 4 mins Route: IVP; Infused Over: 4 mins; tm6 Site: right antecubital; Medication: 14:29 VIS not applicable for this client. tm6 Outcome: 18:14 Discharge ordered by . rt 18:29 Discharged to home via wheelchair, with family, tm6 18:29 Condition: stable 18:29 Discharge instructions given to patient, family, Instructed on discharge instructions, follow up and referral plans. medication usage, Demonstrated understanding of instructions, follow-up care, medications, Prescriptions given X 1, 18:30 Patient left the ED. tm6 Signatures: Dispatcher [employer] EDMS Lashell Lerner RN RN ld1 Vladimir Reynolds MD MD rt Ridge Alas RN RN tm6
[2023-08-24 19:58] VITALS: TEMP 98.1
[2023-08-24 20:10] VITALS: O2SAT 100
[2023-08-24 20:12] VITALS: BP 99/53
== END 2023-08-24 18:30 | disposition home or self-care (01) ==
LOC: ER 14:16
DX: S80.01XA Contusion of right knee, initial encounter (principal); W18.30XA Fall on same level, unspecified, initial encounter
CPT/HCPCS: 73700; 73562; 96375; 96374; 99284; J2405

== ENCOUNTER 2024-08-02 17:55 | Inpatient (IN) | payer OTHER ==
[2024-08-02 19:33] LABS: Absolute Basophils 0.1 K/uL (0-0.5); Absolute Eosinophils 0.2 K/uL (0-0.5); Absolute Lymphocytes (CBC) 2.3 K/uL (0.7-4.9); Absolute Monocytes 0.3 K/uL (0.1-1.3); Absolute Neutrophil 3.6 K/uL (1.8-8.0); Basophils % 1.5 % (0-1.3); Eosinophils % 2.6 % (0-4.4); Hematocrit 39.1 % (36.0-45.0); Hemoglobin 13.2 g/dL (12.0-15.0); MCH 30.6 pg (27.0-35.0); MCHC 33.7 g/dL (32.0-36.0); MCV 90.9 fL (80-100); MPV 8.8 fL (7.6-11.3); Monocytes % 4.7 % (3.3-12.3); Neutrophils % 55.2 % (41.7-73.7); Nucleated Red Blood Cells % 0.2 % (0-0); Platelets 155 thou/uL (152-406); Red Cell Distribution Width 14.6 % (12.1-15.2)
[2024-08-02 19:36] LABS: Calcium Oxalate Crystals- Ur Few /HPF (None Seen); Specific Gravity 1.026 (1.005-1.030); Sqamous Epithelial <5 /HPF (None Seen); Urine Bacteria <20 /HPF (<20); Urine Bilirubin NEGATIVE (Negative); Urine Blood Negative (Negative); Urine Clarity Extremely Turbid (Clear); Urine Color Yellow (Yellow); Urine Culture Reflex Order NOT NEEDED; Urine Glucose NEGATIVE (Negative); Urine Ketones NEGATIVE (Negative); Urine Microscopic Reflex YN ORDER UMIC; Urine Mucus Slight /HPF (None Seen); Urine Nitrite NEGATIVE (Negative); Urine Protein TRACE (Negative); Urine RBC <5 /HPF (None Seen); Urine Urobilinogen 1+ (Normal); Urine WBC <5 /HPF (<5); Urine WBC Clump Occasional /HPF (None Seen); Urine pH 5.5 (5.0-7.0)
[2024-08-02 19:47] LABS: PT Prothrombin Time 12.2 SECONDS (9.4-12.5); Protime INR 1.09
[2024-08-02 19:50] LABS: Albumin 4.1 g/dL (3.4-5.0); Albumin/Globulin Ratio 1.2 (1.1-1.8); Anion Gap 9.1 mEq/L (5.0-15.0); Bilirubin Total 0.6 mg/dL (0.2-1.0); Globulin 3.4 g/dL (2.3-3.5); Potassium 3.1 mEq/L (3.5-5.1); Protein, Total 7.5 g/dL (6.4-8.2)
--- NOTE | 2024-08-02 21:31 | RAD REPORT ---
EXAMINATION: CT Abdomen Pelvis Wo Contrast CLINICAL INDICATION: Female, 58 years old. ABD PAIN TECHNIQUE: CT abdomen and pelvis was performed, without IV contrast, as per department protocol. Axia l, sagittal and coronal reconstructions were obtained. One or more of the following dose reduction techniques were used: Automated exposure control, adjustment of the mA and kV according to the patien t size, and iterative reconstruction. Unless otherwise specified, incidental findings do not require dedicated imaging follow-up. COMPARISON: No prior exam. FINDINGS: The lack of intravenous contrast limits the sensitivity of this exam for evaluation of solid visceral organs, vascular structures, and retroperitoneum. LOWER CHEST: The visualized lung bases are clear. LIVER: Normal in size and contour. No focal lesion. BILIARY SYSTEM: No suspicious abnormalities. SPLEEN: Normal size. No focal lesion. PANCREAS: No mass, ductal dilation, or angelica-pancreatic fluid. ADRENALS: Normal; no mass. KIDNEYS AND URETERS: Normal size and contour. No hydronephrosis. 2-3 mm left lower pole nonobstructin g calculus. URINARY BLADDER: Suboptimally distended, without suspicious findings. GASTROINTESTINAL TRACT: No evidence of bowel obstruction, significant free fluid, free air or abscess . Moderate to large stool burden throughout the colon with steatorrhea APPENDIX: Not visualized, could be surgically removed. LYMPH NODES: No lymphadenopathy. MUSCULOSKELETAL: No acute or suspicious osseous abnormality. ADDITIONAL FINDINGS: None. IMPRESSION: No acute or concerning abnormalities in the abdomen or pelvis, with evaluation limited by lack of IV contrast. Moderate to large stool burden throughout the colon, with steatorrhea. Left lower renal pole 2 to 3 mm nonobstructing calculus.
[2024-08-02] MEDS ORDERED: NA CHLORIDE 0.9% 500 ML ONE (21:39)
--- NOTE | 2024-08-02 22:27 | EDPHYS ---
Physician Documentation [facility] Name: Trini Conklin Age: 58 yrs Sex: Female : 1965 Arrival Date: 08/02/2024 Time: 17:55 Bed 4 Private MD: ISABEL EDGAR ED Physician Hollie Caldera HPI: 08/02 22:35 This 58 yrs old Female presents to ER via Ambulatory with complaints of Pain With kb Urination. 22:35 Pt is a 58 year old female who presents for admission for IV antibiotics. States she kb was hospitalized for 8 days at [place] for a UTI and discharged 4 days ago. PCP got a stool culture back today that was positive for ESBL e.coli so she was sent in for IV antibiotics. . Historical: - Allergies: 18:43 Bees; jb4 18:43 Ceclor; jb4 18:43 Demerol; jb4 18:43 Erythromycin; jb4 18:43 Iodine; jb4 18:43 Keflex; jb4 18:43 Latex; jb4 18:43 PENICILLINS; jb4 18:43 Sulfa (Sulfonamide Antibiotics); jb4 18:43 buprenorphine; jb4 - PMHx: 18:43 Congestive heart failure; intercainal hypertension; Seizure; jb4 - PSHx: 18:43 pacemaker; renal stent; jb4 - Immunization history:: Adult Immunizations up to date. - Infectious Disease History:: Denies. - Social history:: Smoking status: Patient denies any tobacco usage or history of. ROS: 22:35 Constitutional: As per HPI kb Exam: 21:55 Constitutional: This is a well developed, well nourished patient who is awake, alert, kb and in no acute distress. Head/Face: Normocephalic, atraumatic. ENT: Moist Mucous membranes Cardiovascular: Regular rate Respiratory: Respirations even and unlabored. No increased work of breathing. Talking in full sentences Skin: Warm, dry with normal turgor. Normal color. MS/ Extremity: Pulses equal, no cyanosis. Neurovascular intact. Full, normal range of motion. Neuro: Awake and alert, GCS 15, oriented to person, place, time, and situation. 21:55 ECG was reviewed by the Attending Physician. 21:55 Abdomen/GI: Inspection: abdomen appears normal, Bowel sounds: normal, Palpation: soft, in all quadrants, mild abdominal tenderness, in the left lower quadrant, 21:55 Back: CVA tenderness, that is moderate, is noted on the left, Vital Signs: 18:40 BP 114 / 57; Pulse 82; Resp 16; Temp 98.6(O); Pulse Ox 100% on R/A; Weight 98.88 kg jb4 (R); Height 5 ft. 9 in. (R); Pain 8/10; 19:38 BP 96 / 58; Pulse 70; Resp 17; Pulse Ox 100% ; dd2 20:52 BP 103 / 56; Pulse 71; Resp 16; Pulse Ox 98% ; dd2 22:53 BP 98 / 51; Pulse 77; Resp 16; Temp 98.6; Pulse Ox 100% ; dd2 08/03 00:29 BP 161 / 73; Pulse 77; Resp 16; Temp 98(O); Pulse Ox 100% ; dd2 08/02 18:40 Body Mass Index 32.19 (98.88 kg, 175.26 cm) jb 08/02 18:40 Pain Scale: Adult jb4 Pepe Coma Score: 08/02 19:25 Eye Response: spontaneous(4). Motor Response: obeys commands(6). Verbal Response: dd2 oriented(5). Total: 15. 22:54 Eye Response: spontaneous(4). Motor Response: obeys commands(6). Verbal Response: bm8 oriented(5). Total: 15. MDM: 17:57 Medical Screening Exam initiated kb 22:34 Differential diagnosis: uti, pyelonephritis, colitis, diverticulitis. Data reviewed: vital signs, nurses notes. Consideration of Admission/Observation Patient was admitted/placed on observation. Escalation of care including admission/observation considered. Management of patient was discussed with the following: Hospitalist: Lesa accepts pt for admission. Management of patient was discussed with the following: Dr Sosa recommends admission for positive ESBL stool culture. External Records Reviewed: Outpatient labs: positive stool culture for ESBL. Counseling: I had a detailed discussion with the patient and/or guardian regarding the historical points, exam findings, and any diagnostic results supporting the discharge/admit diagnosis, lab results, radiology results, the need for further work-up and treatment in the hospital. 08/02 17:58 Order name: Urinalysis w/ reflexes; Complete Time: 19:43 kb 10/29 18:22 Order name: Blood Culture Adult (2) kb 08/02 18:22 Order name: CBC with Diff; Complete Time: 19:51 kb 08/02 18:22 Order name: CMP; Complete Time: 19:51 kb 08/02 18:22 Order name: Lactate w/ 2H reflex if indic.; Complete Time: 19:54 kb 08/02 18:22 Order name: Protime (+inr); Complete Time: 19:51 kb 08/02 18:22 Order name: Ptt, Activated; Complete Time: 19:51 kb 08/03 00:27 Order name: Basic Metabolic Panel EDMS 08/03 00:27 Order name: Lactate w/ 2H reflex if indic. EDMS 08/03 00:27 Order name: Magnesium EDMS 08/03 00:27 Order name: Phosphorus EDMS 08/03 00:27 Order name: Thyroid Stimulating Hormone EDMS 08/03 00:27 Order name: Urinalysis w/ reflexes EDMS 08/03 00:28 Order name: Stool Culture EDMS 08/02 20:26 Order name: Abdomen ; Complete Time: 21:32 EDMS 08/02 18:22 Order name: EKG; Complete Time: 18:23 kb 08/02 18:22 Order name: EKG - Nurse/Tech; Complete Time: 19:24 kb 08/02 18:22 Order name: IV Saline Lock - Large Bore; Complete Time: 19:24 kb 08/02 18:22 Order name: Labs collected and sent; Complete Time: 19:24 kb 08/02 18:22 Order name: O2 Per Protocol; Complete Time: 19:24 kb 08/02 18:22 Order name: O2 Sat Monitoring; Complete Time: 19:24 kb 08/02 18:22 Order name: Vital Signs; Complete Time: 19:24 kb EC:55 Rate is 72 beats/min. Rhythm is regular. QRS Cascade is Normal. RI interval is normal at kb 200 msec. QRS interval is normal at 110 msec. QT interval is normal at 427 msec. Administered Medications: 21:41 Drug: NS 0.9% IV 500 ml 500 ml IV at 1 bolus once; to be given as a bolus over 30 cm10 minutes Volume: 500 ml; Route: IV; Rate: 1 bolus; Site: right antecubital; 22:11 Follow up: Response: No adverse reaction; IV Status: Completed infusion; IV Intake: dd2 500ml 23:47 Drug: Meropenem IV 1 grams IV at calculated rate once; (mix in NS 100 mL) Route: IV; dd2 Rate: calculated rate; Site: right antecubital; 08/03 00:02 Follow up: Response: No adverse reaction dd2 00:17 Follow up: IV Status: Completed infusion; IV Intake: 100ml dd2 Disposition Summary: 08/02/24 22:27 Hospitalization Ordered Notes: Hospitalization Status: Observation kb Provider: Lew Diaz Location: Telemetry/MedSurg (observation) kb Condition: Stable kb Problem: new kb Symptoms: are unchanged kb Bed/Room Type: Standard Room Assignment: 231(08/03/24 00:37) rv1 Diagnosis - ESBL - stool culture kb Forms: - Medication Reconciliation Form kb - SBAR form kb - Leadership Thank You Letter kb Signatures: Dispatcher [employer] EDIN Iris Landry, CONCRETE ENGINEER-C CONCRETE ENGINEER-Rashidb Timoteo Bryant, RN RN jb4 Gale Mancuso rv1 Fela Severino RN RN cm10 PAOLA FRANKLIN, RN RN dd2 Corrections: (The following items were deleted from the chart) 08/02 18:23 18:23 Abdomen Pelvis W Con+CT.RAD.BRZ ordered. [facility] EDIN 08/03 00:37 08/02 22:27 kb rv1
--- NOTE | 2024-08-02 22:27 | ER ---
Nurse's Notes [facility] Name: Trini Conklin Age: 58 yrs Sex: Female : 1965 Arrival Date: 08/02/2024 Time: 17:55 Bed 4 Private MD: ISABEL EDGAR Diagnosis: ESBL - stool culture Presentation: 08/02 18:40 Chief complaint: Patient states: I had pain with urination 2 weeks ago, was jb4 hospitalized for 8 days, the culture came back and the pain has not gotten anybetter. Coronavirus screen: At this time, the client does not indicate any symptoms associated with coronavirus-19. Ebola Screen: No symptoms or risks identified at this time. Initial Sepsis Screen: Does the patient meet any 2 criteria? No. Patient's initial sepsis screen is negative. Does the patient have a suspected source of infection? No. Patient's initial sepsis screen is negative. Risk Assessment: Do you want to hurt yourself or someone else? Patient reports no desire to harm self or others. Onset of symptoms was August 02, 2024. Transition of care: patient was not received from another setting of care. 18:40 Method Of Arrival: Ambulatory jb4 18:40 Acuity: ALEXANDER 3 jb4 Triage Assessment: 18:43 General: Appears in no apparent distress. comfortable, Behavior is calm, cooperative, jb4 appropriate for age. Pain: Complains of pain in suprapubic area, right lower quadrant and left lower quadrant Pain does not radiate. Pain currently is 8 out of 10 on a pain scale. Neuro: Level of Consciousness is awake, alert, obeys commands, Oriented to person, place, time, situation. Cardiovascular: Patient's skin is warm and dry. Respiratory: Airway is patent Respiratory effort is even, unlabored, Respiratory pattern is regular, symmetrical. Derm: Skin is intact, Skin is pink, warm \T\ dry. Musculoskeletal: Circulation, motion, and sensation intact. Range of motion: intact in all extremities. 18:43 : Reports pain in suprapubic area lower quadrant(s) in lower back. jb4 Historical: - Allergies: 18:43 Bees; jb4 18:43 Ceclor; jb4 18:43 Demerol; jb4 18:43 Erythromycin; jb4 18:43 Iodine; jb4 18:43 Keflex; jb4 18:43 Latex; jb4 18:43 PENICILLINS; jb4 18:43 Sulfa (Sulfonamide Antibiotics); jb4 18:43 buprenorphine; jb4 - PMHx: 18:43 Congestive heart failure; intercainal hypertension; Seizure; jb4 - PSHx: 18:43 pacemaker; renal stent; jb4 - Immunization history:: Adult Immunizations up to date. - Infectious Disease History:: Denies. - Social history:: Smoking status: Patient denies any tobacco usage or history of. Screenin:[facility] ED Fall Risk Assessment (Adult) History of falling in the last 3 months, dd2 including since admission No falls in past 3 months (0 pts) Confusion or Disorientation No (0 pts) Intoxicated or Sedated No (0 pts) Impaired Gait No (0 pts) Mobility Assist Device Used No (0 pt) Altered Elimination No (0 pt) Score/Fall Risk Level 0 - 2 = Low Risk Oriented to surroundings, Maintained a safe environment, Educated pt \T\ family on fall prevention, incl call for assistance when getting out of bed, Assessed \T\ reinforced patient's understanding of fall precautions, Hourly rounding (assess needs \T\ fall precautionary measures) done. Abuse screen: Denies threats or abuse. Nutritional screening: No deficits noted. Tuberculosis screening: No symptoms or risk factors identified. Assessment: 19:29 Reassessment: SEE TRIAGE FOR FULL ASSESSMENT. dd2 22:54 General: Appears in no apparent distress. comfortable, Behavior is calm, cooperative, bm8 appropriate for age. Pain: Complains of pain in abdomen and left lower quadrant and right lower quadrant and suprapubic area Pain currently is 4 out of 10 on a pain scale. Quality of pain is described as burning, aching, crampy. Neuro: No deficits noted. Level of Consciousness is awake, alert, confused, Oriented to person, place, time, situation, Appropriate for age. Cardiovascular: Denies chest pain, Heart tones S1 S2 present. Respiratory: Airway is patent Trachea midline Respiratory effort is even, unlabored, Respiratory pattern is regular, symmetrical, Breath sounds are clear bilaterally. GI: Abdomen is flat, non-distended, Bowel sounds present X 4 quads. Reports lower abdominal pain, Pain is 4 out of 10 on a pain scale. : Reports burning with urination. EENT: No signs and/or symptoms were reported regarding the EENT system. Derm: No signs and/or symptoms reported regarding the dermatologic system. Musculoskeletal: No signs and/or symptoms reported regarding the musculoskeletal system. 22:57 Reassessment: pt provided meal. bm8 Vital Signs: 18:40 BP 114 / 57; Pulse 82; Resp 16; Temp 98.6(O); Pulse Ox 100% on R/A; Weight 98.88 kg jb4 (R); Height 5 ft. 9 in. (R); Pain 8/10; 19:38 BP 96 / 58; Pulse 70; Resp 17; Pulse Ox 100% ; dd2 20:52 BP 103 / 56; Pulse 71; Resp 16; Pulse Ox 98% ; dd2 22:53 BP 98 / 51; Pulse 77; Resp 16; Temp 98.6; Pulse Ox 100% ; dd2 08/03 00:29 BP 161 / 73; Pulse 77; Resp 16; Temp 98(O); Pulse Ox 100% ; dd2 08/02 18:40 Body Mass Index 32.19 (98.88 kg, 175.26 cm) jb4 08/02 18:40 Pain Scale: Adult jb4 [place] Coma Score: 08/02 19:25 Eye Response: spontaneous(4). Motor Response: obeys commands(6). Verbal Response: dd2 oriented(5). Total: 15. 22:54 Eye Response: spontaneous(4). Motor Response: obeys commands(6). Verbal Response: bm8 oriented(5). Total: 15. ED Course: 17:56 Patient arrived in ED. am2 17:56 ISABEL EDGAR is Private Physician. am2 17:57 [facility] Land[facility]-C [facility]. kb 17:57 Hollie Caldera MD is Attending Physician. kb 18:43 Triage completed. jb4 18:43 Arm band placed on right wrist. jb4 19:03 PAOLA FRANKLIN, ILIA is Primary Nurse. dd2 19:19 Initial lab(s) drawn, by me, sent to lab. First set of blood cultures drawn by me, dd2 Urine collected: clean catch specimen, cloudy, EKG done, by ED staff, reviewed by Iris HARVEY. Patient maintains SpO2 saturation greater than 95% on room air. 19:24 Blood Culture Adult (2) Sent. dd2 19:24 CBC with Diff Sent. dd2 19:24 CMP Sent. dd2 19:24 Lactate w/ 2H reflex if indic. Sent. dd2 19:24 Protime (+inr) Sent. dd2 19:24 Ptt, Activated Sent. dd2 19:24 No provider procedures requiring assistance completed. Inserted saline lock: 20 gauge dd2 in right antecubital area, using aseptic technique. Blood collected. Flushed with 10 mL NS. 19:25 Patient has correct armband on for positive identification. Bed in low position. Call dd2 light in reach. Side rails up X 1. Provided Education on: CALL LIGHT, LABS, MEDICATIONS AND RESULT TIMES. Client placed on continuous cardiac and pulse oximetry monitoring. NIBP monitoring applied. monitoring manager on. Door closed. Noise minimized. Warm blanket given. Pillow given. Verbal reassurance given. 19:29 Urinalysis w/ reflexes Sent. dd2 20:30 Abdomen In Process Unspecified. EDMS 22:00 Report received from ilia Chahal. bm8 22:27 Lew Diaz MD is Hospitalizing Provider. kb 22:54 Patient admitted, IV remains in place. bm8 Administered Medications: 21:41 Drug: NS 0.9% IV 500 ml 500 ml IV at 1 bolus once; to be given as a bolus over 30 cm10 minutes Volume: 500 ml; Route: IV; Rate: 1 bolus; Site: right antecubital; 22:11 Follow up: Response: No adverse reaction; IV Status: Completed infusion; IV Intake: dd2 500ml 23:47 Drug: Meropenem IV 1 grams IV at calculated rate once; (mix in NS 100 mL) Route: IV; dd2 Rate: calculated rate; Site: right antecubital; 08/03 00:02 Follow up: Response: No adverse reaction dd2 00:17 Follow up: IV Status: Completed infusion; IV Intake: 100ml dd2 Medication: 08/02 19:25 VIS not applicable for this client. dd2 Intake: 22:11 IV: 500ml; Total: 500ml. dd2 08/03 00:17 IV: 100ml; Total: 600ml. dd2 Outcome: 08/02 22:27 Decision to Hospitalize by Provider. kb 08/03 01:45 Admitted to Med/surg accompanied by tech, via wheelchair, room 231, with chart, dd2 Condition: stable Instructed on the need for admit, 01:57 Patient left the ED. dd2 Signatures: Dispatcher [employer] Iris Perdue, WES ESCOTO-Timoteo Nunn, RN RN jb4 Mini Hdz am2 Fela Severino RN RN cm10 Dwayne Infante RN RN bm8 PAOLA FRANKLIN RN RN dd2 Corrections: (The following items were deleted from the chart) 08/02 23:02 22:53 BP 98 / 51; Pulse 77bpm; Resp 16bpm; Pulse Ox 100%; dd2 dd2
[2024-08-02] MEDS ORDERED: Meropenem 1000 MG/VIAL IV ONE (23:35)
[2024-08-02] MEDS ORDERED: NA CHLORIDE 0.9% 100 ML ONE (23:35)
[2024-08-03] MEDS ORDERED: ACETAMINOPHEN 325 MG TABLET PO PRN ×2 (00:22→04:53)
--- NOTE | 2024-08-03 00:33 | P.HP ---
Certification for Inpatient With expected LOS: <2 Midnights Practitioner: I am a practitioner with admitting privileges, knowledge of patient current condition, hospital course, and medical plan of care. Services: Services provided to patient in accordance with Admission requirements found in Title 42 Section 412.3 of the Code of Federal Regulations Patient History Date of Service: 08/03/24 Reason for admission: positive ESBL stool culture History of Present Illness: 58-year-old woman presented to the ED with a form stating she has a positive stool culture for ESBL and lower abdominal pain that began yesterday. The patient states on 07/26/2024 she was hospitalized at an outside facility for urinary tract infection and possible stool infection. She states she was started on IV meropenem on 07/26/24 and finished on 07/30/2024. Patient states she did well over the weekend, but yesterday she began having lower abdomen abdominal pain concerning for another UTI. Patient states she also has bi lateral flank pain that began yesterday. She has not attempted anything to improve her pain. An urinalysis was performed in the emergency room and revealed no evidence of a UTI. Urine culture still pending. Also, a CT of abdomen and pelvis without contrast was performed today and revealed no acute abnormalities and a large stool burden. The patient denies diarrhea and constipation. She states she has a nonbloody bowel movement daily. The patient also states she is highly allergic to "almost everything", and is concerned about anaphylaxis from IV antibiotics. - Past Medical/Surgical History -: pacemaker for bradycardia -: pacemaker placement - Social History Smoking Status: Unknown if ever smoked Alcohol use: No Review of Systems Gastrointestinal: Abdominal Pain (b/l lower abd quadrants) Genitourinary: Dysuria Musculoskeletal: Pedal edema Physical Examination - Vital Signs Temperature: 98.6 F Blood Pressure: 130/78 Pulse: 67 Respirations: 18 Pulse Ox (%): 100 - Physical Exam General: Alert, Oriented x3 HEENT: Atraumatic, Normocephalic Neck: JVD not distended Respiratory: Normal air movement Cardiovascular: No gallops, No rubs, No murmurs Gastrointestinal: Normal bowel sounds, Non-distended, Tenderness (b/l abd lower quadrants, b/l flank pain) Musculoskeletal: Swelling, Tenderness (b/l feet edematous, and tender to touch) Neurological: Normal strength at 5/5 x4 extr, Sensation intact Urinary: Other (adult diaper) - Studies Laboratory Data (last 24 hrs) 08/02/24 08/02/24 08/02/24 19:19 19:19 19:19 WBC 6.50 Hgb 13.2 Hct 39.1 Plt Count 155 PT 12.2 INR 1.09 APTT 31.0 Sodium 138 Potassium 3.1 L BUN 28 H Creatinine 1.05 H Glucose 61 L Total Bilirubin 0.6 AST 51 H ALT 144 H Alkaline Phosphatase 128 H Assessment and Plan - Problems (Diagnosis) (1) Stool contents finding, abnormal Current Visit: Yes Status: Acute - Plan Stool culture abnormality: Admit to floor Continue with IV meropenem Repeat stool culture Urine culture still pending - Advance Directives Does patient have a Living Will: No Does patient have a Durable POA for Healthcare: No - Code Status/Comfort Care Code Status: Full Code
[2024-08-03 03:36] VITALS: BMI 32.1
[2024-08-03] MEDS ORDERED: MORPHINE *EXTENDED RELEASE* 15 MG TAB PO PRN (03:52)
[2024-08-03 06:22] LABS: Anion Gap 7.7 mEq/L (5.0-15.0); Magnesium 2.2 mg/dL (1.6-2.4); Phosphorus 3.7 mg/dL (2.5-4.9); Potassium 3.7 mEq/L (3.5-5.1)
[2024-08-03 06:23] LABS: Thyroid Stimulating Hormone 11.6 uIU/mL (0.358-3.740)
[2024-08-03] MEDS: MINERAL OIL 30 ML UCUP PO ONE (08:15)
[2024-08-03] MEDS: BISACODYL E.C. 5 MG TAB PO ONE (08:15)
--- NOTE | 2024-08-03 08:17 | P.PN ---
Date of Service: 08/03/24 subjective Admitted after midnight, CT shows constipation, stool softeners review of symptoms 10 point review of system negative unless listed in HPI Physical Examination - Vital Signs Reviewed - Physical Exam General: Alert, Oriented x3 HEENT: Atraumatic, Normocephalic Neck: JVD not distended Respiratory: Normal air movement Cardiovascular: No gallops, No rubs, No murmurs Gastrointestinal: Normal bowel sounds, Non-distended, Tenderness (b/l abd lower quadrants, b/l flank pain) Musculoskeletal: Swelling, Tenderness (b/l feet edematous, and tender to touch) Neurological: Normal strength at 5/5 x4 extr, Sensation intact Assessment and Plan Acute cystitis, ESBL of the urine On meropenem Previously treated with meropenem IV meropenem on 07/26/24 and finished on 07/30/2024 Bilateral flank pain abdominal pain Constipation As needed analgesia emergency room and revealed no evidence of a UTI. Urine culture still pending CT of the abdomen no acute abnormalities and a large stool burden Stool softeners added - Advance Directives Does patient have a Living Will: No Does patient have a Durable POA for Healthcare: No - Code Status/Comfort Care Code Status: Full Code Time spent with patient 35
[2024-08-03] MEDS: ENOXAPARIN 40 MG/0.4 ML SQ SCH (08:31)
[2024-08-03] MEDS: Meropenem 1,000 MG in NA CHLORIDE 0.9% 100 ML IV SCH ×2 (08:31→17:13)
[2024-08-03] MEDS: POTASSIUM CL SA 10 MEQ TAB PO ONE (08:32)
[2024-08-03] MEDS: LEVOTHYROXINE SOD 0.1 MG TAB PO SCH (08:32)
[2024-08-03] MEDS: MORPHINE *EXTENDED RELEASE* 15 MG TAB PO PRN (08:32)
[2024-08-03] MEDS: FLUOXETINE 20 MG CAP PO SCH (08:33)
[2024-08-03] MEDS: BUSPIRONE HCL 15 MG TABLET PO SCH (08:41)
[2024-08-03] MEDS: FUROSEMIDE 40 MG TABLET PO SCH (10:31)
[2024-08-03] MEDS: TOPIRAMATE 25 MG TAB PO SCH (12:40)
[2024-08-03] MEDS: TOPIRAMATE 100 MG TAB PO SCH (12:40)
[2024-08-03] MEDS: methocarbamoL 750 MG TAB PO PRN (12:40)
--- NOTE | 2024-08-03 14:48 | EKG ---
Test Date: 2024-08-02 Test Time: 19:15:37 Pbx Wire Chief: FELIPE MEASUREMENT RESULTS: Intervals: Rate: 72 CA: 200 QRSD: 110 QT: 390 QTc: 427 [place]: P: 0 CA: 200 QRS: -8 T: 22 INTERPRETIVE STATEMENTS: Electronic atrial pacemaker Compared to ECG 01/13/2023 18:35:52 Sinus rhythm no longer present First degree AV block no longer present Myocardial infarct finding no longer present Electronically Signed On 08-03-24 14:45:53 CDT by Pete Millan
[2024-08-03] MEDS: ATORVASTATIN 40 MG TAB PO SCH (21:23)
[2024-08-03] MEDS: ZOLPIDEM TARTRATE 5 MG TABLET PO PRN (21:28)
[2024-08-04 02:14] VITALS: O2SAT 97
[2024-08-04 05:39] LABS: Anion Gap 6.9 mEq/L (5.0-15.0); Potassium 3.9 mEq/L (3.5-5.1)
[2024-08-04] MEDS: POTASSIUM CL SA 10 MEQ TAB PO ONE (09:05)
[2024-08-04] MEDS: SPIRONOLACTONE 25 MG TABLET PO SCH (09:21)
[2024-08-04] MEDS: ONDANSETRON 4 MG (ODT) TAB PO PRN (09:41)
[2024-08-04] MEDS: HYDROMORPHONE HCL 1 MG/ML INJ IV ONE ×2 (14:50→17:53)
[2024-08-04] MEDS: ROPINIROLE HCL 1 MG TAB PO SCH (21:15)
[2024-08-05 07:55] LABS: Anion Gap 6.1 mEq/L (5.0-15.0); Potassium 4.1 mEq/L (3.5-5.1)
[2024-08-05 10:09] LABS: Absolute Basophils 0.1 K/uL (0-0.5); Absolute Eosinophils 0.4 K/uL (0-0.5); Absolute Monocytes 0.3 K/uL (0.1-1.3); Absolute Neutrophil 2.3 K/uL (1.8-8.0); Basophils % 1.4 % (0-1.3); Eosinophils % 9.1 % (0-4.4); Hematocrit 34.3 % (36.0-45.0); Hemoglobin 11.4 g/dL (12.0-15.0); Lymphocytes % 24.6 % (15.3-44.8); MCH 30.5 pg (27.0-35.0); MCHC 33.4 g/dL (32.0-36.0); MCV 91.4 fL (80-100); MPV 9.2 fL (7.6-11.3); Monocytes % 7.1 % (3.3-12.3); Neutrophils % 57.8 % (41.7-73.7); Nucleated Red Blood Cells % 0.1 % (0-0); Platelets 104 thou/uL (152-406); RBC Red Blood Cell Count 3.75 M/uL (3.86-4.86)
[2024-08-05 10:25] LABS: Anion Gap 6.6 mEq/L (5.0-15.0); Magnesium 2.1 mg/dL (1.6-2.4); Potassium 3.6 mEq/L (3.5-5.1)
[2024-08-05] MEDS: POTASSIUM CL SA 10 MEQ TAB PO ONE (11:29)
--- NOTE | 2024-08-05 13:18 | P.DS ---
Admission Date: 08/03/24 Discharge Date: 08/05/24 Disposition: ROUTINE DISCHARGE Discharge Condition: GOOD Reason for Admission: positive ESBL stool culture Brief History of Present Illness: 58-year-old woman presented to the ED with a form stating she has a positive stool culture for ESBL and lower abdominal pain that began yesterday. The patient states on 07/26/2024 she was hospitalized at an outside facility for urinary tract infection and possible stool infection. She states she was started on IV meropenem on 07/26/24 and finished on 07/30/2024. Patient states she did well over the weekend, but yesterday she began having lower abdomen abdominal pain concerning for another UTI. Patient states she also has bilateral flank pain that began yesterday. She has not attempted anything to improve her pain. An urinalysis was performed in the emergency room and revealed no evidence of a UTI. Urine culture still pending. Also, a CT of abdomen and pelvis without contrast was performed today and revealed no acute abnormalities and a large stool burden. The patient denies diarrhea and constipation. She states she has a nonbloody bowel movement daily. The patient also states she is highly allergic to "almost everything", and is concerned about anaphylaxis from IV antibiotics. - Physical Exam General: Alert, Oriented x3 HEENT: Atraumatic, Normocephalic Neck: JVD not distended Respiratory: Normal air movement Cardiovascular: No gallops, No rubs, No murmurs Gastrointestinal: Normal bowel sounds, Non-distended, Tenderness Musculoskeletal: Swelling, Tenderness (b/l feet edematous Neurological: Normal strength at 5/5 x4 extr, Sensation intact Hospital Course: 58-year-old woman presented to the ED with a form stating she has a positive stool culture for ESBL and lower abdominal pain that began yesterday. The patient states on 07/26/2024 she was hospitalized at an outside facility for urinary tract infection and possible stool infection. She states she was starte d on IV meropenem on 07/26/24 and finished on 07/30/2024. Patient states she did well over the weekend, but yesterday she began having lower abdomen abdominal pain concerning for another UTI. She was treated with IV meropenem, had a positive stool culture, tolerating diet, stable to discharge home on p.o. antibiotic Discharge home on p.o. Levaquin Microbiology stool culture-negative Assessment Gram-negative in the stool History of UTI, treated with meropenem while inpatient Continue home medicines as previously prescribed GOAL: Clear understanding of disease process INSTRUCTIONS: Physician Discharge Instructions: -Follow-up with PCP in 1 to 2 weeks -Please call Dr. Diaz at [phone] if any questions regarding hospital stay -Please call nursing station at [phone] if any nursing or medication questions -Return to the emergency room if symptoms worsen Diet: ADA, low sodium Activity: Fall precautions Vital Signs/Physical Exam: Temp Pulse Resp BP Pulse Ox 97.9 F 70 16 102/51 L 97 08/05/24 08:00 08/05/24 09:24 08/05/24 09:23 08/05/24 09:24 08/05/24 09:23 Laboratory Data at Discharge: WBC 3.90 thou/uL (4.3-10.9) L 08/05/24 09:50 Hgb 11.4 g/dL (12.0-15.0) L 08/05/24 09:50 Hct 34.3 % (36.0-45.0) L 08/05/24 09:50 Plt Count 104 thou/uL (152-406) L 08/05/24 09:50 PT 12.2 SECONDS (9.4-12.5) 08/02/24 19:19 INR 1.09 08/02/24 19:19 APTT 31.0 SECONDS (24.3-36.9) 08/02/24 19:19 Sodium 142 mEq/L (136-145) 08/05/24 09:50 Potassium 3.6 mEq/L (3.5-5.1) 08/05/24 09:50 BUN 18 mg/dL (7-18) 08/05/24 09:50 Creatinine 0.66 mg/dL (0.55-1.02) 08/05/24 09:50 Glucose 97 mg/dL (74-106) 08/05/24 09:50 Phosphorus 3.7 mg/dL (2.5-4.9) 08/03/24 05:39 Magnesium 2.1 mg/dL (1.6-2.4) 08/05/24 09:50 Total Bilirubin 0.6 mg/dL (0.2-1.0) 08/02/24 19:19 AST 51 U/L (15-37) H 08/02/24 19:19 ALT 144 U/L (13-56) H 08/02/24 19:19 Alkaline Phosphatase 128 U/L (45-117) H 08/02/24 19:19 Home Medications: Apixaban [Eliquis] 5 mg PO BID 08/03/24 Atogepant [Qulipta] 60 mg PO DAILY PRN 08/03/24 Atorvastatin Calcium [Lipitor] 40 mg PO BEDTIME 08/03/24 Buspirone HCl [Buspar] 30 mg PO BID 08/03/24 Fluoxetine HCl [Prozac] 40 mg PO DAILY 08/03/24 Furosemide [Lasix] 40 mg PO DAILY 08/03/24 Levothyroxine Sodium [Synthroid] 200 mcg PO DAILY 08/03/24 Morphine 15mg 15 mg PO Q8HP PRN 08/03/24 Ropinirole HCl [Requip] 1 mg PO DAILY 08/03/24 Ropinirole HCl [Requip] 2 mg PO BEDTIME 08/03/24 Spironolactone [Aldactone] 25 mg PO DAILY 08/03/24 Topiramate [Topamax] 3 tab PO BID 08/03/24 methocarbamoL [Methocarbamol] 750 mg PO Q12HP PRN 08/03/24 Acidophilus/Bifido Longum [Lactobacillus Capsule] 16 mg PO DAILY 10 Days #10 tab 08/05/24 Fructooligosaccharides [Prebiotic Fiber] 2.5 gm PO DAILY #30 tab.chew 08/05/24 New Medications: Acidophilus/Bifido Longum [Lactobacillus Capsule] 16 mg PO DAILY 10 Days #10 tab Fructooligosaccharides [Prebiotic Fiber] 2.5 gm PO DAILY #30 tab.chew Physician Discharge Instructions: 58-year-old woman presented to the ED with a form stating she has a positive stool culture for ESBL and lower abdominal pain that began yesterday. The patient states on 07/26/2024 she was hospitalized at an outside facility for urinary tract infection and possible stool infection. She states she was started on IV meropenem on 07/26/24 and finished on 07/30/2024. Patient states she did well over the weekend, but yesterday she began having lower abdomen abdominal pain concerning for another UTI. She was treated with IV meropenem, had a positive stool culture, tolerating diet, stable to discharge home on p.o. antibiotic Discharge home on p.o. Levaquin Microbiology stool culture-negative Assessment Gram-negative in the stool History of UTI, treated with meropenem while inpatient Continue home medicines as previously prescribed GOAL: Clear understanding of disease process INSTRUCTIONS: Physician Discharge Instructions: -Follow-up with PCP in 1 to 2 weeks -Please call Dr. Diaz at [phone] if any questions regarding hospital stay -Please call nursing station at [phone] if any nursing or medication questions -Return to the emergency room if symptoms worsen Diet: ADA, low sodium Activity: Fall precautions Diet: AHA Activity: Fall precautions Followup: Sanjuana Rock FNP [Primary Care Provider] - 1-2 Weeks Time spent managing pt's care (in minutes): 55
[2024-08-05 14:21] VITALS: BP 96/46; TEMP 97.3
--- NOTE | 2024-08-07 18:56 | P.PN ---
Date of Service: 08/04/[address] shows constipation, stool softeners review of symptoms 10 point review of system negative unless listed in HPI Physical Examination - Vital Signs Reviewed - Physical Exam General: Alert, Oriented x3 HEENT: Atraumatic, Normocephalic Neck: JVD not distended Respiratory: Normal air movement Cardiovascular: No gallops, No rubs, No murmurs Gastrointestinal: Normal bowel sounds, Non-distended, Tenderness (b/l abd lower quadrants, b/l flank pain) Musculoskeletal: Swelling, Tenderness (b/l feet edematous, and tender to touch) Neurological: Normal strength at 5/5 x4 extr, Sensation intact Assessment and Plan Acute cystitis, ESBL of the urine improved E. coli of the stool improved On meropenem Previously treated with meropenem IV meropenem on 07/26/24 and finished on 07/30/2024 Patient refused Levaquin at this discharge Bilateral flank pain improved abdominal pain improved Constipation patient improved As needed analgesia emergency room and revealed no evidence of a UTI. Urine culture still pending CT of the abdomen no acute abnormalities and a large stool burden Stool softeners added - Advance Directives Does patient have a Living Will: No Does patient have a Durable POA for Healthcare: No - Code Status/Comfort Care Code Status: Full Code Time spent with patient 35
== END 2024-08-05 16:51 | disposition home or self-care (01) | DRG 690 ==
LOC: ER 17:55 → ERHOLD 08-03 00:22 → 2ND 08-03 01:37
PROVIDERS: ADMIT Hospitalist; ATTEND Hospitalist
DX: N30.00 Acute cystitis without hematuria (principal); Z16.12 Extended spectrum beta lactamase (ESBL) resistance; K59.00 Constipation, unspecified; B96.20 Unspecified Escherichia coli [E. coli] as the cause of diseases classified elsewhere; Z88.0 Allergy status to penicillin; Z88.5 Allergy status to narcotic agent; Z88.2 Allergy status to sulfonamides; Z95.0 Presence of cardiac pacemaker; Z88.1 Allergy status to other antibiotic agents; Z79.01 Long term (current) use of anticoagulants; Z91.040 Latex allergy status; Z79.890 Hormone replacement therapy; Z79.899 Other long term (current) drug therapy
CPT/HCPCS: 36415; 74176; 80048; 80053; 81001; 82947; 83605; 83735; 84100; 84439; 84443; 85025; 85610; 85730; 87040; 87045; 87046; 93005; 96365; 99285; J1171; J1650; J2185; J7040; Q0162

== ENCOUNTER 2025-01-17 14:34 | Inpatient (IN) | payer OTHER ==
[2025-01-17] MEDS ORDERED: ASPIRIN 81 MG CHEWABLE TABLET ONE (15:57)
--- NOTE | 2025-01-17 16:19 | RAD REPORT ---
EXAMINATION: ONE VIEW CHEST XR CLINICAL INDICATION: CHEST PAIN TECHNIQUE: Frontal chest projection is submitted. Examination is limited by patient positioning and t echnique. COMPARISON: 01/13/2023 FINDINGS: Mild interstitial pulmonary edema is seen. The heart is upper limit of normal in size. No displaced f ractures identified. Dual-lead pacer device noted. IMPRESSION: No acute intrathoracic abnormalities.
[2025-01-17 16:28] LABS: Absolute Eosinophils 0.1 K/uL (0-0.5); Absolute Lymphocytes (CBC) 1.2 K/uL (0.7-4.9); Absolute Monocytes 0.3 K/uL (0.1-1.3); Absolute Neutrophil 2.1 K/uL (1.8-8.0); Basophils % 1.3 % (0-1.3); Eosinophils % 1.8 % (0-4.4); Hematocrit 36.5 % (36.0-45.0); Hemoglobin 12.5 g/dL (12.0-15.0); Lymphocytes % 32.7 % (15.3-44.8); MCH 33.1 pg (27.0-35.0); MCHC 34.2 g/dL (32.0-36.0); MCV 96.5 fL (80-100); MPV 8.8 fL (7.6-11.3); Monocytes % 8.3 % (3.3-12.3); Neutrophils % 55.9 % (41.7-73.7); Nucleated Red Blood Cells % 0.1 % (0-0); Platelets 110 thou/uL (152-406); RBC Red Blood Cell Count 3.79 M/uL (3.86-4.86); Red Cell Distribution Width 13.9 % (12.1-15.2)
[2025-01-17 16:47] LABS: Magnesium 2.1 mg/dL (1.6-2.4)
[2025-01-17 17:01] LABS: Protime INR 0.96
--- NOTE | 2025-01-17 18:02 | ER ---
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 Coronavirus iw screen: At this time, the client does not indicate any symptoms associated with coronavirus-19. Ebola Screen: No symptoms or risks identified at this time. Initial Sepsis Screen: Does the patient meet any 2 criteria? No. Patient's initial sepsis screen is negative. Does the patient have a suspected source of infection? No. Patient's initial sepsis screen is negative. Risk Assessment: Do you want to hurt yourself or someone else? Patient reports no desire to harm self or others. Onset of symptoms was January 17, 2025. 14:55 Method Of Arrival: Ambulatory iw 14:55 Acuity: ALEXANDER 3 iw Triage Assessment: 15:30 General: Appears in no apparent distress. uncomfortable, Behavior is cooperative, bp appropriate for age, anxious. Pain: Complains of pain in chest. EENT: No deficits noted. Neuro: No deficits noted. Cardiovascular: Reports chest pain. Respiratory: No deficits noted. GI: No signs and/or symptoms were reported involving the gastrointestinal system. : No signs and/or symptoms were reported regarding the genitourinary system. Derm: No deficits noted. Musculoskeletal: No deficits noted. Historical: - Allergies: 14:56 Bees; iw 14:56 buprenorphine; iw 14:56 Ceclor; iw 14:56 Demerol; iw 14:56 Erythromycin; iw 14:56 Iodine; iw 14:56 Keflex; iw 14:56 Latex; iw 14:56 PENICILLINS; iw 14:56 Sulfa (Sulfonamide Antibiotics); iw - PMHx: 14:56 Congestive heart failure; intercainal hypertension; Seizure; iw - PSHx: 14:56 renal stent; pacemaker; iw - Immunization history:: Adult Immunizations up to date. - Infectious Disease History:: Denies. - Social history:: Smoking status: Patient denies any tobacco usage or history of. Screenin:31 [facility] ED Fall Risk Assessment (Adult) History of falling in the last 3 months, bp including since admission No falls in past 3 months (0 pts) Confusion or Disorientation No (0 pts) Intoxicated or Sedated No (0 pts) Impaired Gait No (0 pts) Mobility Assist Device Used No (0 pt) Altered Elimination No (0 pt) Score/Fall Risk Level 0 - 2 = Low Risk Oriented to surroundings. Abuse screen: Denies threats or abuse. Denies injuries from another. Nutritional screening: No deficits noted. Tuberculosis screening: No symptoms or risk factors identified. Assessment: 15:31 General: Appears distressed, Behavior is cooperative, appropriate for age, anxious. bp Pain: Pain does not radiate. Pain began 1 hour ago. 16:16 Reassessment: Patient appears in no apparent distress at this time. Patient is alert, bp oriented x 3, equal unlabored respirations, skin warm/dry/pink. 18:09 Reassessment: ADMIT INITIATED. bp Vital Signs: 14:55 BP 109 / 59; Pulse 76; Resp 19; Temp 98.4; Pulse Ox 100% on R/A; Weight 99.79 kg; iw Height 5 ft. 9 in. ; Pain 7/10; 16:16 BP 106 / 58; Pulse 73; Resp 16; Pulse Ox 99% ; bp 17:57 BP 148 / 78; Pulse 70; Resp 15; Pulse Ox 100% ; bp 14:55 Body Mass Index 32.49 (99.79 kg, 175.26 cm) iw 14:55 Pain Scale: Adult iw ED Course: 14:35 Patient arrived in ED. im 14:42 Iris Landry FNP-C is PSYCHIATRICP. kb 14:42 Hollie Caldera MD is Attending Physician. kb 14:56 Triage completed. iw 14:56 Arm band placed on. iw 15:29 Patrick Russell, RN is Primary Nurse. bp 15:31 Patient has correct armband on for positive identification. Client placed on continuous bp cardiac and pulse oximetry monitoring. NIBP monitoring applied. 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 Pulse ox on. NIBP on. 15:31 Patient maintains SpO2 saturation greater than 95% on room air. bp 16:03 XRAY Chest (1 view) In Process Unspecified. EDMS 16:16 Initial lab(s) drawn, by me, sent to lab. Inserted saline lock: 20 gauge in left bp antecubital area, using aseptic technique. Blood collected. Flushed with 10 mL NS. 18:01 Chinedu Perkins is Hospitalizing Provider. kb 01/18 05:58 Provided Education on: need for admission. bm8 05:58 No provider procedures requiring assistance completed. Patient admitted, IV remains in bm8 place. Administered Medications: 01/17 15:45 Drug: Aspirin PO Chewable Tablet 324 mg PO once; 81 mg tablets x 4 Route: PO; bp 01/18 05:59 Follow up: Response: No adverse reaction bm8 Medication: 01/17 15:31 VIS not applicable for this client. bp Outcome: 18:01 Decision to Hospitalize by Provider. kb 01/18 05:58 Admitted to ER Hold. [facility]. bm8 Condition: stable Instructed on the need for admit, Demonstrated understanding of follow-up care, medications, 14:31 Patient left the ED. ph Signatures: Dispatcher [employer] EDMS Iris Landry, BEAD INSPECTOR-C BEAD INSPECTOR-CkManju Steinberg RN RN Sandy Arriaga RN RN Patrick Russell RN RN Saranya Willis Brad, RN RN bm8 Corrections: (The following items were deleted from the chart) 01/17 18:08 18:07 Discharged to home ambulatory, bp bp 18:08 18:07 Condition: stable bp bp 18:08 18:07 Discharge instructions given to patient, Instructed on discharge instructions, bp follow up and referral plans. Demonstrated understanding of instructions, follow-up care, bp 18:09 18:07 No provider procedures requiring assistance completed. bp bp 18:09 18:07 IV discontinued, intact, bleeding controlled, No redness/swelling at site. bp Pressure dressing applied, bp
--- NOTE | 2025-01-17 18:02 | EDPHYS ---
Physician Documentation [facility] Name: Trini Conklin Age: 59 yrs Sex: Female : 1965 Arrival Date: 01/17/2025 Time: 14:34 Bed 16 Private MD: ED Physician Hollie Caldera HPI: 01/17 14:47 This 59 yrs old Female presents to ER via Unassigned with complaints of Chest Pain. 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 States she was laying in bed, had a sharp pain to left chest and has had dull, aching pain since then. Reports nausea and slight shortness of breath. . Historical: - Allergies: 14:56 Bees; iw 14:56 buprenorphine; iw 14:56 Ceclor; iw 14:56 Demerol; iw 14:56 Erythromycin; iw 14:56 Iodine; iw 14:56 Keflex; iw 14:56 Latex; iw 14:56 PENICILLINS; iw 14:56 Sulfa (Sulfonamide Antibiotics); iw - PMHx: 14:56 Congestive heart failure; intercainal hypertension; Seizure; iw - PSHx: 14:56 renal stent; pacemaker; iw - Immunization history:: Adult Immunizations up to date. - Infectious Disease History:: Denies. - Social history:: Smoking status: Patient denies any tobacco usage or history of. ROS: 14:47 Constitutional: As per HPI kb Exam: 14:47 Constitutional: This is a well developed, well nourished patient who is awake, alert, kb and in no acute distress. Head/Face: Normocephalic, atraumatic. ENT: Moist Mucous membranes Cardiovascular: Regular rate Respiratory: Respirations even and unlabored. No increased work of breathing. Talking in full sentences Abdomen/GI: Soft, non-tender. No distention Skin: Warm, dry with normal turgor. Normal color. MS/ Extremity: Pulses equal, no cyanosis. Neurovascular intact. Full, normal range of motion. Neuro: Awake and alert, GCS 15, oriented to person, place, time, and situation. 14:57 ECG was reviewed by the Attending Physician. kb Vital Signs: 14:55 BP 109 / 59; Pulse 76; Resp 19; Temp 98.4; Pulse Ox 100% on R/A; Weight 99.79 kg; iw Height 5 ft. 9 in. ; Pain 7/10; 16:16 BP 106 / 58; Pulse 73; Resp 16; Pulse Ox 99% ; bp 17:57 BP 148 / 78; Pulse 70; Resp 15; Pulse Ox 100% ; bp 14:55 Body Mass Index 32.49 (99.79 kg, 175.26 cm) iw 14:55 Pain Scale: Adult iw MDM: 14:42 Medical Screening Exam initiated kb 17:07 Data reviewed: vital signs, nurses notes. kb 17:08 Differential diagnosis: acute mi, arrhythmia, abnormal electrolytes. Consideration of kb Admission/Observation Patient was admitted/placed on observation. Escalation of care including admission/observation considered. Management of patient was discussed with the following: Hospitalist: Hospitalist team. Care significantly affected by the following chronic conditions: Hypertension, Congestive Heart Failure. Counseling: I had a detailed discussion with the patient and/or guardian regarding the historical points, exam findings, and any diagnostic results supporting the discharge/admit diagnosis, lab results, radiology results, the need for further work-up and treatment in the hospital. ED course: HEART score 4. 01/17 14:47 Order name: Basic Metabolic Panel; Complete Time: 16:48 kb 01/17 14:47 Order name: CBC with Diff; Complete Time: 16:48 kb 01/17 14:47 Order name: Magnesium; Complete Time: 16:48 kb 01/17 14:47 Order name: NT PRO-BNP; Complete Time: 16:48 kb 01/17 14:47 Order name: PT-INR; Complete Time: 17:06 kb 01/17 14:47 Order name: Troponin HS; Complete Time: 16:48 kb 01/17 18:42 Order name: Basic Metabolic Panel EDMS 01/17 18:42 Order name: Basic Metabolic Panel EDMS 01/17 18:42 Order name: CBC with Automated Diff EDMS 01/17 18:42 Order name: CBC with Automated Diff EDMS 01/17 18:42 Order name: Magnesium EDMS 01/17 18:42 Order name: Magnesium EDMS 01/17 18:42 Order name: Phosphorus EDMS 01/17 18:42 Order name: Phosphorus EDMS 01/17 18:42 Order name: Troponin High Sensitivity EDMS 01/17 18:42 Order name: Troponin High Sensitivity EDMS 01/17 18:42 Order name: Troponin High Sensitivity EDMS 01/17 19:13 Order name: Hemoglobin A1c EDMS 01/17 19:13 Order name: Hemoglobin A1c EDMS 01/17 19:13 Order name: Lipid Profile EDMS 01/17 19:13 Order name: Lipid Profile EDMS 01/17 19:13 Order name: T4 Free EDMS 01/17 19:13 Order name: T4 Free EDMS 01/17 19:13 Order name: Thyroid Stimulating Hormone EDMS 01/17 19:13 Order name: Thyroid Stimulating Hormone EDMS 01/18 06:18 Order name: Troponin High Sensitivity EDMS 01/17 14:47 Order name: XRAY Chest (1 view); Complete Time: 16:20 kb 01/17 18:42 Order name: Echo with Doppler EDMS 01/17 14:47 Order name: Cardiac monitoring; Complete Time: 15:32 kb 01/17 14:47 Order name: EKG - Nurse/Tech; Complete Time: 14:56 kb 01/17 14:47 Order name: IV Saline Lock; Complete Time: 15:32 kb 01/17 14:47 Order name: Labs collected and sent; Complete Time: 15:32 kb 01/17 14:47 Order name: O2 Per Protocol; Complete Time: 15:32 kb 01/17 14:47 Order name: O2 Sat Monitoring; Complete Time: 15:32 kb 01/17 15:35 Order name: Labs - recollect needed: recollect all tubes; Complete Time: 16:13 bd EC:57 Rate is 70 beats/min. Rhythm is regular. QRS Bryant is Normal. NH interval is normal at kb 184 msec. QRS interval is normal at 100 msec. QT interval is normal at 436 msec. Administered Medications: 15:45 Drug: Aspirin PO Chewable Tablet 324 mg PO once; 81 mg tablets x 4 Route: PO; bp 01/18 05:59 Follow up: Response: No adverse reaction bm8 Disposition Summary: 01/17/25 18:01 Hospitalization Ordered Notes: Hospitalization Status: Observation kb Provider: Chinedu Perkins Condition: Stable kb Problem: new kb Symptoms: are unchanged kb Bed/Room Type: Standard kb Location: Telemetry/MedSurg (observation)(01/18/25 13:26) bd Room Assignment: 220(01/18/25 13:26) bd Diagnosis - Chest pain, unspecified kb Forms: - Medication Reconciliation Form kb - SBAR form kb - Leadership Thank You Letter kb Signatures: Dispatcher [employer] EDMS Iris Landry, UNDERGRADUATE INTERN-C UNDERGRADUATE INTERN-CkSoledad Mitchell Irene, RN RN iw Patrick Russell, RN RN bp Nayeli Herrera, RN RN vc1 Dwayne Infante RN bm8 Corrections: (The following items were deleted from the chart) 01/17 14:47 14:47 BASIC METABOLIC PANEL+C.LAB.BRZ ordered. EDMS EDMS 14:47 14:47 CBC+H.LAB.BRZ ordered. EDMS EDMS 14:47 14:47 MAGNESIUM+C.LAB.BRZ ordered. EDMS EDMS 14:47 14:47 PROBNP+C.LAB.BRZ ordered. EDMS EDMS 14:47 14:47 PROTIME (+INR)+COAG.LAB.BRZ ordered. EDMS EDMS 14:47 14:47 Troponin High Sensitivity+C.LAB.BRZ ordered. EDMS EDMS 14:47 14:47 Chest Single View+RAD.RAD.BRZ ordered. EDMS EDMS 20:27 18:01 Telemetry/MedSurg (observation) kb vc1 20:27 18:01 kb vc1 01/18 13:26 01/17 20:27 [facility] ER HOLD vc1 bd 01/18 13:26 01/17 20:27 ERHOLD- vc1 bd
[2025-01-17] MEDS ORDERED: ACETAMINOPHEN 325 MG TABLET PO PRN (18:35)
--- NOTE | 2025-01-17 18:52 | P.HP ---
Certification for Inpatient Patient admitted to: Observation With expected LOS: <2 Midnights Patient will require the following post-hospital care: None Practitioner: I am a practitioner with admitting privileges, knowledge of patient current condition, hospital course, and medical plan of care. Services: Services provided to patient in accordance with Admission requirements found in Title 42 Section 412.3 of the Code of Federal Regulations Patient History Date of Service: 01/17/25 Reason for admission: Chest pain r/o History of Present Illness: Trini Conklin is a 59 year old female with Pmhx Congestive heart failure; Afib with pacemaker, intercainal hypertension; Seizure who presents to the ED with left sided chest pain that started 40 minutes prior to arrival. She reports having a similar chest pain when she had Afib. She reports feeling lightheaded when standing. On evaluation, she is in no acute distress, conversing well, HR controlled, BP soft. Troponin and EKG negative, Chest xray reports "No acute intrathoracic abnormalities." Of note: she reports having a UTI but waiting for the culture before starting antibiotics, per her PCP. She has multiple antibiotic allergies. Trini will be admitted to hospitalist service for further evaluation of chest pain r/o, Dr. Millan consulted. Allergies adhesive tape Allergy (Verified 08/03/24 02:56) Hives/Rash bee venom protein (honey bee) Allergy (Verified 08/03/24 00:36) Anaphylaxis buprenorphine Allergy (Verified 08/03/24 00:36) Hives/Rash cefaclor [From Ceclor] Allergy (Verified 08/03/24 00:36) Hives/Rash cephalexin [From Keflex] Allergy (Verified 08/03/24 00:36) Hives/Rash erythromycin base Allergy (Verified 08/03/24 00:36) Hives/Rash iodine Allergy (Verified 08/03/24 00:36) Hives/Rash latex Allergy (Verified 08/03/24 00:36) Hives/Rash meperidine [From Demerol] Allergy (Verified 08/03/24 00:36) Hives/Rash pineapple Allergy (Verified 08/03/24 00:36) Anaphylaxis Sulfa (Sulfonamide Antibiotics) Allergy (Verified 08/03/24 00:36) Anaphylaxis Home Medications: Apixaban [Eliquis] 5 mg PO BID 08/03/24 Atogepant [Qulipta] 60 mg PO DAILY PRN 08/03/24 Atorvastatin Calcium [Lipitor] 40 mg PO BEDTIME 08/03/24 Buspirone HCl [Buspar] 30 mg PO BID 08/03/24 Fluoxetine HCl [Prozac] 40 mg PO DAILY 08/03/24 Furosemide [Lasix] 40 mg PO DAILY 08/03/24 Levothyroxine Sodium [Synthroid] 200 mcg PO DAILY 08/03/24 Morphine 15mg 15 mg PO Q8HP PRN 08/03/24 Ropinirole HCl [Requip] 1 mg PO DAILY 08/03/24 Ropinirole HCl [Requip] 2 mg PO BEDTIME 08/03/24 Spironolactone [Aldactone] 25 mg PO DAILY 08/03/24 Topiramate [Topamax] 3 tab PO BID 08/03/24 methocarbamoL [Methocarbamol] 750 mg PO Q12HP PRN 08/03/24 Acidophilus/Bifido Longum [Lactobacillus Capsule] 16 mg PO DAILY 10 Days #10 tab 08/05/24 Fructooligosaccharides [Prebiotic Fiber] 2.5 gm PO DAILY #30 tab.chew 08/05/24 - Past Medical/Surgical History Diabetic: No -: pacemaker for bradycardia -: spasmodic dysphonia -: UTI -: CHF -: intracranial hypertension -: seizures -: pacemaker placement -: appendectomy -: hysterectomy -: cholecystectomy -: tonsillectomy - Family History Mother -: Heart disease, Other (see notes) Notes: stomach aneurysm Brother -: Heart disease Sister -: Stroke - Social History Smoking Status: Never smoker Alcohol use: No CD- Drugs: No Caffeine use: Yes Review of Systems Other: Per HPI Physical Examination - Physical Exam General: Alert, In no apparent distress, Oriented x3 HEENT: Atraumatic, Normocephalic Neck: Supple, 2+ carotid pulse no bruit, JVD not distended Respiratory: Clear to auscultation bilaterally, Normal air movement Cardiovascular: No edema, Regular rate/rhythm, Normal S1 S2 Capillary refill: <2 Seconds Gastrointestinal: Normal bowel sounds, Soft and benign Musculoskeletal: No clubbing Integumentary: No rashes Neurological: Normal speech, Normal tone - Studies Laboratory Data (last 24 hrs) 01/17/25 01/17/25 01/17/25 16:12 16:12 16:12 WBC 3.70 L Hgb 12.5 Hct 36.5 Plt Count 110 L PT 11.0 INR 0.96 Sodium 143 Potassium 4.0 BUN 22 H Creatinine 0.88 Glucose 78 Magnesium 2.1 Assessment and Plan - Plan Assessment and Plan Chest pain r/o CHF Afib with pacemaker - EKG: No obvious ST segment changes - Serial troponin pending - Ordered transthoracic echocardiogram - chest x-ray reports "No acute intrathoracic abnormalities." - Consult Cardiology - recommendations appreciated - S/P aspirin 324 mg PO x 1 in ED - Start daily baby aspirin and statin - Symptom control with PRN acetaminophen, norco, morphine -continuous telemetry -TSH/FreeT4, A1C, lipid panel pending -NPO at midnight Seizure - continue home medications -Seizure precautions Chronic pain Hypothyroidism COPD Asthma Anxiety intercranial hypertension -Trini reports no problems in years and has not needed to followed up -Continue home medication as appropriate DVT ppx lovenox full code LOS 24 hour OBS Discharge Plan: Home Plan to discharge in: 24 Hours - Advance Directives Does patient have a Living Will: No Does patient have a Durable POA for Healthcare: No
[2025-01-17] MEDS ORDERED: ATORVASTATIN 40 MG TAB ONE (20:32)
[2025-01-17] MEDS ORDERED: ENOXAPARIN 40 MG/0.4 ML SQ ONE (20:33)
[2025-01-17] MEDS: ATORVASTATIN 40 MG TAB PO SCH (20:45)
[2025-01-17] MEDS: ENOXAPARIN 40 MG/0.4 ML SQ SCH (20:45)
[2025-01-17 23:27] VITALS: BMI 32.5
[2025-01-18] MEDS ORDERED: MORPHINE 2 MG/ML SYR ONE ×4 (00:05→13:38)
[2025-01-18] MEDS: MORPHINE 2 MG/ML SYR IV PRN (00:11)
[2025-01-18 05:13] LABS: Absolute Eosinophils 0.1 K/uL (0-0.5); Absolute Lymphocytes (CBC) 1.7 K/uL (0.7-4.9); Absolute Monocytes 0.3 K/uL (0.1-1.3); Eosinophils % 2.3 % (0-4.4); Hematocrit 31.9 % (36.0-45.0); Lymphocytes % 41.9 % (15.3-44.8); MCH 33.3 pg (27.0-35.0); MCHC 34.3 g/dL (32.0-36.0); MCV 97.1 fL (80-100); MPV 9.2 fL (7.6-11.3); Monocytes % 6.2 % (3.3-12.3); Neutrophils % 48.6 % (41.7-73.7); Nucleated Red Blood Cells % 0.2 % (0-0); Platelets 101 thou/uL (152-406); RBC Red Blood Cell Count 3.29 M/uL (3.86-4.86); Red Cell Distribution Width 13.6 % (12.1-15.2)
[2025-01-18 06:15] LABS: Anion Gap 7.9 mEq/L (5.0-15.0); Phosphorus 3.2 mg/dL (2.5-4.9); Potassium 3.9 mEq/L (3.5-5.1); Troponin High Sensitivity 5.5 pg/mL (<58.9)
[2025-01-18 06:17] LABS: Thyroid Stimulating Hormone 76.5 uIU/mL (0.358-3.740)
[2025-01-18] MEDS ORDERED: ASPIRIN EC 325 MG TABLET PO ONE (08:36)
[2025-01-18] MEDS ORDERED: ENOXAPARIN 40 MG/0.4 ML SQ ONE (08:37)
[2025-01-18] MEDS: FLUOXETINE 20 MG CAP PO SCH (09:00)
[2025-01-18] MEDS: BUSPIRONE HCL 15 MG TABLET PO SCH (09:00)
[2025-01-18] MEDS: GABAPENTIN 300 MG CAP PO SCH (09:00)
[2025-01-18] MEDS: ROPINIROLE HCL 1 MG TAB PO SCH ×2 (09:00→20:52)
[2025-01-18] MEDS: TOPIRAMATE 100 MG TAB PO SCH (09:00)
[2025-01-18] MEDS: ASPIRIN EC 81 MG TAB PO SCH (09:00)
[2025-01-18] MEDS: TOPIRAMATE 25 MG TAB PO SCH (09:00)
[2025-01-18] MEDS: APIXABAN 2.5 MG TABLET PO SCH (09:00)
[2025-01-18] MEDS ORDERED: ONDANSETRON 4 MG/2 ML VIAL ONE ×2 (09:58→12:29)
[2025-01-18] MEDS: ONDANSETRON 4 MG/2 ML VIAL IV PRN (13:04)
[2025-01-18] MEDS: HYDROCODONE/APAP 10/325 TAB PO PRN (15:02)
--- NOTE | 2025-01-18 18:37 | P.PN ---
Date of Service: 01/18/25 Subjective Reports continued chest pain Reports allergy to contrast dye and stress tests induce seizures ROS 10 point ROS as noted above, otherwise negative Physical Exam General: Alert and Oriented x3, NAD HEENT: Atraumatic, Normocephalic Neck: Supple, 2+ carotid pulse no bruit, JVD not distended Respiratory: Clear BBS, Normal air movement Cardiovascular: No edema, RRR, Normal S1 S2 Capillary refill: <2 Seconds Gastrointestinal: Normal active bowel sounds, Soft on palpation Musculoskeletal: No clubbing Integumentary: No rashes Neurological: Normal speech, Normal tone Vitals Reviewed Problem list Chest pain r/o CHF Afib with pacemaker Assessment and Plan Chest pain r/o CHF Afib with pacemaker - EKG: No obvious ST segment changes - Serial troponin pending - transthoracic echocardiogram- result pending - chest x-ray reports "No acute intrathoracic abnormalities." - Consult Cardiology - Further evaluation in the AM - S/P aspirin 324 mg PO x 1 in ED - Start daily baby aspirin and statin - Symptom control with PRN acetaminophen, norco, morphine - continuous telemetry - TSH/FreeT4 76.5/0.86, A1C <3.8, lipid panel (Triglycerides 50, Cholesterol 117, LDL 46, HDL 61, Cholesterol 1.92) Seizure -continue home medications -Seizure precautions Chronic pain Hypothyroidism COPD Asthma Anxiety intercranial hypertension -Trini reports no problems in years and has not needed to followed up -Continue home medication as appropriate DVT ppx lovenox full code LOS 24 hour OBS Discharge Plan: Home Plan to discharge in: 24 Hours
--- NOTE | 2025-01-18 19:07 | CON ---
Date of Consultation: 01/18/2025 Reason For Consultation: Chest pain. History Of Present Illness: 59-year-old female, history of congestive heart failure, atrial fibrilla tion, status post pacemaker implantation, seizure disorder, presented with left-sided chest pain, pre ssure-like, radiates to the shoulder. Pain is on and off and she apparently follows up with a cardio logist and she had a heart cath many years back as per her report and she does not know about the res ults. Past Medical History: As outlined above in the HPI. Medications: Refer to reconciliation sheet for detailed list. Allergies: LONG LIST OF ALLERGIES AND THAT WAS REVIEWED. Family History: No premature coronary artery disease or cancer. Social History: She does not smoke or drink. Does not use any drugs. Review of Systems: All systems reviewed and they were negative except as mentioned in the HPI. Physical Examination: Vital Signs: Reviewed. Head and Neck: Pupils are equal, reactive to light. Intact eye movements. No JVD. No cervical lym phadenopathy. Neck is supple. Thyroid is not enlarged. Lungs: Clear to auscultation bilaterally. No rhonchi, wheezing, or crackles. No accessory muscle u se. Heart: Regular rate and rhythm. No extra sounds. Abdomen: Soft, nontender. Bowel sounds are positive. No organomegaly. No masses or hernia. No ri gidity or rebound. Extremities: No edema, clubbing, or cyanosis. Intact pulses. Skin: No rash. No nodules. Neurologic: Alert, awake, and oriented x3. No acute focal deficits appreciated. Investigations: BUN 25, creatinine 0.78. Troponin x2 are negative. Hemoglobin is 11. Assessment And Recommendations: 1. Chest pain, it is pressure-like, it radiates to the shoulder, but troponins are very normal and hi whatley has no chest pain at the present time. Initially, recommended that she follows up with her cardiol ogist as they know her very well. However, she is concerned about the pain. I will discuss her case with her primary canal superintendent and to get an insight on what workup was done on her in the past and w chacorta might proceed with a coronary angiogram, as such. At this point, I would recommend that we hold th e Eliquis and use Lovenox instead until decision is made to proceed with a heart catheterization or n ot. If the heart catheterization is to be done, it will be done on Thursday as she received Eliquis to day. 2. Dyslipidemia. Continue Lipitor 40 mg q.h.s. 3. Hypothyroidism. TSH is very high. Adjust the dose of the thyroid medicine and follow up the TSH afterwards. SR/DAYLINL Voice ID: [id number] Report ID: [id number]
[2025-01-18] MEDS: ENOXAPARIN 100 MG/ML SYR SQ SCH (20:52)
--- NOTE | 2025-01-19 07:22 | ECHO ---
HEIGHT: 5 ft 9 in WEIGHT: 220 lb 0 oz DATE OF STUDY: 01/18/[address]: Claudette Collazo NP 2-DIMENSIONAL: YES M.MODE: YES DOPPLER: YES COLOR FLOW: YES TDS: PORTABLE: YES DEFINITY: BUBBLE STUDY: DIAGNOSIS: CHEST PAIN CARDIAC HISTORY: CATHERIZATION: NO SURGERY: NO PROSTHETIC VALVE: NO PACEMAKER: NO MEASUREMENTS (cm) DIASTOLIC (NORMALS) SYSTOLIC (NORMALS) IVSd 0.9 (0.6-1.2) LA Diam 3.8 (1.9-4.0) LVEF 55-60% LVIDd 5.2 (3.5-5.7) LVIDs 3.5 (2.0-3.5) %FS 34% LVPWd 1.0 (0.6-1.2) Ao Diam 2.7 (2.0-3.7) 2 DIMENSIONAL ASSESSMENT: RIGHT ATRIUM: NORMAL LEFT ATRIUM: NORMAL RIGHT VENTRICLE: PACEMAKER WIRE LEFT VENTRICLE: NORMAL TRICUSPID VALVE: MILD TRICUSPID REGURGITATION MITRAL VALVE: NORMAL PULMONIC VALVE: NORMAL AORTIC VALVE: NORMAL PERICARDIAL EFFUSION: NONE AORTIC ROOT: NORMAL LEFT VENTRICULAR WALL MOTION: NORMAL DOPPLER/COLOR FLOW: SEE BELOW COMMENTS: 1. NORMAL LEFT VENTRICULAR EJECTION FRACTION 55-60% 2. NORMAL WALL MOTION 3. MILD TRICUSPID REGURGITATION 4. NORMAL DIASTOLIC DYSFUNCTION TECHNOLOGIST: PRETTY GRAHAM
[2025-01-19 08:04] LABS: Absolute Eosinophils 0.1 K/uL (0-0.5); Absolute Lymphocytes (CBC) 1.7 K/uL (0.7-4.9); Absolute Monocytes 0.3 K/uL (0.1-1.3); Absolute Neutrophil 2.2 K/uL (1.8-8.0); Basophils % 0.7 % (0-1.3); Eosinophils % 2.6 % (0-4.4); Hematocrit 34.6 % (36.0-45.0); Hemoglobin 11.6 g/dL (12.0-15.0); Lymphocytes % 39.9 % (15.3-44.8); MCH 32.9 pg (27.0-35.0); MCHC 33.6 g/dL (32.0-36.0); MCV 97.8 fL (80-100); Monocytes % 5.8 % (3.3-12.3); Platelets 88 thou/uL (152-406); RBC Red Blood Cell Count 3.54 M/uL (3.86-4.86)
[2025-01-19] MEDS: LEVOTHYROXINE SOD 0.1 MG TAB PO SCH (08:45)
[2025-01-19] MEDS ORDERED: HOME MED 1 EA UNK (Fluoxetine Hcl [Prozac] 40 MG Capsule) PO SCH (09:00)
[2025-01-19] MEDS ORDERED: HOME MED 1 EA UNK (Buspirone Hcl [Buspar] 10 MG Tablet) PO SCH (09:00)
[2025-01-19] MEDS ORDERED: ROPINIROLE HCL 1 MG TAB PO SCH (09:00)
[2025-01-19 09:14] LABS: Blood Morphology Comment NOT SEEN (NOT SEEN); Platelet Estimate ADEQ; White Blood Cell Scan OK (OK)
[2025-01-19] MEDS: CEFTRIAXONE 1,000 MG in NA CHLORIDE 0.9% 50 ML IVPB SCH (11:38)
--- NOTE | 2025-01-19 16:33 | P.PN ---
Date of Service: 01/19/25 Subjective Still feels chest pain Also c/o burning when she urinates, PCP faxed the urine culture and Rocephin has been started, She reports no allergy to rocephin Reports allergy to contrast dye and stress tests induce seizures ROS 10 point ROS as noted above, otherwise negative Physical Exam General: AAO x3, NAD, Neck: Supple, 2+ carotid pulse no bruit, JVD not distended Respiratory: Clear BBS, on RA Cardiovascular: No edema, RRR, Normal S1 S2 Capillary refill: <2 Seconds Gastrointestinal: Normal active bowel sounds, Soft on palpation Musculoskeletal: No clubbing Integumentary: No rashes Neurological: Normal speech, Normal tone Vitals Reviewed Problem list Chest pain r/o CHF Afib with pacemaker UTI (POA) Seizure Chronic pain Hypothyroidism COPD Asthma Anxiety intercranial hypertension Assessment and Plan Chest pain r/o CHF Afib with pacemaker - EKG: No obvious ST segment changes - Serial troponin pending - transthoracic echocardiogram- result pending - chest x-ray reports "No acute intrathoracic abnormalities." - Consult Cardiology - Further evaluation in the AM - S/P aspirin 324 mg PO x 1 in ED - Start daily baby aspirin and statin - Symptom control with PRN acetaminophen, norco, morphine - continuous telemetry - TSH/FreeT4 76.5/0.86, A1C <3.8, lipid panel (Triglycerides 50, Cholesterol 117, LDL 46, HDL 61, Cholesterol 1.92) -stopped eliquis for possible heart cath on Thursday UTI (POA) -Culture growing Ecoli sensitive to rocephin and levaquin -She reports having a bad reaction to levaquin Seizure -continue home medications -Seizure precautions Chronic pain Hypothyroidism COPD Asthma Anxiety intercranial hypertension -Trini reports no problems in years and has not needed to followed up -Continue home medication as appropriate Hospital interval course 01/19/25 -Cardiology determining the best course of action as she is allergic to contrast dye and a stress test causes seizures -Dr. Millan will speak to Dr Sigala -Lovenox 100 mg BID -Urinary burning, started rocephin per the urine culture provided by her PCP -blood pressure soft but stable DVT ppx lovenox full code LOS 24 hour OBS Discharge Plan: Home Plan to discharge in: 24 Hours
[2025-01-19] MEDS ORDERED: HOME MED 1 EA UNK (Ropinirole Hcl [Requip] 2 MG Tablet) PO SCH (21:00)
[2025-01-20 08:38] LABS: Absolute Eosinophils 0.1 K/uL (0-0.5); Absolute Lymphocytes (CBC) 1.5 K/uL (0.7-4.9); Absolute Monocytes 0.2 K/uL (0.1-1.3); Absolute Neutrophil 1.6 K/uL (1.8-8.0); Basophils % 0.9 % (0-1.3); Eosinophils % 2.8 % (0-4.4); Hemoglobin 11.2 g/dL (12.0-15.0); Lymphocytes % 43.2 % (15.3-44.8); MCH 32.8 pg (27.0-35.0); MCV 96.4 fL (80-100); MPV 9.3 fL (7.6-11.3); Monocytes % 6.5 % (3.3-12.3); Neutrophils % 46.6 % (41.7-73.7); Nucleated Red Blood Cells % 0.2 % (0-0); Platelets 92 thou/uL (152-406); RBC Red Blood Cell Count 3.42 M/uL (3.86-4.86); Red Cell Distribution Width 13.5 % (12.1-15.2)
[2025-01-20 08:53] LABS: Anion Gap 10.1 mEq/L (5.0-15.0); Phosphorus 3.5 mg/dL (2.5-4.9); Potassium 4.1 mEq/L (3.5-5.1)
--- NOTE | 2025-01-20 15:55 | P.PN ---
Date of Service: 01/20/25 Subjective c/o urinary burning, started rocephin (01/19), will continue for three more days Multiple antibiotic allergies require inpatient IV antibiotics for close monitoring. ROS 10 point ROS as noted above, otherwise negative Physical Exam General: AAO x3, NAD, afebrile Neck: Supple, 2+ carotid pulse no bruit, JVD not distended Respiratory: Nonlabored breathing on RA Cardiovascular: No edema, RRR, Normal S1 S2 Capillary refill: <2 Seconds Gastrointestinal: Normal active bowel sounds, Soft on palpation Musculoskeletal: No clubbing Integumentary: No rashes Neurological: Normal speech, Normal tone Vitals Reviewed Problem list Chest pain r/o CHF Afib with pacemaker UTI (POA) Seizure Chronic pain Hypothyroidism COPD Asthma Anxiety intercranial hypertension Assessment and Plan Chest pain r/o CHF Afib with pacemaker - EKG: No obvious ST segment changes - Serial troponin trended flat - transthoracic echocardiogram- result pending - chest x-ray reports "No acute intrathoracic abnormalities." - Consult Cardiology - Further evaluation in the AM - S/P aspirin 324 mg PO x 1 in ED - Start daily baby aspirin and statin - Symptom control with PRN acetaminophen, norco, morphine - continuous telemetry - TSH/FreeT4 76.5/0.86, A1C <3.8, lipid panel (Triglycerides 50, Cholesterol 117, LDL 46, HDL 61, Cholesterol 1.92) - stopped eliquis, 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 Sigala UTI (POA) -Culture growing Ecoli sensitive to rocephin and levaquin -She reports having a bad reaction to levaquin Seizure -continue home medications -Seizure precautions Chronic pain Hypothyroidism COPD Asthma Anxiety intercranial hypertension -Trini reports no problems in years and has not needed to followed up -Continue home medication as appropriate Hospital interval course 01/19/25 -Cardiology determining the best course of action as she is allergic to contrast dye and a stress test causes seizures -Dr. Millan will speak to Dr Sigala -Lovenox 100 mg BID -Urinary burning, started rocephin per the urine culture provided by her PCP -blood pressure soft but stable 01/20/25 -Cardiology recommends outpatient follow up with Dr. Sigala -continued IV rocephin and close monitoring as she is allergic to many antibiotics -PT consulted for evaluation and OOB activity DVT ppx lovenox full code LOS 24 hour OBS Discharge Plan: Home
[2025-01-21 05:29] LABS: Absolute Eosinophils 0.1 K/uL (0-0.5); Absolute Lymphocytes (CBC) 1.6 K/uL (0.7-4.9); Absolute Monocytes 0.3 K/uL (0.1-1.3); Absolute Neutrophil 1.6 K/uL (1.8-8.0); Basophils % 0.8 % (0-1.3); Eosinophils % 3.2 % (0-4.4); Hematocrit 31.9 % (36.0-45.0); Hemoglobin 10.9 g/dL (12.0-15.0); Lymphocytes % 44.5 % (15.3-44.8); MCH 32.9 pg (27.0-35.0); MCHC 34.2 g/dL (32.0-36.0); MCV 96.3 fL (80-100); MPV 9.4 fL (7.6-11.3); Neutrophils % 44.5 % (41.7-73.7); Nucleated Red Blood Cells % 0.1 % (0-0); Platelets 91 thou/uL (152-406); RBC Red Blood Cell Count 3.31 M/uL (3.86-4.86); Red Cell Distribution Width 13.5 % (12.1-15.2)
[2025-01-21 05:43] LABS: Anion Gap 7.5 mEq/L (5.0-15.0); Phosphorus 4.3 mg/dL (2.5-4.9); Potassium 4.5 mEq/L (3.5-5.1)
--- NOTE | 2025-01-21 15:05 | P.PN ---
Subjective Date of Service: 01/21/25 Chief Complaint: Chest pain r/o Patient mild dysuria however feels her urinary symptoms have gotten much better. No recorded fever. Patient denies chest pain. Physical Examination - Vital Signs Temperature: 97.8 F Blood Pressure: 91/55 Pulse: 70 Respirations: 18 Pulse Ox (%): 99 Assessment And Plan - Plan Physical examination General: Alert and oriented x3, NAD, Neck: Supple, no elevated JVD Heart: Heart sounds 1 and 2 normal, regular rhythm, normal rate, no pedal edema Lungs: Clear to auscultation bilaterally, adequate breath sounds bilaterally, no rhonchi or crackles. Abdomen: Soft, nondistended, nontender, normal bowel sounds. Extremities: No tenderness, no deformity Skin: Normal skin turgor, no rash, no nodules or ulcers. Neuro: No focal motor deficit. Normal speech. Psychiatry: Normal mood, no agitation. Problem list Chest pain r/o CHF Afib with pacemaker UTI (POA) Seizure Chronic pain Hypothyroidism COPD Asthma Anxiety intercranial hypertension Assessment and Plan Chest pain r/o CHF Afib with pacemaker EKG: No obvious ST segment changes Serial troponin trended flat transthoracic echocardiogram-normal EF, no wall motion abnormality chest x-ray reports "No acute intrathoracic abnormalities." Cardiology recommended follow-up with patient's trauma nurse Dr. Sigala for further evaluation as needed. On daily baby aspirin and statin TSH/FreeT4 76.5/0.86, A1C <3.8, lipid panel (Triglycerides 50, Cholesterol 117, LDL 46, HDL 61, Cholesterol 1.92) UTI (POA) Culture growing Ecoli sensitive to rocephin and levaquin She reports having a bad reaction to multiple antibiotics including levaquin. She mentioned her UTI is really treated with IV antibiotics as outpatient. Patient has tolerated IV Rocephin and the plan to complete 5 days of treatment Seizure continue home medications Seizure precautions Chronic pain Hypothyroidism COPD Asthma Anxiety intercranial hypertension Continue home medications
[2025-01-21] MEDS: APIXABAN 2.5 MG TABLET PO SCH (20:08)
[2025-01-21] MEDS ORDERED: MIDODRINE HCL 5 MG TABLET PO SCH (21:00)
[2025-01-21] MEDS: MIDODRINE HCL 5 MG TABLET PO ONE (21:26)
[2025-01-22 04:53] VITALS: O2SAT 98
[2025-01-22 06:11] LABS: Absolute Eosinophils 0.1 K/uL (0-0.5); Absolute Lymphocytes (CBC) 1.4 K/uL (0.7-4.9); Absolute Monocytes 0.1 K/uL (0.1-1.3); Absolute Neutrophil 1.8 K/uL (1.8-8.0); Basophils % 0.9 % (0-1.3); Eosinophils % 3.7 % (0-4.4); Hemoglobin 12.2 g/dL (12.0-15.0); Lymphocytes % 39.9 % (15.3-44.8); MCH 32.7 pg (27.0-35.0); MCV 96.3 fL (80-100); MPV 9.2 fL (7.6-11.3); Neutrophils % 51.5 % (41.7-73.7); Platelets 117 thou/uL (152-406); RBC Red Blood Cell Count 3.73 M/uL (3.86-4.86); Red Cell Distribution Width 13.4 % (12.1-15.2)
[2025-01-22 06:21] LABS: Anion Gap 8.7 mEq/L (5.0-15.0); Magnesium 2.2 mg/dL (1.6-2.4); Phosphorus 3.8 mg/dL (2.5-4.9); Potassium 3.7 mEq/L (3.5-5.1)
[2025-01-22] MEDS: POTASSIUM 25 MEQ EFFERV TAB PO ONE (09:04)
--- NOTE | 2025-01-22 12:45 | P.PN ---
Subjective Date of Service: 01/22/25 Chief Complaint: Chest pain r/o Patient denies any complaint today No recorded fever. Patient is tolerating diet. Physical Examination - Vital Signs Temperature: 97.6 F Blood Pressure: 91/52 Pulse: 70 Respirations: 18 Pulse Ox (%): 95 Assessment And Plan - Plan Physical examination General: Alert and oriented x3, NAD, Heart: Heart sounds 1 and 2 normal, regular rhythm, normal rate, no pedal edema Lungs: Clear to auscultation bilaterally, adequate breath sounds bilaterally, no rhonchi or crackles. Abdomen: Soft, nondistended, nontender, normal bowel sounds. Extremities: No tenderness, no deformity Skin: Normal skin turgor, no rash. Neuro: No focal motor deficit. Normal speech. Psychiatry: Normal mood, no agitation. Problem list Chest pain r/o CHF Afib with pacemaker UTI (POA) Seizure Chronic pain Hypothyroidism COPD Asthma Anxiety intercranial hypertension Assessment and Plan Chest pain r/o CHF Afib with pacemaker EKG: No obvious ST segment changes Serial troponin trended flat transthoracic echocardiogram-normal EF, no wall motion abnormality chest x-ray reports "No acute intrathoracic abnormalities." Cardiology recommended follow-up with patient's copy and print associate Dr. Sigala for further evaluation as needed. On daily baby aspirin and statin TSH/FreeT4 76.5/0.86, A1C <3.8, lipid panel (Triglycerides 50, Cholesterol 117, LDL 46, HDL 61, Cholesterol 1.92) UTI (POA) Culture growing Ecoli sensitive to rocephin and levaquin She reports having a bad reaction to multiple antibiotics including levaquin. She mentioned her UTI is really treated with IV antibiotics as outpatient. Patient has tolerated IV Rocephin and the plan to complete 5 days of treatment Seizure continue home medications Seizure precautions Chronic pain Hypothyroidism COPD Asthma Anxiety intercranial hypertension Continue home medications 01/22 Clinically stable. No more chest pain Further cardiac workup as outpatient per Dr. Millan. Outside urine culture grew E. coli Continue IV Rocephin. Antibiotic day 4. Patient to complete 5 days of IV Rocephin. Increase activity as tolerated Continue PT. Anticipating DC in a.m. with home health for PT. Atrial fibrillation is rate controlled. Continue Eliquis. DVT prophylaxis: On Eliquis Advanced directive: Full code
[2025-01-23 06:00] LABS: Absolute Eosinophils 0.1 K/uL (0-0.5); Absolute Lymphocytes (CBC) 1.5 K/uL (0.7-4.9); Absolute Monocytes 0.2 K/uL (0.1-1.3); Absolute Neutrophil 1.3 K/uL (1.8-8.0); Eosinophils % 4.3 % (0-4.4); Hematocrit 31.6 % (36.0-45.0); Hemoglobin 10.9 g/dL (12.0-15.0); Lymphocytes % 47.7 % (15.3-44.8); MCH 32.8 pg (27.0-35.0); MCHC 34.4 g/dL (32.0-36.0); MCV 95.3 fL (80-100); MPV 9.1 fL (7.6-11.3); Monocytes % 7.7 % (3.3-12.3); Neutrophils % 39.3 % (41.7-73.7); Nucleated Red Blood Cells % 0.1 % (0-0); Platelets 104 thou/uL (152-406); RBC Red Blood Cell Count 3.32 M/uL (3.86-4.86); Red Cell Distribution Width 13.1 % (12.1-15.2)
[2025-01-23 06:12] LABS: Phosphorus 4.2 mg/dL (2.5-4.9)
[2025-01-23 12:52] VITALS: BP 172/65; TEMP 97.9
--- NOTE | 2025-01-23 13:33 | P.DS ---
Admission Date: 01/19/25 Discharge Date: 01/23/25 Disposition: ROUTINE DISCHARGE Discharge Condition: GOOD Reason for Admission: Chest pain r/o Hospital Course: Problem list Chest pain E. coli UTI CHF Afib with pacemaker Seizure disorder Chronic pain Hypothyroidism COPD Asthma Anxiety intercranial hypertension Trini Conklin is a 59 year old female with Pmhx Congestive heart failure; Afib with pacemaker, intracranial hypertension; Seizure who presented to the ED with left sided chest pain. She reports having a similar chest pain when she had Afib. She reported feeling lightheaded when standing. On evaluation in the ED, HR controlled, BP soft. Troponin and EKG negative, Chest xray reported no acute intrathoracic abnormalities. She reported recent dysuria and increased urinary frequency and she was waiting for her urine culture result. Patient has multiple antibiotic allergies. Patient admitted to the medical floor. Serial troponin trended negative. EKG did not show any obvious ischemic changes. Echocardiogram was done which showed normal EF and no wall motion abnormality. Patient was evaluated by the cardiology Dr. Millan who recommended patient follows up with a carpenter streetcar Dr. Ochoa for further evaluation. Patient's urine culture done outside this hospital reported E. coli sensitive to Rocephin and Levaquin. Patient reports significant allergic reaction to multiple antibiotics but has tolerated IV Rocephin in the past. Patient completed 5 days of IV Rocephin for the UTI. She has atrial fibrillation which remained controlled during the hospital stay. Patient blood pressure was at times soft. Vital Signs/Physical Exam: Temp Pulse Resp BP Pulse Ox 97.9 F 63 15 172/65 H 98 01/23/25 12:00 01/23/25 12:00 01/23/25 12:00 01/23/25 12:00 01/23/25 12:00 Laboratory Data at Discharge: WBC 3.20 thou/uL (4.3-10.9) L 01/23/25 05:44 Hgb 10.9 g/dL (12.0-15.0) L D 01/23/25 05:44 Hct 31.6 % (36.0-45.0) L 01/23/25 05:44 Plt Count 104 thou/uL (152-406) L 01/23/25 05:44 PT 11.0 SECONDS (10-13.0) 01/17/25 16:12 INR 0.96 01/17/25 16:12 Sodium 137 mEq/L (136-145) 01/23/25 05:44 Potassium 4.0 mEq/L (3.5-5.1) 01/23/25 05:44 BUN 24 mg/dL (7-18) H 01/23/25 05:44 Creatinine 0.75 mg/dL (0.55-1.02) 01/23/25 05:44 Glucose 84 mg/dL (74-106) 01/23/25 05:44 Phosphorus 4.2 mg/dL (2.5-4.9) 01/23/25 05:44 Magnesium 2.0 mg/dL (1.6-2.4) 01/23/25 05:44 Triglycerides 50 mg/dL (<150) 01/18/25 04:38 Cholesterol 117 mg/dL (<200) 01/18/25 04:38 HDL Cholesterol 61 mg/dL (40-60) H 01/18/25 04:38 Cholesterol/HDL Ratio 1.92 01/18/25 04:38 Home Medications: Buspirone HCl [Buspar] 30 mg PO BID 08/03/24 Fluoxetine HCl [Prozac] 40 mg PO DAILY 08/03/24 Levothyroxine Sodium [Synthroid] 200 mcg PO DAILY 08/03/24 Ropinirole HCl [Requip*] 1 mg PO DAILY 08/03/24 Ropinirole HCl [Requip] 2 mg PO BEDTIME 08/03/24 Apixaban [Eliquis *] 2.5 mg PO BID 01/18/25 Atorvastatin Calcium [Lipitor] 40 mg PO BEDTIME 30 Days #30 tab 01/20/25 Buspirone HCl 30 mg PO BID 01/20/25 Ropinirole HCl [Requip*] 1 mg PO DAILY tab 01/20/25 Ropinirole HCl [Requip*] 2 mg PO BEDTIME tab 01/20/25 Topiramate [Topamax*] 25 mg PO BID tab 01/20/25 Topiramate [Topamax] 100 mg PO BID #60 tab 01/23/25 New Medications: Atorvastatin Calcium [Lipitor] 40 mg PO BEDTIME 30 Days #30 tab Topiramate [Topamax] 100 mg PO BID #60 tab Physician Discharge Instructions: Trini Conklin is a 59 year old female with Pmhx Congestive heart failure; Afib with pacemaker, intracranial hypertension; Seizure who presented to the ED with left sided chest pain. She reports having a similar chest pain when she had Afib. She reported feeling lightheaded when standing. On evaluation in the ED, HR controlled, BP soft. Troponin and EKG negative, Chest xray reported no acute intrathoracic abnormalities. She reported recent dysuria and increased urinary frequency and she was waiting for her urine culture result. Patient has multiple antibiotic allergies. Patient admitted to the medical floor. Serial troponin trended negative. EKG did not show any obvious ischemic changes. Echocardiogram was done which showed normal EF and no wall motion abnormality. Patient was evaluated by the cardiology Dr. Millan who recommended patient follows up with a carpenter streetcar Dr. Ochoa for further evaluation. Patient's urine culture done outside this hospital reported E. coli sensitive to Rocephin and Levaquin. Patient reports significant allergic reaction to multiple antibiotics but has tolerated IV Rocephin in the past. Patient completed 5 days of IV Rocephin for the UTI. She has atrial fibrillation which remained controlled during the hospital stay. Patient blood pressure was at times soft. 1. Please call and schedule a follow-up appointment with your PCP in 3-5 days - Please follow-up with your PCP for medication refills/adjustments -Repeat UA 2. Please call and schedule a follow-up appointment with Dr. Ochoa within one week for outpatient management and monitoring 3. Continue heart healthy diet 4. activity restrictions fall precautions 5. Return to the ED if symptoms worsen New medications Atorvastatin 40 mg daily Continue with medications previously prescribed Check your blood pressure as it has been low at times this admission Diet: AHA Activity: Fall precautions Followup: Sanjuana Rock [Primary Care Provider] - 1 Week JIMENEZ OCHOA [OUTSIDE PHYSICIAN] - 1-2 Weeks Time spent managing pt's care (in minutes): 41
--- NOTE | 2025-01-25 13:11 | EKG ---
Test Date: 2025-01-17 Test Time: 14:50:49 Bridge Worker Apprentice: MADHURI MEASUREMENT RESULTS: Intervals: Rate: 70 IA: 184 QRSD: 100 QT: 404 QTc: 436 [place]: P: -9 IA: 184 QRS: -14 T: 101 INTERPRETIVE STATEMENTS: Normal sinus rhythm Anterior infarct, age undetermined Abnormal ECG Compared to ECG 08/02/2024 19:15:37 Myocardial infarct finding now present Atrial-paced complex(es) or rhythm no longer present Electronically Signed On 01-25-25 12:50:26 CDT by Harpreet Campbell
== END 2025-01-23 15:13 | disposition home or self-care (01) | DRG 690 ==
LOC: ER 14:34 → ERHOLD 18:35 → 2ND 01-18 14:22 → OBSVTOIN 01-19 12:22
PROVIDERS: ADMIT Internal Medicine; ATTEND Internal Medicine
DX: N39.0 Urinary tract infection, site not specified (principal); I50.32 Chronic diastolic (congestive) heart failure; I48.91 Unspecified atrial fibrillation; F41.9 Anxiety disorder, unspecified; E03.9 Hypothyroidism, unspecified; G89.29 Other chronic pain; G93.2 Benign intracranial hypertension; J44.9 Chronic obstructive pulmonary disease, unspecified; G40.909 Epilepsy, unspecified, not intractable, without status epilepticus; B96.20 Unspecified Escherichia coli [E. coli] as the cause of diseases classified elsewhere; Z88.0 Allergy status to penicillin; Z88.5 Allergy status to narcotic agent; Z88.2 Allergy status to sulfonamides; Z95.0 Presence of cardiac pacemaker; Z88.1 Allergy status to other antibiotic agents; Z88.8 Allergy status to other drugs, medicaments and biological substances; Z79.01 Long term (current) use of anticoagulants; Z79.890 Hormone replacement therapy; Z79.899 Other long term (current) drug therapy
CPT/HCPCS: 36415; 71045; 80048; 80061; 83036; 83735; 83880; 84100; 84439; 84443; 84484; 85025; 85610; 93005; 93306; 97116; 97161; 99285; G0378; J0696; J1650; J2270; J2405

== ENCOUNTER 2025-05-26 12:44 | Emergency (ER) | payer OTHER ==
[2025-05-26 13:42] LABS: Absolute Lymphocytes (CBC) 0.7 K/uL (0.7-4.9); Hematocrit 31.8 % (36.0-45.0); Hemoglobin 10.6 g/dL (12.0-15.0); MCH 31.3 pg (27.0-35.0); MCHC 33.3 g/dL (32.0-36.0); MCV 93.9 fL (80-100); MPV 10.4 fL (7.6-11.3); Nucleated RBC Absolute Count 0.0 (0-0); Nucleated Red Blood Cells % 0.0 % (0-0); RBC Red Blood Cell Count 3.39 M/uL (3.86-4.86); White Blood Count 3.60 thou/uL (4.3-10.9)
[2025-05-26 13:49] LABS: PT Prothrombin Time 12.7 SECONDS (10-13.0); Protime INR 1.13
--- NOTE | 2025-05-26 13:51 | RAD REPORT ---
EXAM: Chest Single View HISTORY: 59 years Female MALAISE COMPARISON: 04/11/2025 FINDINGS: LUNGS/PLEURA: The lungs are clear. No pleural effusions or pneumothorax. No pulmonary edema. CARDIAC/MEDIASTINUM: Mild cardiomegaly UPPER ABDOMEN: No significant abnormality. BONES: No acute abnormality. LINES/TUBES/OTHER: Pacemaker present. IMPRESSION: No evidence of acute cardiopulmonary disease. No significant change from prior.
[2025-05-26 14:02] LABS: ALT/SGPT 27.0 U/L (13-56); AST/SGOT 13.0 U/L (15-37); Albumin 2.7 g/dL (3.4-5.0); Albumin/Globulin Ratio 1.1 (1.1-1.8); Alkaline Phosphatase 92.0 U/L (45-117); Anion Gap 8.3 mEq/L (5.0-15.0); BUN Blood Urea Nitrogen 24.0 mg/dL (7-18); Bilirubin Indirect, Calculated 0.3 mg/dL (0.2-0.8); Globulin 2.5 g/dL (2.3-3.5); Glucose Level 61.0 mg/dL (74-106); Magnesium 1.9 mg/dL (1.6-2.4); NT PRO-BNP 704.0 pg/mL (<125); Potassium 3.3 mEq/L (3.5-5.1); Troponin High Sensitivity 6.1 pg/mL (<58.9)
[2025-05-26 15:04] LABS: Blood Morphology Comment NOT SEEN (NOT SEEN); White Blood Cell Scan OK (OK)
[2025-05-26 15:52] LABS: Sqamous Epithelial <5 /HPF (None Seen); Urine Crystals Unidentified Few /HPF (None Seen); Urine Culture Reflex Order NOT NEEDED; Urine Microscopic Reflex YN ORDER UMIC; Urine WBC Clump Rare /HPF (None Seen)
[2025-05-26] MEDS ORDERED: POTASSIUM 25 MEQ EFFERV TAB ONE (16:58)
--- NOTE | 2025-05-26 17:18 | ER ---
Nurse's Notes [facility] Name: Trini Conklin Age: 59 yrs Sex: Female : 1965 Arrival Date: 05/26/2025 Time: 12:44 Bed 15 Private MD: Diagnosis: Dehydration, hypotension resolved Presentation: 05/26 12:49 Chief complaint: EMS states: TONED OUT TO PATIENT'S HOME FOR LOW BLOOD PRESSURE. PER cm10 EMS REPORT, HOME HEALTH CAME BY THIS MORNING AND PATIENT'S BLOOD PRESSURE WAS 75/42. PT REPORTS FEELING DIZZY. PT ALSO REPORTS BILATERAL LEG SWELLING. Coronavirus screen: Client denies travel out of the [place] in the last 14 days. Ebola Screen: Patient denies travel to an Ebola-affected area in the 21 days before illness onset. Initial Sepsis Screen: Does the patient meet any 2 criteria? No. Patient's initial sepsis screen is negative. Does the patient have a suspected source of infection? No. Patient's initial sepsis screen is negative. Risk Assessment: Do you want to hurt yourself or someone else? Patient reports no desire to harm self or others. Onset of symptoms was May 26, 2025. Care prior to arrival: Glucose check: 96. 12:49 Method Of Arrival: EMS: [facility] cm10 12:49 Acuity: ALEXANDER 3 cm10 Triage Assessment: 12:59 General: Appears in no apparent distress. uncomfortable, Behavior is calm, cooperative, cm10 appropriate for age. Pain: Complains of pain in head Pain currently is 9 out of 10 on a pain scale. Quality of pain is described as pressure. Neuro: No deficits noted. Level of Consciousness is awake, alert, obeys commands, Oriented to person, place, time, situation, Appropriate for age. Neuro: Reports dizziness. Cardiovascular: Edema is 4+ to left ankle, left foot, right ankle and right foot. Respiratory: No deficits noted. Airway is patent Respiratory effort is even, unlabored, Respiratory pattern is regular, symmetrical. Historical: - Allergies: 12:48 Bees; cm10 12:48 buprenorphine; cm10 12:48 Ceclor; cm10 12:48 Demerol; cm10 12:48 Erythromycin; cm10 12:48 Iodine; cm10 12:48 Keflex; cm10 12:48 Latex; cm10 12:48 PENICILLINS; cm10 12:48 Sulfa (Sulfonamide Antibiotics); cm10 - Home Meds: 12:48 Eliquis 5 mg Oral tablet [Active]; cm10 - PMHx: 12:48 Congestive heart failure; intercainal hypertension; Seizure; cm10 - PSHx: 12:48 pacemaker; renal stent; cm10 Screenin:30 [facility] ED Fall Risk Assessment (Adult) History of falling in the last 3 months, rg5 including since admission Yes- single mechanical fall (1 pt) Confusion or Disorientation No (0 pts) Intoxicated or Sedated No (0 pts) Impaired Gait Yes (1 pt) Mobility Assist Device Used Yes (1 pt) Altered Elimination No (0 pt) Score/Fall Risk Level 3 or more points = High Risk Oriented to surroundings, Maintained a safe environment, Hourly rounding (assess needs \T\ fall precautionary measures) done. Abuse screen: Denies threats or abuse. Nutritional screening: No deficits noted. Tuberculosis screening: No symptoms or risk factors identified. Assessment: 13:30 General: Appears in no apparent distress. comfortable, Behavior is calm, cooperative, rg5 appropriate for age. Pain: Denies pain. Neuro: Level of Consciousness is awake, alert, obeys commands, Oriented to person, place, time, situation. Cardiovascular: Patient's skin is warm and dry. Respiratory: Airway is patent. 13:30 GI: Abdomen is round non-distended. : No signs and/or symptoms were reported rg5 regarding the genitourinary system. EENT: No signs and/or symptoms were reported regarding the EENT system. Derm: Skin is intact, Skin is dry, Skin is normal, Skin temperature is warm. Musculoskeletal: Circulation, motion, and sensation intact. Range of motion: intact in all extremities. 16:00 Reassessment: Patient and/or family updated on plan of care and expected duration. Pain rg5 level reassessed. Patient is alert, oriented x 3, equal unlabored respirations, skin warm/dry/pink. 17:00 Reassessment: No changes from previously documented assessment. Patient and/or family rg5 updated on plan of care and expected duration. Pain level reassessed. Patient is alert, oriented x 3, equal unlabored respirations, skin warm/dry/pink. Vital Signs: 12:58 BP 96 / 54; Pulse 72; Resp 16; Temp 97.5(O); Pulse Ox 100% on R/A; MAP 67 mmHg; Weight cm10 99.79 kg; Height 5 ft. 5 in. ; Pain 9/10; 13:45 BP 104 / 62 Supine; Pulse 73; ts3 13:45 BP 101 / 53 Sitting; Pulse 71; ts3 13:45 BP 84 / 48 Standing; Pulse 72; ts3 14:30 BP 96 / 56; Pulse 71; Resp 18; Pulse Ox 100% ; rg5 15:00 BP 107 / 68; Pulse 71; Resp 18; Pulse Ox 100% ; rg5 16:30 BP 110 / 68; Pulse 71; Resp 18; Pulse Ox 97% ; rg5 12:58 Body Mass Index 36.61 (99.79 kg, 165.1 cm) cm10 12:58 Pain Scale: Adult cm10 ED Course: 12:47 Patient arrived in ED. cm10 12:49 Hollie Caldera MD is Attending Physician. sp3 12:49 Arm band placed on right wrist. Patient placed in an exam room, on a stretcher. cm10 12:50 Triage completed. cm10 12:58 Fela Severino, RN is Primary Nurse. cm10 13:19 Missed attempt(s): 22 gauge in right antecubital area. Bleeding controlled, band aid cm10 applied, catheter tip intact. 13:20 Report given to BRYN Vanegas. cm10 13:30 Patient has correct armband on for positive identification. Bed in low position. Call rg5 light in reach. Side rails up X 1. 13:39 Victor M Ulloa, RN is Primary Nurse. rg5 13:41 XRAY Chest (1 view) In Process Unspecified. EDMS 13:45 EKG done, by floor technician. reviewed by Hollie Caldera MD. ts3 14:30 No provider procedures requiring assistance completed. Missed attempt(s): 20 gauge in rg5 right antecubital area. 16:35 Accessed peripheral vein via ultrasound, utilizing dynamic ultrasound technique using hb per hospital protocol. Clean \T\ dry. Dressing intact. Good blood return. Flushes easily. 17:36 IV discontinued, bleeding controlled, No redness/swelling at site. Pressure dressing rg5 applied. Administered Medications: 16:57 CANCELLED (Duplicate Order): potassium chlorideliquid 40 meq PO once sp3 17:01 Drug: Potassium PO Effervescent Tablet 50 mEq PO once; dissolve in 4 ounces of water or rg5 juice Route: PO; 17:37 Follow up: Response: No adverse reaction rg5 Medication: 13:30 VIS not applicable for this client. rg5 Outcome: 17:17 Discharge ordered by . sp3 17:36 Discharged to home via wheelchair, rg5 17:36 Condition: stable 17:36 Discharge instructions given to patient, 17:37 Patient left the ED. rg5 Signatures: Dispatcher [employer] EDMS Loreto Wheat RN RN Hollie Shrestha MD MD sp3 Fela Severino RN RN cm10 Victor M Ulloa RN RN rg5 Shefali Edmond 3
--- NOTE | 2025-05-26 17:18 | EDPHYS ---
Physician Documentation [facility] Name: Trini Conklin Age: 59 yrs Sex: Female : 1965 Arrival Date: 05/26/2025 Time: 12:44 Bed 15 Private MD: ED Physician Hollie Caldera HPI: 05/26 13:49 This 59 yrs old Female presents to ER via EMS with complaints of Leg Swelling, sp3 Hypotension. 13:49 59-year-old female with history of CHF, seizure history presents via EMS for sp3 hypotension and generalized weakness at home. Patient has history of orthostatic hypotension for which her porcelain mixer changed her Lasix dosing by holding it for several days. She states that her blood pressure is routinely low when she is laying down. Patient states that she feels like her legs are heavier as well. She denies any fever, headache, neck pain, chest pain, shortness of breath, abdominal pain, vomiting, diarrhea or any other signs or symptoms on ROS at this time. She just states she feels weak.. Historical: - Allergies: 12:48 Bees; cm10 12:48 buprenorphine; cm10 12:48 Ceclor; cm10 12:48 Demerol; cm10 12:48 Erythromycin; cm10 12:48 Iodine; cm10 12:48 Keflex; cm10 12:48 Latex; cm10 12:48 PENICILLINS; cm10 12:48 Sulfa (Sulfonamide Antibiotics); cm10 - Home Meds: 12:48 Eliquis 5 mg Oral tablet [Active]; cm10 - PMHx: 12:48 Congestive heart failure; intercainal hypertension; Seizure; cm10 - PSHx: 12:48 pacemaker; renal stent; cm10 ROS: 13:51 Constitutional: Negative for fever, chills, and weight loss, Eyes: Negative for injury, sp3 pain, redness, and discharge, ENT: Negative for injury, pain, and discharge, Neck: Negative for injury, pain, and swelling, Cardiovascular: Negative for chest pain, palpitations, and edema, Respiratory: Negative for shortness of breath, cough, wheezing, and pleuritic chest pain, Abdomen/GI: Negative for abdominal pain, nausea, vomiting, diarrhea, and constipation, Back: Negative for injury and pain, Skin: Negative for injury, rash, and discoloration, Allergy/Immunology: Negative for hives, rash, and allergies, Endocrine: Negative for neck swelling, polydipsia, polyuria, polyphagia, and marked weight changes, Hematologic/Lymphatic: Negative for swollen nodes, abnormal bleeding, and unusual bruising, 13:51 All other systems are negative, Exam: 13:51 Constitutional: This is a well developed, well nourished patient who is awake, alert, sp3 and in no acute distress. Head/Face: Normocephalic, atraumatic. Eyes: Pupils equal round and reactive to light, extra-ocular motions intact. Lids and lashes normal. Conjunctiva and sclera are non-icteric and not injected. Cornea within normal limits. Periorbital areas with no swelling, redness, or edema. ENT: Nares patent. No nasal discharge, no septal abnormalities noted. External auditory canals are clear. Oropharynx with no redness, swelling, or masses, exudates, or evidence of obstruction, uvula midline. Mucous membranes moist. Neck: Trachea midline, no thyromegaly or masses palpated, and no cervical lymphadenopathy. Supple, full range of motion without nuchal rigidity, or vertebral point tenderness. No Meningismus. Chest/axilla: Normal chest wall appearance and motion. Nontender with no deformity. No lesions are appreciated. Cardiovascular: Regular rate and rhythm with a normal S1 and S2. No gallops, murmurs, or rubs. Normal PMI, no JVD. No pulse deficits. Respiratory: Lungs have equal breath sounds bilaterally, clear to auscultation and percussion. No rales, rhonchi or wheezes noted. No increased work of breathing, no retractions or nasal flaring. Abdomen/GI: Soft, non-tender, with normal bowel sounds. No distension or tympany. No guarding or rebound. No evidence of tenderness throughout. Back: No spinal tenderness. No costovertebral tenderness. Full range of motion. Skin: Warm, dry with normal turgor. Normal color with no rashes, no lesions, and no evidence of cellulitis. Neuro: Awake and alert, GCS 15, oriented to person, place, time, and situation. Cranial nerves II-XII grossly intact. Motor strength 5/5 in all extremities. Sensory grossly intact. Cerebellar exam normal. Normal gait. Psych: Awake, alert, with orientation to person, place and time. Behavior, mood, and affect are within normal limits. 13:51 Musculoskeletal/extremity: 2+ pitting edema and general swelling of the lower extremities bilaterally. Some of this appears to be chronic lymphedema.. 13:58 ECG was reviewed by the Attending Physician. EKG demonstrates paced rhythm atrial with sp3 74 bpm ventricular response. Vital Signs: 12:58 BP 96 / 54; Pulse 72; Resp 16; Temp 97.5(O); Pulse Ox 100% on R/A; MAP 67 mmHg; Weight cm10 99.79 kg; Height 5 ft. 5 in. ; Pain 9/10; 13:45 BP 104 / 62 Supine; Pulse 73; ts3 13:45 BP 101 / 53 Sitting; Pulse 71; ts3 13:45 BP 84 / 48 Standing; Pulse 72; ts3 14:30 BP 96 / 56; Pulse 71; Resp 18; Pulse Ox 100% ; rg5 15:00 BP 107 / 68; Pulse 71; Resp 18; Pulse Ox 100% ; rg5 16:30 BP 110 / 68; Pulse 71; Resp 18; Pulse Ox 97% ; rg5 12:58 Body Mass Index 36.61 (99.79 kg, 165.1 cm) cm10 12:58 Pain Scale: Adult cm10 MDM: 12:52 Medical Screening Exam initiated sp3 13:56 Data reviewed: vital signs, nurses notes, lab test result(s), EKG, radiologic studies. sp3 13:57 ED course: 59-year-old female with PMH above now with generalized weakness and sp3 recurrent low blood pressure. Differential diagnosis includes vasovagal episode, orthostatic hypotension, electrolyte abnormality, and to a lesser degree acute coronary syndrome, CHF or other cardiovascular pathophysiology. Workup will include general labs, EKG, chest x-ray and general supportive care. Consider IV fluids however history of CHF noted. Disposition pending workup and patient course.. 17:17 ED course: Lactic normal. Vital signs are now normal as well. I believe patient had sp3 mild dehydration. Will safely discharge home at this time.. 05/26 13:00 Order name: Basic Metabolic Panel; Complete Time: 14:42 sp3 05/26 13:00 Order name: CBC with Diff; Complete Time: 15:10 sp3 05/26 13:00 Order name: LFT's; Complete Time: 14:42 sp3 05/26 13:00 Order name: Magnesium; Complete Time: 14:42 sp3 05/26 13:00 Order name: NT PRO-BNP; Complete Time: 14:42 sp3 05/26 13:00 Order name: PT-INR; Complete Time: 13:58 sp3 05/26 13:00 Order name: Troponin HS; Complete Time: 14:42 sp3 05/26 13:56 Order name: UA Rfx John Cult if indicated; Complete Time: 16:27 3 05/26 13:57 Order name: Lactate w/ 2H reflex if indic.; Complete Time: 17:17 sp3 05/26 13:59 Order name: CBC Smear Scan; Complete Time: 15:10 EDMS 05/26 13:00 Order name: XRAY Chest (1 view); Complete Time: 13:58 3 05/26 13:00 Order name: Cardiac monitoring; Complete Time: 13:44 3 05/26 13:00 Order name: EKG - Nurse/Tech; Complete Time: 13:44 3 05/26 13:00 Order name: IV Saline Lock; Complete Time: 16:27 3 05/26 13:00 Order name: Labs collected and sent; Complete Time: 15:26 3 05/26 13:00 Order name: O2 Per Protocol; Complete Time: 15:26 3 05/26 13:00 Order name: O2 Sat Monitoring; Complete Time: 15:26 3 05/26 13:56 Order name: Recheck Blood Pressure; Complete Time: 15:26 sp3 Administered Medications: 16:57 CANCELLED (Duplicate Order): potassium chlorideliquid 40 meq PO once sp3 17:01 Drug: Potassium PO Effervescent Tablet 50 mEq PO once; dissolve in 4 ounces of water or rg5 juice Route: PO; 17:37 Follow up: Response: No adverse reaction rg5 Disposition Summary: 05/26/25 17:17 Discharge Ordered Notes: Location: Home sp3 Condition: Stable sp3 Diagnosis - Dehydration, hypotension resolved sp3 Followup: sp3 - With: Private Physician - When: Upon discharge from the Emergency Department - Reason: Continuance of care Discharge Instructions: - Discharge Summary Sheet sp3 - Hypotension sp3 Forms: - Medication Reconciliation Form sp3 - Antibiotic Education sp3 - Prescription Opioid Use sp3 - Patient Portal Instructions sp3 - Leadership Thank You Letter sp3 Signatures: Dispatcher [employer] EDMS Ganesh Pereira PA-C PAHollie Alegre cp, MD MD sp3 Fela Severino, RN RN cm10 Victor M Ulloa, BRYN RN rg5 Corrections: (The following items were deleted from the chart) 13:00 13:00 BASIC METABOLIC PANEL+C.LAB.BRZ ordered. EDMS EDMS 13:00 13:00 CBC+H.LAB.BRZ ordered. EDMS EDMS 13:00 13:00 HEPATIC FUNCTION+C.LAB.BRZ ordered. EDMS EDMS 13:00 13:00 MAGNESIUM+C.LAB.BRZ ordered. EDMS EDMS 13:00 13:00 PROBNP+C.LAB.BRZ ordered. EDMS EDMS 13:00 13:00 PROTIME (+INR)+COAG.LAB.BRZ ordered. EDMS EDMS 13:00 13:00 Troponin High Sensitivity+C.LAB.BRZ ordered. EDMS EDMS 13:01 13:01 Chest Single View+RAD.RAD.BRZ ordered. EDMS EDMS 16:57 16:56 Potassium Chloride PO Liquid 40 mEq PO once ordered. sp3 sp3
[2025-05-26 18:57] VITALS: TEMP 97.5
[2025-05-26 19:04] VITALS: BP 110/68; O2SAT 97
== END 2025-05-26 17:37 | disposition home or self-care (01) ==
LOC: ER 12:44
DX: E86.0 Dehydration (principal); I50.9 Heart failure, unspecified; Z95.0 Presence of cardiac pacemaker; Z79.01 Long term (current) use of anticoagulants
CPT/HCPCS: 36415; 71045; 80048; 80076; 81001; 83605; 83735; 83880; 84484; 85025; 85610; 93005; 99284